=== PATIENT | female | born 1945 | race Caucasian/White ===

== ENCOUNTER → 2018-03-15 10:41 | Outpatient (CLI) | payer MEDICARE, BC, SELFPAY | PROVIDERS: Family Provider Nurse Practitioner Family; PCP Nurse Practitioner Family; Visit Provider Physician Assistant | DX: N39.0 Urinary tract infection, site not specified (principal) | CPT/HCPCS: 87077; 87086; 87186 ==

== ENCOUNTER 2018-08-10 08:15 | Outpatient (RCR) | payer MEDICARE, BC, SELFPAY ==
--- NOTE | 2018-05-30 16:58 | PT.OIE ---
Current Diagnoses Pain in left knee (05/30/18) Difficulty in walking, not elsewhere classified (05/30/18) Weakness (05/30/18) Presence of left artificial knee joint (05/30/18) Past Surgical History (Last Updated 05/30/18 @ 16:50 by Lucina Mike, PT) History of right hip replacement (Acute) History of total left knee replacement (Acute) Provider Visit Care Team Role Provider Type Abebe Neves MD Attending Provider Non-Staff Specialty: Orthopedics Address: [address] [place] [address] , [place], [address] Email: Physical Therapy Initial Evaluation PT-OP-A Visit Information Start: 05/30/18 08:11 Freq: Status: Active Protocol: Document 05/30/18 09:49 [facility] (Rec: 05/30/18 16:58 [facility] [id number]) Out-Patient Physical Therapy Visit Information Visit Information Visit Type Initial Evaluation Visit Note 1 total visit Visit Start Time 09:45 Visit Stop Time 10:30 Total Visit Minutes 45 Visit Number / Number of INTEGRATION ASSISTANT Visits 0 PT-OP-B Current Condition Start: 05/30/18 08:11 Freq: Status: Active Protocol: Document 05/30/18 09:49 [facility] (Rec: 05/30/18 10:35 [facility] [id number]) Current Condition History of Current Condition Onset Date 02/20/18 Current Complaints dec knee ROM History of Current Condition Pt had L partial knee replacement 02/20/18 and she did PT about 2 months, but did not achieve full range. Pt reports she has pain anytime her knee is bent for any period of time or when she tries to go to end range flex. Pt reports she is overall not very flexible. The MD plans to do a manipulation if PT does not work. Prior Treatments and Tests 2 months PT Future Testing and Treatments Planned possible manipulation Treatment Goals Patient/Caregiver Goals be able to go up/down stairs, wake up in AM without painful knee, be able to go up/down hills PT-OP-C Subjective Start: 05/30/18 08:11 Freq: Status: Active Protocol: Document 05/30/18 09:49 [facility] (Rec: 05/30/18 10:35 [facility] [id number]) Patient Questionnaires Lower Extremity Functional Scale LEFS Score 49 LEFS Impairment 20 to 39% Impaired (Score 48- 62) OP-PT Pain Assessment Location L knee Pain Location Details post knee into calf & into heel Intensity 7 Scale Used Numeric (1 - 10) Description Aching Sharp Frequency Occasional Pain Duration only through activity Pain Aggravating Factors Stair Climbing Bending Other Pain Aggravating Factors geting dressed, getting up after sitting Pain Alleviating Factors None PT-OP-F Manual Assessment Start: 05/30/18 08:11 Freq: Status: Active Protocol: Document 05/30/18 09:49 [facility] (Rec: 05/30/18 10:35 [facility] [id number]) Manual Assessments Soft Tissue Assessment Soft Tissue Mobility Assessment tightness in scar and HS & calf L Joint Mobility Assessment Joint Mobility Assessment Dec patellar mobility PT-OP-G Mobility & Gait Start: 05/30/18 08:11 Freq: Status: Active Protocol: Document 05/30/18 09:49 [facility] (Rec: 05/30/18 10:35 [facility] [id number]) OP Gait Assessment Comments Gait Comments dec LLE push off and L lat lean with LLE stance PT-OP-K Range of Motion Start: 05/30/18 08:11 Freq: Status: Active Protocol: Document 05/30/18 09:49 [facility] (Rec: 05/30/18 10:35 [facility] [id number]) Knee Goniometric Range of Motion Knee Measured in Degrees Right Patient Position Supine Flexion Active (degrees) 115 Extension Active (degrees) 7 Left Patient Position Supine Flexion Active (degrees) 91 Extension Active (degrees) 10 Ankle and Foot Goniometric Range of Motion Ankle and Foot Measured in Degrees Left Active Dorsiflexion with Knee Flexed 18 Dorsiflexion with Knee Extended 12 PT-OP-M Strength Start: 05/30/18 08:11 Freq: Status: Active Protocol: Document 05/30/18 09:49 [facility] (Rec: 05/30/18 10:35 [facility] [id number]) Hip Strength Hip Manual Muscle Testing Right Flexion (L2) 4+ Good+ Extension (S1) 4+ Good+ Abduction 4+ Good+ External Rotation 4 Good Internal Rotation 5 Normal Left Flexion (L2) 4- Good- Extension (S1) 3+ Fair+ Abduction 4- Good- Adduction 4 Good External Rotation 4- Good- Internal Rotation 3+ Fair+ Knee Strength Knee Manual Muscle Testing Right Flexion (S2) 5 Normal Extension (L3) 5 Normal Left Flexion (S2) 3+ Fair+ Extension (L3) 4+ Good+ Comments pain Ankle/Foot Strength Ankle and Foot Manual Muscle Testing Right Dorsiflexion (L4) 5 Normal Plantarflexion (S1) 5 Normal Left Dorsiflexion (L4) 5 Normal Plantarflexion (S1) 5 Normal Comments inc difficulty L PT-OP-Q Treatments Start: 05/30/18 08:11 Freq: Status: Active Protocol: Document 05/30/18 09:49 [facility] (Rec: 05/30/18 10:35 [facility] [id number]) Therapeutic Exercises Supine Exercises naga test stretch Supine Exercise Name naga test stretch Side left Reps/Minutes 30 sec HS stretch Supine Exercise Name HS stretch with towel Side left Reps/Minutes 30 sec Sitting Exercises knee flex Sitting Exercise Name seated knee flex w/ scoot Side left Reps/Minutes 10 sec hold Standing Exercises gastroc stretch Standing Exercise Name gastroc stretch Side left Reps/Minutes 30 sec Other Exercises rolling out/plunger Other Exercise Name rolling L HS & calf & plunger pull to L ant knee Side left PT-OP-T Assessment and Plan Start: 05/30/18 08:11 Freq: Status: Active Protocol: Document 05/30/18 09:49 [facility] (Rec: 05/30/18 16:58 [facility] [id number]) Physical Therapy Assessment Rehab Potential Rehabilitation Potential Good Evaluation Complexity Number of Personal Factors/Comorbidities 3 or More Number of Body Systems Impaired 4 or More Clinical Presentation at Evaluation Stable Impairments Impairments Activity Tolerance Functional Activities Gait Pain ROM Soft Tissue Mobility Strength Goals pain Short Term Goal (STG) Pt will be able to appropriately set herself up to sleep without waking with significant pain. STG Duration 06/30/18 Circulating Process Inspector Goal (LTG) Pt will report no more than 2/ 10 pain with typical daily activities. LTG Duration 07/28/18 strength Impairment strength Short Term Goal (STG) Pt will be indep with HEP STG Duration 06/30/18 Intermediate Goal (LTG) Pt will have 5/5 strength to allow her to return to normal activities without pain. LTG Duration 07/28/18 ROM Impairment ROM Short Term Goal (STG) Pt will have 3-105 ROM to allow inc ability to participate in daily tasks. STG Duration 06/30/18 Circulating Process Inspector Goal (LTG) Pt will have 0-120 ROM and is able to particpate in stairs without pain. LTG Duration 07/28/18 Assessment Summary Assessment Pt presents with significantly dec ROM in L knee after partial knee replacement 3 months ago. She cont to have significant pain with typical daily activities and significiant hip and knee weakness on LLE. She would benefit from therapy to work on range & overall LLE strength. Physical Therapy Plan Frequency and Duration Frequency of Treatment 2x/Week Duration of Treatment 2 months Plan of Care Start Date 05/30/18 Plan of Care End Date 07/28/18 Therapeutic Interventions Therapeutic Interventions Aquatic Therapy Balance Training Gait Training Home Exercise Program Joint Mobilizations Manual Therapy Neuromuscular Re-education Self-Care/Home Management Soft Tissue Mobilization Taping Therapeutic Activities Therapeutic Exercises Modalities Cold Pack/Ice Massage Electric Stimulation Hot Packs Infrared Therapy Ultrasound Next Visit Focus/Plan Next Note Type Treatment Note Next Visit Plan tball flex, wall flex, heel slides, bike/stepper, patellar & tibfem glides, STM to scar
--- NOTE | 2018-05-30 16:58 | PT.OPPOC ---
Current Diagnoses Pain in left knee (05/30/18) Difficulty in walking, not elsewhere classified (05/30/18) Weakness (05/30/18) Presence of left artificial knee joint (05/30/18) Provider Visit Care Team Role Provider Type Abebe Nvees MD Attending Provider Non-Staff Specialty: Orthopedics Address: [facility] [address], [place], [address] Email: Plan Of Care PT-OP-T Assessment and Plan Start: 05/30/18 08:11 Freq: Status: Active Protocol: Document 05/30/18 09:49 [facility] (Rec: 05/30/18 16:58 [facility] [id number]) Physical Therapy Assessment Rehab Potential Rehabilitation Potential Good Evaluation Complexity Number of Personal Factors/Comorbidities 3 or More Number of Body Systems Impaired 4 or More Clinical Presentation at Evaluation Stable Impairments Impairments Activity Tolerance Functional Activities Gait Pain ROM Soft Tissue Mobility Strength Goals pain Short Term Goal (STG) Pt will be able to appropriately set herself up to sleep without waking with significant pain. STG Duration 06/30/18 Custodial Goal (LTG) Pt will report no more than 2/ 10 pain with typical daily activities. LTG Duration 07/28/18 strength Impairment strength Short Term Goal (STG) Pt will be indep with HEP STG Duration 06/30/18 Sales Negotiator Goal (LTG) Pt will have 5/5 strength to allow her to return to normal activities without pain. LTG Duration 07/28/18 ROM Impairment ROM Short Term Goal (STG) Pt will have 3-105 ROM to allow inc ability to participate in daily tasks. STG Duration 06/30/18 Sales Negotiator Goal (LTG) Pt will have 0-120 ROM and is able to particpate in stairs without pain. LTG Duration 07/28/18 Assessment Summary Assessment Pt presents with significantly dec ROM in L knee after partial knee replacement 3 months ago. She cont to have significant pain with typical daily activities and significiant hip and knee weakness on LLE. She would benefit from therapy to work on range & overall LLE strength. Physical Therapy Plan Frequency and Duration Frequency of Treatment 2x/Week Duration of Treatment 2 months Plan of Care Start Date 05/30/18 Plan of Care End Date 07/28/18 Therapeutic Interventions Therapeutic Interventions Aquatic Therapy Balance Training Gait Training Home Exercise Program Joint Mobilizations Manual Therapy Neuromuscular Re-education Self-Care/Home Management Soft Tissue Mobilization Taping Therapeutic Activities Therapeutic Exercises Modalities Cold Pack/Ice Massage Electric Stimulation Hot Packs Infrared Therapy Ultrasound Next Visit Focus/Plan Next Note Type Treatment Note Next Visit Plan tball flex, wall flex, heel slides, bike/stepper, patellar & tibfem glides, STM to scar Plan of Care Dates Plan of Care Start Date 05/30/18 Plan of Care End Date 07/28/18 Please Sign and Return: I have reviewed this Plan of Care and certify that the skilled therapy services above are required to meet the patient?s needs. Physician Signature Date Printed Name and Credentials Clinical Instructor Signature Printed Name and Credentials
--- NOTE | 2018-06-02 11:29 | PT.OTN ---
Current Diagnoses Presence of left artificial knee joint (06/02/18) Physical Therapy Treatment Note PT-OP-A Visit Information Start: 05/30/18 08:11 Freq: Status: Active Protocol: Document 06/02/18 11:08 (Rec: 06/02/18 11:29 [email or web address]) Out-Patient Physical Therapy Visit Information Visit Information Visit Type Treatment Note Visit Start Time 09:44 Visit Stop Time 10:32 Total Visit Minutes 48 Visit Number 2/ Number of CNA HHA Visits 1 PT-OP-B Current Condition Start: 05/30/18 08:11 Freq: Status: Active Protocol: Document 05/30/18 09:49 [facility] (Rec: 05/30/18 10:35 [facility] [id number]) Current Condition History of Current Condition Onset Date 02/20/18 Current Complaints dec knee ROM History of Current Condition Pt had L partial knee replacement 02/20/18 and she did PT about 2 months, but did not achieve full range. Pt reports she has pain anytime her knee is bent for any period of time or when she tries to go to end range flex. Pt reports she is overall not very flexible. The MD plans to do a manipulation if PT does not work. Prior Treatments and Tests 2 months PT Future Testing and Treatments Planned possible manipulation Treatment Goals Patient/Caregiver Goals be able to go up/down stairs, wake up in AM without painful knee, be able to go up/down hills PT-OP-C Subjective Start: 05/30/18 08:11 Freq: Status: Active Protocol: Document 06/02/18 11:08 (Rec: 06/02/18 11:29 [email or web address]) OP-PT Subjective Patient Comments Patient Comments L knee feels tight and a little sore today, started doing HS stretching at home. PT-OP-F Manual Assessment Start: 05/30/18 08:11 Freq: Status: Active Protocol: Document 05/30/18 09:49 [facility] (Rec: 05/30/18 10:35 [facility] [id number]) Manual Assessments Soft Tissue Assessment Soft Tissue Mobility Assessment tightness in scar and HS & calf L Joint Mobility Assessment Joint Mobility Assessment Dec patellar mobility PT-OP-G Mobility & Gait Start: 05/30/18 08:11 Freq: Status: Active Protocol: Document 05/30/18 09:49 [facility] (Rec: 05/30/18 10:35 [facility] [id number]) OP Gait Assessment Comments Gait Comments dec LLE push off and L lat lean with LLE stance PT-OP-K Range of Motion Start: 05/30/18 08:11 Freq: Status: Active Protocol: Document 05/30/18 09:49 [facility] (Rec: 05/30/18 10:35 [facility] [id number]) Knee Goniometric Range of Motion Knee Measured in Degrees Right Patient Position Supine Flexion Active (degrees) 115 Extension Active (degrees) 7 Left Patient Position Supine Flexion Active (degrees) 91 Extension Active (degrees) 10 Ankle and Foot Goniometric Range of Motion Ankle and Foot Measured in Degrees Left Active Dorsiflexion with Knee Flexed 18 Dorsiflexion with Knee Extended 12 PT-OP-M Strength Start: 05/30/18 08:11 Freq: Status: Active Protocol: Document 05/30/18 09:49 [facility] (Rec: 05/30/18 10:35 [facility] [id number]) Hip Strength Hip Manual Muscle Testing Right Flexion (L2) 4+ Good+ Extension (S1) 4+ Good+ Abduction 4+ Good+ External Rotation 4 Good Internal Rotation 5 Normal Left Flexion (L2) 4- Good- Extension (S1) 3+ Fair+ Abduction 4- Good- Adduction 4 Good External Rotation 4- Good- Internal Rotation 3+ Fair+ Knee Strength Knee Manual Muscle Testing Right Flexion (S2) 5 Normal Extension (L3) 5 Normal Left Flexion (S2) 3+ Fair+ Extension (L3) 4+ Good+ Comments pain Ankle/Foot Strength Ankle and Foot Manual Muscle Testing Right Dorsiflexion (L4) 5 Normal Plantarflexion (S1) 5 Normal Left Dorsiflexion (L4) 5 Normal Plantarflexion (S1) 5 Normal Comments inc difficulty L PT-OP-Q Treatments Start: 05/30/18 08:11 Freq: Status: Active Protocol: Document 06/02/18 11:08 [facility] (Rec: 06/02/18 11:29 [facility] [id number]) Cardio Equipment Recumbent Bicycle Duration (Minutes) 6 Resistance 2 Other Warm up Therapeutic Exercises Supine Exercises Knee flexion stretch Side left Reps/Minutes 30 x 3 Comments with patellar mob naga test stretch Supine Exercise Name naga test stretch Side left Reps/Minutes 30 x 2 HS stretch Supine Exercise Name Standing at stair Side bilateral Reps/Minutes 30 x 2 Sitting Exercises knee flex Sitting Exercise Name seated knee flex w/ scoot Side left Reps/Minutes 10 sec hold Standing Exercises gastroc stretch Standing Exercise Name gastroc stretch Side left Reps/Minutes 30 x 2 Manual Therapy Treatment Soft Tissue Mobilization Scar mobs L knee Body Location L knee incision site Mobilization Type Cross-Friction Intensity/Depth Moderate Body Position Supine Comments Pt supine with knee flexed. HS and gastroc/soleus Body Location L HS/gastroc Mobilization Type Cross-Friction Rolling Strumming Intensity/Depth Moderate Body Position Supine Joint Mobilizations Patallar mobs Joint L knee Grade II Body Position Supine PT-OP-R Modalities Start: 05/30/18 08:11 Freq: Status: Active Protocol: Document 06/02/18 11:08 (Rec: 06/02/18 11:29 [email or web address]) Hot Pack/Cold Pack Treatment Hot Pack Location L knee Patient Position Supine Treatment Duration (minutes) 10 Comments Pt going shopping after and did'nt want to be stiff. PT-OP-T Assessment and Plan Start: 05/30/18 08:11 Freq: Status: Active Protocol: Document 06/02/18 11:08 (Rec: 06/02/18 11:29 [email or web address]) Physical Therapy Assessment Assessment Summary Assessment Pt tolerated treatment well, continued limitations with L knee flexion and ext lag. Recommended pt continue HS and gastroc/soleus stretching at home. Physical Therapy Plan Next Visit Focus/Plan Next Note Type Treatment Note Next Visit Plan Provide handout for self scar mobs to add to HEP, progress LE strengthening and flexibility program and assess response to manual therapy.
--- NOTE | 2018-06-06 16:44 | PT.OTN ---
Current Diagnoses Presence of left artificial knee joint (06/06/18) Physical Therapy Treatment Note PT-OP-A Visit Information Start: 05/30/18 08:11 Freq: Status: Active Protocol: Document 06/06/18 11:21 [facility] (Rec: 06/06/18 14:33 [facility] [id number]) Out-Patient Physical Therapy Visit Information Visit Information Visit Type Treatment Note Visit Start Time 11:15 Visit Stop Time 12:10 Total Visit Minutes 55 Visit Number 3/10 Number of STOCK PREPARATION SUPERVISOR Visits 0 PT-OP-B Current Condition Start: 05/30/18 08:11 Freq: Status: Active Protocol: Document 05/30/18 09:49 [facility] (Rec: 05/30/18 10:35 [facility] [id number]) Current Condition History of Current Condition Onset Date 02/20/18 Current Complaints dec knee ROM History of Current Condition Pt had L partial knee replacement 02/20/18 and she did PT about 2 months, but did not achieve full range. Pt reports she has pain anytime her knee is bent for any period of time or when she tries to go to end range flex. Pt reports she is overall not very flexible. The MD plans to do a manipulation if PT does not work. Prior Treatments and Tests 2 months PT Future Testing and Treatments Planned possible manipulation Treatment Goals Patient/Caregiver Goals be able to go up/down stairs, wake up in AM without painful knee, be able to go up/down hills PT-OP-C Subjective Start: 05/30/18 08:11 Freq: Status: Active Protocol: Document 06/06/18 11:21 [facility] (Rec: 06/06/18 14:33 [facility] [id number]) OP-PT Subjective Patient Comments Patient Comments Reports compliances with stretches. PT-OP-F Manual Assessment Start: 05/30/18 08:11 Freq: Status: Active Protocol: Document 05/30/18 09:49 [facility] (Rec: 05/30/18 10:35 [facility] [id number]) Manual Assessments Soft Tissue Assessment Soft Tissue Mobility Assessment tightness in scar and HS & calf L Joint Mobility Assessment Joint Mobility Assessment Dec patellar mobility PT-OP-G Mobility & Gait Start: 05/30/18 08:11 Freq: Status: Active Protocol: Document 05/30/18 09:49 [facility] (Rec: 05/30/18 10:35 [facility] [id number]) OP Gait Assessment Comments Gait Comments dec LLE push off and L lat lean with LLE stance PT-OP-K Range of Motion Start: 05/30/18 08:11 Freq: Status: Active Protocol: Document 05/30/18 09:49 [facility] (Rec: 05/30/18 10:35 [facility] [id number]) Knee Goniometric Range of Motion Knee Measured in Degrees Right Patient Position Supine Flexion Active (degrees) 115 Extension Active (degrees) 7 Left Patient Position Supine Flexion Active (degrees) 91 Extension Active (degrees) 10 Ankle and Foot Goniometric Range of Motion Ankle and Foot Measured in Degrees Left Active Dorsiflexion with Knee Flexed 18 Dorsiflexion with Knee Extended 12 PT-OP-M Strength Start: 05/30/18 08:11 Freq: Status: Active Protocol: Document 05/30/18 09:49 [facility] (Rec: 05/30/18 10:35 [facility] [id number]) Hip Strength Hip Manual Muscle Testing Right Flexion (L2) 4+ Good+ Extension (S1) 4+ Good+ Abduction 4+ Good+ External Rotation 4 Good Internal Rotation 5 Normal Left Flexion (L2) 4- Good- Extension (S1) 3+ Fair+ Abduction 4- Good- Adduction 4 Good External Rotation 4- Good- Internal Rotation 3+ Fair+ Knee Strength Knee Manual Muscle Testing Right Flexion (S2) 5 Normal Extension (L3) 5 Normal Left Flexion (S2) 3+ Fair+ Extension (L3) 4+ Good+ Comments pain Ankle/Foot Strength Ankle and Foot Manual Muscle Testing Right Dorsiflexion (L4) 5 Normal Plantarflexion (S1) 5 Normal Left Dorsiflexion (L4) 5 Normal Plantarflexion (S1) 5 Normal Comments inc difficulty L PT-OP-Q Treatments Start: 05/30/18 08:11 Freq: Status: Active Protocol: Document 06/06/18 11:21 [facility] (Rec: 06/06/18 16:44 [facility] [id number]) Cardio Equipment Recumbent Bicycle Duration (Minutes) 8 Resistance 2 Other For ROM Therapeutic Exercises Supine Exercises wall flex Supine Exercise Name knee flex w/pillowcase Reps/Minutes 5 sec hold x20 Standing Exercises stair knee flex Standing Exercise Name stretch for knee flex w/ stair Reps/Minutes 30 sec Other Exercises 1/2 knee knee flex stretch Other Exercise Name knee flex Reps/Minutes 10 sec x3 Manual Therapy Treatment Soft Tissue Mobilization ITB Body Location ITB L Mobilization Type Rolling Intensity/Depth Moderate Comments in knee flex HS and gastroc/soleus Body Location L HS/gastroc Mobilization Type Cross-Friction Rolling Strumming Intensity/Depth Moderate Body Position Supine Joint Mobilizations tibfem Joint L tibfemoral Direction PA FM w/APs PT-OP-R Modalities Start: 05/30/18 08:11 Freq: Status: Active Protocol: Document 06/06/18 11:21 [facility] (Rec: 06/06/18 16:44 [facility] [id number]) Hot Pack/Cold Pack Treatment Cold Pack Location ant/post L knee Patient Position Hooklying Treatment Duration (minutes) 10 PT-OP-T Assessment and Plan Start: 05/30/18 08:11 Freq: Status: Active Protocol: Document 06/06/18 11:21 [facility] (Rec: 06/06/18 16:44 [facility] [id number]) Physical Therapy Assessment Goals pain Short Term Goal (STG) Pt will be able to appropriately set herself up to sleep without waking with significant pain. STG Duration 06/30/18 Mop Machine Operator Goal (LTG) Pt will report no more than 2/ 10 pain with typical daily activities. LTG Duration 07/28/18 strength Impairment strength Short Term Goal (STG) Pt will be indep with HEP STG Duration 06/30/18 Mop Machine Operator Goal (LTG) Pt will have 5/5 strength to allow her to return to normal activities without pain. LTG Duration 07/28/18 ROM Impairment ROM Short Term Goal (STG) Pt will have 3-105 ROM to allow inc ability to participate in daily tasks. STG Duration 06/30/18 Mop Machine Operator Goal (LTG) Pt will have 0-120 ROM and is able to particpate in stairs without pain. LTG Duration 07/28/18 Assessment Summary Assessment Pt was able to gain 115 deg flex with wall slides. Manually, pt has dec PA tibial motion, ITB, med HS & med calf tenderness/tightness likely limiting knee flexion. Physical Therapy Plan Frequency and Duration Frequency of Treatment 2x/Week Duration of Treatment 2 months Plan of Care Start Date 05/30/18 Plan of Care End Date 07/28/18 Next Visit Focus/Plan Next Note Type Treatment Note Next Visit Plan self scar mobs for HEP, assess response to mobilization, patellar med glides, possible [employer] taping.
--- NOTE | 2018-06-08 11:46 | PT.OTN ---
Current Diagnoses Presence of left artificial knee joint (06/08/18) Physical Therapy Treatment Note PT-OP-A Visit Information Start: 05/30/18 08:11 Freq: Status: Active Protocol: Document 06/08/18 11:34 [facility] (Rec: 06/08/18 11:46 [facility] [id number]) Out-Patient Physical Therapy Visit Information Visit Information Visit Type Treatment Note Visit Start Time 10:30 Visit Stop Time 11:30 Total Visit Minutes 60 Visit Number 4/10 Number of MATERIALS CLERK Visits 0 PT-OP-B Current Condition Start: 05/30/18 08:11 Freq: Status: Active Protocol: Document 05/30/18 09:49 [facility] (Rec: 05/30/18 10:35 [facility] [id number]) Current Condition History of Current Condition Onset Date 02/20/18 Current Complaints dec knee ROM History of Current Condition Pt had L partial knee replacement 02/20/18 and she did PT about 2 months, but did not achieve full range. Pt reports she has pain anytime her knee is bent for any period of time or when she tries to go to end range flex. Pt reports she is overall not very flexible. The MD plans to do a manipulation if PT does not work. Prior Treatments and Tests 2 months PT Future Testing and Treatments Planned possible manipulation Treatment Goals Patient/Caregiver Goals be able to go up/down stairs, wake up in AM without painful knee, be able to go up/down hills PT-OP-C Subjective Start: 05/30/18 08:11 Freq: Status: Active Protocol: Document 06/08/18 11:34 [facility] (Rec: 06/08/18 11:46 [facility] [id number]) OP-PT Subjective Patient Comments Patient Comments Pt reports [place] and was sores medially and posterior today. PT-OP-F Manual Assessment Start: 05/30/18 08:11 Freq: Status: Active Protocol: Document 05/30/18 09:49 [facility] (Rec: 05/30/18 10:35 [facility] [id number]) Manual Assessments Soft Tissue Assessment Soft Tissue Mobility Assessment tightness in scar and HS & calf L Joint Mobility Assessment Joint Mobility Assessment Dec patellar mobility PT-OP-G Mobility & Gait Start: 05/30/18 08:11 Freq: Status: Active Protocol: Document 05/30/18 09:49 [facility] (Rec: 05/30/18 10:35 [facility] [id number]) OP Gait Assessment Comments Gait Comments dec LLE push off and L lat lean with LLE stance PT-OP-K Range of Motion Start: 05/30/18 08:11 Freq: Status: Active Protocol: Document 05/30/18 09:49 [facility] (Rec: 05/30/18 10:35 [facility] [id number]) Knee Goniometric Range of Motion Knee Measured in Degrees Right Patient Position Supine Flexion Active (degrees) 115 Extension Active (degrees) 7 Left Patient Position Supine Flexion Active (degrees) 91 Extension Active (degrees) 10 Ankle and Foot Goniometric Range of Motion Ankle and Foot Measured in Degrees Left Active Dorsiflexion with Knee Flexed 18 Dorsiflexion with Knee Extended 12 PT-OP-M Strength Start: 05/30/18 08:11 Freq: Status: Active Protocol: Document 05/30/18 09:49 [facility] (Rec: 05/30/18 10:35 [facility] [id number]) Hip Strength Hip Manual Muscle Testing Right Flexion (L2) 4+ Good+ Extension (S1) 4+ Good+ Abduction 4+ Good+ External Rotation 4 Good Internal Rotation 5 Normal Left Flexion (L2) 4- Good- Extension (S1) 3+ Fair+ Abduction 4- Good- Adduction 4 Good External Rotation 4- Good- Internal Rotation 3+ Fair+ Knee Strength Knee Manual Muscle Testing Right Flexion (S2) 5 Normal Extension (L3) 5 Normal Left Flexion (S2) 3+ Fair+ Extension (L3) 4+ Good+ Comments pain Ankle/Foot Strength Ankle and Foot Manual Muscle Testing Right Dorsiflexion (L4) 5 Normal Plantarflexion (S1) 5 Normal Left Dorsiflexion (L4) 5 Normal Plantarflexion (S1) 5 Normal Comments inc difficulty L PT-OP-Q Treatments Start: 05/30/18 08:11 Freq: Status: Active Protocol: Document 06/08/18 11:34 [facility] (Rec: 06/08/18 11:46 [facility] [id number]) Therapeutic Exercises Supine Exercises quad set Supine Exercise Name passive ext with quad set Reps/Minutes 5 Standing Exercises Hamstring stretch Standing Exercise Name bottoms up Reps/Minutes 10 TKE Standing Exercise Name TKE Equipment Used lvl 2 Reps/Minutes 20 squats Standing Exercise Name squats with terminal knee ext to stand Equipment Used Lvl 2 Reps/Minutes 10 Manual Therapy Treatment Soft Tissue Mobilization ant tibialis Body Location ant tib Mobilization Type Myofascial Release Rolling Scar mobs L knee Body Location L knee incision site Mobilization Type Myofascial Release Intensity/Depth Moderate Body Position Supine Comments Pt supine with knee flexed w/ use of plunger HS and gastroc/soleus Body Location L HS/gastroc Mobilization Type Cross-Friction Rolling Strumming Intensity/Depth Moderate Body Position Supine Joint Mobilizations tibfib Joint tib fib Direction AP FM w/APs tibfem Joint L tibfemoral Direction AP to tibia & femor FM Patallar mobs Joint L knee Direction med Grade II Body Position Supine PT-OP-R Modalities Start: 05/30/18 08:11 Freq: Status: Active Protocol: Document 06/08/18 11:34 [facility] (Rec: 06/08/18 11:46 [facility] [id number]) Hot Pack/Cold Pack Treatment Cold Pack Location ant/post L knee Patient Position Hooklying Treatment Duration (minutes) 10 PT-OP-T Assessment and Plan Start: 05/30/18 08:11 Freq: Status: Active Protocol: Document 06/08/18 11:34 [facility] (Rec: 06/08/18 11:46 [facility] [id number]) Physical Therapy Assessment Goals pain Short Term Goal (STG) Pt will be able to appropriately set herself up to sleep without waking with significant pain. STG Duration 06/30/18 Long-Term Goal (LTG) Pt will report no more than 2/ 10 pain with typical daily activities. LTG Duration 07/28/18 strength Impairment strength Short Term Goal (STG) Pt will be indep with HEP STG Duration 06/30/18 Skimmer Reverberatory Goal (LTG) Pt will have 5/5 strength to allow her to return to normal activities without pain. LTG Duration 07/28/18 ROM Impairment ROM Short Term Goal (STG) Pt will have 3-105 ROM to allow inc ability to participate in daily tasks. STG Duration 06/30/18 Long-Term Goal (LTG) Pt will have 0-120 ROM and is able to particpate in stairs without pain. LTG Duration 07/28/18 Assessment Summary Assessment Pt able to get 115 deg flex at start of treatment today and lacked 10 deg ext. after manual therapy, improved ext to lacking only 3 deg. Pt reports feeling better with amb after session today. Physical Therapy Plan Frequency and Duration Frequency of Treatment 2x/Week Duration of Treatment 2 months Plan of Care Start Date 05/30/18 Plan of Care End Date 07/28/18 Next Visit Focus/Plan Next Note Type Treatment Note Next Visit Plan patellar med glides, cont to work tibfib & tibfemoral motion & STM to med calf & HS; mini lunges & return to leg press
--- NOTE | 2018-06-13 13:48 | PT.OTN ---
Current Diagnoses Presence of left artificial knee joint (06/13/18) Physical Therapy Treatment Note PT-OP-A Visit Information Start: 05/30/18 08:11 Freq: Status: Active Protocol: Document 06/13/18 11:21 [facility] (Rec: 06/13/18 13:48 [facility] [id number]) Out-Patient Physical Therapy Visit Information Visit Information Visit Type Treatment Note Visit Start Time 11:15 Visit Stop Time 12:10 Total Visit Minutes 55 Visit Number 5/10 Number of DIESEL ENGINE ASSEMBLER Visits 0 PT-OP-B Current Condition Start: 05/30/18 08:11 Freq: Status: Active Protocol: Document 05/30/18 09:49 [facility] (Rec: 05/30/18 10:35 [facility] [id number]) Current Condition History of Current Condition Onset Date 02/20/18 Current Complaints dec knee ROM History of Current Condition Pt had L partial knee replacement 02/20/18 and she did PT about 2 months, but did not achieve full range. Pt reports she has pain anytime her knee is bent for any period of time or when she tries to go to end range flex. Pt reports she is overall not very flexible. The MD plans to do a manipulation if PT does not work. Prior Treatments and Tests 2 months PT Future Testing and Treatments Planned possible manipulation Treatment Goals Patient/Caregiver Goals be able to go up/down stairs, wake up in AM without painful knee, be able to go up/down hills PT-OP-C Subjective Start: 05/30/18 08:11 Freq: Status: Active Protocol: Document 06/13/18 11:21 [facility] (Rec: 06/13/18 13:48 [facility] [id number]) OP-PT Subjective Patient Comments Patient Comments Pt reports her knee pain has been up and down. She is unsure if range has improved PT-OP-F Manual Assessment Start: 05/30/18 08:11 Freq: Status: Active Protocol: Document 05/30/18 09:49 [facility] (Rec: 05/30/18 10:35 [facility] [id number]) Manual Assessments Soft Tissue Assessment Soft Tissue Mobility Assessment tightness in scar and HS & calf L Joint Mobility Assessment Joint Mobility Assessment Dec patellar mobility PT-OP-G Mobility & Gait Start: 05/30/18 08:11 Freq: Status: Active Protocol: Document 05/30/18 09:49 [facility] (Rec: 05/30/18 10:35 [facility] [id number]) OP Gait Assessment Comments Gait Comments dec LLE push off and L lat lean with LLE stance PT-OP-K Range of Motion Start: 05/30/18 08:11 Freq: Status: Active Protocol: Document 05/30/18 09:49 [facility] (Rec: 05/30/18 10:35 [facility] [id number]) Knee Goniometric Range of Motion Knee Measured in Degrees Right Patient Position Supine Flexion Active (degrees) 115 Extension Active (degrees) 7 Left Patient Position Supine Flexion Active (degrees) 91 Extension Active (degrees) 10 Ankle and Foot Goniometric Range of Motion Ankle and Foot Measured in Degrees Left Active Dorsiflexion with Knee Flexed 18 Dorsiflexion with Knee Extended 12 PT-OP-M Strength Start: 05/30/18 08:11 Freq: Status: Active Protocol: Document 05/30/18 09:49 [facility] (Rec: 05/30/18 10:35 [facility] [id number]) Hip Strength Hip Manual Muscle Testing Right Flexion (L2) 4+ Good+ Extension (S1) 4+ Good+ Abduction 4+ Good+ External Rotation 4 Good Internal Rotation 5 Normal Left Flexion (L2) 4- Good- Extension (S1) 3+ Fair+ Abduction 4- Good- Adduction 4 Good External Rotation 4- Good- Internal Rotation 3+ Fair+ Knee Strength Knee Manual Muscle Testing Right Flexion (S2) 5 Normal Extension (L3) 5 Normal Left Flexion (S2) 3+ Fair+ Extension (L3) 4+ Good+ Comments pain Ankle/Foot Strength Ankle and Foot Manual Muscle Testing Right Dorsiflexion (L4) 5 Normal Plantarflexion (S1) 5 Normal Left Dorsiflexion (L4) 5 Normal Plantarflexion (S1) 5 Normal Comments inc difficulty L PT-OP-Q Treatments Start: 05/30/18 08:11 Freq: Status: Active Protocol: Document 06/13/18 11:21 [facility] (Rec: 06/13/18 13:48 [facility] [id number]) Cardio Equipment Recumbent Bicycle Duration (Minutes) 7 Resistance 4 Other For ROM Therapeutic Exercises Supine Exercises quad set Supine Exercise Name passive ext with quad set Reps/Minutes 8 Manual Therapy Treatment Soft Tissue Mobilization ITB Body Location ITB L Mobilization Type Rolling Intensity/Depth Moderate Comments in knee flex & plunger mobs Scar mobs L knee Body Location L knee incision site Mobilization Type Myofascial Release Intensity/Depth Moderate Body Position Supine Comments Pt supine with knee flexed w/ use of plunger HS and gastroc/soleus Body Location L HS/gastroc Mobilization Type Cross-Friction Rolling Strumming Intensity/Depth Moderate Body Position Supine Comments in flex w/APs Joint Mobilizations tibfib Joint tib fib Direction PA FM w/APs PT-OP-R Modalities Start: 05/30/18 08:11 Freq: Status: Active Protocol: Document 06/13/18 11:21 [facility] (Rec: 06/13/18 13:48 [facility] [id number]) Hot Pack/Cold Pack Treatment Cold Pack Location ant/post L knee Patient Position Hooklying Treatment Duration (minutes) 10 PT-OP-T Assessment and Plan Start: 05/30/18 08:11 Freq: Status: Active Protocol: Document 06/13/18 11:21 [facility] (Rec: 06/13/18 13:48 [facility] [id number]) Physical Therapy Assessment Goals pain Short Term Goal (STG) Pt will be able to appropriately set herself up to sleep without waking with significant pain. STG Duration 06/30/18 Detention Goal (LTG) Pt will report no more than 2/ 10 pain with typical daily activities. LTG Duration 07/28/18 strength Impairment strength Short Term Goal (STG) Pt will be indep with HEP STG Duration 06/30/18 Strength And Conditioning Coach Goal (LTG) Pt will have 5/5 strength to allow her to return to normal activities without pain. LTG Duration 07/28/18 ROM Impairment ROM Short Term Goal (STG) Pt will have 3-105 ROM to allow inc ability to participate in daily tasks. STG Duration 06/30/18 Strength And Conditioning Coach Goal (LTG) Pt will have 0-120 ROM and is able to particpate in stairs without pain. LTG Duration 07/28/18 Assessment Summary Assessment Pt able to get 120 deg of flex of tibfib mobs. Pt cont to have dec end range quad strength. Able to achieve full ext with manual treatment Physical Therapy Plan Frequency and Duration Frequency of Treatment 2x/Week Duration of Treatment 2 months Plan of Care Start Date 05/30/18 Plan of Care End Date 07/28/18 Next Visit Focus/Plan Next Note Type Treatment Note Next Visit Plan patellar med glides, tibfemoral motion & work on strength of quads
--- NOTE | 2018-06-15 11:43 | PT.OTN ---
Current Diagnoses Presence of left artificial knee joint (06/15/18) Physical Therapy Treatment Note PT-OP-A Visit Information Start: 05/30/18 08:11 Freq: Status: Active Protocol: Document 06/15/18 09:05 [facility] (Rec: 06/15/18 11:43 [facility] [id number]) Out-Patient Physical Therapy Visit Information Visit Information Visit Type Treatment Note Visit Start Time 09:00 Visit Stop Time 09:55 Total Visit Minutes 55 Visit Number 6/10 Number of ART OBJECTS SUPERVISOR Visits 0 PT-OP-B Current Condition Start: 05/30/18 08:11 Freq: Status: Active Protocol: Document 05/30/18 09:49 [facility] (Rec: 05/30/18 10:35 [facility] [id number]) Current Condition History of Current Condition Onset Date 02/20/18 Current Complaints dec knee ROM History of Current Condition Pt had L partial knee replacement 02/20/18 and she did PT about 2 months, but did not achieve full range. Pt reports she has pain anytime her knee is bent for any period of time or when she tries to go to end range flex. Pt reports she is overall not very flexible. The MD plans to do a manipulation if PT does not work. Prior Treatments and Tests 2 months PT Future Testing and Treatments Planned possible manipulation Treatment Goals Patient/Caregiver Goals be able to go up/down stairs, wake up in AM without painful knee, be able to go up/down hills PT-OP-C Subjective Start: 05/30/18 08:11 Freq: Status: Active Protocol: Document 06/15/18 09:05 [facility] (Rec: 06/15/18 11:43 [facility] [id number]) OP-PT Subjective Patient Comments Patient Comments Pt notes she feels like she is improving. She had less pain this AM Patient Reported Progress Improving PT-OP-F Manual Assessment Start: 05/30/18 08:11 Freq: Status: Active Protocol: Document 05/30/18 09:49 [facility] (Rec: 05/30/18 10:35 [facility] [id number]) Manual Assessments Soft Tissue Assessment Soft Tissue Mobility Assessment tightness in scar and HS & calf L Joint Mobility Assessment Joint Mobility Assessment Dec patellar mobility PT-OP-G Mobility & Gait Start: 05/30/18 08:11 Freq: Status: Active Protocol: Document 05/30/18 09:49 [facility] (Rec: 05/30/18 10:35 [facility] [id number]) OP Gait Assessment Comments Gait Comments dec LLE push off and L lat lean with LLE stance PT-OP-K Range of Motion Start: 05/30/18 08:11 Freq: Status: Active Protocol: Document 05/30/18 09:49 [facility] (Rec: 05/30/18 10:35 [facility] [id number]) Knee Goniometric Range of Motion Knee Measured in Degrees Right Patient Position Supine Flexion Active (degrees) 115 Extension Active (degrees) 7 Left Patient Position Supine Flexion Active (degrees) 91 Extension Active (degrees) 10 Ankle and Foot Goniometric Range of Motion Ankle and Foot Measured in Degrees Left Active Dorsiflexion with Knee Flexed 18 Dorsiflexion with Knee Extended 12 PT-OP-M Strength Start: 05/30/18 08:11 Freq: Status: Active Protocol: Document 05/30/18 09:49 [facility] (Rec: 05/30/18 10:35 [facility] [id number]) Hip Strength Hip Manual Muscle Testing Right Flexion (L2) 4+ Good+ Extension (S1) 4+ Good+ Abduction 4+ Good+ External Rotation 4 Good Internal Rotation 5 Normal Left Flexion (L2) 4- Good- Extension (S1) 3+ Fair+ Abduction 4- Good- Adduction 4 Good External Rotation 4- Good- Internal Rotation 3+ Fair+ Knee Strength Knee Manual Muscle Testing Right Flexion (S2) 5 Normal Extension (L3) 5 Normal Left Flexion (S2) 3+ Fair+ Extension (L3) 4+ Good+ Comments pain Ankle/Foot Strength Ankle and Foot Manual Muscle Testing Right Dorsiflexion (L4) 5 Normal Plantarflexion (S1) 5 Normal Left Dorsiflexion (L4) 5 Normal Plantarflexion (S1) 5 Normal Comments inc difficulty L PT-OP-Q Treatments Start: 05/30/18 08:11 Freq: Status: Active Protocol: Document 06/15/18 09:05 [facility] (Rec: 06/15/18 11:43 [facility] [id number]) Cardio Equipment Recumbent Bicycle Duration (Minutes) 5 Resistance 4 Other For ROM Manual Therapy Treatment Soft Tissue Mobilization ant quad Body Location quad lat Mobilization Type Rolling Comments in naga test position HS and gastroc/soleus Body Location L HS Mobilization Type Cross-Friction Rolling Strumming Intensity/Depth Moderate Body Position Supine Comments in flex w/APs Joint Mobilizations tibfem Joint L tibfemoral Direction AP to tibia & femor FM Patallar mobs Joint L knee Direction med & sup Grade II Body Position Supine PT-OP-R Modalities Start: 05/30/18 08:11 Freq: Status: Active Protocol: Document 06/15/18 09:05 [facility] (Rec: 06/15/18 11:43 [facility] [id number]) Hot Pack/Cold Pack Treatment Cold Pack Location ant/post L knee Patient Position Hooklying Treatment Duration (minutes) 10 PT-OP-T Assessment and Plan Start: 05/30/18 08:11 Freq: Status: Active Protocol: Document 06/15/18 09:05 [facility] (Rec: 06/15/18 11:43 [facility] [id number]) Physical Therapy Assessment Goals pain Short Term Goal (STG) Pt will be able to appropriately set herself up to sleep without waking with significant pain. STG Duration 06/30/18 Registered Dental Hygienist Goal (LTG) Pt will report no more than 2/ 10 pain with typical daily activities. LTG Duration 07/28/18 strength Impairment strength Short Term Goal (STG) Pt will be indep with HEP STG Duration 06/30/18 Registered Dental Hygienist Goal (LTG) Pt will have 5/5 strength to allow her to return to normal activities without pain. LTG Duration 07/28/18 ROM Impairment ROM Short Term Goal (STG) Pt will have 3-105 ROM to allow inc ability to participate in daily tasks. STG Duration 06/30/18 Registered Dental Hygienist Goal (LTG) Pt will have 0-120 ROM and is able to particpate in stairs without pain. LTG Duration 07/28/18 Assessment Summary Assessment Pt presented with 117 deg flex but still lacking about 8 deg of ext. She improved to lacking only 3 deg of ext. Physical Therapy Plan Frequency and Duration Frequency of Treatment 2x/Week Duration of Treatment 2 months Plan of Care Start Date 05/30/18 Plan of Care End Date 07/28/18 Next Visit Focus/Plan Next Note Type Treatment Note Next Visit Plan advance strengthening
--- NOTE | 2018-06-20 13:00 | PT.OTN ---
Current Diagnoses Presence of left artificial knee joint (06/20/18) Physical Therapy Treatment Note PT-OP-A Visit Information Start: 05/30/18 08:11 Freq: Status: Active Protocol: Document 06/20/18 12:00 [facility] (Rec: 06/21/18 10:02 [facility] [id number]) Out-Patient Physical Therapy Visit Information Visit Information Visit Type Treatment Note Visit Start Time 11:20 Visit Stop Time 12:05 Total Visit Minutes 45 Visit Number 7/10 Number of TREASURY ASSOCIATE Visits 0 PT-OP-B Current Condition Start: 05/30/18 08:11 Freq: Status: Active Protocol: Document 05/30/18 09:49 [facility] (Rec: 05/30/18 10:35 [facility] [id number]) Current Condition History of Current Condition Onset Date 02/20/18 Current Complaints dec knee ROM History of Current Condition Pt had L partial knee replacement 02/20/18 and she did PT about 2 months, but did not achieve full range. Pt reports she has pain anytime her knee is bent for any period of time or when she tries to go to end range flex. Pt reports she is overall not very flexible. The MD plans to do a manipulation if PT does not work. Prior Treatments and Tests 2 months PT Future Testing and Treatments Planned possible manipulation Treatment Goals Patient/Caregiver Goals be able to go up/down stairs, wake up in AM without painful knee, be able to go up/down hills PT-OP-C Subjective Start: 05/30/18 08:11 Freq: Status: Active Protocol: Document 06/20/18 12:00 [facility] (Rec: 06/21/18 10:02 [facility] [id number]) OP-PT Subjective Patient Comments Patient Comments Pt reports feeling like her ext is improving. PT-OP-F Manual Assessment Start: 05/30/18 08:11 Freq: Status: Active Protocol: Document 05/30/18 09:49 [facility] (Rec: 05/30/18 10:35 [facility] [id number]) Manual Assessments Soft Tissue Assessment Soft Tissue Mobility Assessment tightness in scar and HS & calf L Joint Mobility Assessment Joint Mobility Assessment Dec patellar mobility PT-OP-G Mobility & Gait Start: 05/30/18 08:11 Freq: Status: Active Protocol: Document 05/30/18 09:49 [facility] (Rec: 05/30/18 10:35 [facility] [id number]) OP Gait Assessment Comments Gait Comments dec LLE push off and L lat lean with LLE stance PT-OP-K Range of Motion Start: 05/30/18 08:11 Freq: Status: Active Protocol: Document 05/30/18 09:49 [facility] (Rec: 05/30/18 10:35 [facility] [id number]) Knee Goniometric Range of Motion Knee Measured in Degrees Right Patient Position Supine Flexion Active (degrees) 115 Extension Active (degrees) 7 Left Patient Position Supine Flexion Active (degrees) 91 Extension Active (degrees) 10 Ankle and Foot Goniometric Range of Motion Ankle and Foot Measured in Degrees Left Active Dorsiflexion with Knee Flexed 18 Dorsiflexion with Knee Extended 12 PT-OP-M Strength Start: 05/30/18 08:11 Freq: Status: Active Protocol: Document 05/30/18 09:49 [facility] (Rec: 05/30/18 10:35 [facility] [id number]) Hip Strength Hip Manual Muscle Testing Right Flexion (L2) 4+ Good+ Extension (S1) 4+ Good+ Abduction 4+ Good+ External Rotation 4 Good Internal Rotation 5 Normal Left Flexion (L2) 4- Good- Extension (S1) 3+ Fair+ Abduction 4- Good- Adduction 4 Good External Rotation 4- Good- Internal Rotation 3+ Fair+ Knee Strength Knee Manual Muscle Testing Right Flexion (S2) 5 Normal Extension (L3) 5 Normal Left Flexion (S2) 3+ Fair+ Extension (L3) 4+ Good+ Comments pain Ankle/Foot Strength Ankle and Foot Manual Muscle Testing Right Dorsiflexion (L4) 5 Normal Plantarflexion (S1) 5 Normal Left Dorsiflexion (L4) 5 Normal Plantarflexion (S1) 5 Normal Comments inc difficulty L PT-OP-Q Treatments Start: 05/30/18 08:11 Freq: Status: Active Protocol: Document 06/20/18 12:00 [facility] (Rec: 06/21/18 10:02 [facility] [id number]) Therapeutic Exercises Supine Exercises self tibfem PA mob Supine Exercise Name PA mob w/belt quad set Supine Exercise Name passive ext with quad set Reps/Minutes 8 Prone Exercises knee ext Prone Exercise Name passive knee ext over EOB Standing Exercises lunges Standing Exercise Name lunging Side bilateral Reps/Minutes 10 squats Standing Exercise Name squats Reps/Minutes 20 Manual Therapy Treatment Soft Tissue Mobilization ant quad Body Location quad lat Mobilization Type Rolling Comments in naga test position ITB Body Location ITB L Mobilization Type Rolling Intensity/Depth Moderate Comments in knee flex & plunger mobs Scar mobs L knee Body Location L knee incision site Mobilization Type Myofascial Release Intensity/Depth Moderate Body Position Supine Comments Pt supine with knee flexed w/ use of plunger Joint Mobilizations tibfem Joint L tibfemoral Direction PA FM PT-OP-R Modalities Start: 05/30/18 08:11 Freq: Status: Active Protocol: Document 06/15/18 09:05 [facility] (Rec: 06/15/18 11:43 [facility] [id number]) Hot Pack/Cold Pack Treatment Cold Pack Location ant/post L knee Patient Position Hooklying Treatment Duration (minutes) 10 PT-OP-T Assessment and Plan Start: 05/30/18 08:11 Freq: Status: Active Protocol: Document 06/20/18 12:00 [facility] (Rec: 06/21/18 10:02 [facility] [id number]) Physical Therapy Assessment Goals pain Short Term Goal (STG) Pt will be able to appropriately set herself up to sleep without waking with significant pain. STG Duration 06/30/18 Senior Living Goal (LTG) Pt will report no more than 2/ 10 pain with typical daily activities. LTG Duration 07/28/18 strength Impairment strength Short Term Goal (STG) Pt will be indep with HEP STG Duration 06/30/18 Senior Living Goal (LTG) Pt will have 5/5 strength to allow her to return to normal activities without pain. LTG Duration 07/28/18 ROM Impairment ROM Short Term Goal (STG) Pt will have 3-105 ROM to allow inc ability to participate in daily tasks. STG Duration 06/30/18-partially met [employer] Registration Specialist Goal (LTG) Pt will have 0-120 ROM and is able to particpate in stairs without pain. LTG Duration 07/28/18-able to do stairs 5-115 Assessment Summary Assessment Pt cont to lack about 5 deg ext and starts with 115 deg flex. She is improving with strength though and was able to go through lunges and squats with better form and is able to stairs without pain. Physical Therapy Plan Frequency and Duration Frequency of Treatment 2x/Week Duration of Treatment 2 months Plan of Care Start Date 05/30/18 Plan of Care End Date 07/28/18 Next Visit Focus/Plan Next Note Type Treatment Note Next Visit Plan advance strengthening & balance
--- NOTE | 2018-06-22 11:36 | PT.OTN ---
Current Diagnoses Presence of left artificial knee joint (06/22/18) Physical Therapy Treatment Note PT-OP-A Visit Information Start: 05/30/18 08:11 Freq: Status: Active Protocol: Document 06/22/18 10:22 [facility] (Rec: 06/22/18 11:36 [facility] [id number]) Out-Patient Physical Therapy Visit Information Visit Information Visit Type Treatment Note Visit Start Time 10:30 Visit Stop Time 11:15 Total Visit Minutes 45 Visit Number 8/10 Number of KENNEL MANAGER Visits 0 PT-OP-B Current Condition Start: 05/30/18 08:11 Freq: Status: Active Protocol: Document 05/30/18 09:49 [facility] (Rec: 05/30/18 10:35 [facility] [id number]) Current Condition History of Current Condition Onset Date 02/20/18 Current Complaints dec knee ROM History of Current Condition Pt had L partial knee replacement 02/20/18 and she did PT about 2 months, but did not achieve full range. Pt reports she has pain anytime her knee is bent for any period of time or when she tries to go to end range flex. Pt reports she is overall not very flexible. The MD plans to do a manipulation if PT does not work. Prior Treatments and Tests 2 months PT Future Testing and Treatments Planned possible manipulation Treatment Goals Patient/Caregiver Goals be able to go up/down stairs, wake up in AM without painful knee, be able to go up/down hills PT-OP-C Subjective Start: 05/30/18 08:11 Freq: Status: Active Protocol: Document 06/22/18 10:22 [facility] (Rec: 06/22/18 11:36 [facility] [id number]) OP-PT Subjective Patient Comments Patient Comments Reports she feels like she needs to review the exercises Patient Reported Progress Improving PT-OP-F Manual Assessment Start: 05/30/18 08:11 Freq: Status: Active Protocol: Document 05/30/18 09:49 [facility] (Rec: 05/30/18 10:35 [facility] [id number]) Manual Assessments Soft Tissue Assessment Soft Tissue Mobility Assessment tightness in scar and HS & calf L Joint Mobility Assessment Joint Mobility Assessment Dec patellar mobility PT-OP-G Mobility & Gait Start: 05/30/18 08:11 Freq: Status: Active Protocol: Document 05/30/18 09:49 [facility] (Rec: 05/30/18 10:35 [facility] [id number]) OP Gait Assessment Comments Gait Comments dec LLE push off and L lat lean with LLE stance PT-OP-K Range of Motion Start: 05/30/18 08:11 Freq: Status: Active Protocol: Document 05/30/18 09:49 [facility] (Rec: 05/30/18 10:35 [facility] [id number]) Knee Goniometric Range of Motion Knee Measured in Degrees Right Patient Position Supine Flexion Active (degrees) 115 Extension Active (degrees) 7 Left Patient Position Supine Flexion Active (degrees) 91 Extension Active (degrees) 10 Ankle and Foot Goniometric Range of Motion Ankle and Foot Measured in Degrees Left Active Dorsiflexion with Knee Flexed 18 Dorsiflexion with Knee Extended 12 PT-OP-M Strength Start: 05/30/18 08:11 Freq: Status: Active Protocol: Document 05/30/18 09:49 [facility] (Rec: 05/30/18 10:35 [facility] [id number]) Hip Strength Hip Manual Muscle Testing Right Flexion (L2) 4+ Good+ Extension (S1) 4+ Good+ Abduction 4+ Good+ External Rotation 4 Good Internal Rotation 5 Normal Left Flexion (L2) 4- Good- Extension (S1) 3+ Fair+ Abduction 4- Good- Adduction 4 Good External Rotation 4- Good- Internal Rotation 3+ Fair+ Knee Strength Knee Manual Muscle Testing Right Flexion (S2) 5 Normal Extension (L3) 5 Normal Left Flexion (S2) 3+ Fair+ Extension (L3) 4+ Good+ Comments pain Ankle/Foot Strength Ankle and Foot Manual Muscle Testing Right Dorsiflexion (L4) 5 Normal Plantarflexion (S1) 5 Normal Left Dorsiflexion (L4) 5 Normal Plantarflexion (S1) 5 Normal Comments inc difficulty L PT-OP-Q Treatments Start: 05/30/18 08:11 Freq: Status: Active Protocol: Document 06/22/18 10:22 [facility] (Rec: 06/22/18 11:36 [facility] [id number]) Therapeutic Exercises Supine Exercises self tibfem PA mob Supine Exercise Name PA mob w/belt quad set Supine Exercise Name passive ext with quad set Reps/Minutes 8 Prone Exercises knee ext Prone Exercise Name passive knee ext over EOB Manual Therapy Treatment Soft Tissue Mobilization ant quad Body Location quad lat Mobilization Type Rolling Comments in ext position ITB Body Location ITB L Mobilization Type Rolling Intensity/Depth Moderate Comments in knee flex & plunger mobs Scar mobs L knee Body Location L knee incision site Mobilization Type Myofascial Release Intensity/Depth Moderate Body Position Supine Comments Pt supine with knee flexed w/ use of plunger HS and gastroc/soleus Body Location L HS Mobilization Type Cross-Friction Rolling Strumming Intensity/Depth Moderate Body Position Supine Comments in flex w/APs Joint Mobilizations tibfem Joint L tibfemoral Direction med on tibia FM & AP FM PT-OP-R Modalities Start: 05/30/18 08:11 Freq: Status: Active Protocol: Document 06/22/18 10:22 [facility] (Rec: 06/22/18 11:36 [facility] [id number]) Hot Pack/Cold Pack Treatment Cold Pack Location ant/post L knee Patient Position Hooklying Treatment Duration (minutes) 10 PT-OP-T Assessment and Plan Start: 05/30/18 08:11 Freq: Status: Active Protocol: Document 06/22/18 10:22 [facility] (Rec: 06/22/18 11:36 [facility] [id number]) Physical Therapy Assessment Goals pain Short Term Goal (STG) Pt will be able to appropriately set herself up to sleep without waking with significant pain. STG Duration 06/30/18 Plumbing Instructor Goal (LTG) Pt will report no more than 2/ 10 pain with typical daily activities. LTG Duration 07/28/18 strength Impairment strength Short Term Goal (STG) Pt will be indep with HEP STG Duration 06/30/18 Assisted Goal (LTG) Pt will have 5/5 strength to allow her to return to normal activities without pain. LTG Duration 07/28/18 ROM Impairment ROM Short Term Goal (STG) Pt will have 3-105 ROM to allow inc ability to participate in daily tasks. STG Duration 06/30/18-partially met Plumbing Instructor Goal (LTG) Pt will have 0-120 ROM and is able to particpate in stairs without pain. LTG Duration 07/28/18-able to do stairs 5-115 Assessment Summary Assessment Pt cont to lack about 5 deg of ext at start but presented with 120 deg flex with pain at end range. Later, found radiating pain to post knee with STM to VL and ITB. She improves passive ext with mobilizations but cont to lack end range strength. Physical Therapy Plan Frequency and Duration Frequency of Treatment 2x/Week Duration of Treatment 2 months Plan of Care Start Date 05/30/18 Plan of Care End Date 07/28/18 Next Visit Focus/Plan Next Note Type Treatment Note Next Visit Plan advance strengthening & balance
--- NOTE | 2018-07-06 08:17 | PT.OTN ---
Current Diagnoses Presence of left artificial knee joint (07/06/18) Physical Therapy Treatment Note PT-OP-A Visit Information Start: 05/30/18 08:11 Freq: Status: Active Protocol: Document 07/06/18 07:30 [facility] (Rec: 07/06/18 08:16 [facility] [id number]) Out-Patient Physical Therapy Visit Information Visit Information Visit Type Progress Note Visit Start Time 07:30 Visit Stop Time 08:15 Total Visit Minutes 45 Visit Number 06/01 Number of PUBLIC RELATIONS ASSOCIATE Visits 0 PT-OP-B Current Condition Start: 05/30/18 08:11 Freq: Status: Active Protocol: Document 05/30/18 09:49 [facility] (Rec: 05/30/18 10:35 [facility] [id number]) Current Condition History of Current Condition Onset Date 02/20/18 Current Complaints dec knee ROM History of Current Condition Pt had L partial knee replacement 02/20/18 and she did PT about 2 months, but did not achieve full range. Pt reports she has pain anytime her knee is bent for any period of time or when she tries to go to end range flex. Pt reports she is overall not very flexible. The MD plans to do a manipulation if PT does not work. Prior Treatments and Tests 2 months PT Future Testing and Treatments Planned possible manipulation Treatment Goals Patient/Caregiver Goals be able to go up/down stairs, wake up in AM without painful knee, be able to go up/down hills PT-OP-C Subjective Start: 05/30/18 08:11 Freq: Status: Active Protocol: Document 07/06/18 07:30 [facility] (Rec: 07/06/18 08:16 [facility] [id number]) OP-PT Subjective Patient Comments Patient Comments Pt reports hurting her back twisting her back which laid her up in bed for a couple days last week then tweaked it again so was not as thorough with exercises. Pt reports knee felt good one daY PT-OP-F Manual Assessment Start: 05/30/18 08:11 Freq: Status: Active Protocol: Document 05/30/18 09:49 [facility] (Rec: 05/30/18 10:35 [facility] [id number]) Manual Assessments Soft Tissue Assessment Soft Tissue Mobility Assessment tightness in scar and HS & calf L Joint Mobility Assessment Joint Mobility Assessment Dec patellar mobility PT-OP-G Mobility & Gait Start: 05/30/18 08:11 Freq: Status: Active Protocol: Document 05/30/18 09:49 [facility] (Rec: 05/30/18 10:35 [facility] [id number]) OP Gait Assessment Comments Gait Comments dec LLE push off and L lat lean with LLE stance PT-OP-K Range of Motion Start: 05/30/18 08:11 Freq: Status: Active Protocol: Document 07/06/18 07:30 [facility] (Rec: 07/06/18 08:16 [facility] [id number]) Knee Goniometric Range of Motion Knee Measured in Degrees Left Flexion Active (degrees) 116 Extension Active (degrees) 7 PT-OP-M Strength Start: 05/30/18 08:11 Freq: Status: Active Protocol: Document 07/06/18 07:30 [facility] (Rec: 07/06/18 08:16 [facility] [id number]) Hip Strength Hip Manual Muscle Testing Right Flexion (L2) 4+ Good+ Extension (S1) 4+ Good+ Abduction 4+ Good+ Adduction 5 Normal External Rotation 3+ Fair+ Internal Rotation 5 Normal Left Flexion (L2) 4- Good- Extension (S1) 4+ Good+ Abduction 4+ Good+ Adduction 4+ Good+ External Rotation 3+ Fair+ Internal Rotation 4+ Good+ Knee Strength Knee Manual Muscle Testing Right Flexion (S2) 5 Normal Extension (L3) 5 Normal Left Flexion (S2) 3+ Fair+ Extension (L3) 4+ Good+ Comments PAIN W/ FLEX LIMITING Ankle/Foot Strength Ankle and Foot Manual Muscle Testing Right Dorsiflexion (L4) 5 Normal Plantarflexion (S1) 5 Normal Left Dorsiflexion (L4) 5 Normal Plantarflexion (S1) 5 Normal PT-OP-Q Treatments Start: 05/30/18 08:11 Freq: Status: Active Protocol: Document 07/06/18 07:30 [facility] (Rec: 07/06/18 08:16 [facility] [id number]) Therapeutic Exercises Supine Exercises ABDOMINAL ENGAGEMENT Supine Exercise Name 90/90 hand to leg press L Reps/Minutes 30 sec Sitting Exercises knee flex Sitting Exercise Name resisted Equipment Used L1 Reps/Minutes 15 Standing Exercises RDL Standing Exercise Name RDL Reps/Minutes 20 Comments w/ focus on back position Manual Therapy Treatment Soft Tissue Mobilization HS and gastroc/soleus Body Location L HS Mobilization Type Cross-Friction Rolling Strumming Intensity/Depth Moderate Body Position Prone Comments w/flex PT-OP-R Modalities Start: 05/30/18 08:11 Freq: Status: Active Protocol: Document 06/22/18 10:22 [facility] (Rec: 06/22/18 11:36 [facility] [id number]) Hot Pack/Cold Pack Treatment Cold Pack Location ant/post L knee Patient Position Hooklying Treatment Duration (minutes) 10 PT-OP-T Assessment and Plan Start: 05/30/18 08:11 Freq: Status: Active Protocol: Document 07/06/18 07:30 [facility] (Rec: 07/06/18 08:16 [facility] [id number]) Physical Therapy Assessment Goals pain Short Term Goal (STG) Pt will be able to appropriately set herself up to sleep without waking with significant pain. STG Duration achieved [facility] Goal (LTG) Pt will report no more than 2/ 10 pain with typical daily activities. LTG Duration 07/28/18 strength Impairment strength Short Term Goal (STG) Pt will be indep with HEP STG Duration 06/30/1854-dvelhikq-edizldllw Long Chain Beamer Goal (LTG) Pt will have 5/5 strength to allow her to return to normal activities without pain. LTG Duration 07/28/18 ROM Impairment ROM Short Term Goal (STG) Pt will have 3-105 ROM to allow inc ability to participate in daily tasks. STG Duration 06/30/18-partially met Long Chain Beamer Goal (LTG) Pt will have 0-120 ROM and is able to particpate in stairs without pain. LTG Duration 07/28/18-able to do stairs 5-115 Assessment Summary Assessment Pt has made excellent gains with hip ext and abd strength, but cont to be limited in ER & knee flexors & hip flexion on L side. She is plateauing with ROM in the past 2 weeks but cont to improve with strength. Pain is still a major issue for this pt . Physical Therapy Plan Frequency and Duration Frequency of Treatment 2x/Week Duration of Treatment 2 months Plan of Care Start Date 05/30/18 Plan of Care End Date 07/28/18 Next Visit Focus/Plan Next Note Type Treatment Note Next Visit Plan balance & clamshells
--- NOTE | 2018-07-10 13:42 | PT.OTN ---
Current Diagnoses Presence of left artificial knee joint (07/10/18) Physical Therapy Treatment Note PT-OP-A Visit Information Start: 05/30/18 08:11 Freq: Status: Active Protocol: Document 07/10/18 13:33 [facility] (Rec: 07/10/18 13:41 [facility] [id number]) Out-Patient Physical Therapy Visit Information Visit Information Visit Type Treatment Note Visit Start Time 07:30 Visit Stop Time 08:10 Total Visit Minutes 40 Visit Number 2/10 Number of BREAKER LAYER Visits 0 PT-OP-B Current Condition Start: 05/30/18 08:11 Freq: Status: Active Protocol: Document 05/30/18 09:49 [facility] (Rec: 05/30/18 10:35 [facility] [id number]) Current Condition History of Current Condition Onset Date 02/20/18 Current Complaints dec knee ROM History of Current Condition Pt had L partial knee replacement 02/20/18 and she did PT about 2 months, but did not achieve full range. Pt reports she has pain anytime her knee is bent for any period of time or when she tries to go to end range flex. Pt reports she is overall not very flexible. The MD plans to do a manipulation if PT does not work. Prior Treatments and Tests 2 months PT Future Testing and Treatments Planned possible manipulation Treatment Goals Patient/Caregiver Goals be able to go up/down stairs, wake up in AM without painful knee, be able to go up/down hills PT-OP-C Subjective Start: 05/30/18 08:11 Freq: Status: Active Protocol: Document 07/10/18 13:33 [facility] (Rec: 07/10/18 13:42 [facility] [id number]) OP-PT Subjective Patient Comments Patient Comments Pt reports compliance with exercises and no inc pain d/t exercises PT-OP-F Manual Assessment Start: 05/30/18 08:11 Freq: Status: Active Protocol: Document 05/30/18 09:49 [facility] (Rec: 05/30/18 10:35 [facility] [id number]) Manual Assessments Soft Tissue Assessment Soft Tissue Mobility Assessment tightness in scar and HS & calf L Joint Mobility Assessment Joint Mobility Assessment Dec patellar mobility PT-OP-G Mobility & Gait Start: 05/30/18 08:11 Freq: Status: Active Protocol: Document 05/30/18 09:49 [facility] (Rec: 05/30/18 10:35 [facility] [id number]) OP Gait Assessment Comments Gait Comments dec LLE push off and L lat lean with LLE stance PT-OP-K Range of Motion Start: 05/30/18 08:11 Freq: Status: Active Protocol: Document 07/06/18 07:30 [facility] (Rec: 07/06/18 08:16 [facility] [id number]) Knee Goniometric Range of Motion Knee Measured in Degrees Left Flexion Active (degrees) 116 Extension Active (degrees) 7 PT-OP-M Strength Start: 05/30/18 08:11 Freq: Status: Active Protocol: Document 07/06/18 07:30 [facility] (Rec: 07/06/18 08:16 [facility] [id number]) Hip Strength Hip Manual Muscle Testing Right Flexion (L2) 4+ Good+ Extension (S1) 4+ Good+ Abduction 4+ Good+ Adduction 5 Normal External Rotation 3+ Fair+ Internal Rotation 5 Normal Left Flexion (L2) 4- Good- Extension (S1) 4+ Good+ Abduction 4+ Good+ Adduction 4+ Good+ External Rotation 3+ Fair+ Internal Rotation 4+ Good+ Knee Strength Knee Manual Muscle Testing Right Flexion (S2) 5 Normal Extension (L3) 5 Normal Left Flexion (S2) 3+ Fair+ Extension (L3) 4+ Good+ Comments PAIN W/ FLEX LIMITING Ankle/Foot Strength Ankle and Foot Manual Muscle Testing Right Dorsiflexion (L4) 5 Normal Plantarflexion (S1) 5 Normal Left Dorsiflexion (L4) 5 Normal Plantarflexion (S1) 5 Normal PT-OP-Q Treatments Start: 05/30/18 08:11 Freq: Status: Active Protocol: Document 07/10/18 13:33 [facility] (Rec: 07/10/18 13:41 [facility] [id number]) Therapeutic Exercises Standing Exercises Tandem stance Standing Exercise Name tandem Side bilateral Reps/Minutes 30 sec Comments attempted head turns SLS Standing Exercise Name w/alt july in mirror for posture Side bilateral RDL Standing Exercise Name RDL Equipment Used 5# B Reps/Minutes 10 Comments w/ focus on back position Manual Therapy Treatment Soft Tissue Mobilization add Body Location adductor Mobilization Type Rolling Intensity/Depth Moderate Body Position Supine HS and gastroc/soleus Body Location L HS Mobilization Type Cross-Friction Rolling Strumming Intensity/Depth Moderate Body Position Supine Comments w/flex/ext PT-OP-R Modalities Start: 05/30/18 08:11 Freq: Status: Active Protocol: Document 06/22/18 10:22 [facility] (Rec: 06/22/18 11:36 [facility] [id number]) Hot Pack/Cold Pack Treatment Cold Pack Location ant/post L knee Patient Position Hooklying Treatment Duration (minutes) 10 PT-OP-T Assessment and Plan Start: 05/30/18 08:11 Freq: Status: Active Protocol: Document 07/10/18 13:33 [facility] (Rec: 07/10/18 13:41 [facility] [id number]) Physical Therapy Assessment Goals pain Short Term Goal (STG) Pt will be able to appropriately set herself up to sleep without waking with significant pain. STG Duration achieved Peanut Butter Maker Goal (LTG) Pt will report no more than 2/ 10 pain with typical daily activities. LTG Duration 07/28/18 strength Impairment strength Short Term Goal (STG) Pt will be indep with HEP STG Duration 06/30/1808-[id number]-[id number] Alf Goal (LTG) Pt will have 5/5 strength to allow her to return to normal activities without pain. LTG Duration 07/28/18 ROM Impairment ROM Short Term Goal (STG) Pt will have 3-105 ROM to allow inc ability to participate in daily tasks. STG Duration 06/30/18-partially met Alf Goal (LTG) Pt will have 0-120 ROM and is able to particpate in stairs without pain. LTG Duration 07/28/18-able to do stairs 5-115 Assessment Summary Assessment Pt cont to present with about 117 deg flex today with cont post pain. She was able to tolerate balance exercises today and did well with min cueing with hip hinging. Physical Therapy Plan Frequency and Duration Frequency of Treatment 2x/Week Duration of Treatment 2 months Plan of Care Start Date 05/30/18 Plan of Care End Date 07/28/18 Next Visit Focus/Plan Next Note Type Treatment Note Next Visit Plan balance board & clamiguel
--- NOTE | 2018-07-12 19:10 | PT.OTN ---
Current Diagnoses Presence of left artificial knee joint (07/12/18) Physical Therapy Treatment Note PT-OP-A Visit Information Start: 05/30/18 08:11 Freq: Status: Active Protocol: Document 07/12/18 19:07 [facility] (Rec: 07/12/18 19:10 [facility] [id number]) Out-Patient Physical Therapy Visit Information Visit Information Visit Type Treatment Note Visit Start Time 07:30 Visit Stop Time 08:10 Total Visit Minutes 40 Visit Number 3/10 Number of MACHINIST Visits 0 PT-OP-B Current Condition Start: 05/30/18 08:11 Freq: Status: Active Protocol: Document 05/30/18 09:49 [facility] (Rec: 05/30/18 10:35 [facility] [id number]) Current Condition History of Current Condition Onset Date 02/20/18 Current Complaints dec knee ROM History of Current Condition Pt had L partial knee replacement 02/20/18 and she did PT about 2 months, but did not achieve full range. Pt reports she has pain anytime her knee is bent for any period of time or when she tries to go to end range flex. Pt reports she is overall not very flexible. The MD plans to do a manipulation if PT does not work. Prior Treatments and Tests 2 months PT Future Testing and Treatments Planned possible manipulation Treatment Goals Patient/Caregiver Goals be able to go up/down stairs, wake up in AM without painful knee, be able to go up/down hills PT-OP-C Subjective Start: 05/30/18 08:11 Freq: Status: Active Protocol: Document 07/12/18 19:07 [facility] (Rec: 07/12/18 19:10 [facility] [id number]) OP-PT Subjective Patient Comments Patient Comments Pt reports she feels like HS curl is getting easier. PT-OP-F Manual Assessment Start: 05/30/18 08:11 Freq: Status: Active Protocol: Document 05/30/18 09:49 [facility] (Rec: 05/30/18 10:35 [facility] [id number]) Manual Assessments Soft Tissue Assessment Soft Tissue Mobility Assessment tightness in scar and HS & calf L Joint Mobility Assessment Joint Mobility Assessment Dec patellar mobility PT-OP-G Mobility & Gait Start: 05/30/18 08:11 Freq: Status: Active Protocol: Document 05/30/18 09:49 [facility] (Rec: 05/30/18 10:35 [facility] [id number]) OP Gait Assessment Comments Gait Comments dec LLE push off and L lat lean with LLE stance PT-OP-K Range of Motion Start: 05/30/18 08:11 Freq: Status: Active Protocol: Document 07/06/18 07:30 [facility] (Rec: 07/06/18 08:16 [facility] [id number]) Knee Goniometric Range of Motion Knee Measured in Degrees Left Flexion Active (degrees) 116 Extension Active (degrees) 7 PT-OP-M Strength Start: 05/30/18 08:11 Freq: Status: Active Protocol: Document 07/06/18 07:30 [facility] (Rec: 07/06/18 08:16 [facility] [id number]) Hip Strength Hip Manual Muscle Testing Right Flexion (L2) 4+ Good+ Extension (S1) 4+ Good+ Abduction 4+ Good+ Adduction 5 Normal External Rotation 3+ Fair+ Internal Rotation 5 Normal Left Flexion (L2) 4- Good- Extension (S1) 4+ Good+ Abduction 4+ Good+ Adduction 4+ Good+ External Rotation 3+ Fair+ Internal Rotation 4+ Good+ Knee Strength Knee Manual Muscle Testing Right Flexion (S2) 5 Normal Extension (L3) 5 Normal Left Flexion (S2) 3+ Fair+ Extension (L3) 4+ Good+ Comments PAIN W/ FLEX LIMITING Ankle/Foot Strength Ankle and Foot Manual Muscle Testing Right Dorsiflexion (L4) 5 Normal Plantarflexion (S1) 5 Normal Left Dorsiflexion (L4) 5 Normal Plantarflexion (S1) 5 Normal PT-OP-Q Treatments Start: 05/30/18 08:11 Freq: Status: Active Protocol: Document 07/12/18 19:07 [facility] (Rec: 07/12/18 19:10 [facility] [id number]) Gym Equipment Shuttle Balance red clips Details fwd:NBOS, WBOS, staggered stance; side: NBOS & WBOS Therapeutic Exercises Sitting Exercises knee flex Sitting Exercise Name resisted Equipment Used L2 Reps/Minutes 15 Manual Therapy Treatment Soft Tissue Mobilization add Body Location adductor Mobilization Type Rolling Intensity/Depth Moderate Body Position Supine ITB Body Location ITB L Mobilization Type Rolling Intensity/Depth Moderate Comments in knee flex HS and gastroc/soleus Body Location L HS Mobilization Type Cross-Friction Rolling Strumming Intensity/Depth Moderate Body Position Supine Comments w/flex/ext PT-OP-R Modalities Start: 05/30/18 08:11 Freq: Status: Active Protocol: Document 06/22/18 10:22 [facility] (Rec: 06/22/18 11:36 [facility] [id number]) Hot Pack/Cold Pack Treatment Cold Pack Location ant/post L knee Patient Position Hooklying Treatment Duration (minutes) 10 PT-OP-T Assessment and Plan Start: 05/30/18 08:11 Freq: Status: Active Protocol: Document 07/12/18 19:07 [facility] (Rec: 07/12/18 19:10 [facility] [id number]) Physical Therapy Assessment Goals pain Short Term Goal (STG) Pt will be able to appropriately set herself up to sleep without waking with significant pain. STG Duration achieved Prison Goal (LTG) Pt will report no more than 2/ 10 pain with typical daily activities. LTG Duration 07/28/18 strength Impairment strength Short Term Goal (STG) Pt will be indep with HEP STG Duration 06/30/1851-[id number]-[id number] Swing Type Lathe Operator Goal (LTG) Pt will have 5/5 strength to allow her to return to normal activities without pain. LTG Duration 07/28/18 ROM Impairment ROM Short Term Goal (STG) Pt will have 3-105 ROM to allow inc ability to participate in daily tasks. STG Duration 06/30/18-partially met Prison Goal (LTG) Pt will have 0-120 ROM and is able to particpate in stairs without pain. LTG Duration 07/28/18-able to do stairs 5-115 Assessment Summary Assessment Pt cont to have about same amount of knee flex. She is improving with strength and was able to tolerate inc resistance with HS curl. She had difficulty on balance board and was challenged by uneven surface. Physical Therapy Plan Frequency and Duration Frequency of Treatment 2x/Week Duration of Treatment 2 months Plan of Care Start Date 05/30/18 Plan of Care End Date 07/28/18 Next Visit Focus/Plan Next Note Type Treatment Note Next Visit Plan clamshells & cont to work soft tissue mobility
--- NOTE | 2018-08-01 12:20 | PT.OTN ---
Current Diagnoses Presence of left artificial knee joint (08/01/18) Physical Therapy Treatment Note PT-OP-A Visit Information Start: 05/30/18 08:11 Freq: Status: Active Protocol: Document 08/01/18 09:47 [facility] (Rec: 08/01/18 11:00 [facility] [id number]) Out-Patient Physical Therapy Visit Information Visit Information Visit Type Treatment Note Visit Start Time 09:45 Visit Stop Time 10:30 Total Visit Minutes 45 Visit Number 4/10 Number of DIRECTOR OF CURRICULUM Visits 0 PT-OP-B Current Condition Start: 05/30/18 08:11 Freq: Status: Active Protocol: Document 05/30/18 09:49 [facility] (Rec: 05/30/18 10:35 [facility] [id number]) Current Condition History of Current Condition Onset Date 02/20/18 Current Complaints dec knee ROM History of Current Condition Pt had L partial knee replacement 02/20/18 and she did PT about 2 months, but did not achieve full range. Pt reports she has pain anytime her knee is bent for any period of time or when she tries to go to end range flex. Pt reports she is overall not very flexible. The MD plans to do a manipulation if PT does not work. Prior Treatments and Tests 2 months PT Future Testing and Treatments Planned possible manipulation Treatment Goals Patient/Caregiver Goals be able to go up/down stairs, wake up in AM without painful knee, be able to go up/down hills PT-OP-C Subjective Start: 05/30/18 08:11 Freq: Status: Active Protocol: Document 08/01/18 09:47 [facility] (Rec: 08/01/18 11:00 [facility] [id number]) OP-PT Subjective Patient Comments Patient Comments Pt reports past week she has not done her exercises d/t restless leg PT-OP-F Manual Assessment Start: 05/30/18 08:11 Freq: Status: Active Protocol: Document 05/30/18 09:49 [facility] (Rec: 05/30/18 10:35 [facility] [id number]) Manual Assessments Soft Tissue Assessment Soft Tissue Mobility Assessment tightness in scar and HS & calf L Joint Mobility Assessment Joint Mobility Assessment Dec patellar mobility PT-OP-G Mobility & Gait Start: 05/30/18 08:11 Freq: Status: Active Protocol: Document 05/30/18 09:49 [facility] (Rec: 05/30/18 10:35 [facility] [id number]) OP Gait Assessment Comments Gait Comments dec LLE push off and L lat lean with LLE stance PT-OP-K Range of Motion Start: 05/30/18 08:11 Freq: Status: Active Protocol: Document 07/06/18 07:30 [facility] (Rec: 07/06/18 08:16 [facility] [id number]) Knee Goniometric Range of Motion Knee Measured in Degrees Left Flexion Active (degrees) 116 Extension Active (degrees) 7 PT-OP-M Strength Start: 05/30/18 08:11 Freq: Status: Active Protocol: Document 07/06/18 07:30 [facility] (Rec: 07/06/18 08:16 [facility] [id number]) Hip Strength Hip Manual Muscle Testing Right Flexion (L2) 4+ Good+ Extension (S1) 4+ Good+ Abduction 4+ Good+ Adduction 5 Normal External Rotation 3+ Fair+ Internal Rotation 5 Normal Left Flexion (L2) 4- Good- Extension (S1) 4+ Good+ Abduction 4+ Good+ Adduction 4+ Good+ External Rotation 3+ Fair+ Internal Rotation 4+ Good+ Knee Strength Knee Manual Muscle Testing Right Flexion (S2) 5 Normal Extension (L3) 5 Normal Left Flexion (S2) 3+ Fair+ Extension (L3) 4+ Good+ Comments PAIN W/ FLEX LIMITING Ankle/Foot Strength Ankle and Foot Manual Muscle Testing Right Dorsiflexion (L4) 5 Normal Plantarflexion (S1) 5 Normal Left Dorsiflexion (L4) 5 Normal Plantarflexion (S1) 5 Normal PT-OP-Q Treatments Start: 05/30/18 08:11 Freq: Status: Active Protocol: Document 08/01/18 09:47 [facility] (Rec: 08/01/18 11:00 [facility] [id number]) Therapeutic Exercises Supine Exercises foam roll Supine Exercise Name ITB, calf, HS & quad stretch Supine Exercise Name piriformis & figure 4 quad set Supine Exercise Name passive ext with quad set Reps/Minutes 8 HS stretch Supine Exercise Name w/ap Manual Therapy Treatment Soft Tissue Mobilization ant quad Body Location quad lat Mobilization Type Rolling Comments in ext position ITB Body Location ITB L Mobilization Type Rolling Intensity/Depth Moderate Comments in knee flex HS and gastroc/soleus Body Location L HS Mobilization Type Cross-Friction Rolling Strumming Intensity/Depth Moderate Body Position Supine Comments w/flex/ext Joint Mobilizations tibfem Joint L tibfemoral Direction AP on tibia FM Patallar mobs Joint sup, inf & med PT-OP-R Modalities Start: 05/30/18 08:11 Freq: Status: Active Protocol: Document 06/22/18 10:22 [facility] (Rec: 06/22/18 11:36 [facility] [id number]) Hot Pack/Cold Pack Treatment Cold Pack Location ant/post L knee Patient Position Hooklying Treatment Duration (minutes) 10 PT-OP-T Assessment and Plan Start: 05/30/18 08:11 Freq: Status: Active Protocol: Document 08/01/18 09:47 [facility] (Rec: 08/01/18 11:00 [facility] [id number]) Physical Therapy Assessment Goals pain Short Term Goal (STG) Pt will be able to appropriately set herself up to sleep without waking with significant pain. STG Duration achieved Tool Dresser Goal (LTG) Pt will report no more than 2/ 10 pain with typical daily activities. LTG Duration 07/28/18 strength Impairment strength Short Term Goal (STG) Pt will be indep with HEP STG Duration 06/30/1816-eebinhtt-jghoasvrp Fdc Goal (LTG) Pt will have 5/5 strength to allow her to return to normal activities without pain. LTG Duration 07/28/18 ROM Impairment ROM Short Term Goal (STG) Pt will have 3-105 ROM to allow inc ability to participate in daily tasks. STG Duration 06/30/18-partially met Fdc Goal (LTG) Pt will have 0-120 ROM and is able to particpate in stairs without pain. LTG Duration 07/28/18-able to do stairs 5-115 Assessment Summary Assessment Pt able to do self rolling out and stretching and encouraged to do a regimine before bed. Pt improved to lacking about 2 deg from lacking 8 dec ext and presented with 120 deg ROM today but with pain. Physical Therapy Plan Frequency and Duration Frequency of Treatment 2x/Week Duration of Treatment 2 months Plan of Care Start Date 05/30/18 Plan of Care End Date 07/28/18 Next Visit Focus/Plan Next Note Type Treatment Note Next Visit Plan clamshells & cont to work soft tissue mobility
--- NOTE | 2018-08-01 14:06 | PT.OPPN ---
Current Diagnoses Presence of left artificial knee joint (08/01/18) Physical Therapy Progress Note PT-OP-A Visit Information Start: 05/30/18 08:11 Freq: Status: Active Protocol: Document 08/01/18 09:47 [facility] (Rec: 08/01/18 11:00 [facility] [id number]) Out-Patient Physical Therapy Visit Information Visit Information Visit Type Treatment Note Visit Start Time 09:45 Visit Stop Time 10:30 Total Visit Minutes 45 Visit Number 4/10 Number of FACTORY LAY OUT ENGINEER Visits 0 PT-OP-B Current Condition Start: 05/30/18 08:11 Freq: Status: Active Protocol: Document 05/30/18 09:49 [facility] (Rec: 05/30/18 10:35 [facility] [id number]) Current Condition History of Current Condition Onset Date 02/20/18 Current Complaints dec knee ROM History of Current Condition Pt had L partial knee replacement 02/20/18 and she did PT about 2 months, but did not achieve full range. Pt reports she has pain anytime her knee is bent for any period of time or when she tries to go to end range flex. Pt reports she is overall not very flexible. The MD plans to do a manipulation if PT does not work. Prior Treatments and Tests 2 months PT Future Testing and Treatments Planned possible manipulation Treatment Goals Patient/Caregiver Goals be able to go up/down stairs, wake up in AM without painful knee, be able to go up/down hills PT-OP-C Subjective Start: 05/30/18 08:11 Freq: Status: Active Protocol: Document 08/01/18 09:47 [facility] (Rec: 08/01/18 11:00 [facility] [id number]) OP-PT Subjective Patient Comments Patient Comments Pt reports past week she has not done her exercises d/t restless leg PT-OP-F Manual Assessment Start: 05/30/18 08:11 Freq: Status: Active Protocol: Document 05/30/18 09:49 [facility] (Rec: 05/30/18 10:35 [facility] [id number]) Manual Assessments Soft Tissue Assessment Soft Tissue Mobility Assessment tightness in scar and HS & calf L Joint Mobility Assessment Joint Mobility Assessment Dec patellar mobility PT-OP-G Mobility & Gait Start: 05/30/18 08:11 Freq: Status: Active Protocol: Document 05/30/18 09:49 [facility] (Rec: 05/30/18 10:35 [facility] [id number]) OP Gait Assessment Comments Gait Comments dec LLE push off and L lat lean with LLE stance PT-OP-K Range of Motion Start: 05/30/18 08:11 Freq: Status: Active Protocol: Document 07/06/18 07:30 [facility] (Rec: 07/06/18 08:16 [facility] [id number]) Knee Goniometric Range of Motion Knee Measured in Degrees Left Flexion Active (degrees) 116 Extension Active (degrees) 7 PT-OP-M Strength Start: 05/30/18 08:11 Freq: Status: Active Protocol: Document 07/06/18 07:30 [facility] (Rec: 07/06/18 08:16 [facility] [id number]) Hip Strength Hip Manual Muscle Testing Right Flexion (L2) 4+ Good+ Extension (S1) 4+ Good+ Abduction 4+ Good+ Adduction 5 Normal External Rotation 3+ Fair+ Internal Rotation 5 Normal Left Flexion (L2) 4- Good- Extension (S1) 4+ Good+ Abduction 4+ Good+ Adduction 4+ Good+ External Rotation 3+ Fair+ Internal Rotation 4+ Good+ Knee Strength Knee Manual Muscle Testing Right Flexion (S2) 5 Normal Extension (L3) 5 Normal Left Flexion (S2) 3+ Fair+ Extension (L3) 4+ Good+ Comments PAIN W/ FLEX LIMITING Ankle/Foot Strength Ankle and Foot Manual Muscle Testing Right Dorsiflexion (L4) 5 Normal Plantarflexion (S1) 5 Normal Left Dorsiflexion (L4) 5 Normal Plantarflexion (S1) 5 Normal PT-OP-T Assessment and Plan Start: 05/30/18 08:11 Freq: Status: Active Protocol: Document 08/01/18 09:47 [facility] (Rec: 08/01/18 11:00 [facility] [id number]) Physical Therapy Assessment Impairments Impairments Functional Activities Functional Mobility Gait Pain Posture ROM Soft Tissue Mobility Strength Goals pain Short Term Goal (STG) Pt will be able to appropriately set herself up to sleep without waking with significant pain. STG Duration achieved Fdc Goal (LTG) Pt will report no more than 2/ 10 pain with typical daily activities. LTG Duration 09/01/18-improving strength Impairment strength Short Term Goal (STG) Pt will be indep with HEP STG Duration 06/30/1826-[id number] Hat Mender Goal (LTG) Pt will have 5/5 strength to allow her to return to normal activities without pain. LTG Duration 08/28/18-good progression of functional strength ROM Impairment ROM Short Term Goal (STG) Pt will have 3-105 ROM to allow inc ability to participate in daily tasks. STG Duration 06/30/18-partially met Hat Mender Goal (LTG) Pt will have 0-120 ROM and is able to particpate in stairs without pain.achieved flex but painful at 120 deg- not full ext LTG Duration 09/01/18 Assessment Summary Assessment Pt able to do self rolling out and stretching and encouraged to do a regimine before bed. Pt improved to lacking about 2 deg from lacking 8 dec ext and presented with 120 deg ROM today but with pain. Pt improving with ROM, but is still painful with end range and is scheduled with MD for August. Physical Therapy Plan Frequency and Duration Frequency of Treatment 1x/Week Duration of Treatment 2 months Plan of Care Start Date 08/01/18 Plan of Care End Date 10/01/18 Therapeutic Interventions Therapeutic Interventions Aquatic Therapy Balance Training Gait Training Home Exercise Program Joint Mobilizations Manual Therapy Neuromuscular Re-education Patient/Caregiver Education Self-Care/Home Management Soft Tissue Mobilization Taping Therapeutic Activities Therapeutic Exercises Modalities Cold Pack/Ice Massage Electric Stimulation Hot Packs Infrared Therapy Ultrasound Next Visit Focus/Plan Next Note Type Treatment Note Next Visit Plan clamshells & cont to work soft tissue mobility
--- NOTE | 2018-08-01 14:06 | PT.OPPOC ---
Current Diagnoses Presence of left artificial knee joint (08/01/18) Provider Visit Care Team Role Provider Type Abebe Neves MD Attending Provider Non-Staff Specialty: Orthopedics Address: [address], [place], [address] Email: Plan Of Care PT-OP-T Assessment and Plan Start: 05/30/18 08:11 Freq: Status: Active Protocol: Document 08/01/18 09:47 [facility] (Rec: 08/01/18 11:00 [facility] [id number]) Physical Therapy Assessment Impairments Impairments Functional Activities Functional Mobility Gait Pain Posture ROM Soft Tissue Mobility Strength Goals pain Short Term Goal (STG) Pt will be able to appropriately set herself up to sleep without waking with significant pain. STG Duration achieved Supervisor Statement Clerks Goal (LTG) Pt will report no more than 2/ 10 pain with typical daily activities. LTG Duration 09/01/18-improving strength Impairment strength Short Term Goal (STG) Pt will be indep with HEP STG Duration 06/30/1865-[id number]-[id number] Residential Goal (LTG) Pt will have 5/5 strength to allow her to return to normal activities without pain. LTG Duration 08/28/18-good progression of functional strength ROM Impairment ROM Short Term Goal (STG) Pt will have 3-105 ROM to allow inc ability to participate in daily tasks. STG Duration 06/30/18-partially met Residential Goal (LTG) Pt will have 0-120 ROM and is able to particpate in stairs without pain.achieved flex but painful at 120 deg- not full ext LTG Duration 09/01/18 Assessment Summary Assessment Pt able to do self rolling out and stretching and encouraged to do a regimine before bed. Pt improved to lacking about 2 deg from lacking 8 dec ext and presented with 120 deg ROM today but with pain. Pt improving with ROM, but is still painful with end range and is scheduled with MD for August. Physical Therapy Plan Frequency and Duration Frequency of Treatment 1x/Week Duration of Treatment 2 months Plan of Care Start Date 08/01/18 Plan of Care End Date 10/01/18 Therapeutic Interventions Therapeutic Interventions Aquatic Therapy Balance Training Gait Training Home Exercise Program Joint Mobilizations Manual Therapy Neuromuscular Re-education Patient/Caregiver Education Self-Care/Home Management Soft Tissue Mobilization Taping Therapeutic Activities Therapeutic Exercises Modalities Cold Pack/Ice Massage Electric Stimulation Hot Packs Infrared Therapy Ultrasound Next Visit Focus/Plan Next Note Type Treatment Note Next Visit Plan clamshells & cont to work soft tissue mobility Plan of Care Dates Plan of Care Start Date 08/01/18 Plan of Care End Date 10/01/18 Please Sign and Return: I have reviewed this Plan of Care and certify that the skilled therapy services above are required to meet the patient?s needs. Physician Signature Date Printed Name and Credentials Clinical Instructor Signature Printed Name and Credentials
--- NOTE | 2018-08-10 11:34 | PT.OTN ---
Current Diagnoses Presence of left artificial knee joint (08/10/18) Physical Therapy Treatment Note PT-OP-A Visit Information Start: 05/30/18 08:11 Freq: Status: Active Protocol: Document 08/10/18 11:28 [facility] (Rec: 08/11/18 11:34 [facility] [id number]) Out-Patient Physical Therapy Visit Information Visit Information Visit Type Treatment Note Visit Start Time 08:15 Visit Stop Time 09:00 Total Visit Minutes 45 Visit Number 4/10 Number of TOBACCO FEEDER CATCHER Visits 0 PT-OP-B Current Condition Start: 05/30/18 08:11 Freq: Status: Active Protocol: Document 05/30/18 09:49 [facility] (Rec: 05/30/18 10:35 [facility] [id number]) Current Condition History of Current Condition Onset Date 02/20/18 Current Complaints dec knee ROM History of Current Condition Pt had L partial knee replacement 02/20/18 and she did PT about 2 months, but did not achieve full range. Pt reports she has pain anytime her knee is bent for any period of time or when she tries to go to end range flex. Pt reports she is overall not very flexible. The MD plans to do a manipulation if PT does not work. Prior Treatments and Tests 2 months PT Future Testing and Treatments Planned possible manipulation Treatment Goals Patient/Caregiver Goals be able to go up/down stairs, wake up in AM without painful knee, be able to go up/down hills PT-OP-C Subjective Start: 05/30/18 08:11 Freq: Status: Active Protocol: Document 08/10/18 11:28 [facility] (Rec: 08/11/18 11:34 [facility] [id number]) OP-PT Subjective Patient Comments Patient Comments Pt reports she has been doing a lot of yard work and knee is very sore. PT-OP-F Manual Assessment Start: 05/30/18 08:11 Freq: Status: Active Protocol: Document 05/30/18 09:49 [facility] (Rec: 05/30/18 10:35 [facility] [id number]) Manual Assessments Soft Tissue Assessment Soft Tissue Mobility Assessment tightness in scar and HS & calf L Joint Mobility Assessment Joint Mobility Assessment Dec patellar mobility PT-OP-G Mobility & Gait Start: 05/30/18 08:11 Freq: Status: Active Protocol: Document 05/30/18 09:49 [facility] (Rec: 05/30/18 10:35 [facility] [id number]) OP Gait Assessment Comments Gait Comments dec LLE push off and L lat lean with LLE stance PT-OP-K Range of Motion Start: 05/30/18 08:11 Freq: Status: Active Protocol: Document 07/06/18 07:30 [facility] (Rec: 07/06/18 08:16 [facility] [id number]) Knee Goniometric Range of Motion Knee Measured in Degrees Left Flexion Active (degrees) 116 Extension Active (degrees) 7 PT-OP-M Strength Start: 05/30/18 08:11 Freq: Status: Active Protocol: Document 07/06/18 07:30 [facility] (Rec: 07/06/18 08:16 [facility] [id number]) Hip Strength Hip Manual Muscle Testing Right Flexion (L2) 4+ Good+ Extension (S1) 4+ Good+ Abduction 4+ Good+ Adduction 5 Normal External Rotation 3+ Fair+ Internal Rotation 5 Normal Left Flexion (L2) 4- Good- Extension (S1) 4+ Good+ Abduction 4+ Good+ Adduction 4+ Good+ External Rotation 3+ Fair+ Internal Rotation 4+ Good+ Knee Strength Knee Manual Muscle Testing Right Flexion (S2) 5 Normal Extension (L3) 5 Normal Left Flexion (S2) 3+ Fair+ Extension (L3) 4+ Good+ Comments PAIN W/ FLEX LIMITING Ankle/Foot Strength Ankle and Foot Manual Muscle Testing Right Dorsiflexion (L4) 5 Normal Plantarflexion (S1) 5 Normal Left Dorsiflexion (L4) 5 Normal Plantarflexion (S1) 5 Normal PT-OP-Q Treatments Start: 05/30/18 08:11 Freq: Status: Active Protocol: Document 08/10/18 11:28 [facility] (Rec: 08/11/18 11:34 [facility] [id number]) Gym Equipment Shuttle Balance red clips Details fwd:NBOS, WBOS, staggered stance; side: NBOS & WBOS Manual Therapy Treatment Soft Tissue Mobilization ant quad Body Location quad lat Mobilization Type Rolling Comments in ext position ITB Body Location ITB L Mobilization Type Rolling Intensity/Depth Moderate Comments in knee flex HS and gastroc/soleus Body Location L HS Mobilization Type Cross-Friction Rolling Strumming Intensity/Depth Moderate Body Position Supine Comments w/flex/ext med Joint Mobilizations tibfem Joint L tibfemoral Direction AP on tibia FM Patallar mobs Joint sup, inf & med PT-OP-R Modalities Start: 05/30/18 08:11 Freq: Status: Active Protocol: Document 06/22/18 10:22 [facility] (Rec: 06/22/18 11:36 [facility] [id number]) Hot Pack/Cold Pack Treatment Cold Pack Location ant/post L knee Patient Position Hooklying Treatment Duration (minutes) 10 PT-OP-T Assessment and Plan Start: 05/30/18 08:11 Freq: Status: Active Protocol: Document 08/10/18 11:28 [facility] (Rec: 08/11/18 11:34 [facility] [id number]) Physical Therapy Assessment Goals pain Short Term Goal (STG) Pt will be able to appropriately set herself up to sleep without waking with significant pain. STG Duration achieved Usp Goal (LTG) Pt will report no more than 2/ 10 pain with typical daily activities. LTG Duration 09/01/18-improving strength Impairment strength Short Term Goal (STG) Pt will be indep with HEP STG Duration 06/30/1873-kyvcvrsi-rccztufhi Parent Coach Goal (LTG) Pt will have 5/5 strength to allow her to return to normal activities without pain. LTG Duration 08/28/18-good progression of functional strength ROM Impairment ROM Short Term Goal (STG) Pt will have 3-105 ROM to allow inc ability to participate in daily tasks. STG Duration 06/30/18-partially met Usp Goal (LTG) Pt will have 0-120 ROM and is able to particpate in stairs without pain.achieved flex but painful at 120 deg- not full ext LTG Duration 09/01/18 Assessment Summary Assessment D/t pt soreness, focused more on soft tissue and joint mobility. Pt presented with 8- 112 deg ROM and more painful than last session with her inc in activity. Inc swelling and pt instructed to cont icing. Physical Therapy Plan Frequency and Duration Frequency of Treatment 1x/Week Duration of Treatment 2 months Plan of Care Start Date 08/01/18 Plan of Care End Date 10/01/18 Next Visit Focus/Plan Next Note Type Treatment Note Next Visit Plan clamshells & cont to work soft tissue mobility
--- NOTE | 2018-10-12 11:54 | PT.OPDS ---
Current Diagnoses Presence of left artificial knee joint (08/10/18) Provider Visit Care Team Role Provider Type Abebe Neves MD Attending Provider Non-Staff Specialty: Orthopedics Address: [facility] [address], [place], [address] Email: Visit Number Visit Number 08/30 Discharge Summary PT-OP-B Current Condition Start: 05/30/18 08:11 Freq: Status: Active Protocol: Document 05/30/18 09:49 [facility] (Rec: 05/30/18 10:35 [facility] [id number]) Current Condition History of Current Condition Onset Date 02/20/18 Current Complaints dec knee ROM History of Current Condition Pt had L partial knee replacement 02/20/18 and she did PT about 2 months, but did not achieve full range. Pt reports she has pain anytime her knee is bent for any period of time or when she tries to go to end range flex. Pt reports she is overall not very flexible. The MD plans to do a manipulation if PT does not work. Prior Treatments and Tests 2 months PT Future Testing and Treatments Planned possible manipulation Treatment Goals Patient/Caregiver Goals be able to go up/down stairs, wake up in AM without painful knee, be able to go up/down hills PT-OP-C Subjective Start: 05/30/18 08:11 Freq: Status: Active Protocol: Document 08/10/18 11:28 [facility] (Rec: 08/11/18 11:34 [facility] [id number]) OP-PT Subjective Patient Comments Patient Comments Pt reports she has been doing a lot of yard work and knee is very sore. PT-OP-F Manual Assessment Start: 05/30/18 08:11 Freq: Status: Active Protocol: Document 05/30/18 09:49 [facility] (Rec: 05/30/18 10:35 [facility] [id number]) Manual Assessments Soft Tissue Assessment Soft Tissue Mobility Assessment tightness in scar and HS & calf L Joint Mobility Assessment Joint Mobility Assessment Dec patellar mobility PT-OP-G Mobility & Gait Start: 05/30/18 08:11 Freq: Status: Active Protocol: Document 05/30/18 09:49 [facility] (Rec: 05/30/18 10:35 [facility] [id number]) OP Gait Assessment Comments Gait Comments dec LLE push off and L lat lean with LLE stance PT-OP-K Range of Motion Start: 05/30/18 08:11 Freq: Status: Active Protocol: Document 07/06/18 07:30 [facility] (Rec: 07/06/18 08:16 [facility] [id number]) Knee Goniometric Range of Motion Knee Measured in Degrees Left Flexion Active (degrees) 116 Extension Active (degrees) 7 PT-OP-M Strength Start: 05/30/18 08:11 Freq: Status: Active Protocol: Document 07/06/18 07:30 [facility] (Rec: 07/06/18 08:16 [facility] [id number]) Hip Strength Hip Manual Muscle Testing Right Flexion (L2) 4+ Good+ Extension (S1) 4+ Good+ Abduction 4+ Good+ Adduction 5 Normal External Rotation 3+ Fair+ Internal Rotation 5 Normal Left Flexion (L2) 4- Good- Extension (S1) 4+ Good+ Abduction 4+ Good+ Adduction 4+ Good+ External Rotation 3+ Fair+ Internal Rotation 4+ Good+ Knee Strength Knee Manual Muscle Testing Right Flexion (S2) 5 Normal Extension (L3) 5 Normal Left Flexion (S2) 3+ Fair+ Extension (L3) 4+ Good+ Comments PAIN W/ FLEX LIMITING Ankle/Foot Strength Ankle and Foot Manual Muscle Testing Right Dorsiflexion (L4) 5 Normal Plantarflexion (S1) 5 Normal Left Dorsiflexion (L4) 5 Normal Plantarflexion (S1) 5 Normal PT-OP-T Assessment and Plan Start: 05/30/18 08:11 Freq: Status: Active Protocol: Document 10/12/18 11:51 [facility] (Rec: 10/12/18 11:54 [facility] [id number]) Physical Therapy Plan Discharge Physical Therapy Discharge Reasons No Longer Attending PT Discharge Comments Called pt and she is cont to work on exercises at home and MD plans to wait to do manipulation until other knee is replaced. Pt is to cont working on HEP. She has progressed with her mobility and is limited w/walking by other knee typically.
== END 2018-10-12 16:08 | disposition home or self-care (01) ==
LOC: PHYS 08:15
PROVIDERS: Visit Provider Orthopaedic Surgery
DX: Z96.652 Presence of left artificial knee joint (principal)
CPT/HCPCS: 97010; 97110; 97112; 97140; 97161

== ENCOUNTER 2019-05-17 08:18 | Emergency (ER) | payer MEDICARE, BC, SELFPAY ==
[2019-05-17 08:25] VITALS: BP 120/71; PULSE 93; RESP 16; TEMP 37.5; O2SAT 93; BMI 27.3
--- NOTE | 2019-05-17 08:28 | ED.SOB ---
HPI - SOB/Dyspnea General Chief Complaint: Upper Respiratory Symptoms Stated Complaint: Flu Time Seen by Provider: 05/17/19 08:23 Source: patient Mode of arrival: Ambulatory Limitations: no limitations History of Present Illness HPI Narrative: Patient is a 74-year-old female with history of depression and restless leg presenting with body aches shortness of breath. She says it started yesterday she actually had some nausea and vomiting yesterday she has been trying to keep fluids down. She is currently afebrile here in the emergency department. She denies any chest pain or palpitations no abdominal pain. MD Complaint: shortness of breath and cough Treatment prior to arrival: none Related Data Home Medications Medication Instructions Recorded Confirmed pregabalin 50 mg capsule 150 mg PO TID #810 cap 07/18/18 11/10/18 methadone 5 mg tablet 5 mg PO DAILY tab 09/18/18 11/10/18 Previous Rx's Medication Instructions Recorded lamotrigine 150 mg tablet 225 mg .ROUTE .COMPLEX #135 tab 11/10/18 ropinirole 1 mg tablet 2 mg PO TID #540 tab 02/14/19 bupropion HCl 150 mg 24 hr tablet, 150 mg PO QDAY #90 tab 04/02/19 extended release bupropion HCl 300 mg 24 hr tablet, 300 mg PO QDAY #90 tab 04/02/19 extended release albuterol sulfate 2 puff INHALATION Q4-6H PRN #8.5 05/17/19 gram oseltamivir [Tamiflu] 75 mg PO BID 5 Days #10 cap 05/17/19 Allergies Allergy/AdvReac Type Severity Reaction Status Date / Time No Known Drug Allergies Allergy Verified 09/18/18 11:30 Review of Systems Review of Systems ROS Unobtainable: All systems reviewed & are unremarkable except as noted in HPI and below Constitutional Constitutional: Reports chills, Reports fatigue, Denies fever(s) and Denies lethargy Eyes Eyes: Denies change in vision, Denies eye discharge, Denies irritation and Denies loss of vision ENT Ears, Nose, Mouth, and Throat: Denies change in voice, Denies neck pain and Denies sore throat Cardiovascular Cardiovascular: Denies chest pain, Denies irregular heart rhythm, Denies lightheadedness, Denies palpitations, Reports dyspnea and Denies orthopnea Respiratory Respiratory: Reports as per HPI, Reports cough and Reports dyspnea Gastrointestinal Gastrointestinal: Denies abdominal pain, Denies change in bowel habits, Denies diarrhea, Denies nausea and Denies vomiting Genitourinary Genitourinary: Denies hematuria, Denies flank pain, Denies urinary incontinence and Denies urinary urgency Musculoskeletal Musculoskeletal: Denies neck pain Integumentary/Breasts Skin/Breast: Denies pruritus, Denies erythema, Denies rash and Denies wounds Neurologic Neurologic: Denies loss of vision Endocrine Endocrine: Reports fatigue and Denies palpitations Patient History Medical History Acne (Resolved) Chicken pox (Resolved) Depression, major, severe recurrence (Chronic) Eczema (Chronic) Measles (Resolved) Medication side effects (Chronic) Mumps (Resolved) Osteoarthritis (Chronic) RLS (restless legs syndrome) (Chronic) Seasonal affective disorder (Chronic) Shoulder pain (Chronic) Sleep disturbance (Chronic) Surgical History Anesthesia (Resolved) History of right hip replacement (Resolved ~2005) History of total left knee replacement (Resolved) Family History Father Mesothelioma Cancer Mother Suicide Grandfather Stroke Grandmother Breast cancer Grandfather History of heart disease Social History Smoking Status: Current every day smoker Smoking Status: Current every day smoker Exam Initial Vital Signs Initial Vital Signs: Vital Signs Temperature 99.5 F 05/17/19 08:25 Pulse Rate 93 H 05/17/19 08:25 Respiratory Rate 16 05/17/19 08:25 Blood Pressure 120/71 05/17/19 08:25 Pulse Oximetry 93 05/17/19 08:25 GENERAL: Well-appearing, well-nourished and in no acute distress. HEENT: Head atraumatic,EOMI, pupils reactive, face symmetric, moist mucous membranes CARDIOVASCULAR: Regular rate and rhythm without murmurs, rubs or gallops. RESPIRATORY: Breath sounds equal bilaterally, no wheezes rales or rhonchi. ABDOMEN: Soft, nontender. Normoactive bowel sounds all 4 quadrants. No guarding or rebound. EXTREMITIES: Normal range of motion, no clubbing or edema. Neurovascularly intact NEUROLOGICAL: Alert and oriented x4.Normal gait and speech. Cranial nerves II through XII grossly intact. SKIN: Warm, dry, no laceration, no petechiae, no rashes or lesions. Course Orders Ordered: ED Orders 05/17/19 09:32 Complete Blood Count AUTO DIFF Stat Comprehensive Metabolic Panel Stat Lactate (Lactic Acid) Stat Discontinued Medications Albuterol (Ventolin) 2.5 mg INH NOW ONE Stop: 05/17/19 09:24 Last Admin: 05/17/19 09:20 Dose: 2.5 mg Documented by: SUHAS Albuterol/Ipratropium (Duoneb) 3 ml INH NOW ONE Stop: 05/17/19 09:33 Last Admin: 05/17/19 09:34 Dose: 3 ml Documented by: RENZO Albuterol/Ipratropium (Duoneb) 6 ml INH NOW ONE Stop: 05/17/19 09:50 Last Admin: 05/17/19 09:50 Dose: 6 ml Documented by: RENZO Sodium Chloride (Normal Saline 0.9%) 1,000 mls @ 150 mls/hr IV CONT DANIELLE Last Admin: 05/17/19 09:37 Dose: 150 mls/hr Documented by: SUHAS Vital Signs Vital signs: Vital Signs - 8 hr 05/17/19 09:51 05/17/19 10:26 Pulse Rate 91 H 104 H Respiratory Rate 16 20 Blood Pressure 114/68 Pulse Oximetry 93 91 MDM - SOB/Dyspnea Lab Data Attestation: I reviewed the patient's lab results. Result diagrams: 05/17/19 09:32 05/17/19 09:32 Labs: Lab Results 05/17/19 05/17/19 05/17/19 Range/Units 08:22 09:32 09:32 WBC 5.2 (4.5-11.0) X10^3/uL RBC 4.79 (4.0-5.2) X10^6/uL Hgb 14.5 (12.0-16.0) g/dL Hct 42.8 (36-46) % MCV 89.4 (80-100) fL MCH 30.2 (26-34) PG MCHC 33.8 (30-36) % RDW 15.0 H (11.6-14.8) % Plt Count 168 (150-400) X10^3/uL Neut % (Auto) 83.9 H (50-75) % Lymph % (Auto) 6.5 L (25-40) % [place] % (Auto) 8.3 (3-14) % Eos % (Auto) 0.2 L (2-4) % Baso % (Auto) 1.1 (0-2) % Neut # (Auto) 4400 (6575-9874) /uL Lymph # (Auto) 300 L (8803-2744) /uL [place] # (Auto) 400 (0-900) /uL Eos # (Auto) 0 (0-450) /uL Baso # (Auto) 100 (0-100) /uL Sodium 136 L (137-145) mmol/L Potassium 4.2 (3.4-5.1) mmol/L Chloride 97 L (98-107) mmol/L Carbon Dioxide 32 (22-32) mmol/L BUN 14 (7-17) mg/dL Creatinine 1.00 (0.52-1.04) mg/dL Estimated GFR 54.5 L (>60) mL/min BUN/Creatinine Ratio 14.0 (6-22) Glucose 82 (80-110) mg/dL Lactate (0.7-2.1) mmol/L Calcium 9.1 (8.4-10.2) mg/dL Total Bilirubin 0.3 (0.2-1.3) mg/dL AST 32 (14-36) IU/L ALT 18 (<35) IU/L Alkaline Phosphatase 83 (38-126) U/L Total Protein 7.1 (6.3-8.2) g/dL Albumin 4.4 (3.5-5.0) g/dL Globulin 2.7 (1.7-4.1) g/dL Albumin/Globulin Ratio 1.6 (1.0-2.8) Influenza A (RT-PCR) Flu a positive H (NEGATIVE) Influenza B (RT-PCR) Flu b negative (NEGATIVE) 05/17/19 Range/Units 09:32 WBC (4.5-11.0) X10^3/uL RBC (4.0-5.2) X10^6/uL Hgb (12.0-16.0) g/dL Hct (36-46) % MCV (80-100) fL MCH (26-34) PG MCHC (30-36) % RDW (11.6-14.8) % Plt Count (150-400) X10^3/uL Neut % (Auto) (50-75) % Lymph % (Auto) (25-40) % [place] % (Auto) (3-14) % Eos % (Auto) (2-4) % Baso % (Auto) (0-2) % Neut # (Auto) (9310-8756) /uL Lymph # (Auto) (5000-4740) /uL [place] # (Auto) (0-900) /uL Eos # (Auto) (0-450) /uL Baso # (Auto) (0-100) /uL Sodium (137-145) mmol/L Potassium (3.4-5.1) mmol/L Chloride (98-107) mmol/L Carbon Dioxide (22-32) mmol/L BUN (7-17) mg/dL Creatinine (0.52-1.04) mg/dL Estimated GFR (>60) mL/min BUN/Creatinine Ratio (6-22) Glucose (80-110) mg/dL Lactate 0.9 (0.7-2.1) mmol/L Calcium (8.4-10.2) mg/dL Total Bilirubin (0.2-1.3) mg/dL AST (14-36) IU/L ALT (<35) IU/L Alkaline Phosphatase (38-126) U/L Total Protein (6.3-8.2) g/dL Albumin (3.5-5.0) g/dL Globulin (1.7-4.1) g/dL Albumin/Globulin Ratio (1.0-2.8) Influenza A (RT-PCR) (NEGATIVE) Influenza B (RT-PCR) (NEGATIVE) Imaging Data Chest x-ray: Radiologist's Impression: PROCEDURE: XR CHEST 2V INDICATIONS: cough TECHNIQUE: 2 views of the chest were acquired. COMPARISON: None. FINDINGS: Surgical changes and devices: None. Lungs and pleura: Bibasilar bronchiectasis. Focal atelectasis, lingula of the left lung. No pleural effusions or pneumothorax. Mediastinum: Mediastinal contours are normal. Heart size is normal. Bones and chest wall: No suspicious bony abnormalities. Soft tissues appear unremarkable. IMPRESSION: 1. Focal atelectasis, lingula of left lung. 2. Bibasilar bronchiectasis. Comment: Progress films are recommended until clear. Dictated by: Silas Head M.D. on 05/17/2019 at 8:46 MDM Narrative Medical decision making narrative: Patient influenza positive she does appear well however during her stay in the emergency department she did require 1-2 L of oxygen. Upon ambulation trial her oxygen level did decrease to 88 89%. She was given albuterol treatments blood work checked. She improved significantly with albuterol repeat ambulation trial was much improved. She is given a spacer and inhaler upon discharge along with Tamiflu. Blood work is overall reassuring she appear septic or toxic. No pneumonia on x-ray. Discharge Plan Departure Patient Disposition: Home Clinical Impression: Influenza A Discharge Date/Time: 05/17/19 10:27 Instructions: DI for Influenza -- Adult Activity Restrictions/Additional Instructions: *You have been diagnosed with influenza a *What to do: Rest, fever control, increase fluids *Continue to take medications as directed Tamiflu 75 mg twice a day for 5 days Albuterol 1-2 puffs with spacer every 4 hours if needed coughing or shortness breath Tylenol 650 mg every 4-6 hours if needed for fever Ibuprofen 800 mg every 8 hours if needed for pain or fever *Follow up with your primary care provider in 2-3 days *Return to ER if you should have increasing shortness of breath fever not controlled, not tolerating oral fluids or any new, worsening or concerning symptoms Prescriptions: New oseltamivir [Tamiflu] 75 mg capsule 75 mg PO BID 5 Days Qty: 10 RF: 0 albuterol sulfate 90 mcg/actuation HFA aerosol inhaler 2 puff INHALATION Q4-6H PRN (Reason: shortness of breath or wheezing) Qty: 8.5 RF: 0 No Action lamotrigine [Lamictal] 150 mg tablet 225 mg .ROUTE .COMPLEX Qty: 135 RF: 3 Lyrica 50 mg capsule 150 mg PO TID Qty: 810 RF: 0 ropinirole 1 mg tablet 2 mg PO TID Qty: 540 RF: 0 bupropion HCl [Wellbutrin XL] 150 mg tablet extended release 24 hr 150 mg PO QDAY Qty: 90 RF: 3 bupropion HCl [Wellbutrin XL] 300 mg tablet extended release 24 hr 300 mg PO QDAY Qty: 90 RF: 3 methadone 5 mg tablet 5 mg PO DAILY RF: 0 Referrals: [facility] [Outside]
[2019-05-17 08:52] LABS: Influenza B - CEPHEID Flu B NEGATIVE (NEGATIVE)
[2019-05-17 08:59] LABS: Influenza A - CEPHEID Flu A POSITIVE (NEGATIVE)
[2019-05-17 09:00] VITALS: BP 127/55; O2SAT 94
[2019-05-17] MEDS: ALBUTEROL 2.5 MG/3 ML NEB (ADULT) INH (09:20)
--- NOTE | 2019-05-17 09:24 | PC.NURSE ---
Pt 89% on RA during ambulation trial. aware. plans to admit for flu
[2019-05-17 09:34] VITALS: PULSE 86; RESP 16; O2SAT 92
[2019-05-17] MEDS: ALBUTEROL/IPRATROPIUM 3 ML AMPUL INH (09:34)
[2019-05-17] MEDS: SODIUM CHLORIDE 0.9% 1,000 ML 150 ML IV (09:37)
[2019-05-17 09:40] LABS: Add Manual Diff / Slide Review NO; Basophils Absolute Auto 100 /uL (0-100); Basophils Percent Auto 1.1 % (0-2); Eosinophils Absolute Auto 0 /uL (0-450); Eosinophils Percent Auto 0.2 % (2-4); Hematocrit 42.8 % (36-46); Hemoglobin 14.5 g/dL (12.0-16.0); Lymphocytes Absolute Auto 300 /uL (1100-4500); Lymphocytes Percent Auto 6.5 % (25-40); Mean Corpuscular HGB Conc 33.8 % (30-36); Mean Corpuscular Hemoglobin 30.2 PG (26-34); Mean Corpuscular Volume 89.4 fL (80-100); Monocytes Absolute Auto 400 /uL (0-900); Monocytes Percent Auto 8.3 % (3-14); Neutrophils Absolute Auto 4400 /uL (1500-7000); Neutrophils Percent Auto 83.9 % (50-75); Platelet Count 168 X10^3/uL (150-400); Red Blood Cell Count 4.79 X10^6/uL (4.0-5.2); White Blood Cell Count 5.2 X10^3/uL (4.5-11.0)
[2019-05-17] MEDS: ALBUTEROL/IPRATROPIUM 3 ML AMPUL 6 ML INH (09:50)
[2019-05-17 09:51] VITALS: PULSE 91; RESP 16; O2SAT 93
[2019-05-17 09:53] LABS: Alanine Aminotransferase 18 IU/L (<35); Albumin 4.4 g/dL (3.5-5.0); Albumin Globulin Ratio 1.6 (1.0-2.8); Alkaline Phosphatase 83 U/L (38-126); Aspartate Aminotransferase 32 IU/L (14-36); Bilirubin Total 0.3 mg/dL (0.2-1.3); Blood Urea Nitrogen 14 mg/dL (7-17); Calcium 9.1 mg/dL (8.4-10.2); Carbon Dioxide 32 mmol/L (22-32); Chloride 97 mmol/L (98-107); Estimated Glomerular Filt Rate 54.5 mL/min (>60); Globulin 2.7 g/dL (1.7-4.1); Glucose 82 mg/dL (80-110); HEMOLYSIS < 15 (0-50); Potassium 4.2 mmol/L (3.4-5.1); Sodium 136 mmol/L (137-145); Total Protein 7.1 g/dL (6.3-8.2)
[2019-05-17 09:58] LABS: Lactate (Lactic Acid) 0.9 mmol/L (0.7-2.1)
[2019-05-17 10:26] VITALS: BP 114/68; PULSE 104; RESP 20; O2SAT 91
--- NOTE | 2019-07-13 15:48 | PC.NURSE ---
late entry: Per Marbella WALLER, patient IV fluid of NS completed at 1020 on 05/17/2019 with 1000mL infused.
== END 2019-05-17 10:27 | disposition home or self-care (01) ==
LOC: ED 10:14
PROVIDERS: Emergency Provider Emergency Medicine
DX: J09.X2 Influenza due to identified novel influenza A virus with other respiratory manifestations (principal); R11.2 Nausea with vomiting, unspecified
CPT/HCPCS: 36415; 71046; 80053; 83605; 85025; 87502; 94640; 96360; 99283; 99284; J7613

== ENCOUNTER → 2020-11-05 15:52 | Outpatient (CLI) | payer MEDICARE, SELFPAY ==
--- NOTE | 2020-11-05 15:53 | DI.RAD.S_ITS ---
PROCEDURE: XR CHEST 2V INDICATIONS: shortness of breath, concerning for COPD TECHNIQUE: 2 views of the chest were acquired. COMPARISON: [facility], CR, SHOULDER MIN 2VW (LT), 07/05/2012, 16:22. [facility], CR, XR CHEST 1VW (PORTABLE), 06/10/2016, 13:52. [facility], CR, XR CHEST 2V, 05/17/2019, 8:29. FINDINGS: Surgical changes and devices: None. Lungs and pleura: Diffuse, widespread bilateral interstitial opacities are present similar to prior examination. Focal bandlike opacity again seen involving the left lower lobe unchanged from prior examination.. No pleural effusions or pneumothorax. Mediastinum: Mediastinal contours are normal. Heart size is normal. Bones and chest wall: No suspicious bony abnormalities. Soft tissues appear unremarkable. IMPRESSION: 1. Diffuse, widespread bilateral interstitial opacities similar to prior examination and may represent chronic interstitial changes. Recommend clinical correlation to exclude an early or subtle acute pulmonary edema or atypical pneumonia. 2. Subcentimeter rounded nodular opacity projected over the mid left lung which appears unchanged from prior chest dated 05/17/2019 and may represent a small granuloma. Attention on follow-up is recommended. 3. Band like focal opacity involving the left lower lung unchanged and may represent atelectasis or scarring. Attention on follow-up recommended. Dictated by: Catarino MONTANO Interpreted: Chris Sanchez MD on 11/05/2020 at 16:41 Transcribed by: NAOMI on 11/05/2020 at 16:46 Approved by: Chris Sanchez M.D. on 11/05/2020 at 17:03
== END ==
PROVIDERS: PCP Nurse Practitioner; Referring Provider Nurse Practitioner; Visit Provider Nurse Practitioner
DX: R06.02 Shortness of breath (principal)
CPT/HCPCS: 71046

== ENCOUNTER → 2020-11-17 12:55 | Outpatient (CLI) | payer MEDICARE, SELFPAY ==
[2020-11-17 13:48] LABS: COVID19 -Nasal RAPID Negative (Negative)
== END ==
PROVIDERS: PCP Nurse Practitioner; Referring Provider Internal Medicine; Visit Provider Internal Medicine
DX: Z20.822 Contact with and (suspected) exposure to COVID-19 (principal)
CPT/HCPCS: 87635; C9803

== ENCOUNTER → 2020-11-17 15:07 | Outpatient (CLI) | payer MEDICARE, SELFPAY ==
--- NOTE | 2020-11-19 10:24 | PM.PFT.1 ---
Pulmonary Function Test Referral & Results Date Patient Seen: 11/17/20 Requesting provider: Salena Belcher Indication: Shortness of breath with exertion Results: The spirometry demonstrates an FVC of 2.78 L which is 89% of predicted. The FEV1 was measured at 1.56 L which is 66% of predicted. The FEV1/FVC ratio was 56 which is 74% of predicted. Following the administration of bronchodilator there was at 13% improvement in FEV1 and a 53% improvement in FEF 25-75%. Lung volumes show an SVC of 2.92 L which is 97% of predicted. The diffusing capacity was measured at 13.91 which is 51% of predicted. The maximum voluntary ventilation was reduced Interpretation: This study demonstrates moderate obstructive lung disease based on reduction FEV1 with evidence of benefit following bronchodilator particularly small airway flow based on improvement in FEF 25-75% Lung volumes are normal There is a moderately severe reduction in diffusing capacity suggesting significant disease at the capillary alveolar level
== END ==
PROVIDERS: PCP Nurse Practitioner; Referring Provider Nurse Practitioner; Visit Provider Nurse Practitioner
DX: R06.02 Shortness of breath (principal); F17.210 Nicotine dependence, cigarettes, uncomplicated; J98.8 Other specified respiratory disorders; Z20.822 Contact with and (suspected) exposure to COVID-19
CPT/HCPCS: 87635; 94060; 94726; 94729; C9803

== ENCOUNTER → 2020-12-02 10:29 | Outpatient (CLI) | payer MEDICARE, SELFPAY ==
--- NOTE | 2020-12-02 10:30 | DI.RAD.S_ITS ---
PROCEDURE: XR CHEST 2V INDICATIONS: pneumonia TECHNIQUE: 2 views of the chest were acquired. COMPARISON: [facility], CR, XR CHEST 2V, 11/05/2020, 15:52. FINDINGS: Surgical changes and devices: None. Lungs and pleura: Diffusely increased interstitial opacities are again seen unchanged from prior study. Previously described round nodular density in mid left lung field is more subtle on the current study. Bandlike airspace opacity is again noted in left lower lung field not significantly changed from prior study. No pleural effusions or pneumothorax. Mediastinum: Mediastinal contours are normal. Heart size is normal. Bones and chest wall: No suspicious bony abnormalities. Soft tissues appear unremarkable. IMPRESSION: 1. Persistent band like opacity in left lower lung field suggestive of left lower lobe infiltrate/atelectasis. 2. Previously noted round opacity in left mid lung field is less conspicuous on the current study. 3. Likely chronic interstitial lung parenchymal disease. If indicated, CT of chest can be done for further evaluation. Dictated by: Kyle Harris M.D. on 12/02/2020 at 10:54 Approved by: Kyle Harris M.D. on 12/02/2020 at 10:56
== END ==
PROVIDERS: PCP Nurse Practitioner; Referring Provider Nurse Practitioner; Visit Provider Nurse Practitioner
DX: J18.9 Pneumonia, unspecified organism (principal)
CPT/HCPCS: 71046

== ENCOUNTER → 2020-12-03 11:43 | Outpatient (CLI) | payer MEDICARE, SELFPAY ==
[2020-12-03 13:15] LABS: Alanine Aminotransferase 20 IU/L (<35); Albumin 4.3 g/dL (3.5-5.0); Albumin Globulin Ratio 1.8 (1.0-2.8); Alkaline Phosphatase 78 U/L (38-126); Aspartate Aminotransferase 24 IU/L (14-36); BUN Creatinine Ratio 16.5 (6-22); Bilirubin Total 0.4 mg/dL (0.2-1.3); Blood Urea Nitrogen 14 mg/dL (7-17); Calcium 9.6 mg/dL (8.4-10.2); Carbon Dioxide 22 mmol/L (22-32); Chloride 111 mmol/L (98-107); Estimated Glomerular Filt Rate > 60.0 mL/min (>60); Globulin 2.4 g/dL (1.7-4.1); Glucose 69 mg/dL (80-110); HEMOLYSIS < 15 (0-50); Potassium 4.7 mmol/L (3.4-5.1); Sodium 141 mmol/L (137-145); Total Protein 6.7 g/dL (6.3-8.2)
== END ==
PROVIDERS: PCP Nurse Practitioner; Referring Provider Nurse Practitioner; Visit Provider Nurse Practitioner
DX: Z01.812 Encounter for preprocedural laboratory examination (principal)
CPT/HCPCS: 36415; 80053

== ENCOUNTER → 2020-12-04 06:38 | Outpatient (CLI) | payer MEDICARE, SELFPAY ==
--- NOTE | 2020-12-04 06:39 | DI.CT.S_ITS ---
PROCEDURE: CT CHEST W CON INDICATIONS: Infiltrates versus atelectasis, CXR abnormalities TECHNIQUE: After the administration of intravenous contrast, 5 mm thick sections acquired from the pulmonary apices to the posterior costophrenic angles. 1 mm axial lung, 5 mm thick coronal and sagittal reformats and 7 mm axial MIP were acquired. For radiation dose reduction, the following was used: automated exposure control, adjustment of mA and/or kV according to patient size. COMPARISON: [facility], CR, XR CHEST 2V, 12/02/2020, 10:29. FINDINGS: Image quality: Excellent. Lungs and pleura: No acute air space opacities. 9 mm diameter nodule within the central aspect of the left upper lobe. Mild apically predominant emphysema. Left hemidiaphragm is elevated and there is compressive atelectasis at the left lung base. Linear scarring versus atelectasis within the bilateral lower lobes. No pleural effusions or pneumothorax. Central and peripheral airways are patent and normal in caliber. Mediastinum: Heart size is normal. No pericardial effusion. No mediastinal or hilar adenopathy by size criteria. Thoracic aorta and central pulmonary arteries are normal in size. Esophagus is normal in caliber. No hiatal hernia. Bones and chest wall: No suspicious bony lesions. No vertebral body compression fractures. No axillary or supraclavicular adenopathy by size criteria. Thyroid gland is grossly unremarkable . Abdomen: Visualized upper abdominal solid organs appear normal. Upper abdominal bowel loops are normal in caliber. IMPRESSION: 1. Left upper lobe pulmonary nodule. Initial further assessment with PET-CT examination is recommended. 2. Emphysema. 3. Left hemidiaphragm elevation Dictated by: Kim Guthrie M.D. on 12/04/2020 at 8:33 Approved by: Kim Guthrie M.D. on 12/04/2020 at 8:36
== END ==
PROVIDERS: PCP Nurse Practitioner; Referring Provider Nurse Practitioner; Visit Provider Nurse Practitioner
DX: J98.11 Atelectasis (principal); R91.8 Other nonspecific abnormal finding of lung field; J43.9 Emphysema, unspecified
CPT/HCPCS: 71260

== ENCOUNTER 2020-12-06 09:58 | Emergency (ER) | payer MEDICARE, SELFPAY ==
[2020-12-06] VITALS (7 sets, daily range): BP systolic 160–162; BP diastolic 67–77; PULSE 70–88; RESP 14–20; TEMP 36.4; O2SAT 95–97; BMI 34.2
--- NOTE | 2020-12-06 10:19 | ED_ITS ---
HPI - General Adult General Chief complaint: Shortness of Breath/Dyspnea Stated complaint: SOB Time Seen by Provider: 12/06/20 10:10 Source: patient Mode of arrival: Ambulatory History of Present Illness HPI narrative: Patient is a 75-year-old female with a recent diagnosis of COPD. Not on home oxygen. Does have prescription for an albuterol inhaler who yesterday saw her primary doctor. She also notes that she has a left upper lobe lung mass and is still under the care for primary doctor to obtain a PET scan and also biopsies of this. She is here for evaluation of shortness of breath. She states that last evening her shortness of breath seem to get worse. No headache. No fevers. Does have some chest pressure. No productive cough. Related Data Home Medications Medication Instructions Recorded Confirmed bupropion HCl 150 mg 24 hr tablet, 150 mg PO QAM 11/05/20 12/02/20 extended release bupropion HCl 300 mg 24 hr tablet, 300 mg PO QAM 11/05/20 12/02/20 extended release methadone 5 mg tablet 10 mg PO DAILY tab 11/05/20 12/02/20 pregabalin 50 mg capsule 50 mg PO QID #810 cap 11/05/20 12/02/20 ropinirole 1 mg tablet 4 mg PO BEDTIME tab 11/05/20 12/02/20 Previous Rx's Medication Instructions Recorded lamotrigine 150 mg tablet 225 mg PO DAILY #135 tab 08/19/20 (Lamictal) pneumoc 13-chirag conj-dip cr(PF) 0.5 0.5 ml IM ONCE #0.5 ml 11/05/20 mL IM syringe (Prevnar 13 (PF)) varicella-zoster glycoE [id number] 0.5 ml IM ONCE #1 ea 11/05/20 adj(PF) 50 mcg/0.5 mL IM susp, kit (Shingrix (PF)) albuterol sulfate 90 mcg/actuation 2 puff INHALATION Q4-6H PRN #8.5 11/26/20 aerosol inhaler gram fluticasone propionate 110 1 puff INHALATION BID #12 g 11/26/20 mcg/actuation HFA aerosol inhaler inhalational spacing device #1 ea 11/26/20 ([employer]) prednisone 20 mg tablet 20 mg PO DAILY 5 Days #5 tab 12/06/20 Allergies Allergy/AdvReac Type Severity Reaction Status Date / Time No Known Drug Allergies Allergy Verified 12/06/20 10:15 Review of Systems Constitutional Constitutional: Denies fever(s) Cardiovascular Comments: Chest pressure Respiratory Comments: Shortness of breath Gastrointestinal Gastrointestinal: Reports system reviewed and no additional complaints, except as documented Musculoskeletal Musculoskeletal: Reports system reviewed and no additional complaints, except as documented Integumentary/Breasts Skin/Breast: Reports system reviewed and no additional complaints, except as documented Neurologic Neurologic: Reports system reviewed and no additional complaints, except as documented Hematologic/Lymphatic On Anticoagulants: No Patient History Medical History Acne Chicken pox Depression, major, severe recurrence Eczema Measles Medication side effects Moderate COPD (chronic obstructive pulmonary disease) Mumps Neck pain Osteoarthritis Pulmonary nodule 1 cm or greater in diameter RLS (restless legs syndrome) Seasonal affective disorder Shoulder pain Sleep disturbance Tobacco dependence Surgical History Anesthesia History of right hip replacement (~2005) History of total left knee replacement Family History Father Mesothelioma Cancer Mother Suicide Grandfather Stroke Grandmother Breast cancer Grandfather History of heart disease Social History Smoking Status: Current every day smoker Smoking Status: Current every day smoker alcohol intake frequency: 0-2 drinks per day Substance Use Type: does not use Exam Initial Vital Signs Initial Vital Signs: Vital Signs Temperature 97.6 F 12/06/20 10:10 Pulse Rate 88 12/06/20 10:10 Respiratory Rate 20 12/06/20 10:10 Blood Pressure 162/73 H 12/06/20 10:10 Pulse Oximetry 97 12/06/20 10:10 Const General: cooperative, comfortable and well developed HENMT Head: normal to inspection and normocephalic Resp Effort & Inspection: normal respiratory effort Auscultation: clear to auscultation bilaterally Cardio Rate: regular rate Rhythm: regular rhythm GI Inspection: normal to inspection Skin General: no rashes or lesions noted Neuro General: patient alert, patient awake and patient oriented x3 Extrem General: no pedal edema Psych Appearance: grossly normal and well kempt Course Orders Ordered: ED Orders 12/06/20 10:20 XR chest 1V Stat EKG-12 Lead Stat RT Consult Eval and Treat Now 12/06/20 10:37 Complete Blood Count AUTO DIFF Stat Comprehensive Metabolic Panel Stat Lipase Stat NT-proBNP (BNP-Adult 18+) Stat Troponin & CK Cardiac Panel Stat 12/06/20 10:49 COVID19 -Nasal swab/Pre-Proc Stat Vital Signs Vital signs: Vital Signs - 8 hr 12/06/20 10:10 12/06/20 10:16 12/06/20 10:30 Temperature 97.6 F Pulse Rate 88 86 80 Respiratory Rate 20 15 Blood Pressure 162/73 H Pulse Oximetry 97 97 95 Medical Decision Making Medical Records Medical records reviewed: Yes I reviewed the patient's medical records. Lab Data Lab results reviewed: Yes I reviewed the patient's lab results. Result diagrams: 12/06/20 10:37 12/06/20 10:37 Labs: Lab Results 12/06/20 12/06/20 12/06/20 Range/Units 10:37 10:37 10:37 WBC 7.2 (4.5-11.0) X10^3/uL RBC 4.75 (4.0-5.2) X10^6/uL Hgb 13.8 (12.0-16.0) g/dL Hct 42.3 (36-46) % MCV 89.2 (80-100) fL MCH 29.2 (26-34) PG MCHC 32.7 (30-36) % RDW 14.8 (11.6-14.8) % Plt Count 214 (150-400) X10^3/uL Neut % (Auto) 74.0 (50-75) % Lymph % (Auto) 15.1 L (25-40) % [place] % (Auto) 7.3 (3-14) % Eos % (Auto) 2.4 (2-4) % Baso % (Auto) 1.2 (0-2) % Neut # (Auto) 5300 (3725-7589) /uL Lymph # (Auto) 1100 (7897-5853) /uL [place] # (Auto) 500 (0-900) /uL Eos # (Auto) 200 (0-450) /uL Baso # (Auto) 100 (0-100) /uL Sodium 139 (137-145) mmol/L Potassium 5.0 (3.4-5.1) mmol/L Chloride 112 H (98-107) mmol/L Carbon Dioxide 23 (22-32) mmol/L BUN 17 (7-17) mg/dL Creatinine 0.77 (0.52-1.04) mg/dL Estimated GFR > 60.0 (>60) mL/min BUN/Creatinine Ratio 22.1 H (6-22) Glucose 108 (80-110) mg/dL Calcium 9.6 (8.4-10.2) mg/dL Total Bilirubin 0.5 (0.2-1.3) mg/dL AST 31 (14-36) IU/L ALT 22 (<35) IU/L Alkaline Phosphatase 56 (38-126) U/L Total Creatine Kinase 121 (30-135) U/L CK-MB (CK-2) 1.97 (<2.37) ng/mL CK-MB (CK-2) Rel Index 1.6 (1.5-5.0) % Troponin I < 0.012 (0.01-0.034) ng/mL NT-Pro-B Natriuret Pep 90 (<125) pg/mL Total Protein 6.7 (6.3-8.2) g/dL Albumin 4.0 (3.5-5.0) g/dL Globulin 2.7 (1.7-4.1) g/dL Albumin/Globulin Ratio 1.5 (1.0-2.8) Lipase 35 (23-300) U/L SARS-CoV-2 (PCR) (Negative) 12/06/20 Range/Units 10:49 WBC (4.5-11.0) X10^3/uL RBC (4.0-5.2) X10^6/uL Hgb (12.0-16.0) g/dL Hct (36-46) % MCV (80-100) fL MCH (26-34) PG MCHC (30-36) % RDW (11.6-14.8) % Plt Count (150-400) X10^3/uL Neut % (Auto) (50-75) % Lymph % (Auto) (25-40) % [place] % (Auto) (3-14) % Eos % (Auto) (2-4) % Baso % (Auto) (0-2) % Neut # (Auto) (2769-7623) /uL Lymph # (Auto) (7283-1531) /uL [place] # (Auto) (0-900) /uL Eos # (Auto) (0-450) /uL Baso # (Auto) (0-100) /uL Sodium (137-145) mmol/L Potassium (3.4-5.1) mmol/L Chloride (98-107) mmol/L Carbon Dioxide (22-32) mmol/L BUN (7-17) mg/dL Creatinine (0.52-1.04) mg/dL Estimated GFR (>60) mL/min BUN/Creatinine Ratio (6-22) Glucose (80-110) mg/dL Calcium (8.4-10.2) mg/dL Total Bilirubin (0.2-1.3) mg/dL AST (14-36) IU/L ALT (<35) IU/L Alkaline Phosphatase (38-126) U/L Total Creatine Kinase (30-135) U/L CK-MB (CK-2) (<2.37) ng/mL CK-MB (CK-2) Rel Index (1.5-5.0) % Troponin I (0.01-0.034) ng/mL NT-Pro-B Natriuret Pep (<125) pg/mL Total Protein (6.3-8.2) g/dL Albumin (3.5-5.0) g/dL Globulin (1.7-4.1) g/dL Albumin/Globulin Ratio (1.0-2.8) Lipase (23-300) U/L SARS-CoV-2 (PCR) Negative (Negative) Imaging Data Chest x-ray: Radiologist's Impression: [address] [id number] ReportSigned Patient: Kerrie Mcgee [facility]#: [id number]: 1945cct:[id number]/Sex: 75 / FDate of Service: 12/06/20Loc: EDAccession Number: [id number] Procedure: XR chest 1V Ordering Provider: Florencio Biswas D.O. PROCEDURE: XR CHEST 1V INDICATIONS: Shortness of breath TECHNIQUE: One view of the chest was acquired. COMPARISON: [facility], [place], XR CHEST 2V, 12/02/2020, 10:29. FINDINGS: There is pulmonary hyperinflation and left basilar atelectasis or scarring present. Heart size, mediastinum and pulmonary vascular. Osseous structures unremarkable. IMPRESSION: Hyperinflation and left basilar scarring without acute cardiopulmonary findings Dictated by: Navdeep Logan M.D. on 12/06/2020 at 9:53 Approved by: Navdeep Logan M.D. on 12/06/2020 at 10:16 MDM Narrative Medical decision making narrative: EKG is unremarkable, labs unremarkable, no fevers. Chest x-ray does not show any signs of pneumonia. No indication for antibiotics. Will place her on steroids for the next couple days. She will continue with her further workup of the lung mass. She is given return precautions and follow-up instructions. She expressed understanding and agreement. Discharge Plan Departure Patient Disposition: Home Clinical Impression: COPD (chronic obstructive pulmonary disease) Instructions: Chronic Obstructive Pulmonary Disease Activity Restrictions/Additional Instructions: Continue all of your medications as directed. Keep all of your scheduled medical appointments. Return to the emergency department for any new or worsening symptoms Prescriptions: New prednisone 20 mg tablet 20 mg PO DAILY 5 Days Qty: 5 RF: 0 No Action pregabalin 50 mg capsule 50 mg PO QID Qty: 810 RF: 0 lamotrigine [Lamictal] 150 mg tablet 225 mg PO DAILY Qty: 135 RF: 3 albuterol sulfate 90 mcg/actuation HFA aerosol inhaler 2 puff INHALATION Q4-6H PRN (Reason: shortness of breath or wheezing) Qty: 8.5 RF: 2 fluticasone propionate 110 mcg/actuation HFA aerosol inhaler 1 puff inhalation BID Qty: 12 RF: 12 (DME) [employer] Spacer See Rx Instructions .Route Qty: 1 RF: 0 methadone 5 mg tablet 10 mg PO DAILY RF: 0 Shingrix (PF) 50 mcg/0.5 mL suspension for reconstitution 0.5 ml IM ONCE Qty: 1 RF: 0 Prevnar 13 (PF) 0.5 mL syringe 0.5 ml IM ONCE Qty: 0.5 RF: 0 ropinirole 1 mg tablet 4 mg PO BEDTIME RF: 0 bupropion HCl 150 mg tablet extended release 24 hr 150 mg PO QAM RF: 0 bupropion HCl 300 mg tablet extended release 24 hr 300 mg PO QAM RF: 0 Referrals: Salena Belcher ARNP [Primary Care Provider] -
[2020-12-06 10:43] LABS: Add Manual Diff / Slide Review NO; Basophils Absolute Auto 100 /uL (0-100); Basophils Percent Auto 1.2 % (0-2); Eosinophils Absolute Auto 200 /uL (0-450); Eosinophils Percent Auto 2.4 % (2-4); Hematocrit 42.3 % (36-46); Hemoglobin 13.8 g/dL (12.0-16.0); Lymphocytes Absolute Auto 1100 /uL (1100-4500); Lymphocytes Percent Auto 15.1 % (25-40); Mean Corpuscular HGB Conc 32.7 % (30-36); Mean Corpuscular Hemoglobin 29.2 PG (26-34); Mean Corpuscular Volume 89.2 fL (80-100); Monocytes Absolute Auto 500 /uL (0-900); Monocytes Percent Auto 7.3 % (3-14); Neutrophils Absolute Auto 5300 /uL (1500-7000); Platelet Count 214 X10^3/uL (150-400); Red Blood Cell Count 4.75 X10^6/uL (4.0-5.2); Red Cell Distribution Width 14.8 % (11.6-14.8); White Blood Cell Count 7.2 X10^3/uL (4.5-11.0)
[2020-12-06 10:55] LABS: Creatine Kinase 121 U/L (30-135); Lipase 35 U/L (23-300)
[2020-12-06 10:57] LABS: Alanine Aminotransferase 22 IU/L (<35); Albumin Globulin Ratio 1.5 (1.0-2.8); Alkaline Phosphatase 56 U/L (38-126); Aspartate Aminotransferase 31 IU/L (14-36); BUN Creatinine Ratio 22.1 (6-22); Bilirubin Total 0.5 mg/dL (0.2-1.3); Blood Urea Nitrogen 17 mg/dL (7-17); Calcium 9.6 mg/dL (8.4-10.2); Carbon Dioxide 23 mmol/L (22-32); Chloride 112 mmol/L (98-107); Estimated Glomerular Filt Rate > 60.0 mL/min (>60); Globulin 2.7 g/dL (1.7-4.1); Glucose 108 mg/dL (80-110); HEMOLYSIS 108 (0-50); Sodium 139 mmol/L (137-145); Total Protein 6.7 g/dL (6.3-8.2)
[2020-12-06 11:07] LABS: NT-proBNP (BNP-Adult 18+) 90 pg/mL (<125); Troponin I < 0.012 ng/mL (0.01-0.034)
[2020-12-06 11:09] LABS: COVID19 -Nasal RAPID Negative (Negative)
[2020-12-06 11:11] LABS: CKMB % Relative Index 1.6 % (1.5-5.0); Creatine Kinase MB 1.97 ng/mL (<2.37)
== END 2020-12-06 12:01 | disposition home or self-care (01) ==
PROVIDERS: Emergency Provider Emergency Medicine; PCP Nurse Practitioner
DX: J44.9 Chronic obstructive pulmonary disease, unspecified (principal); Z20.822 Contact with and (suspected) exposure to COVID-19
CPT/HCPCS: 36415; 71045; 80053; 82550; 82553; 83690; 83880; 84484; 85025; 87635; 93005; 93010; 99283; 99284; C9803

== ENCOUNTER → 2021-02-27 07:23 | Outpatient (CLI) | payer MEDICARE, SELFPAY | PROVIDERS: PCP Nurse Practitioner; Visit Provider Nurse Practitioner | DX: S61.009A Unspecified open wound of unspecified thumb without damage to nail, initial encounter (principal) | CPT/HCPCS: 87070; 87077; 87205 ==

== ENCOUNTER → 2021-03-04 08:12 | Outpatient (CLI) | payer MEDICARE, SELFPAY ==
--- NOTE | 2021-03-04 08:22 | DI.CT.S_ITS ---
PROCEDURE: CT CHEST WO CON INDICATIONS: demonstrate stability of nodule TECHNIQUE: Noncontrast 5 mm thick sections acquired from the pulmonary apices to the posterior costophrenic angles. 1 mm lung window, 5 mm thick coronal and sagittal and 7 mm axial MIP reformats were then acquired. For radiation dose reduction, the following was used: automated exposure control, adjustment of mA and/or kV according to patient size. COMPARISON: [facility], HI, HI PET CT FUSION SKULL 2 THIGH, 12/10/2020, 9:23. [facility], CT, CT CHEST W CON, 12/04/2020, 6:51. FINDINGS: Image quality: Excellent. Lungs and pleura: No acute air space opacities. No pleural effusions or pneumothorax. Central and peripheral airways are patent and normal in caliber. Left upper lobe nodule on series 3, image 126 measures 8 mm, compared to 9 mm. No new nodules are identified. Emphysematous and predominantly a pickle location is present. Left hemidiaphragm elevation is present. Mediastinum: Heart size is normal. No pericardial effusion. No mediastinal adenopathy by size criteria. Thoracic aorta and central pulmonary arteries are normal in size. Esophagus is normal in caliber. No hiatal hernia. Bones and chest wall: No suspicious bony lesions. No vertebral body compression fractures. No axillary or supraclavicular adenopathy by size criteria. Thyroid gland is unremarkable . Abdomen: Visualized upper abdominal solid organs and bowel loops appear normal in the absence of contrast. IMPRESSION: 1. Left upper lobe nodule measuring 8 mm compared to 9 mm on prior exam, noting no hypermetabolic activity on PET scan of 12/10/2020. Recommend continued interval follow-up below based on initial visualization date of 12/04/2020 and size. Fleischner Society criteria for SOLID lung nodule followup. Nodule size (mm)Low-risk patientHigh-risk patient<6 (single or multiple)No routine followup.Optional CT at 12 months. 6-8 (single or multiple)CT at 6-12 months, then optional CT at 18-24 mo.CT at 6-12 months, then CT at 18-24 months. >8 (single)CT, PET-CT, or biopsy at 3 months. Same as for low-risk pts. >8 (multiple)CT at 3-6 months, then optional CT at 18-24 mo.CT at 3-6 months, then CT at 18-24 months. Recommendations do not apply to lung cancer screening, patients with immunosuppression, or patients with known primary cancer. Dictated by: Meri Hernandez M.D. on 03/04/2021 at 10:26 Approved by: Meri Hernandez M.D. on 03/04/2021 at 11:14
== END ==
PROVIDERS: PCP Nurse Practitioner; Referring Provider Nurse Practitioner; Visit Provider Nurse Practitioner
DX: R91.1 Solitary pulmonary nodule (principal)
CPT/HCPCS: 71250

== ENCOUNTER → 2021-04-13 09:02 | Outpatient (CLI) | payer MEDICARE, SELFPAY ==
[2021-04-13 11:40] LABS: COVID19 -Nasal RAPID Negative (Negative)
== END ==
PROVIDERS: PCP Nurse Practitioner; Referring Provider Nurse Practitioner Family; Visit Provider Nurse Practitioner Family
DX: Z20.822 Contact with and (suspected) exposure to COVID-19 (principal)
CPT/HCPCS: 87635; C9803

== ENCOUNTER → 2021-05-25 11:03 | Outpatient (CLI) | payer MEDICARE, SELFPAY ==
[2021-05-25 15:57] LABS: COVID19 -Nasal RAPID Negative (Negative)
== END ==
PROVIDERS: PCP Nurse Practitioner; Visit Provider Physician Assistant
DX: Z20.822 Contact with and (suspected) exposure to COVID-19 (principal); R51.9 Headache, unspecified
CPT/HCPCS: 87635; C9803

== ENCOUNTER 2021-08-05 19:14 | Emergency (ER) | payer MEDICARE, SELFPAY ==
[2021-08-05] VITALS (18 sets, daily range): BP systolic 146–166; BP diastolic 63–78; PULSE 89–103; RESP 16–32; TEMP 36.6; O2SAT 92–96
--- NOTE | 2021-08-05 19:18 | DI.RAD.S_ITS ---
PROCEDURE: XR CHEST 1V INDICATIONS: chest pain TECHNIQUE: One view of the chest was acquired. COMPARISON: [facility], CR, XR CHEST 1V, 12/06/2020, 10:22. FINDINGS: Surgical changes and devices: None. Lungs and pleura: Increased prominence of the interstitium. No pleural effusions or pneumothorax. Mediastinum: Mediastinal contours appear normal. Heart size is normal. Bones and chest wall: No suspicious bony lesions. Overlying soft tissues appear unremarkable. IMPRESSION: Interstitial prominence which could represent pulmonary edema or atypical pneumonia. Dictated by: Susie Wie MD, PhD on 08/05/2021 at 20:01 Approved by: Susie Wei MD, PhD on 08/05/2021 at 20:02
[2021-08-05] MEDS: ALBUTEROL/IPRATROPIUM 3 ML AMPUL 6 ML INH (19:34)
--- NOTE | 2021-08-05 19:36 | PC.NURSE ---
pt states she walked a normal length today but became SOB states she has never been this sob before, she used her inhaler without relief, she was given a neb tx en route to the hospital which did provide some relief, pt states she does not freel her breathing is back to normal just yet
[2021-08-05 19:44] LABS: Add Manual Diff / Slide Review NO; Basophils Absolute Auto 100 /uL (0-100); Basophils Percent Auto 1.5 % (0-2); Eosinophils Absolute Auto 600 /uL (0-450); Eosinophils Percent Auto 9.3 % (2-4); Hematocrit 41.5 % (36-46); Hemoglobin 13.7 g/dL (12.0-16.0); Lymphocytes Absolute Auto 1800 /uL (1100-4500); Mean Corpuscular Hemoglobin 27.5 PG (26-34); Mean Corpuscular Volume 83.2 fL (80-100); Monocytes Absolute Auto 500 /uL (0-900); Monocytes Percent Auto 7.8 % (3-14); Neutrophils Absolute Auto 3800 /uL (1500-7000); Neutrophils Percent Auto 55.4 % (50-75); Platelet Count 240 X10^3/uL (150-400); Red Blood Cell Count 4.99 X10^6/uL (4.0-5.2); Red Cell Distribution Width 15.9 % (11.6-14.8); White Blood Cell Count 6.8 X10^3/uL (4.5-11.0)
[2021-08-05 19:52] LABS: Prothrombin Time 10.9 SECONDS (10.1-12.7)
[2021-08-05 19:54] LABS: COVID19 -Nasal RAPID Negative (Negative)
[2021-08-05 19:55] LABS: PTT Partial Thromboplastin Tim 26 SECONDS (26.4-36.2)
[2021-08-05 20:40] LABS: Alanine Aminotransferase 22 IU/L (<35); Albumin 4.7 g/dL (3.5-5.0); Albumin Globulin Ratio 1.6 (1.0-2.8); Alkaline Phosphatase 77 U/L (38-126); Aspartate Aminotransferase 28 IU/L (14-36); BUN Creatinine Ratio 15.4 (6-22); Bilirubin Total 0.3 mg/dL (0.2-1.3); Blood Urea Nitrogen 16 mg/dL (7-17); Calcium 9.7 mg/dL (8.4-10.2); Carbon Dioxide 25 mmol/L (22-32); Chloride 107 mmol/L (98-107); Creatine Kinase 145 U/L (30-135); Estimated Glomerular Filt Rate 51.8 mL/min (>60); Globulin 2.9 g/dL (1.7-4.1); Glucose 90 mg/dL (80-110); Lipase 37 U/L (23-300); Magnesium 2.2 mg/dL (1.6-2.3); Potassium 3.4 mmol/L (3.4-5.1); Sodium 142 mmol/L (137-145); Total Protein 7.6 g/dL (6.3-8.2)
--- NOTE | 2021-08-05 20:50 | ED.SOB ---
HPI - SOB/Dyspnea General Chief Complaint: Shortness of Breath/Dyspnea Stated Complaint: SOB Time Seen by Provider: 08/05/21 19:53 Source: patient Mode of arrival: EMS History of Present Illness HPI Narrative: Patient brought in by ambulance from home for dyspnea. No chest pain. is at bedside. Patient has history of COPD. No longer smokes. She is currently enrolled in pulmonary rehab but has not been there in the past 4 weeks due to family needs. Patient given 1 treatment by EMS and 2 treatments on arrival by respiratory therapy. Has audible wheezing. Denies any recent illness. No history of congestive heart failure. Denies any weight gain or any limb swelling. Related Data Home Medications Medication Instructions Recorded Confirmed methadone 5 mg tablet 10 mg PO DAILY tab 11/05/20 05/01/21 pregabalin 50 mg capsule 50 mg PO QID #810 cap 11/05/20 05/01/21 ropinirole 1 mg tablet 4 mg PO BEDTIME tab 11/05/20 05/01/21 tiotropium 2.5 mcg-olodaterol 2.5 2 puff INHALATION DAILY 01/07/21 05/01/21 mcg/actuation mist for inhalation (Stiolto Respimat) Previous Rx's Medication Instructions Recorded lamotrigine 150 mg tablet 225 mg PO DAILY #135 tab 08/19/20 (Lamictal) pneumoc 13-chirag conj-dip cr(PF) 0.5 0.5 ml IM ONCE #0.5 ml 11/05/20 mL IM syringe (Prevnar 13 (PF)) varicella-zoster glycoE vacc-[id number] 0.5 ml IM ONCE #1 ea 11/05/20 adj(PF) 50 mcg/0.5 mL IM susp, kit (Shingrix (PF)) inhalational spacing device #1 ea 12/09/20 Incentive Spirometer #1 ea 01/27/21 bupropion HCl 150 mg 24 hr tablet, 150 mg PO QAM #30 tab 06/03/21 extended release bupropion HCl 300 mg 24 hr tablet, 300 mg PO QAM #30 tab 06/03/21 extended release albuterol sulfate 90 mcg/actuation See Rx Instructions .ROUTE 06/05/21 aerosol inhaler .COMPLEX #8.5 g Allergies Allergy/AdvReac Type Severity Reaction Status Date / Time No Known Drug Allergies Allergy Verified 03/17/21 08:54 Review of Systems Review of Systems Narrative: GENERAL: Denies chills, fatigue, malaise, fever, sweats. HEENT: Denies sinus pain, ear pain, sore throat RESPIRATORY: Positive for dyspnea, and wheezing CARDIOVASCULAR: Denies chest pain, palpitations GASTROINTESTINAL: Denies nausea, vomiting, abdominal pain : Denies dysuria, frequency, hematuria MUSCULOSKELETAL: denies muscle or bony pain SKIN: Denies rash, skin lesions NEUROLOGIC: Denies weakness, numbness ROS Unobtainable: All systems reviewed & are unremarkable except as noted in HPI and below Patient History Medical History Acne Chicken pox Depression, major, severe recurrence Eczema Measles Medication side effects Moderate COPD (chronic obstructive pulmonary disease) Mumps Neck pain Nocturnal oxygen desaturation Osteoarthritis Oxygen desaturation during sleep Pulmonary nodule 1 cm or greater in diameter RLS (restless legs syndrome) Seasonal affective disorder Severe chronic obstructive pulmonary disease Shoulder pain Sleep disturbance Tobacco dependence Surgical History Anesthesia History of right hip replacement (~2005) History of total left knee replacement Family History Father Mesothelioma Cancer Mother Suicide Grandfather Stroke Grandmother Breast cancer Grandfather History of heart disease Social History Smoking Status: Former smoker Smoking Status: Former smoker alcohol intake frequency: 0-2 drinks per day Substance Use Type: does not use Exam Narrative Exam Narrative: GENERAL: in no distress, not toxic not dyspneic HEAD: Normocephalic. EYES: Pupils equal round No scleral icterus. ENT: Mucous membranes moist. NECK: Trachea midline. CARDIOVASCULAR: Regular rate and rhythm without murmurs RESPIRATORY: Speaking full sentences. In no respiratory distress. Has bibasilar wheezing. No rales. GASTROINTESTINAL: Abdomen soft, non-tender EXTREMITIES: No gross deformities. No ankle edema BACK: No flank tenderness. NEURO: AOx4. SKIN: Warm and dry PSYCH: Not anxious, is cooperative Initial Vital Signs Initial Vital Signs: Vital Signs Temperature 97.8 F 08/05/21 19:19 Pulse Rate 103 H 08/05/21 19:19 Respiratory Rate 22 08/05/21 19:19 Blood Pressure 146/73 H 08/05/21 19:19 Pulse Oximetry 94 08/05/21 19:19 Course Course Course Narrative: Multiple pages and calls out to on-call Cardiology starting at 10:[address] Jaramillo, unable to get call back. There are no beds available with local hospitals we have called. With ongoing pandemic. There are bed shortage and staff shortage 11:00 p.m.. Still no call back for on-call cardiology 11:15 p.m.. We did call [facility] Emergency Department to confirm on-call training analyst. 11:30 p.m.. I spoke with answering service and they have had trouble tonight getting hold of on-call training analyst. Dr Jaramillo, they have also tried calling his cellphone. They will try calling Dr Claire, training analyst, as he was on-call earlier today. 11:45 p.m.. There was a problem with the phone with on-call training analyst. 12:[address] Jaramillo, agrees with treatment plan, he will relay information to nursing supervisor stave cutting at [facility]. Orders Ordered: ED Orders 08/05/21 19:18 XR chest 1V Stat EKG-12 Lead Stat 08/05/21 19:19 COVID19 -Nasal swab/Pre-Proc Stat 08/05/21 19:30 Complete Blood Count AUTO DIFF Stat Partial Thromboplastin Time Stat Prothrombin Time INR Stat 08/05/21 20:14 Comprehensive Metabolic Panel Stat Lipase Stat Magnesium Stat NT-proBNP (BNP-Adult 18+) Stat Troponin & CK Cardiac Panel Stat 08/05/21 21:50 Troponin & CK Cardiac Panel Stat 08/06/21 05:00 Hemoglobin and Hematocrit Routine PTT [Partial Thromboplastin Time] Routine Platelet Count Routine Discontinued Medications Albuterol/Ipratropium (Albuterol/Ipratropium 3 Ml Ampul) 6 ml INH NOW ONE Stop: 08/05/21 19:30 Last Admin: 08/05/21 19:34 Dose: 6 ml Documented by: CTRANGELIQUE Aspirin (Aspirin 81 Mg Chew Tab) 324 mg PO NOW ONE Stop: 08/05/21 20:54 Last Admin: 08/05/21 20:59 Dose: 324 mg Documented by: CTRBEBE Atorvastatin Calcium (Atorvastatin 20 Mg Tablet) 40 mg PO NOW ONE Stop: 08/05/21 22:33 Last Admin: 08/05/21 22:44 Dose: 40 mg Documented by: PAZ Clopidogrel Bisulfate (Clopidogrel 75 Mg Tablet) 300 mg PO NOW ONE Stop: 08/05/21 22:32 Last Admin: 08/05/21 22:39 Dose: 300 mg Documented by: PAZ Heparin Sodium (Porcine) (Heparin 5,000 Unit/Ml Vial) 6,700 unit 80 unit/kg (6700 unit) IV NOW ONE Stop: 08/05/21 22:32 Last Admin: 08/05/21 22:40 Dose: 6,700 unit Documented by: PAZ Heparin Sodium/Dextrose (Heparin Drip) 25,000 unit in 500 mls @ 20.031 mls/hr IV CONT DANIELLE; Protocol Last Admin: 08/05/21 22:40 Dose: 12 units/kg/hr, 20.031 mls/hr Documented by: PAZ Methylprednisolone (Methylprednisolone 125 Mg/2 Ml Vial) 125 mg IV NOW ONE Stop: 08/05/21 20:51 Last Admin: 08/05/21 20:59 Dose: 125 mg Documented by: PAZ Reevaluation(s) Reevaluation #1: Reviewed results with patient again. Troponin has elevated. Understands need for transfer for facility that does have heart catheterization capability. Currently in remains chest pain-free. No dyspnea. Lung sounds improved. Time: 22:37 Consultations Consultation #1: Spoke with cardiology, dr jaramillo, he will relay info to nursing supervisor stave cutting at [facility] Time: 00:02 Consultation #2: Spoke with [facility], Dr. Olmstead he will accept patient Time: 01:07 Vital Signs Vital signs: Vital Signs - 8 hr 08/05/21 20:07 08/05/21 20:15 08/05/21 20:57 Pulse Rate 95 H 95 H 97 H Respiratory Rate Blood Pressure Pulse Oximetry 94 92 08/05/21 20:58 08/05/21 21:00 08/05/21 21:15 Pulse Rate 97 H 102 H 94 H Respiratory Rate 22 17 16 Blood Pressure 160/72 H 147/70 H Pulse Oximetry 94 94 96 08/05/21 21:30 08/05/21 21:45 08/05/21 22:00 Pulse Rate 94 H 94 H 91 H Respiratory Rate 22 18 32 H Blood Pressure 166/70 H 148/78 H Pulse Oximetry 96 96 93 08/05/21 22:15 08/05/21 22:30 08/05/21 22:45 Pulse Rate 89 92 H 96 H Respiratory Rate 18 30 H 28 H Blood Pressure 161/76 H Pulse Oximetry 94 94 08/05/21 23:00 08/05/21 23:15 08/05/21 23:30 Pulse Rate 100 H 93 H 97 H Respiratory Rate 24 29 H 27 H Blood Pressure 149/72 H 146/63 H Pulse Oximetry 94 94 95 08/05/21 23:45 08/06/21 00:00 08/06/21 00:15 Pulse Rate 99 H 95 H 105 H Respiratory Rate 19 21 29 H Blood Pressure 147/67 H Pulse Oximetry 95 93 08/06/21 00:30 08/06/21 00:45 08/06/21 01:00 Pulse Rate 101 H 98 H 96 H Respiratory Rate 21 18 19 Blood Pressure Pulse Oximetry 95 94 94 08/06/21 01:15 08/06/21 01:30 08/06/21 01:45 Pulse Rate 97 H 94 H 93 H Respiratory Rate 21 20 22 Blood Pressure Pulse Oximetry 94 90 L 90 L 08/06/21 02:00 08/06/21 02:11 Pulse Rate 96 H 93 H Respiratory Rate 24 17 Blood Pressure 128/60 Pulse Oximetry 91 93 MDM - SOB/Dyspnea Differential Diagnosis Differential diagnosis: Likely acute exacerbation of chronic obstructive airways disease, congestive heart failure, community acquired pneumonia and other (Non-STEMI) Lab Data Result diagrams: 08/05/21 19:30 08/05/21 20:14 Labs: Lab Results 08/05/21 08/05/21 08/05/21 Range/Units 19:19 19:30 19:30 WBC 6.8 (4.5-11.0) X10^3/uL RBC 4.99 (4.0-5.2) X10^6/uL Hgb 13.7 (12.0-16.0) g/dL Hct 41.5 (36-46) % MCV 83.2 (80-100) fL MCH 27.5 (26-34) PG MCHC 33.0 (30-36) % RDW 15.9 H (11.6-14.8) % Plt Count 240 (150-400) X10^3/uL Neut % (Auto) 55.4 (50-75) % Lymph % (Auto) 26.0 (25-40) % [place] % (Auto) 7.8 (3-14) % Eos % (Auto) 9.3 H (2-4) % Baso % (Auto) 1.5 (0-2) % Neut # (Auto) 3800 (7675-7844) /uL Lymph # (Auto) 1800 (9139-1668) /uL [place] # (Auto) 500 (0-900) /uL Eos # (Auto) 600 H (0-450) /uL Baso # (Auto) 100 (0-100) /uL PT 10.9 (10.1-12.7) SECONDS INR 1.0 (0.9-1.3) APTT 26 L (26.4-36.2) SECONDS Sodium (137-145) mmol/L Potassium (3.4-5.1) mmol/L Chloride (98-107) mmol/L Carbon Dioxide (22-32) mmol/L BUN (7-17) mg/dL Creatinine (0.52-1.04) mg/dL Estimated GFR (>60) mL/min BUN/Creatinine Ratio (6-22) Glucose (80-110) mg/dL Calcium (8.4-10.2) mg/dL Magnesium (1.6-2.3) mg/dL Total Bilirubin (0.2-1.3) mg/dL AST (14-36) IU/L ALT (<35) IU/L Alkaline Phosphatase (38-126) U/L Total Creatine Kinase (30-135) U/L CK-MB (CK-2) (<2.37) ng/mL CK-MB (CK-2) Rel Index (1.5-5.0) % Troponin I (0.01-0.034) ng/mL NT-Pro-B Natriuret Pep (<125) pg/mL Total Protein (6.3-8.2) g/dL Albumin (3.5-5.0) g/dL Globulin (1.7-4.1) g/dL Albumin/Globulin Ratio (1.0-2.8) Lipase (23-300) U/L SARS-CoV-2 (PCR) Negative (Negative) 08/05/21 08/05/21 Range/Units 20:14 21:50 WBC (4.5-11.0) X10^3/uL RBC (4.0-5.2) X10^6/uL Hgb (12.0-16.0) g/dL Hct (36-46) % MCV (80-100) fL MCH (26-34) PG MCHC (30-36) % RDW (11.6-14.8) % Plt Count (150-400) X10^3/uL Neut % (Auto) (50-75) % Lymph % (Auto) (25-40) % [place] % (Auto) (3-14) % Eos % (Auto) (2-4) % Baso % (Auto) (0-2) % Neut # (Auto) (7635-4068) /uL Lymph # (Auto) (8873-5358) /uL [place] # (Auto) (0-900) /uL Eos # (Auto) (0-450) /uL Baso # (Auto) (0-100) /uL PT (10.1-12.7) SECONDS INR (0.9-1.3) APTT (26.4-36.2) SECONDS Sodium 142 (137-145) mmol/L Potassium 3.4 (3.4-5.1) mmol/L Chloride 107 (98-107) mmol/L Carbon Dioxide 25 (22-32) mmol/L BUN 16 (7-17) mg/dL Creatinine 1.04 (0.52-1.04) mg/dL Estimated GFR 51.8 L (>60) mL/min BUN/Creatinine Ratio 15.4 (6-22) Glucose 90 (80-110) mg/dL Calcium 9.7 (8.4-10.2) mg/dL Magnesium 2.2 (1.6-2.3) mg/dL Total Bilirubin 0.3 (0.2-1.3) mg/dL AST 28 (14-36) IU/L ALT 22 (<35) IU/L Alkaline Phosphatase 77 (38-126) U/L Total Creatine Kinase 145 H 146 H (30-135) U/L CK-MB (CK-2) 3.66 H 4.86 H (<2.37) ng/mL CK-MB (CK-2) Rel Index 2.5 3.3 (1.5-5.0) % Troponin I 0.045 H 0.146 H* (0.01-0.034) ng/mL NT-Pro-B Natriuret Pep 107 (<125) pg/mL Total Protein 7.6 (6.3-8.2) g/dL Albumin 4.7 (3.5-5.0) g/dL Globulin 2.9 (1.7-4.1) g/dL Albumin/Globulin Ratio 1.6 (1.0-2.8) Lipase 37 (23-300) U/L SARS-CoV-2 (PCR) (Negative) Imaging Data Chest x-ray: Radiologist's Impression: [address] [address] XRay Report Signed Patient: Kerrie Mcgee MR#: [id number] : 1945 Acct:[id number] Age/Sex: 76 / F Date of Service: 08/05/21 Loc: ED Accession Number: [id number] ?? Procedure: XR chest 1V Ordering Provider: Jc Wang MD PROCEDURE:? XR CHEST 1V ? INDICATIONS:? chest pain ? TECHNIQUE:? One view of the chest was acquired.? ? COMPARISON:? [facility], CR, XR CHEST 1V, 12/06/2020, 10:22. ? FINDINGS:? ? Surgical changes and devices:? None.? ? Lungs and pleura:? Increased prominence of the interstitium.? No pleural effusions or pneumothorax.? ? Mediastinum:? Mediastinal contours appear normal.? Heart size is normal.? ? Bones and chest wall:? No suspicious bony lesions.? Overlying soft tissues appear unremarkable.? ? IMPRESSION:? Interstitial prominence which could represent pulmonary edema or atypical pneumonia. ? ? Dictated by: Susie Wei MD, PhD on 08/05/2021 at 20:01 ? ? Approved by: Susie Wei MD, PhD on 08/05/2021 at 20:02 ? ECG Data Interpretation: Normal sinus rhythm rate [address] elevation or depression. MDM Narrative Medical decision making narrative: Appropriate for transfer. Patient will need facilitated as a heart catheterization capability. Heparin started here. Aspirin and Plavix as well as statin. Remains chest pain-free. Critical Care Time Critical Care Time Attestation: Critical Care Time 35 minutes: Critical care time is separate from other billable procedures. This critical care time includes consultation with family and other consulting doctors, review of records, and interpretation of data from labs, EKGs, imaging, etc. Discharge Plan Departure Patient Disposition: [facility] Clinical Impression: Non-STEMI (non-ST elevated myocardial infarction), Acute exacerbation of chronic obstructive airways disease Prescriptions: No Action pregabalin 50 mg capsule 50 mg PO QID Qty: 810 0RF lamotrigine [Lamictal] 150 mg tablet 225 mg PO DAILY Qty: 135 3RF (DME) inhalational spacing device Spacer See Rx Instructions .Route Qty: 1 0RF Rx Instructions: As directed, BRAND PER INSURANCE (DME) Incentive Spirometer See Rx Instructions .Route .MEDSUPPLY Qty: 1 0RF Rx Instructions: As directed bupropion HCl 300 mg tablet extended release 24 hr 300 mg PO QAM Qty: 30 2RF bupropion HCl 150 mg tablet extended release 24 hr 150 mg PO QAM Qty: 30 2RF albuterol sulfate 90 mcg/actuation HFA aerosol inhaler See Rx Instructions .ROUTE .COMPLEX Qty: 8.5 3RF Dose Instruction: INHALE 2 PUFFS BY MOUTH EVERY 4-6 HOURS NEEDED FOR SHORTNESS OF BREATH OR WHEEZING NEEDED Rx Instructions: INHALE 2 PUFFS BY MOUTH EVERY 4-6 HOURS NEEDED FOR SHORTNESS OF BREATH OR WHEEZING NEEDED Stiolto Respimat 2.5-2.5 mcg/actuation mist 2 puff inhalation DAILY 0RF methadone 5 mg tablet 10 mg PO DAILY 0RF Shingrix (PF) 50 mcg/0.5 mL suspension for reconstitution 0.5 ml IM ONCE Qty: 1 0RF Rx Instructions: as a single dose Prevnar 13 (PF) 0.5 mL syringe 0.5 ml IM ONCE Qty: 0.5 0RF Rx Instructions: as a single dose ropinirole 1 mg tablet 4 mg PO BEDTIME 0RF Label Comments: Patient is tapering, goal is 3.5mg HS Referrals: Salena Belcher ARNP [Primary Care Provider] -
[2021-08-05 20:52] LABS: NT-proBNP (BNP-Adult 18+) 107 pg/mL (<125); Troponin I 0.045 ng/mL (0.01-0.034)
[2021-08-05 20:53] LABS: HEMOLYSIS < 15 (0-50)
[2021-08-05 20:55] LABS: CKMB % Relative Index 2.5 % (1.5-5.0); Creatine Kinase MB 3.66 ng/mL (<2.37)
[2021-08-05] MEDS: ASPIRIN 81 MG CHEW TAB 324 MG PO (20:59)
[2021-08-05] MEDS: methylPREDNISolone 125 MG/2 ML VIAL IV (20:59)
[2021-08-05 22:06] LABS: Creatine Kinase 146 U/L (30-135)
[2021-08-05 22:22] LABS: Creatine Kinase MB 4.86 ng/mL (<2.37)
[2021-08-05 22:23] LABS: CKMB % Relative Index 3.3 % (1.5-5.0); Troponin I 0.146 ng/mL (0.01-0.034)
[2021-08-05] MEDS: CLOPIDOGREL 75 MG TABLET 300 MG PO (22:39)
[2021-08-05] MEDS: HEPARIN 5,000 UNIT/ML VIAL 6700 UNIT IV (22:40)
[2021-08-05] MEDS: HEPARIN DRIP 25,000 UNIT/500 ML IV.SOLN 20.031 UNIT IV (22:40)
[2021-08-05] MEDS: ATORVASTATIN 20 MG TABLET 40 MG PO (22:44)
[2021-08-06] VITALS (10 sets, daily range): BP systolic 128–147; BP diastolic 60–67; PULSE 93–105; RESP 17–29; O2SAT 90–95
--- NOTE | 2021-08-06 00:20 | PC.NURSE ---
pt placed on a hospital bed for comfort and moved to another room to decrease noise, warm blanket given and lights dimmed
== END 2021-08-06 02:29 | disposition short-term general hospital (02) ==
PROVIDERS: Emergency Provider Emergency Medicine; PCP Nurse Practitioner
DX: I21.4 Non-ST elevation (NSTEMI) myocardial infarction (principal); J44.1 Chronic obstructive pulmonary disease with (acute) exacerbation; Z87.891 Personal history of nicotine dependence; Z20.822 Contact with and (suspected) exposure to COVID-19
CPT/HCPCS: 36415; 71045; 80053; 82550; 82553; 83690; 83735; 83880; 84484; 85025; 85610; 85730; 87635; 93005; 93010; 94640; 96374; 96375; 99284; 99291; C9803; J1644; J2930

== ENCOUNTER 2021-08-19 08:30 | Outpatient (RCR) | payer MEDICARE, SELFPAY | END 2021-08-19 15:30 | LOC: PUL 08:30 | PROVIDERS: PCP Nurse Practitioner; Referring Provider Specialist; Visit Provider Specialist | DX: J43.2 Centrilobular emphysema (principal) | CPT/HCPCS: 94625; G0424 ==

== ENCOUNTER → 2021-08-31 06:49 | Outpatient (CLI) | payer MEDICARE, SELFPAY ==
--- NOTE | 2021-08-31 06:50 | DI.CT.S_ITS ---
PROCEDURE: CT CHEST WO CON INDICATIONS: Pulmonary nodule 6 month f/u TECHNIQUE: Noncontrast 5 mm thick sections acquired from the pulmonary apices to the posterior costophrenic angles. 1 mm lung window, 5 mm thick coronal and sagittal and 7 mm axial MIP reformats were then acquired. For radiation dose reduction, the following was used: automated exposure control, adjustment of mA and/or kV according to patient size. COMPARISON: [facility], CT, CT CHEST W CON, 12/04/2020, 6:51. [facility], NM, NM PET CT FUSION SKULL 2 THIGH, 12/10/2020, 9:23. [facility], CR, XR CHEST 1V, 12/06/2020, 10:22. [facility], CT, CT CHEST WO CON, 03/04/2021, 8:22. FINDINGS: Image quality: Excellent. Lungs and pleura: The 9 mm nodule in the left upper lobe (series 3, image 128) is unchanged. A couple of tiny 2 mm nodules are noted in the left upper lobe, unchanged in size. Nodule 1 (series 3 image 73) is calcified, compatible with an old granuloma. Nodule 2 (series 3, image 136) is noncalcified, indeterminate but most likely inflammatory or infectious in etiology. Subpleural densities are seen in right middle lobe, lingula, and both lower lobes, consistent with scars and atelectasis. No acute air space opacities. No pleural effusions or pneumothorax. Central and peripheral airways are patent and normal in caliber. Mediastinum: Heart size is normal. No pericardial effusion. No mediastinal adenopathy by size criteria. Thoracic aorta and central pulmonary arteries are normal in size. Esophagus is normal in caliber. No hiatal hernia. Bones and chest wall: No suspicious bony lesions. No vertebral body compression fractures. No axillary or supraclavicular adenopathy by size criteria. Thyroid gland <<?> is unremarkable . Abdomen: Visualized upper abdominal solid organs and bowel loops appear normal in the absence of contrast. IMPRESSION: 1. The 9 mm left upper lobe nodule appears unchanged since 12/04/2020. 2 tiny nodules in left upper lobe are also stable. Continued follow-up is suggested. Please see follow-up recommendation. 2. Bilateral subpleural scars and atelectasis. Fleischner Society criteria for SOLID lung nodule followup. Nodule size (mm)Low-risk patientHigh-risk patient?4No follow-up neededFollow-up at 12 mo; if no change, no further follow-up>7-6Zoegdr-an CT at 12 mo; if no change, no further follow-up needed.Initial follow-up CT at 6-12 mo, then 18-24 mo if no change. >6-8Initial follow-up CT at 6-12 mo, then 18-24 mo if no change. Initial follow-up CT at 3-6 mo, then 9-12 mo and 24 mo if no change. >8Follow-up CT at 3, 9, 24 mo. Or PET and/or biopsy.Same as for low-risk pts. Dictated by: Leeanna Cardenas M.D. on 08/31/2021 at 10:11 Approved by: Leeanna Cardenas M.D. on 08/31/2021 at 10:20
== END ==
PROVIDERS: PCP Nurse Practitioner; Referring Provider Nurse Practitioner; Visit Provider Nurse Practitioner
DX: R91.8 Other nonspecific abnormal finding of lung field (principal); J98.4 Other disorders of lung; J98.11 Atelectasis
CPT/HCPCS: 71250

== ENCOUNTER → 2021-10-07 07:57 | Outpatient (CLI) | payer MEDICARE, SELFPAY ==
[2021-10-07 08:35] LABS: COVID19 -Nasal RAPID Negative (Negative)
== END ==
PROVIDERS: PCP Nurse Practitioner; Referring Provider Internal Medicine; Visit Provider Internal Medicine
DX: Z20.822 Contact with and (suspected) exposure to COVID-19 (principal)
CPT/HCPCS: 87635; C9803

== ENCOUNTER → 2021-10-08 07:52 | Outpatient (CLI) | payer MEDICARE, SELFPAY ==
--- NOTE | 2021-10-25 13:35 | PM.PFT.1 ---
Pulmonary Function Test Referral & Results Date Patient Seen: 10/08/21 Requesting provider: Lisa Mcbride Results: The spirometry demonstrates an FVC of 2.90 L which is 94% of predicted. The FEV1 was measured at 1.61 L which is 69% of predicted. The FEV1/FVC ratio was 56 which is 74% of predicted. Following the administration of bronchodilator there was a 16% improvement in FEV1 and a 61% improvement in FEF 25-75% Lung volumes show an SVC of 2.86 L which is 96% of predicted. The diffusing capacity was measured at 13.44 which is 49% of predicted. No hemoglobin value was provided, so no correction for potential anemia could be made, if appropriate. The maximum voluntary ventilation was normal Interpretation: This study demonstrates mild to moderate obstructive lung disease based on reduction FEV1 and FEV1/FVC ratio with evidence of notable benefit following bronchodilator as above Lung volumes are normal Diffusing capacity is moderately reduced suggesting significant disease at the capillary alveolar level Compared to PFTs performed in October of 2020, current study is essentially unchanged
== END ==
PROVIDERS: PCP Nurse Practitioner; Referring Provider Specialist; Visit Provider Specialist
DX: J43.2 Centrilobular emphysema (principal); F17.211 Nicotine dependence, cigarettes, in remission
CPT/HCPCS: 94060; 94726; 94729

== ENCOUNTER → 2022-03-17 07:58 | Outpatient (CLI) | payer MEDICARE, SELFPAY ==
[2022-03-17 08:42] LABS: COVID19 -Nasal RAPID Negative (Negative)
== END ==
PROVIDERS: PCP Nurse Practitioner; Referring Provider Internal Medicine; Visit Provider Internal Medicine
DX: Z20.822 Contact with and (suspected) exposure to COVID-19 (principal)
CPT/HCPCS: 87635; C9803

== ENCOUNTER → 2022-03-18 06:48 | Outpatient (CLI) | payer MEDICARE, SELFPAY ==
--- NOTE | 2022-03-24 11:10 | PM.PFT.1 ---
Pulmonary Function Test Referral & Results Date Patient Seen: 03/18/22 Requesting provider: Lisa Mcbride Results: The spirometry demonstrates an FVC of 2.96 L which is 96% of predicted. The FEV1 was measured at 1.76 L which is 76% of predicted. The FEV1/FVC ratio was 60 which is 79% of predicted. Following the administration of bronchodilator there was 11% improvement in FEV1 and a 42% improvement in FEF 25-75%. Lung volumes show an SVC of 2.81 L which is 95% of predicted. The diffusing capacity was measured at 12.42 which is 46% of predicted. No hemoglobin value was provided, so no correction for potential anemia could be made, if appropriate. The maximum voluntary ventilation was minimally reduced Interpretation: This study demonstrates mild obstructive lung disease based on reduction FEV1 and minimal reduction FEV1/FVC ratio as well as minimal improvement after bronchodilator administration particularly small airway flow as above There is also a moderate reduction in diffusing capacity suggesting disease at the capillary alveolar level Compared to PFTs performed in September 2021, current study is essentially unchanged Clinical correlation suggested
== END ==
PROVIDERS: PCP Nurse Practitioner; Referring Provider Specialist; Visit Provider Specialist
DX: J43.2 Centrilobular emphysema (principal); F17.211 Nicotine dependence, cigarettes, in remission
CPT/HCPCS: 94060; 94726; 94729

== ENCOUNTER → 2022-03-31 15:06 | Outpatient (CLI) | payer MEDICARE, SELFPAY ==
--- NOTE | 2022-03-31 | DI.CT.S_ITS ---
PROCEDURE: CT CHEST WO CON INDICATIONS: Solitary pulmonary nodule TECHNIQUE: Noncontrast 5 mm thick sections acquired from the pulmonary apices to the posterior costophrenic angles. 1 mm lung window, 5 mm thick coronal and sagittal and 7 mm axial MIP reformats were then acquired. For radiation dose reduction, the following was used: automated exposure control, adjustment of mA and/or kV according to patient size. COMPARISON: [facility], CT, CT CHEST WO CON, 08/31/2021, 6:56. FINDINGS: Image quality: Excellent. Lungs and pleura: Since the prior examination the previously noted 8-9 mm pulmonary nodule involving the patient's left midlung remains stable in appearance. I do not see evidence for new pulmonary mass lesion or focal lung infiltrate. There is some scarring involving the lung bases, the right middle lobe, and left lingula. Mediastinum: Heart size is normal. No pericardial effusion. No mediastinal adenopathy by size criteria. Thoracic aorta and central pulmonary arteries are normal in size. Esophagus is normal in caliber. No hiatal hernia. There are coronary artery and atherosclerotic calcifications. Bones and chest wall: No suspicious bony lesions. No vertebral body compression fractures. No axillary or supraclavicular adenopathy by size criteria. Abdomen: There is marked increased stool noted throughout the visualized portions of the colon. Otherwise visualized portions of the upper abdominal viscera are grossly unremarkable. IMPRESSION: 1. Stable appearance of 8-9 mm pulmonary nodule involving the patient's left midlung. Recommend continued interval surveillance until 2 year stability has been established. 2. Stable areas of scarring of involving the right middle lobe, left lingula, and lung bases. 3. Marked increased stool noted throughout the visualized portions of the colon. Dictated by: Florencio Islas M.D. on 04/01/2022 at 8:37 Approved by: Flornecio Islas M.D. on 04/01/2022 at 8:47
== END ==
PROVIDERS: PCP Nurse Practitioner; Referring Provider Specialist; Visit Provider Specialist
DX: R91.1 Solitary pulmonary nodule (principal); J98.4 Other disorders of lung
CPT/HCPCS: 71250

== ENCOUNTER 2022-06-19 09:21 | Emergency (ER) | payer MEDICARE, SELFPAY ==
[2022-06-19] VITALS (9 sets, daily range): BP systolic 122–158; BP diastolic 62–95; PULSE 91–109; RESP 16–50; TEMP 36.7; O2SAT 93–95; BMI 28.8
[2022-06-19] MEDS: ALBUTEROL/IPRATROPIUM 3 ML AMPUL 9 ML INH (09:41)
--- NOTE | 2022-06-19 09:44 | DI.RAD.S_ITS ---
PROCEDURE: XR CHEST 1V INDICATIONS: short of breath TECHNIQUE: One view of the chest was acquired. COMPARISON: [facility], CT, CT CHEST WO CON, 03/31/2022, 15:15. [facility], CR, XR CHEST 1V, 12/06/2020, 10:22. [facility], CR, XR CHEST 1V, 08/05/2021, 19:48. FINDINGS: Surgical changes and devices: None. Lungs and pleura: Lungs are clear. No pleural effusions or pneumothorax. Mediastinum: Mediastinal contours appear normal. Heart size is normal. Atherosclerotic calcification of the aortic arch is noted. Bones and chest wall: No suspicious bony lesions. Age-appropriate bony degenerative changes are seen. Overlying soft tissues appear unremarkable. IMPRESSION: Unremarkable portable chest study for age. Dictated by: Shamir Euceda M.D. on 06/19/2022 at 9:23 Approved by: Shamir Euceda M.D. on 06/19/2022 at 9:24
--- NOTE | 2022-06-19 09:49 | ED.SOB ---
HPI - SOB/Dyspnea General Chief Complaint: Shortness of Breath/Dyspnea Stated Complaint: scopd Time Seen by Provider: 06/19/22 09:43 Source: patient Mode of arrival: Ambulatory Limitations: no limitations History of Present Illness HPI Narrative: Patient is a 77-year-old female history of hyperlipidemia COPD, NSTEMI, restless leg presenting with increasing shortness of breath. She reports the last few days she is had increasing phlegm production and shortness of breath. Last night she hurt herself audibly wheezing. She does wear 1 L of oxygen as needed at home usually at night. She denies fever or chills. She is some tightness across her chest. No peripheral edema no abdominal pain nausea or vomiting. She is been using her medications at home she is not continuously or chronic prednisone. Related Data Home Medications Medication Instructions Recorded Confirmed pregabalin 50 mg capsule 50 mg PO QID #810 caps 11/05/20 11/04/21 tiotropium 2.5 mcg-olodaterol 2.5 2 puff inhalation DAILY 01/07/21 11/04/21 mcg/actuation mist for inhalation (Stiolto Respimat) aspirin 81 mg tablet,delayed 81 mg PO DAILY 11/04/21 11/04/21 release atorvastatin 20 mg tablet 20 mg PO DAILY 11/04/21 11/04/21 methadone 5 mg tablet 7.5 mg PO DAILY 11/04/21 11/04/21 ropinirole 1 mg tablet 1 mg PO QID 11/04/21 11/04/21 Previous Rx's Medication Instructions Recorded inhalational spacing device #1 ea 12/09/20 albuterol sulfate 90 mcg/actuation See Rx Instructions .Route 06/05/21 aerosol inhaler .COMPLEX #8.5 grams bupropion HCl 150 mg 24 hr tablet, 150 mg PO QAM #90 tabs 11/04/21 extended release bupropion HCl 300 mg 24 hr tablet, 300 mg PO QAM #90 tabs 11/04/21 extended release lamotrigine 150 mg tablet 225 mg PO DAILY #135 tabs 11/05/21 (Lamictal) fluticasone propionate 110 See Rx Instructions .Route 04/22/22 mcg/actuation HFA aerosol inhaler .COMPLEX #12 grams (Flovent HFA) azithromycin 250 mg tablet See Rx Instructions PO .COMPLEX #6 04/30/22 tabs prednisone 20 mg tablet 40 mg PO DAILY #10 tabs 06/19/22 Allergies Allergy/AdvReac Type Severity Reaction Status Date / Time No Known Drug Allergies Allergy Verified 06/19/22 09:34 Review of Systems Review of Systems ROS Unobtainable: All systems reviewed & are unremarkable except as noted in HPI and below Patient History Medical History Acne Chicken pox Depression, major, severe recurrence Eczema Measles Medication side effects Moderate COPD (chronic obstructive pulmonary disease) Mumps Neck pain Nocturnal oxygen desaturation Osteoarthritis Oxygen desaturation during sleep Pulmonary nodule 1 cm or greater in diameter RLS (restless legs syndrome) Seasonal affective disorder Severe chronic obstructive pulmonary disease Shoulder pain Sleep disturbance Tobacco dependence Surgical History Anesthesia History of right hip replacement (~2005) History of total left knee replacement Family History Father Mesothelioma Cancer Mother Suicide Grandfather Stroke Grandmother Breast cancer Grandfather History of heart disease Social History Smoking Status: Former smoker Smoking Status: Former smoker alcohol intake frequency: 0-2 drinks per day Substance Use Type: does not use Exam Initial Vital Signs Initial Vital Signs: Vital Signs Temperature 98.1 F 06/19/22 09:35 Pulse Rate 109 H 06/19/22 09:35 Respiratory Rate 16 06/19/22 09:35 Blood Pressure 152/70 H 06/19/22 09:35 Pulse Oximetry 93 06/19/22 09:35 Oxygen Delivery Method 06/19/22 09:35 GENERAL: Alert pleasant well-appearing 77-year-old female and in no acute distress. HEENT: Head atraumatic,EOMI, pupils reactive, face symmetric, moist mucous membranes CARDIOVASCULAR: Regular rate and rhythm without murmurs, rubs or gallops. RESPIRATORY: Decreased breath sounds slightly wheezing speaks in full sentences no respiratory distress able to drink water without difficulty ABDOMEN: Soft, nontender. Normoactive bowel sounds all 4 quadrants. No guarding or rebound. EXTREMITIES: Normal range of motion, no clubbing or edema. Neurovascularly intact NEUROLOGICAL: Alert and oriented x4.Normal gait and speech. SKIN: Warm, dry, no laceration, no petechiae, no rashes or lesions. Course Orders Ordered: Discontinued Medications Albuterol/Ipratropium (Albuterol/Ipratropium 3 Ml Ampul) 9 ml INH NOW ONE Stop: 06/19/22 09:39 Last Admin: 06/19/22 09:41 Dose: 9 ml Documented By: JANA Sodium Chloride (Normal Saline 0.9%) 1,000 mls @ 150 mls/hr IV CONT DANIELLE Last Admin: 06/19/22 10:27 Dose: 150 mls/hr Documented By: JUSTINE Methylprednisolone (Methylprednisolone 125 Mg/2 Ml Vial) 125 mg IV NOW ONE Stop: 06/19/22 09:45 Last Admin: 06/19/22 10:05 Dose: 125 mg Documented By: TIMI Vital Signs Vital signs: Vital Signs - 8 hr 06/19/22 11:30 06/19/22 11:54 06/19/22 11:54 Pulse Rate 107 H 97 H Respiratory Rate 34 H 28 H Blood Pressure 122/95 H Pulse Oximetry 93 94 MDM - SOB/Dyspnea Lab Data 06/19/22 09:40 06/19/22 09:40 Labs: Lab Results 06/19/22 06/19/22 06/19/22 Range/Units 09:40 09:40 09:40 WBC 5.8 (4.5-11.0) X10^3/uL RBC 4.06 (4.0-5.2) X10^6/uL Hgb 7.9 L (12.0-16.0) g/dL Hct 26.5 L (36-46) % MCV 65.3 L (80-100) fL MCH 19.5 L (26-34) PG MCHC 29.8 L (30-36) % RDW 20.6 H (11.6-14.8) % Plt Count 319 (150-400) X10^3/uL Neut % (Auto) 71.6 (50-75) % Lymph % (Auto) 9.1 L (25-40) % [place] % (Auto) 8.9 (3-14) % Eos % (Auto) 9.2 H (2-4) % Baso % (Auto) 1.2 (0-2) % Neut # (Auto) 4200 (1397-1833) /uL Lymph # (Auto) 500 L (5012-8940) /uL [place] # (Auto) 500 (0-900) /uL Eos # (Auto) 500 H (0-450) /uL Baso # (Auto) 100 (0-100) /uL RBC Morphology See below Hypochromasia 2+ H Poikilocytosis 1+ H Anisocytosis 2+ H Microcytosis 2+ H Sodium 140 (137-145) mmol/L Potassium 4.1 (3.4-5.1) mmol/L Chloride 105 (98-107) mmol/L Carbon Dioxide 23 (22-32) mmol/L BUN 13 (7-17) mg/dL Creatinine 0.89 (0.52-1.04) mg/dL Estimated GFR > 60 (>60) mL/min BUN/Creatinine Ratio 14.6 (6-22) Glucose 96 (80-110) mg/dL Calcium 9.2 (8.4-10.2) mg/dL Iron (37-170) ug/dL TIBC (265-497) ug/dL % Saturation (15-50) % Transferrin (206-381) mg/dL Total Bilirubin 0.2 (0.2-1.3) mg/dL AST 29 (14-36) IU/L ALT 30 (<35) IU/L Alkaline Phosphatase 112 (38-126) U/L Total Creatine Kinase 71 (30-135) U/L CK-MB (CK-2) TNP CK-MB (CK-2) Rel Index TNP Troponin I < 0.012 (0.01-0.034) ng/mL NT-Pro-B Natriuret Pep 113 (<450) pg/mL Total Protein 6.9 (6.3-8.2) g/dL Albumin 4.0 (3.5-5.0) g/dL Globulin 2.9 (1.7-4.1) g/dL Albumin/Globulin Ratio 1.4 (1.0-2.8) Lipase 22 L (23-300) U/L Procalcitonin 0.08 (<0.5) ng/mL Chlamy pneumoniae PCR (Not Detect) Adenovirus (PCR) (Not Detect) B. pertussis DNA (PCR) (Not Detecte) B.parapertussis DNA PCR (Not Detecte) Coronavirus OC43 (PCR) (Not Detect) Coronavirus HKU1 (PCR) (Not Detect) Coronavirus 229E (PCR) (Not Detect) SARS-CoV-2 (PCR) (Not Detecte) Coronavirus NL63 (PCR) (Not Detect) Human Metapneumovir PCR (Not Detect) Influenza Type A (PCR) (Not Detect) Influenza Type B (PCR) (Not Detect) M. pneumoniae (PCR) (Not Detect) Parainfluenza 1 (PCR) (Not Detect) Parainfluenza 2 (PCR) (Not Detect) Parainfluenza 3 (PCR) (Not Detect) Parainfluenza 4 (PCR) (Not Detect) RSV (PCR) (Not Detect) Entero/Rhino (PCR) (Not Detect) 06/19/22 06/19/22 Range/Units 09:40 09:52 WBC (4.5-11.0) X10^3/uL RBC (4.0-5.2) X10^6/uL Hgb (12.0-16.0) g/dL Hct (36-46) % MCV (80-100) fL MCH (26-34) PG MCHC (30-36) % RDW (11.6-14.8) % Plt Count (150-400) X10^3/uL Neut % (Auto) (50-75) % Lymph % (Auto) (25-40) % [place] % (Auto) (3-14) % Eos % (Auto) (2-4) % Baso % (Auto) (0-2) % Neut # (Auto) (9563-9014) /uL Lymph # (Auto) (2853-3904) /uL [place] # (Auto) (0-900) /uL Eos # (Auto) (0-450) /uL Baso # (Auto) (0-100) /uL RBC Morphology Hypochromasia Poikilocytosis Anisocytosis Microcytosis Sodium (137-145) mmol/L Potassium (3.4-5.1) mmol/L Chloride (98-107) mmol/L Carbon Dioxide (22-32) mmol/L BUN (7-17) mg/dL Creatinine (0.52-1.04) mg/dL Estimated GFR (>60) mL/min BUN/Creatinine Ratio (6-22) Glucose (80-110) mg/dL Calcium (8.4-10.2) mg/dL Iron 25 L (37-170) ug/dL TIBC 464 (265-497) ug/dL % Saturation 5 L (15-50) % Transferrin 335 (206-381) mg/dL Total Bilirubin (0.2-1.3) mg/dL AST (14-36) IU/L ALT (<35) IU/L Alkaline Phosphatase (38-126) U/L Total Creatine Kinase (30-135) U/L CK-MB (CK-2) CK-MB (CK-2) Rel Index Troponin I (0.01-0.034) ng/mL NT-Pro-B Natriuret Pep (<450) pg/mL Total Protein (6.3-8.2) g/dL Albumin (3.5-5.0) g/dL Globulin (1.7-4.1) g/dL Albumin/Globulin Ratio (1.0-2.8) Lipase (23-300) U/L Procalcitonin (<0.5) ng/mL Chlamy pneumoniae PCR Not detected (Not Detect) Adenovirus (PCR) Not detected (Not Detect) B. pertussis DNA (PCR) Not detected (Not Detecte) B.parapertussis DNA PCR Not detected (Not Detecte) Coronavirus OC43 (PCR) Not detected (Not Detect) Coronavirus HKU1 (PCR) Not detected (Not Detect) Coronavirus 229E (PCR) Not detected (Not Detect) SARS-CoV-2 (PCR) Not detected (Not Detecte) Coronavirus NL63 (PCR) Not detected (Not Detect) Human Metapneumovir PCR Not detected (Not Detect) Influenza Type A (PCR) Not detected (Not Detect) Influenza Type B (PCR) Not detected (Not Detect) M. pneumoniae (PCR) Not detected (Not Detect) Parainfluenza 1 (PCR) Not detected (Not Detect) Parainfluenza 2 (PCR) Not detected (Not Detect) Parainfluenza 3 (PCR) Not detected (Not Detect) Parainfluenza 4 (PCR) Not detected (Not Detect) RSV (PCR) Detected H (Not Detect) Entero/Rhino (PCR) Not detected (Not Detect) Imaging Data Chest x-ray: Radiologist's Impression: Signed Patient: Kerrie Mcgee MR#: [id number] : 1945 Acct:[id number] Age/Sex: 77 / F Date of Service: 06/19/22 Loc: ED Accession Number: [id number] ?? Procedure: XR chest 1V Ordering Provider: Anastasiia Gamez D.O. PROCEDURE:? XR CHEST 1V ? INDICATIONS:? short of breath ? TECHNIQUE:? One view of the chest was acquired.? ? COMPARISON:? [facility], CT, CT CHEST WO CON, 03/31/2022, 15:15.? [facility], CR, XR CHEST 1V, 12/06/2020, 10:22.? [facility], CR, XR CHEST 1V, 08/05/2021, 19:48. ? FINDINGS:? ? Surgical changes and devices:? None.? ? Lungs and pleura:? Lungs are clear.? No pleural effusions or pneumothorax.? ? Mediastinum:? Mediastinal contours appear normal.? Heart size is normal.? Atherosclerotic calcification of the aortic arch is noted.? ? Bones and chest wall:? No suspicious bony lesions.? Age-appropriate bony degenerative changes are seen.? Overlying soft tissues appear unremarkable.? ? ? IMPRESSION:? ? Unremarkable portable chest study for age. ? ? Dictated by: Shamir Euceda M.D. on 06/19/2022 at 9:23? ECG Data Interpretation: Sinus rhythm rate 96 NH interval 166 QRS [address] changes no T-wave inversions similar to previous EKGs MDM Narrative Medical decision making narrative: Patient is a 77-year-old female presenting today with upper respiratory like him to symptoms with history of COPD. She does have some mild wheezing but no significant obvious respiratory distress or hypoxia. She did improve with Solu-Medrol and DuoNeb treatment. Respiratory panel is positive for RSV. Chest x-ray does not show any pneumonia. She has no leukocytosis. Procalcitonin is negative no need for antibiotics necessarily. However she is found to have profound anemia with a hemoglobin 7.9 hematocrit 26.5. Previous hemoglobin is 13.7 and 41.5 in 08/05/2021. She is found to have a low MCV of 65. Iron studies are added she is found to have low iron and low saturation consistent with iron deficiency. I suspect that this is probably chronic and ongoing. However there is probably cause. She will need follow-up with her primary care provider in regards to this. She is not hypotensive hypoxic or meeting any sort of transfusion Patient denies any. Discussion about taking prednisone with patient for COPD exacerbation RSV infection. At this time patient would not like to take prednisone until she discusses it with her automatic cigar wrapper tender. However have written her a prescription for it. She overall is not in any acute respiratory distress she is not hypoxic. No need for antibiotics at this time chest x-ray is clear. Discharge Plan Departure Patient Disposition: Home Clinical Impression: Respiratory syncytial virus (RSV), Anemia Instructions: Anemia, DI for Viral Upper Respiratory Infection -- Adult Activity Restrictions/Additional Instructions: *You have been diagnosed with RSV infection and anemia *What to do: At this time the RSV will resolve on its own. Please discuss with her automatic cigar wrapper tender use of prednisone I will write you a prescription for it. Use albuterol as directed. You will need to have further evaluation of your anemia including colonoscopy and EGD. You do not need a blood transfusion at this time however this may progress. Please monitor for increasing shortness of breath and weakness. *Continue to take medications as directed Prednisone 40 mg once a day for 5 days *Follow up with your primary care provider in 2-3 days or call [phone] *Return to ER if you should have increasing weakness shortness of breath chest pain fever or any new, worsening or concerning symptoms Prescriptions: New prednisone 20 mg tablet 40 mg PO DAILY Qty: 10 0RF No Action azithromycin 250 mg tablet See Rx Instructions PO .COMPLEX Qty: 6 0RF Rx Instructions: For 250 mg dose pack: take 500 mg today (day 1), then 250 mg for 4 days (days 2-5) PO aspirin 81 mg tablet,delayed release (DR/EC) 81 mg PO DAILY atorvastatin 20 mg tablet 20 mg PO DAILY bupropion HCl 300 mg tablet extended release 24 hr 300 mg PO QAM MDD 450 mg Qty: 90 3RF bupropion HCl 150 mg tablet extended release 24 hr 150 mg PO QAM MDD 450 mg Qty: 90 3RF pregabalin 50 mg capsule 50 mg PO QID Qty: 810 (DME) inhalational spacing device Spacer See Rx Instructions .Route Qty: 1 0RF Rx Instructions: As directed, BRAND PER INSURANCE albuterol sulfate 90 mcg/actuation HFA aerosol inhaler See Rx Instructions .ROUTE .COMPLEX Qty: 8.5 3RF Dose Instruction: INHALE 2 PUFFS BY MOUTH EVERY 4-6 HOURS NEEDED FOR SHORTNESS OF BREATH OR WHEEZING NEEDED Rx Instructions: INHALE 2 PUFFS BY MOUTH EVERY 4-6 HOURS NEEDED FOR SHORTNESS OF BREATH OR WHEEZING NEEDED lamotrigine [Lamictal] 150 mg tablet 225 mg PO DAILY Qty: 135 2RF fluticasone propionate [Flovent HFA] 110 mcg/actuation HFA aerosol inhaler See Rx Instructions .ROUTE .COMPLEX Qty: 12 12RF Dose Instruction: INHALE 1 PUFF BY MOUTH TWICE DAILY VIA THE AEROCHAMBER Rx Instructions: INHALE 1 PUFF BY MOUTH TWICE DAILY VIA THE AEROCHAMBER Stiolto Respimat 2.5-2.5 mcg/actuation mist 2 puff inhalation DAILY methadone 5 mg tablet 7.5 mg PO DAILY ropinirole 1 mg tablet 1 mg PO QID Label Comments: Patient is tapering, goal is 3.5mg HS Referrals: Salena Belcher ARNP [Primary Care Provider] - Stand Alone Forms: Patient Portal/API
[2022-06-19 09:56] LABS: Add Manual Diff / Slide Review NO; Basophils Absolute Auto 100 /uL (0-100); Basophils Percent Auto 1.2 % (0-2); Eosinophils Absolute Auto 500 /uL (0-450); Eosinophils Percent Auto 9.2 % (2-4); Lymphocytes Absolute Auto 500 /uL (1100-4500); Lymphocytes Percent Auto 9.1 % (25-40); Mean Corpuscular HGB Conc 29.8 % (30-36); Mean Corpuscular Hemoglobin 19.5 PG (26-34); Mean Corpuscular Volume 65.3 fL (80-100); Monocytes Absolute Auto 500 /uL (0-900); Monocytes Percent Auto 8.9 % (3-14); Neutrophils Absolute Auto 4200 /uL (1500-7000); Neutrophils Percent Auto 71.6 % (50-75); Platelet Count 319 X10^3/uL (150-400); Red Blood Cell Count 4.06 X10^6/uL (4.0-5.2); Red Cell Distribution Width 20.6 % (11.6-14.8); White Blood Cell Count 5.8 X10^3/uL (4.5-11.0)
[2022-06-19 10:03] LABS: Hematocrit 26.5 % (36-46); Hemoglobin 7.9 g/dL (12.0-16.0)
[2022-06-19] MEDS: methylPREDNISolone 125 MG/2 ML VIAL IV (10:05)
[2022-06-19 10:08] LABS: Alanine Aminotransferase 30 IU/L (<35); Albumin Globulin Ratio 1.4 (1.0-2.8); Alkaline Phosphatase 112 U/L (38-126); Aspartate Aminotransferase 29 IU/L (14-36); BUN Creatinine Ratio 14.6 (6-22); Bilirubin Total 0.2 mg/dL (0.2-1.3); Blood Urea Nitrogen 13 mg/dL (7-17); Calcium 9.2 mg/dL (8.4-10.2); Carbon Dioxide 23 mmol/L (22-32); Chloride 105 mmol/L (98-107); Creatine Kinase 71 U/L (30-135); Estimated Glomerular Filt Rate > 60 mL/min (>60); Globulin 2.9 g/dL (1.7-4.1); Glucose 96 mg/dL (80-110); HEMOLYSIS < 15 (0-50); Lipase 22 U/L (23-300); Potassium 4.1 mmol/L (3.4-5.1); Sodium 140 mmol/L (137-145); Total Protein 6.9 g/dL (6.3-8.2)
[2022-06-19 10:20] LABS: NT-proBNP (BNP-Adult 18+) 113 pg/mL (<450); Troponin I < 0.012 ng/mL (0.01-0.034)
[2022-06-19 10:25] LABS: Procalcitonin 0.08 ng/mL (<0.5)
[2022-06-19] MEDS: SODIUM CHLORIDE 0.9% 1,000 ML 150 ML IV (10:27)
[2022-06-19 11:10] LABS: Adenovirus Not Detected (Not Detect); B. parapertussis Not Detected (Not Detecte); Bordetella pertussis Not Detected (Not Detecte); Chlamydophila pneumoniae Not Detected (Not Detect); Coronavirus 229E Not Detected (Not Detect); Coronavirus HKU1 Not Detected (Not Detect); Coronavirus NL 63 Not Detected (Not Detect); Coronavirus OC43 Not Detected (Not Detect); Human Metapneumovirus Not Detected (Not Detect); Human Rhinovirus/Enterovirus Not Detected (Not Detect); Influenza A Not Detected (Not Detect); Influenza B Not Detected (Not Detect); Mycoplasma pneumoniae Not Detected (Not Detect); Parainfluenza Virus 1 Not Detected (Not Detect); Parainfluenza Virus 2 Not Detected (Not Detect); Parainfluenza Virus 3 Not Detected (Not Detect); Parainfluenza Virus 4 Not Detected (Not Detect); Respiratory Syncytial Virus Detected (Not Detect); SARS- CoV-2 Not Detected (Not Detecte)
[2022-06-19 11:22] LABS: Anisocytosis 2+; Hypochromasia 2+; Microcytosis 2+; Poikilocytosis 1+
[2022-06-19 11:23] LABS: HEMOLYSIS < 15 (0-50); Iron 25 ug/dL (37-170)
[2022-06-19 11:33] LABS: Percent Iron Saturation 5 % (15-50); Total Iron Binding Capacity 464 ug/dL (265-497); Transferrin 335 mg/dL (206-381)
== END 2022-06-19 12:03 | disposition home or self-care (01) ==
PROVIDERS: Emergency Provider Emergency Medicine; PCP Nurse Practitioner
DX: J06.9 Acute upper respiratory infection, unspecified (principal); B97.4 Respiratory syncytial virus as the cause of diseases classified elsewhere; D64.9 Anemia, unspecified; Z20.822 Contact with and (suspected) exposure to COVID-19
CPT/HCPCS: 36415; 71045; 80053; 82550; 83540; 83550; 83690; 83880; 84145; 84484; 85025; 87633; 93005; 94640; 96374; 99284; J2930

== ENCOUNTER → 2022-06-26 10:20 | Outpatient (CLI) | payer MEDICARE, SELFPAY ==
[2022-06-26 11:00] LABS: Hematocrit 28.9 % (36-46); Hemoglobin 8.8 g/dL (12.0-16.0); Mean Corpuscular HGB Conc 30.4 % (30-36); Mean Corpuscular Hemoglobin 20.3 PG (26-34); Mean Corpuscular Volume 66.8 fL (80-100); Platelet Count 349 X10^3/uL (150-400); Red Blood Cell Count 4.33 X10^6/uL (4.0-5.2); Red Cell Distribution Width 22.4 % (11.6-14.8); White Blood Cell Count 10.3 X10^3/uL (4.5-11.0)
[2022-06-26 11:05] LABS: Add Manual Diff / Slide Review YES
[2022-06-26 11:48] LABS: Neutrophils Absolute Manual 7210 /uL (3000-5900); Smudge Cells 1+; Total Cells Counted 100
[2022-06-26 11:49] LABS: Anisocytosis 1+; Hypochromasia 1+; Poikilocytosis 1+
[2022-06-26 11:50] LABS: Target Cells 1+
== END ==
PROVIDERS: PCP Nurse Practitioner; Referring Provider Nurse Practitioner; Visit Provider Nurse Practitioner
DX: D64.9 Anemia, unspecified (principal)
CPT/HCPCS: 36415; 85007; 85025

== ENCOUNTER → 2022-07-22 11:00 | Outpatient (CLI) | payer MEDICARE, SELFPAY ==
--- NOTE | 2022-07-22 11:03 | DI.CT.S_ITS ---
PROCEDURE: CT ANGIO CHEST PE PROTOCOL INDICATIONS: Acute onset SOB TECHNIQUE: After the administration of intravenous contrast, 2 mm thick sections acquired from the pulmonary apices to the posterior costophrenic angles. 3-dimensional maximum intensity projection (MIP) coronal and sagittal reformats were then acquired through the thorax. For radiation dose reduction, the following was used: automated exposure control, adjustment of mA and/or kV according to patient size. COMPARISON: [facility], CT, CT CHEST W CON, 12/04/2020, 6:51. [facility], CT, CT CHEST WO CON, 03/31/2022, 15:15. FINDINGS: Image quality: Excellent. Pulmonary arteries: Pulmonary arteries are normal in size, and demonstrate no intraluminal filling defects to suggest central pulmonary embolism. Lungs and pleura: Dependent atelectasis is present bilaterally in the lower lobes. No pleural effusion or pneumothorax. A 1.0 cm pulmonary nodule is present within the left upper lobe. This measured 0.9 cm [address] the comparison CT dated March 31, [address] dated December 04, 2020. No new pulmonary nodules or acute airspace opacities. Mediastinum: Heart size is normal, without pericardial effusion. No mediastinal or hilar adenopathy. Thoracic aorta is normal in caliber and enhancement. Scattered atheromatous calcifications are present within the aortic arch. Esophagus is normal in caliber, without hiatal hernia. Bones and chest wall: No suspicious bony lesions. Ribs and thoracic spine appear intact throughout. Thyroid gland is unremarkable. No axillary or supraclavicular adenopathy. A low-density soft tissue lesion is redemonstrated near the left axilla suggesting the presence of a sebaceous cyst (series 4/image 14). Abdomen: Visualized upper abdominal solid organs appear normal in the early arterial phase of enhancement. IMPRESSION: 1. No acute pulmonary embolus. 2. Low lung volumes. 3. Overall stable appearance of a left upper lobe pulmonary nodule versus slight indolent growth over time. Dictated by: Marie Patton M.D. on 07/22/2022 at 12:01 Approved by: Marie Patton M.D. on 07/22/2022 at 12:07
[2022-07-22 11:27] LABS: BUN Creatinine Ratio 12.8 (6-22); Blood Urea Nitrogen 11 mg/dL (7-17); Calcium 9.2 mg/dL (8.4-10.2); Carbon Dioxide 29 mmol/L (22-32); Chloride 102 mmol/L (98-107); Estimated Glomerular Filt Rate > 60 mL/min (>60); Glucose 91 mg/dL (80-110); HEMOLYSIS < 15 (0-50); Potassium 4.4 mmol/L (3.4-5.1); Sodium 138 mmol/L (137-145)
== END ==
PROVIDERS: PCP Nurse Practitioner; Referring Provider Nurse Practitioner; Visit Provider Nurse Practitioner
DX: Z01.812 Encounter for preprocedural laboratory examination (principal); R06.02 Shortness of breath
CPT/HCPCS: 36415; 71275; 80048; Q9967

== ENCOUNTER 2022-08-05 12:43 | Day surgery (SDC) | payer MEDICARE, SELFPAY ==
--- NOTE | 2022-08-05 | PATH_ITS ---
[facility] Accession Number: [id number] No. of containers..06 Tissue . 01 Material submitted: . PART A: gastrointestinal site - ANTRUM BIOPSY PART B: gastrointestinal site - GASTRIC BODY BIOPSY PART C: colon - ASCENDING COLON POLYP X4 PART D: colon - PROXIMAL TRANSVERSE COLON POLYPS PART E: colon - MID TRANSVERSE COLON POLYPS PART F: colon - SIGMOID COLON POLYP . 01 Diagnosis: A. Stomach, Antrum, Biopsy: Antral mucosa with mild chronic gastritis and intestinal metaplasia. Negative for Helicobacter by immunohistochemistry. Negative for dysplasia and malignancy. . B. Stomach, Body, Biopsy: Body-type mucosa with mild chronic gastritis. Negative for Helicobacter by immunohistochemistry. Negative for intestinal metaplasia. Negative for dysplasia and malignancy. . C. Ascending Colon, Polyp x4, Biopsy: Multiple fragments of tubular adenoma. Inflammatory polyp, one fragment. . D. Proximal Transverse Colon, Polyps, Biopsies: Multiple fragments of tubular adenoma. . E. Mid Transverse Colon, Polyps, Biopsies: Colonic mucosa with no diagnostic abnormality, consistent with polypoid redundancy, 1 fragment. Additional levels were examined. . F. Sigmoid Colon, Polyp, Biopsy: Tubulovillous adenoma. No evidence of malignancy or high-grade dysplasia. [facility] 08/12/2022 1405 Local . 01 Electronically signed: . Aliya Paulson MD, Pathologist NPI- [id number] . 01 Gross description: . Part A: ANTRUM BIOPSY: Received in formalin is 1 fragment(s) of lane, soft tissue measuring 0.7 x 0.2 x 0.1 cm submitted entirely in 1 cassette(s) Part B: GASTRIC BODY BIOPSY: Received in formalin are 3 fragment(s) of lane, soft tissue measuring 0.2 x 0.1 x 0.1 cm to 0.2 x 0.1 x 0.1 cm submitted entirely in 1 cassette(s) Part C: ASCENDING COLON POLYP X4: Received in formalin are multiple fragment(s) of lane, soft tissue measuring 2.0 x 1.5 x 0.1 cm in aggregate submitted entirely in 1 cassette(s) Part D: PROXIMAL TRANSVERSE COLON POLYPS: Received in formalin are multiple fragment(s) of lane, soft tissue measuring 2.5 x 1.0 x 0.1 cm in aggregate submitted entirely in 1 cassette(s) Part E: MID TRANSVERSE COLON POLYPS: Received in formalin is 1 fragment(s) of lane, soft tissue measuring 0.2 x 0.1 x 0.1 cm submitted entirely in 1 cassette(s) Part F: SIGMOID COLON POLYP: Received in formalin are multiple fragment(s) of lane, soft tissue measuring 2.2 x 1.0 x 0.1 cm in aggregate submitted entirely in 1 cassette(s) /CPE 08/07/2022 0812 Local . 01 Microscopic: . A. An immunohistochemical stain was performed to evaluate for Helicobacter organisms and is negative. The control stain showed appropriate reactivity. . B. An immunohistochemical stain was performed to evaluate for Helicobacter organisms and is negative. The control stain showed appropriate reactivity. . E. Additional levels were examined. . * This test was developed and its performance characteristics determined by [facility]. It has not been cleared or approved by the U.S. Food and Drug Administration. The FDA has determined that such clearance or approval is not necessary. This test is used for clinical purposes. It should not be regarded as investigational or for research. . 01 Pathologist provided ICD-10: D12.2, D12.3, D12.5 . 01 CPT . 408582, 780554, 262079, 538580, 937888, 432457, H25339 Specimen Comment: A courtesy copy of this report has been sent to [phone] Performed at: 01 [facility] [address] [place] [address], [place], [place] [id number] MD Lisandro Concepcion MD Phone: [phone]
--- NOTE | 2022-08-05 13:04 | P.HP_ITS ---
History of Present Illness History of Present Illness Date Patient Seen: 08/05/22 Time Patient Seen: 13:04 Chief complaint: EGD/Colonoscopy Narrative: Nida is here for her EGD and colonoscopy. Please see the office note from June for details. Patient History Medical History Acne Anemia Chicken pox Depression, major, severe recurrence Eczema Measles Medication side effects Moderate COPD (chronic obstructive pulmonary disease) Mumps Neck pain Nocturnal oxygen desaturation Osteoarthritis Oxygen desaturation during sleep Pulmonary nodule 1 cm or greater in diameter RLS (restless legs syndrome) Seasonal affective disorder Severe chronic obstructive pulmonary disease Shoulder pain Sleep disturbance Tobacco dependence Surgical History Anesthesia History of right hip replacement (~2005) History of total left knee replacement Family & Social History Family History Father Mesothelioma Cancer Mother Suicide Grandfather Stroke Grandmother Breast cancer Grandfather History of heart disease Tobacco & Substance use: Smoking Status Former smoker alcohol intake frequency 0-2 drinks per day Substance Use Type does not use Meds Home Medications and Allergies Home Medications Medication Instructions Recorded Confirmed Type pregabalin 50 mg capsule 50 mg PO QID #810 caps 11/05/20 07/07/22 History inhalational spacing device #1 ea 12/09/20 07/07/22 Rx tiotropium 2.5 mcg-olodaterol 2.5 2 puff inhalation DAILY 01/07/21 07/07/22 History mcg/actuation mist for inhalation (Stiolto Respimat) albuterol sulfate 90 mcg/actuation See Rx Instructions .Route 06/05/21 07/07/22 Rx aerosol inhaler .COMPLEX #8.5 grams aspirin 81 mg tablet,delayed 81 mg PO DAILY 11/04/21 07/07/22 History release atorvastatin 20 mg tablet 20 mg PO DAILY 11/04/21 07/07/22 History bupropion HCl 150 mg 24 hr tablet, 150 mg PO QAM #90 tabs 11/04/21 07/07/22 Rx extended release bupropion HCl 300 mg 24 hr tablet, 300 mg PO QAM #90 tabs 11/04/21 07/07/22 Rx extended release methadone 5 mg tablet 7.5 mg PO DAILY 11/04/21 07/07/22 History ropinirole 1 mg tablet 1 mg PO QID 11/04/21 07/07/22 History lamotrigine 150 mg tablet 225 mg PO DAILY #135 tabs 11/05/21 07/07/22 Rx (Lamictal) fluticasone propionate 110 See Rx Instructions .Route 04/22/22 07/07/22 Rx mcg/actuation HFA aerosol inhaler .COMPLEX #12 grams (Flovent HFA) azithromycin 250 mg tablet See Rx Instructions PO .COMPLEX #6 04/30/22 07/07/22 Rx tabs prednisone 20 mg tablet 40 mg PO DAILY #10 tabs 06/19/22 07/07/22 Rx guaifenesin 1,200 mg tablet, 1,200 mg PO DAILY #30 tabs 06/24/22 07/07/22 Rx extended release 12 hr (Mucinex) omeprazole 20 mg capsule,delayed 20 mg PO BID #60 caps 06/24/22 07/07/22 Rx release epoetin fam 40,000 unit/mL 40,000 unit SUBCUT 3XW #12 mL 07/12/22 Rx injection solution (Procrit) prednisone 5 mg tablets in a dose See Rx Instructions PO PER PKG DIR 07/22/22 Rx pack #48 ea ferumoxytol 510 mg/17 mL (30 510 mg (17 mL) IV Q3D 2 doses #17 07/23/22 Rx mg/mL) intravenous solution mL (Feraheme) sodium sul 1.479 gram-potas ch See Rx Instructions PO PER PKG DIR 07/23/22 Rx 0.188 gram-magnes sul 0.225 gram #24 tabs tablet (Sutab) prednisone 5 mg tablet 5 mg PO DIRECTED #48 tabs 07/26/22 Rx Allergies Allergy/AdvReac Type Severity Reaction Status Date / Time No Known Drug Allergies Allergy Verified 07/07/22 10:25 Exam Const General: healthy appearing Assessment & Plan Assessment and plan (1) Anemia: Qualifiers: Anemia type: unspecified type Qualified Code(s): D64.9 - Anemia, unsp ecified Status: Acute Plan Reviewed risks and benefits of EGD and colonoscopy and she would like to proceed Time Spent With Patient Critical Care time: I spent a total of [] minutes of critical care time on this patient's care today; this time is exclusive of procedural time.
[2022-08-05] MEDS: LACTATED RINGERS 1,000 ML 42 ML IV (13:10)
[2022-08-05] MEDS: FLEETS ENEMA 1 EACH PR (13:11)
[2022-08-05 13:12] VITALS: BMI 28.1
[2022-08-05 13:16] VITALS: BP 165/75; PULSE 94; RESP 12; TEMP 36.4; O2SAT 96
[2022-08-05 14:19] VITALS: BP 129/75; PULSE 81; RESP 14; TEMP 36.3; O2SAT 96
--- NOTE | 2022-08-05 14:21 | PM.OP.EC ---
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 A bite blocked was placed and monitors were attached to the patient. The patient was positioned in a left lateral decubitus position. Sedation was administered. Once the patient was sedated the endoscope was inserted through the bite block and passed through the esophagus and stomach and into the duodenum. The duodenum appeared normal. We then withdrew the scope into the stomach. There was some antritis and random biopsies were taken from the antrum. The gastric body was also inflamed and thickened and random biopsies were taken from the gastric body. The endoscope was retroflexed and no abnormalities were noted. The endoscope was straightned and withdrawn into the esophagus. The esophagus appeared normal. Findings: Antritis and gastritis Next we repositioned the patient for a colonoscopy. A digital rectal exam was performed and was normal. The colonoscope was inserted and advanced to the cecum. The appendiceal orifice was identified and photographed. The scope was slowly withdrawn over greater than 6 minutes. There were 4 polyps in the ascending colon 1 of which was approximately 1 cm and the rest were smaller. They were removed with hot snare and cold snare. There were 4 polyps in the proximal transverse colon. One of these was about 1.2 cm in flat. It was lifted with a saline lift and then taken with hot snare. Rest were taken with cold snare. Some tattoo ink was injected just distal to the site of the 1.2 cm. There was a small polyp removed from the transverse colon with Jumbo forceps. There were 2 polyps in the sigmoid colon which were both pedunculated on a stalk. The larger of these 2 was about 1.2 cm and was removed with hot snare. The smaller of the sigmoid polyps was approximately 8 mm and also was removed with hot snare. The scope was retroflexed in the rectum and no other abnormalities were seen. Findings: Multiple polyps as detailed above including 2 that were larger than 1 cm EBL: 10 mL Scope withdrawal time: 29 minutes Sedation minutes: 46 minutes Post-procedure Disposition: PACU
[2022-08-05 14:26] VITALS: BP 137/77; PULSE 94; RESP 20; O2SAT 95
[2022-08-05 14:32] VITALS: BP 146/80; PULSE 95; RESP 16; O2SAT 96
== END 2022-08-05 14:44 | disposition home or self-care (01) ==
PROVIDERS: PCP Nurse Practitioner; Referring Provider Surgery; Visit Provider Surgery
PROC: 0DJ08ZZ Inspection of Upper Intestinal Tract, Via Natural or Artificial Opening Endoscopic (ICD-10-PCS; CPT 43235; principal; 2022-08-05 13:45)
PROC: 0DJD8ZZ Inspection of Lower Intestinal Tract, Via Natural or Artificial Opening Endoscopic (ICD-10-PCS; CPT 45378; 2022-08-05 13:45)
DX: D64.9 Anemia, unspecified (principal); K29.50 Unspecified chronic gastritis without bleeding; D12.2 Benign neoplasm of ascending colon; D12.3 Benign neoplasm of transverse colon; D12.5 Benign neoplasm of sigmoid colon
CPT/HCPCS: 45381; 45385; 45380; 43239; J2704

== ENCOUNTER → 2022-08-30 16:43 | Outpatient (CLI) | payer MEDICARE, SELFPAY ==
[2022-08-30 18:06] LABS: Add Manual Diff / Slide Review NO; Basophils Absolute Auto 100 /uL (0-100); Basophils Percent Auto 1.2 % (0-2); Eosinophils Absolute Auto 300 /uL (0-450); Eosinophils Percent Auto 4.9 % (2-4); Hematocrit 39.7 % (36-46); Hemoglobin 12.6 g/dL (12.0-16.0); Lymphocytes Absolute Auto 1200 /uL (1100-4500); Lymphocytes Percent Auto 18.2 % (25-40); Mean Corpuscular HGB Conc 31.6 % (30-36); Mean Corpuscular Hemoglobin 24.3 PG (26-34); Mean Corpuscular Volume 76.9 fL (80-100); Monocytes Absolute Auto 400 /uL (0-900); Monocytes Percent Auto 6.6 % (3-14); Neutrophils Absolute Auto 4400 /uL (1500-7000); Neutrophils Percent Auto 69.1 % (50-75); Platelet Count 201 X10^3/uL (150-400); Red Blood Cell Count 5.16 X10^6/uL (4.0-5.2); Red Cell Distribution Width 27.8 % (11.6-14.8); White Blood Cell Count 6.3 X10^3/uL (4.5-11.0)
[2022-08-30 18:24] LABS: HEMOLYSIS < 15 (0-50); Iron 99 ug/dL (37-170)
[2022-08-30 18:33] LABS: Anisocytosis 2+; Microcytosis 1+
[2022-08-30 18:36] LABS: Percent Iron Saturation 38 % (15-50); Total Iron Binding Capacity 258 ug/dL (265-497); Transferrin 209 mg/dL (206-381)
[2022-08-30 18:43] LABS: Alanine Aminotransferase 25 IU/L (<35); Albumin Globulin Ratio 1.6 (1.0-2.8); Alkaline Phosphatase 85 U/L (38-126); Aspartate Aminotransferase 28 IU/L (14-36); BUN Creatinine Ratio 15.8 (6-22); Bilirubin Total 0.4 mg/dL (0.2-1.3); Blood Urea Nitrogen 16 mg/dL (7-17); Calcium 9.5 mg/dL (8.4-10.2); Carbon Dioxide 26 mmol/L (22-32); Chloride 104 mmol/L (98-107); Estimated Glomerular Filt Rate 58 mL/min (>60); Globulin 2.5 g/dL (1.7-4.1); Glucose 83 mg/dL (80-110); HEMOLYSIS < 15 (0-50); Potassium 3.9 mmol/L (3.4-5.1); Sodium 140 mmol/L (137-145); Total Protein 6.5 g/dL (6.3-8.2)
== END ==
PROVIDERS: PCP Nurse Practitioner; Referring Provider Nurse Practitioner; Visit Provider Nurse Practitioner
DX: D64.9 Anemia, unspecified (principal)
CPT/HCPCS: 36415; 80053; 83540; 83550; 85025

== ENCOUNTER → 2023-08-22 06:54 | Outpatient (CLI) | payer MEDICARE, SELFPAY ==
[2023-08-22 08:34] LABS: Prothrombin Time 11.4 SECONDS (9.4-12.5)
== END ==
PROVIDERS: PCP Nurse Practitioner; Referring Provider Nurse Practitioner; Visit Provider Nurse Practitioner
DX: R23.3 Spontaneous ecchymoses (principal)
CPT/HCPCS: 36415; 85610

== ENCOUNTER → 2023-08-30 12:39 | Outpatient (CLI) | payer MEDICARE, SELFPAY ==
--- NOTE | 2023-08-30 12:40 | DI.RAD.S_ITS ---
PROCEDURE: XR CHEST 2V INDICATIONS: cough, wheezing, fatigue, sore throat TECHNIQUE: 2 views of the chest were acquired. COMPARISON: [facility], CR, XR CHEST 1V, 06/19/2022, 9:47. [facility], CR, XR CHEST 1V, 08/05/2021, 19:48. FINDINGS: Surgical changes and devices: None. Lungs and pleura: Linear atelectasis versus scarring within the left mid lung zone is again noted. Lungs are otherwise clear. No pleural effusions or pneumothorax. Mediastinum: Mediastinal contours are normal. Heart size is normal. Bones and chest wall: No suspicious bony abnormalities. Soft tissues appear unremarkable. IMPRESSION: No acute cardiopulmonary abnormality is seen. Dictated by: Rodolfo Mascorro M.D. on 08/30/2023 at 14:17 Approved by: Rodolfo Mascorro M.D. on 08/30/2023 at 14:26
[2023-08-30 13:13] LABS: Add Manual Diff / Slide Review NO; Basophils Absolute Auto 0 /uL (0-100); Basophils Percent Auto 0.3 % (0-2); Eosinophils Absolute Auto 700 /uL (0-450); Eosinophils Percent Auto 7.8 % (2-4); Hematocrit 37.9 % (36-46); Hemoglobin 12.4 g/dL (12.0-16.0); Lymphocytes Absolute Auto 1300 /uL (1100-4500); Lymphocytes Percent Auto 15.4 % (25-40); Mean Corpuscular HGB Conc 32.6 % (30-36); Mean Corpuscular Hemoglobin 27.4 PG (26-34); Mean Corpuscular Volume 84.1 fL (80-100); Monocytes Absolute Auto 500 /uL (0-900); Monocytes Percent Auto 5.7 % (3-14); Neutrophils Absolute Auto 6100 /uL (1500-7000); Neutrophils Percent Auto 70.8 % (50-75); Platelet Count 314 X10^3/uL (150-400); Red Blood Cell Count 4.51 X10^6/uL (4.0-5.2); Red Cell Distribution Width 19.1 % (11.6-14.8); White Blood Cell Count 8.5 X10^3/uL (4.5-11.0)
[2023-08-30 16:41] LABS: HEMOLYSIS < 15 (0-50)
[2023-08-30 16:50] LABS: Alanine Aminotransferase 22 IU/L (<35); Albumin Globulin Ratio 1.5 (1.0-2.8); Alkaline Phosphatase 99 U/L (38-126); Aspartate Aminotransferase 22 IU/L (14-36); BUN Creatinine Ratio 20.4 (6-22); Bilirubin Total 0.4 mg/dL (0.2-1.3); Blood Urea Nitrogen 20 mg/dL (7-17); Carbon Dioxide 24 mmol/L (22-32); Chloride 111 mmol/L (98-107); Estimated Glomerular Filt Rate 60 mL/min (>60); Globulin 2.6 g/dL (1.7-4.1); Glucose 86 mg/dL (80-110); Potassium 4.9 mmol/L (3.4-5.1); Sodium 141 mmol/L (137-145); Total Protein 6.6 g/dL (6.3-8.2)
[2023-08-31 01:55] LABS: HEMOLYSIS < 15 (0-50); Iron 70 ug/dL (37-170)
[2023-08-31 02:09] LABS: Percent Iron Saturation 19 % (15-50); Total Iron Binding Capacity 376 ug/dL (265-497); Transferrin 317 mg/dL (206-381)
[2023-09-01 15:02] LABS: Vitamin B12 290 pg/mL (239-931)
== END ==
PROVIDERS: PCP Nurse Practitioner; Referring Provider Nurse Practitioner; Visit Provider Nurse Practitioner
DX: D64.9 Anemia, unspecified (principal); J02.9 Acute pharyngitis, unspecified; R05.9 Cough, unspecified; R06.2 Wheezing; R53.83 Other fatigue
CPT/HCPCS: 36415; 71046; 80053; 82607; 83540; 83550; 85025

== ENCOUNTER → 2023-09-14 12:39 | Outpatient (CLI) | payer MEDICARE, SELFPAY ==
--- NOTE | 2023-09-14 12:40 | DI.CT.S_ITS ---
PROCEDURE: CT HEAD/BRAIN WO CON INDICATIONS: tremors, new onset TECHNIQUE: Noncontrast 4.5 mm thick angled axial sections acquired from the foramen magnum to the vertex, with coronal and sagittal reformats. For radiation dose reduction, the following was used: automated exposure control, adjustment of mA and/or kV according to patient size. COMPARISON: [facility], CT, CT BRAIN WO CON, 06/13/2016, 9:29. FINDINGS: Image quality: Diagnostic. CSF spaces: Basal cisterns are patent. No extra-axial fluid collections. The ventricles are symmetric in size and shape. Brain: No intracranial bleeds or masses. There is cerebral volume loss for age, with resultant ventricular and sulcal prominence. There are periventricular and deep white matter chronic small vessel ischemic changes. There is intracranial internal carotid artery atherosclerosis. Skull and face: Calvarium and visualized facial bones appear intact, without suspicious lesions. Sinuses: Visualized sinuses and mastoids are clear. IMPRESSION: Noncontrast head CT within normal limits for age, without a cause of the patient's presenting history identified. Dictated by: Shamir Euceda M.D. on 09/14/2023 at 13:22 Approved by: Shamir Euceda M.D. on 09/14/2023 at 13:23
== END ==
PROVIDERS: PCP Nurse Practitioner; Referring Provider Nurse Practitioner; Visit Provider Nurse Practitioner
DX: I65.29 Occlusion and stenosis of unspecified carotid artery (principal); G25.2 Other specified forms of tremor
CPT/HCPCS: 70450

== ENCOUNTER → 2023-11-25 10:55 | Outpatient (CLI) | payer MEDICARE, SELFPAY ==
[2023-11-25 11:38] LABS: Influenza A - CEPHEID Flu A NEGATIVE (NEGATIVE); Influenza B - CEPHEID Flu B NEGATIVE (NEGATIVE); Respiratory Syncytial Virus Negative (Negative)
[2023-11-25 11:40] LABS: COVID-19 CEPHEID 4-PLEX PCR Negative (Negative)
== END ==
PROVIDERS: PCP Nurse Practitioner; Visit Provider Nurse Practitioner Family
DX: R05.1 Acute cough (principal)
CPT/HCPCS: 0241U

== ENCOUNTER → 2023-11-25 11:16 | Outpatient (CLI) | payer MEDICARE, SELFPAY ==
--- NOTE | 2023-11-25 11:18 | DI.RAD.S_ITS ---
PROCEDURE: XR CHEST 2V INDICATIONS: rule out pneumonia TECHNIQUE: 2 views of the chest were acquired. COMPARISON: [facility], CR, XR CHEST 2V, 08/30/2023, 11:47. FINDINGS: Surgical changes and devices: None. Lungs and pleura: Small opacity in the medial right middle lobe. Mediastinum: Mediastinal contours are normal. Heart size is normal. Bones and chest wall: No suspicious bony abnormalities. Soft tissues appear unremarkable. IMPRESSION: Small opacity in the medial right middle lobe, concerning for developing infection versus atelectasis. Dictated by: Abdias Ramos M.D. on 11/25/2023 at 14:13 Approved by: Abdias Ramos M.D. on 11/25/2023 at 14:13
== END ==
PROVIDERS: PCP Nurse Practitioner; Referring Provider Nurse Practitioner Family; Visit Provider Nurse Practitioner Family
DX: R05.1 Acute cough (principal)
CPT/HCPCS: 0241U; 71046

== ENCOUNTER → 2023-11-28 15:29 | Outpatient (CLI) | payer MEDICARE, SELFPAY ==
[2023-11-28 16:53] LABS: Bilirubin Urine UA NEGATIVE (NEGATIVE); Color Urine UA YELLOW; Glucose Urine UA NEGATIVE (Negative); Ketones Urine UA NEGATIVE (NEGATIVE); Leukocyte Esterase Urine UA 3+ (NEGATIVE); Nitrite Urine UA POSITIVE (Negative); Occult Blood Urine UA TRACE-INTACT (Negative); Protein Urine UA NEGATIVE (Negative); Urobilinogen Urine UA 0.2 E.U./dL (0.2)
[2023-11-28 16:54] LABS: Appearance Urine UA CLOUDY; pH Urine UA 5.5 (4.5-8.0)
[2023-11-28 16:55] LABS: Urine Volume 10mL (spun)
[2023-11-28 17:01] LABS: Bacteria Urine Many (>30); Culture Indicated Urine Specimen Cultured; RBC Urine None Seen (0-5/HPF); Squamous Epithelial Cell Urine None Seen (0-5/HPF); WBC Urine 30-100/HPF (0-5/HPF)
== END ==
PROVIDERS: PCP Nurse Practitioner; Visit Provider Nurse Practitioner
DX: R82.90 Unspecified abnormal findings in urine (principal); R33.9 Retention of urine, unspecified
CPT/HCPCS: 81003; 81015; 87077; 87086

== ENCOUNTER 2023-11-29 02:48 | Emergency (ER) | payer MEDICARE, SELFPAY ==
[2023-11-29 02:59] VITALS: BP 165/74; PULSE 101; PULSE 99; RESP 22; O2SAT 89; O2SAT 94; BMI 28.1
[2023-11-29 03:00] VITALS: BP 165/74; PULSE 101; O2SAT 95
[2023-11-29 03:04] VITALS: PULSE 103; RESP 20; O2SAT 95
[2023-11-29] MEDS: ALBUTEROL/IPRATROPIUM 3 ML AMPUL 6 ML INH (03:04)
--- NOTE | 2023-11-29 03:04 | ED_ITS ---
HPI - Abdominal Pain General Chief Complaint: Shortness of Breath/Dyspnea Stated Complaint: ROSARIO has COPD Time Seen by Provider: 11/29/23 02:59 History of Present Illness HPI narrative: 78-year-old female with history of COPD, chronic oxygen 1.5 L nasal cannula at home, home breathing treatments, home albuterol inhalers, with one-week duration of dry cough, increased shortness of breath last couple of days. She has been seen twice in clinic during this 1 week long illness, recalls urgent care visit a few days ago, was given antibiotic azithromycin, now day 3 of 3 course. She also had a visit with her primary care provider, diagnosis of UTI, started another antibiotic that she can not name, had COVID/flu/RSV swab that was negative, also was given prescription for prednisone that she filled but has not yet taken 1st dose. She has increased shortness of breath this evening, ar riving by private vehicle, requesting breathing treatment. No fevers or chills. She denies chest pain except occasionally with cough. No lower extremity swelling. She denies history of blood clots to legs or lungs, no leg pain symptoms, no arm pain symptoms. Related Data Home Medications Medication Instructions Recorded Confirmed pregabalin 50 mg capsule 50 mg PO QID #810 caps 11/05/20 11/28/23 aspirin 81 mg tablet,delayed 81 mg PO DAILY 11/04/21 11/28/23 release ropinirole 1 mg tablet 1 mg PO QID 11/04/21 11/28/23 Previous Rx's Medication Instructions Recorded inhalational spacing device #1 ea 12/09/20 albuterol sulfate 90 mcg/actuation 2 puff inhalation Q4-6H PRN 08/16/23 aerosol inhaler shortness of breath or wheezing #8.5 grams atorvastatin 20 mg tablet 20 mg PO DAILY #90 tabs 08/29/23 lamotrigine 150 mg tablet 225 mg (1.5 x 150 mg) PO DAILY 09/26/23 (Lamictal) #135 tabs bupropion HCl 150 mg 24 hr tablet, 450 mg (3 x 150 mg) PO QAM #270 11/01/23 extended release tabs tiotropium bromide 2.5 2 inh inhalation QAM #4 grams 11/09/23 mcg/actuation mist for inhalation (Spiriva Respimat) amoxicillin 500 mg-potassium 1 tab PO Q12H #20 tabs 11/28/23 clavulanate 125 mg tablet (Augmentin) benzonatate 100 mg capsule 100 mg PO BID-TID PRN cough #30 11/28/23 caps fluconazole 150 mg tablet 150 mg PO Q3D 2 doses #2 tabs 11/28/23 prednisone 50 mg tablet 50 mg PO DAILY #5 tabs 11/28/23 tiotropium 2.5 mcg-olodaterol 2.5 2 puff inhalation DAILY #4 grams 11/28/23 mcg/actuation mist for inhalation (Stiolto Respimat) Allergies Allergy/AdvReac Type Severity Reaction Status Date / Time No Known Drug Allergies Allergy Verified 11/28/23 13:52 Review of Systems Review of Systems Narrative: As per HPI Patient History Medical History Tinnitus Dependence on nocturnal oxygen therapy HLD (hyperlipidemia) Anemia Nocturnal oxygen desaturation Severe chronic obstructive pulmonary disease Oxygen desaturation during sleep Pulmonary nodule 1 cm or greater in diameter Tobacco dependence Neck pain Eczema Acne Osteoarthritis Shoulder pain Mumps Measles Chicken pox Seasonal affective disorder Medication side effects RLS (restless legs syndrome) Sleep disturbance Depression, major, severe recurrence Surgical History Anesthesia History of right hip replacement (~2005) History of total left knee replacement Family History Father Mesothelioma Cancer Mother Suicide Grandfather Stroke Grandmother Breast cancer Grandfather History of heart disease Social History household members: spouse Smoking Status: Former smoker Smoking Status: Former smoker alcohol intake frequency: 0-2 drinks per day Substance Use Type: does not use Exam Narrative Exam Narrative: GENERAL: Well-developed patient, in mild distress. HEAD: Atraumatic. Normocephalic. EYES: Pupils equal round and reactive. Extraocular motions intact. No scleral icterus. No injection or drainage. ENT: Nose without bleeding, purulent drainage. Throat without erythema, tonsillar hypertrophy or exudate. Airway patent. NECK: Trachea midline. Non tender CARDIOVASCULAR: Regular rate and rhythm without murmurs, gallops, or rubs. RESPIRATORY: Speaking in just short of full sentences, wheezes bilaterally, no suprasternal or intercostal retractions. No crackles on exam. GASTROINTESTINAL: Abdomen soft, non-tender, nondistended. EXTREMITIES: No edema or joint tenderness. BACK: Nontender without deformity or crepitance. No flank tenderness. NEURO: AOx3. Nonfocal neuro exam SKIN: No rash or erythema of visible areas Initial Vital Signs Initial Vital Signs: Vital Signs Pulse Rate 99 H 11/29/23 02:59 Respiratory Rate 22 11/29/23 02:59 Blood Pressure 165/74 H 11/29/23 02:59 Pulse Oximetry 89 L 11/29/23 02:59 Oxygen Delivery Method Room Air 11/29/23 02:59 Course Orders Ordered: Discontinued Medications Albuterol/Ipratropium (Albuterol/Ipratropium 3 Ml Ampul) 6 ml INH NOW ONE Stop: 11/29/23 03:01 Last Admin: 11/29/23 03:04 Dose: 6 ml Documented By: [facility] Methylprednisolone (Methylprednisolone 125 Mg/2 Ml Vial) 125 mg IV NOW ONE Stop: 11/29/23 03:05 Last Admin: 11/29/23 03:15 Dose: 125 mg Documented By: YE Vital Signs Vital signs: Vital Signs - 8 hr 11/29/23 02:59 11/29/23 03:04 Pulse Rate 99 H 103 H Respiratory Rate 22 20 Blood Pressure 165/74 H Pulse Oximetry 89 L 95 Oxygen Delivery Method Room Air Nasal Cannula Oxygen Flow Rate 2 Fraction of Inspired Oxygen 28 MDM - Abdominal Pain MDM Narrative Medical decision making narrative: 78yo F with COPD, dyspnea, wheezing, chronic hypoxia at baseline 1.5L oxygen, CXR negative, EKG without ischemic changes, IV SoluMedrol, serial SVN Duonebs, improved symptoms, improved, encouraged to complete her course of Azithromycin, encouraged to take Prednisone precribed/filled from recent clinic visit, continue home oxygen and breathing treaments. She has supply of bronchodilators. Stable, improved, discharged home, follow-up with PCP advised next couple days, return precautions discussed. Critical Care Time Critical Care Time Critical Care Time: Yes Total Critical Care Time: 31 Attestation: The high probability of a clinically significant, sudden or life threatening deterioration of the [cardiopulmonary] system(s) required my full and direct attention, intervention and personal management. The aggregate critical care time was [31] minutes. This time is in addition to time spent performing reported procedures but includes the following: [x] Data Review and interpretation [x] Patient assessment and monitoring of vital signs [x] Documentation [x] Medication orders and management Discharge Plan Departure Patient Disposition: Home Clinical Impression: COPD exacerbation Activity Restrictions/Additional Instructions: History of COPD, chronic oxygen use at home, shortness of breath. Recent clinic visits for similar symptoms, prescribed azithromycin antibiotic nearing and course completion, prescribed prednisone steroid that was filled but not yet taken. Having more shortness of breath, wheezing on examination, but using your usual oxygen flow rate with good oxygen levels in the emergency department. IV Solu-Medrol steroid given in the emergency department, with breathing treatments albuterol/ipratropium. Symptoms improved. Encouraged to take your prednisone as prescribed. Encouraged to complete the course of your azithromycin antibiotic. Reported recent swab negative for COVID and influenza and RSV. We did not repeat swab tonight since you have 1 week duration of symptoms, and would not be a candidate for antiviral treatments against COVID or influenza at this stage. Recheck symptoms with your regular provider in the next couple of days. Return earlier to this/nearest emergency department for any change worsening symptoms or any concerns prior Prescriptions: No Action aspirin 81 mg tablet,delayed release (DR/EC) 81 mg PO DAILY pregabalin 50 mg capsule 50 mg PO QID Qty: 810 bupropion HCl 150 mg tablet extended release 24 hr 450 mg PO QAM MDD 450 mg Qty: 270 3RF (DME) inhalational spacing device Spacer See Rx Instructions .Route Qty: 1 0RF Rx Instructions: As directed, BRAND PER INSURANCE albuterol sulfate 90 mcg/actuation HFA aerosol inhaler 2 puff inhalation Q4-6H PRN (Reason: shortness of breath or wheezing) Qty: 8.5 3RF atorvastatin 20 mg tablet 20 mg PO DAILY Qty: 90 3RF lamotrigine [Lamictal] 150 mg tablet 225 mg PO DAILY Qty: 135 1RF Stiolto Respimat 2.5-2.5 mcg/actuation mist 2 puff inhalation DAILY Qty: 4 5RF prednisone 50 mg tablet 50 mg PO DAILY Qty: 5 0RF Rx Instructions: Take with food benzonatate 100 mg capsule 100 mg PO BID-TID PRN (Reason: cough) Qty: 30 0RF fluconazole 150 mg tablet 150 mg PO Q3D Qty: 2 3RF Rx Instructions: Take 1 tab by mouth daily every 72 hours x2 doses amoxicillin-pot clavulanate [Augmentin] 500-125 mg tablet 1 tab PO Q12H Qty: 20 0RF ropinirole 1 mg tablet 1 mg PO QID Patient Comments: Patient is tapering, goal is 3.5mg HS Spiriva Respimat 2.5 mcg/actuation mist 2 inh inhalation QAM Qty: 4 11RF Referrals: Salena Belcher ARNP [Primary Care Provider] - Stand Alone Forms: Patient Portal/API
[2023-11-29] MEDS: methylPREDNISolone 125 MG/2 ML VIAL IV (03:15)
[2023-11-29 03:30] VITALS: BP 153/73; PULSE 92; O2SAT 98
[2023-11-29 04:00] VITALS: BP 155/75; PULSE 90; O2SAT 98
[2023-11-29 04:30] VITALS: BP 153/82; PULSE 87; RESP 20; O2SAT 97
== END 2023-11-29 05:05 | disposition home or self-care (01) ==
PROVIDERS: Emergency Provider Emergency Medicine; PCP Nurse Practitioner
DX: J44.1 Chronic obstructive pulmonary disease with (acute) exacerbation (principal)
CPT/HCPCS: 96374; 99284; J2919

== ENCOUNTER → 2024-03-13 12:36 | Outpatient (CLI) | payer MEDICARE, SELFPAY ==
[2024-03-13 13:53] LABS: Alanine Aminotransferase 17 IU/L (<35); Albumin 4.1 g/dL (3.5-5.0); Albumin Globulin Ratio 1.9 (1.0-2.8); Alkaline Phosphatase 103 U/L (38-126); Aspartate Aminotransferase 21 IU/L (14-36); BUN Creatinine Ratio 18.3 (6-22); Bilirubin Total 0.5 mg/dL (0.2-1.3); Blood Urea Nitrogen 19 mg/dL (7-17); Calcium 9.7 mg/dL (8.4-10.2); Carbon Dioxide 26 mmol/L (22-32); Chloride 107 mmol/L (98-107); Cholesterol 164 mg/dL (140-199); Estimated Glomerular Filt Rate 55 mL/min (>60); Globulin 2.2 g/dL (1.7-4.1); Glucose 72 mg/dL (80-110); HDL Cholesterol 100 mg/dL (40-60); HEMOLYSIS < 15 (0-50); LDL Cholesterol Calculated 51 mg/dL (<100); Potassium 4.8 mmol/L (3.4-5.1); Sodium 137 mmol/L (137-145); Total Protein 6.3 g/dL (6.3-8.2); Triglycerides 66 mg/dL (35-150)
== END ==
PROVIDERS: Family Provider Family Medicine; PCP Family Medicine; Referring Provider Family Medicine; Visit Provider Family Medicine
DX: E78.5 Hyperlipidemia, unspecified (principal)
CPT/HCPCS: 36415; 80053; 80061

== ENCOUNTER → 2024-03-20 11:40 | Outpatient (CLI) | payer MEDICARE, SELFPAY ==
--- NOTE | 2024-03-20 11:41 | DI.RAD.S_ITS ---
PROCEDURE: XR DEXA AXIAL SKELETON INDICATIONS: screening COMPARISON: None. FINDINGS: Lumbar Spine: Bone mineral density 1.226 g/cm2, T score 1.6, normal. Left Hip: Bone mineral density 0.950 g/cm2, T score 0.1, normal. Left Femoral Neck: Bone mineral density 0.766 g/cm2, T score -0.7, normal. Left Forearm: Bone mineral density 0.713 g/cm2, T score 0.3, normal. Fracture Risk Calculation (when applicable): Not reported due to normal bone mineral density. (T score greater or equal to -1.0 to: NORMAL) (T score from -1.1 to -2.4: OSTEOPENIA) (T score less than or equal to -2.5: OSTEOPOROSIS) IMPRESSION: Normal bone mineral density. Follow-up guidelines as follows: Osteoporosis: Consider a repeat DEXA and Vertebral Fracture Assessment (VFA) exam in 2 years or sooner if medically necessary, to reassess this patient's status. Osteopenia: Consider a repeat DEXA in 2-3 years to reassess this patient's status, or if there is a new clinical indication. Normal: Consider a repeat DEXA in 5 years or sooner, or if there is a new clinical indication. All treatment decisions require clinical judgment and consideration of individual patient factors, including patient preferences, comorbidities, previous drug use, risk factors not captured in the FRAX model (e.g., frailty, falls, vitamin D deficiency, increased bone turnover, interval significant decline in bone density ) and possible under- or over-estimation of fracture risk by FRAX. In addition, the NOF Guide recommends that FDA-approved medical therapies be considered in postmenopausal women and men age >= 50 years with a: * Hip or vertebral (clinical or morphometric) fracture * T-score of <=-2.5 at the spine or hip * Ten-year fracture probability by FRAX of >= 3% for hip fracture or >=20% for major osteoporotic fracture. People with diagnosed cases of osteoporosis or at high risk for fracture should have regular bone mineral density tests. For patients eligible for Medicare, routine testing is allowed once every 2 years. The testing frequency can be increased to one year for patients who have rapidly progressing disease, those who are receiving or discontinuing medical therapy to restore bone mass, or have additional risk factors. Dictated by: Abdias Ramos M.D. on 03/20/2024 at 14:24 Approved by: Abdias Ramos M.D. on 03/20/2024 at 14:24
== END ==
PROVIDERS: Family Provider Family Medicine; PCP Family Medicine; Referring Provider Family Medicine; Visit Provider Family Medicine
DX: M81.0 Age-related osteoporosis without current pathological fracture (principal)
CPT/HCPCS: 77080; 77081

== ENCOUNTER → 2024-05-29 11:17 | Outpatient (CLI) | payer MEDICARE, SELFPAY ==
[2024-05-29 12:22] LABS: Add Manual Diff / Slide Review NO; Basophils Absolute Auto 100 /uL (0-100); Basophils Percent Auto 1.4 % (0-2); Eosinophils Absolute Auto 100 /uL (0-450); Eosinophils Percent Auto 2.2 % (2-4); Hematocrit 31.2 % (36-46); Hemoglobin 9.5 g/dL (12.0-16.0); Lymphocytes Absolute Auto 900 /uL (1100-4500); Lymphocytes Percent Auto 16.1 % (25-40); Mean Corpuscular HGB Conc 30.5 % (30-36); Mean Corpuscular Hemoglobin 19.4 PG (26-34); Mean Corpuscular Volume 63.5 fL (80-100); Monocytes Absolute Auto 400 /uL (0-900); Monocytes Percent Auto 6.6 % (3-14); Neutrophils Absolute Auto 4300 /uL (1500-7000); Neutrophils Percent Auto 73.7 % (50-75); Platelet Count 279 X10^3/uL (150-400); Red Blood Cell Count 4.92 X10^6/uL (4.0-5.2); Red Cell Distribution Width 22.5 % (11.6-14.8); White Blood Cell Count 5.8 X10^3/uL (4.5-11.0)
[2024-05-29 12:42] LABS: Anisocytosis 2+; Poikilocytosis 1+
[2024-05-29 12:47] LABS: HEMOLYSIS < 15 (0-50); Iron 21 ug/dL (37-170)
[2024-05-29 13:00] LABS: Percent Iron Saturation 5 % (15-50); Total Iron Binding Capacity 394 ug/dL (265-497); Transferrin 346 mg/dL (206-381)
[2024-05-29 13:21] LABS: Thyroid Stimulating Hormone 1.95 uIU/mL (0.47-4.68)
[2024-05-29 13:24] LABS: Ferritin 5 ng/mL (11-264)
== END ==
LOC: LAB 11:18
PROVIDERS: Family Provider Family Medicine; PCP Family Medicine; Referring Provider Family Medicine; Visit Provider Family Medicine
DX: G25.81 Restless legs syndrome (principal)
CPT/HCPCS: 36415; 82728; 83540; 83550; 84443; 85025

== ENCOUNTER 2024-06-13 08:15 | Outpatient (RCR) | payer MEDICARE, SELFPAY ==
--- NOTE | 2024-04-10 09:02 | PT.OIE ---
Current Diagnoses Pain in right knee (04/10/24) Past Medical History (Last Updated 03/05/24 @ 10:32 by Lucina Carlson MD) Acne Anemia Chicken pox Dependence on nocturnal oxygen therapy Eczema HLD (hyperlipidemia) Measles Mumps Neck pain Nocturnal oxygen desaturation Osteoarthritis Pulmonary nodule 1 cm or greater in diameter RLS (restless legs syndrome) Seasonal affective disorder Severe chronic obstructive pulmonary disease Shoulder pain Sleep disturbance Tinnitus Tobacco dependence Past Surgical History (Last Reviewed 12/20/23 @ 12:38 by GEORGES Meraz) Anesthesia History of right hip replacement (~2005) History of total left knee replacement Visit Care Team Role Provider Type Lucina Carlson MD Attending Provider Physician Family Provider Primary Care Provider Referring Provider Specialty: Family Practice Address: [address] [place] [address], [place], [place], [employer] Email: [email or web address] Physical Therapy Initial Evaluation PT-OP-A Visit Information Start: 04/05/24 14:04 Freq: Status: Active Protocol: Document 04/10/24 07:31 [facility] (Rec: 04/10/24 09:02 [facility] [id number]) Out-Patient Physical Therapy Visit Information Visit Information Visit Type Initial Evaluation Visit Start Time 07:32 Visit Stop Time 08:22 Visit Number 1 Number of FURRIER APPRENTICE Visits 0 PT-OP-B Current Condition Start: 04/05/24 14:04 Freq: Status: Active Protocol: Document 04/10/24 07:31 [facility] (Rec: 04/10/24 09:02 [facility] [id number]) Current Condition History of Current Condition Onset Date years Current Complaints knee pain History of Current Condition Pt reports R knee pain that has been going on for years that has gotten worse w/time. no injury. Pain is up and down . She has hx of L partial knee replacement. Went to PT once and clinic had just cleaned with smelly blind cleaner then moved . THat was down in spring of 2022. Haven't had any injections yet. Saw an GAS TENDER at [facility] and their only plan was starting PT. Right now activity level is low. Was playing golf w/ cart in summer and was walking a couple miles. L knee is fine overall (can't put weight d.t pain and has numbness on ant aspect) getting up and down from ground is hard. 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 (Rec: 04/10/24 09:02 [facility] [id number]) Patient Questionnaires Lower Extremity Functional Scale LEFS Score 39/80 OP-PT Pain Assessment Location R knee Pain Location Details all around knee Description- Other tender to touch med, gives out Frequency Frequent Pain Aggravating Factors Activity,Walking,Stair Climbing,Bending Other Pain Aggravating Factors squatting, extended, or bent for long periods, get up after sedentary Pain Alleviating Factors Cold Other Pain Alleviating Factors occ tylenol PT-OP-D Balance Start: 04/05/24 14:04 Freq: Status: Active Protocol: Document 04/10/24 07:31 [facility] (Rec: 04/10/24 09:02 [facility] [id number]) Balance Tests Single Limb Standing Single Limb- Right 3 sec w/knee flex and pain Single Limb- Left 13 sec PT-OP-F Manual Assessment Start: 04/05/24 14:04 Freq: Status: Active Protocol: Document 04/10/24 07:31 [facility] (Rec: 04/10/24 09:02 [facility] [id number]) Manual Assessments Soft Tissue Assessment Soft Tissue Mobility Assessment tension in quads, ITB, HS, calf R PT-OP-G Mobility & Gait Start: 04/05/24 14:04 Freq: Status: Active Protocol: Document 04/10/24 07:31 [facility] (Rec: 04/10/24 09:02 [facility] [id number]) OP Gait Assessment Comments Gait Comments dec stance time and push off RLE, lat lean over RLE, add RLE PT-OP-J Posture/Palpation/Skin Start: 04/05/24 14:04 Freq: Status: Active Protocol: Document 04/10/24 07:31 [facility] (Rec: 04/10/24 09:02 [facility] [id number]) Posture Evaluation Comments Posture Comments IR R>L femur, R tibia, inversion of R foot, R pelvis rot R, R knee flexed PT-OP-K Range of Motion Start: 04/05/24 14:04 Freq: Status: Active Protocol: Document 04/10/24 07:31 [facility] (Rec: 04/10/24 09:02 [facility] [id number]) Knee Goniometric Range of Motion Knee Right Flexion Active (degrees) 104 Extension Active (degrees) 12 Comments painful both directions Left Flexion Active (degrees) 117 Extension Active (degrees) 5 Comments discomfort PT-OP-M Strength Start: 04/05/24 14:04 Freq: Status: Active Protocol: Document 04/10/24 07:31 [facility] (Rec: 04/10/24 09:02 [facility] [id number]) Hip Strength Hip Manual Muscle Testing Right Flexion (L2) 3 Fair Extension (S1) 3+ Fair+ Abduction 3+ Fair+ Adduction 3+ Fair+ External Rotation 3 Fair Internal Rotation 3+ Fair+ Left Flexion (L2) 3+ Fair+ Extension (S1) 4 Good Abduction 4 Good Adduction 4- Good- External Rotation 4- Good- Internal Rotation 4- Good- Knee Strength Knee Manual Muscle Testing Right Flexion (S2) 3+ Fair+ Extension (L3) 3+ Fair+ Left Flexion (S2) 4 Good Extension (L3) 4 Good Ankle/Foot Strength Ankle and Foot Manual Muscle Testing Right Dorsiflexion (L4) 4 Good Plantarflexion (S1) 4 Good Left Dorsiflexion (L4) 5 Normal Plantarflexion (S1) 5 Normal Comments PF tested seated B PT-OP-Q Treatments Start: 04/05/24 14:04 Freq: Status: Active Protocol: Document 04/10/24 07:31 [facility] (Rec: 04/10/24 09:02 [facility] [id number]) Therapeutic Exercises Supine Exercises hip flex Supine Exercise Name isometric w/DF Side bilateral Reps/Minutes 30 sec ea Comments attempted DL but irritated COPD bridge Side bilateral Reps/Minutes 10 Comments cues for segmental Standing Exercises stretch Standing Exercise Name quad stretch on chair Side bilateral Equipment Used wall and chair Reps/Minutes 1 min ea PT-OP-T Assessment and Plan Start: 04/05/24 14:04 Freq: Status: Active Protocol: Document 04/10/24 07:31 [facility] (Rec: 04/10/24 09:02 [facility] [id number]) Physical Therapy Assessment Rehab Potential Rehabilitation Potential Good Evaluation Complexity Number of Personal Factors/Comorbidities 3 or More Number of Body Systems Impaired 4 or More Clinical Presentation at Evaluation Evolving Impairments Impairments Activity Tolerance,Balance, Edema,Functional Activities, Functional Mobility,Gait,Pain, Posture,ROM,Soft Tissue Mobility,Strength,Transfers Goals ROM Short Term Goal (STG) Pt will improve R knee ROM to 10-115. STG Duration 05/17/24 Correction Goal (LTG) Pt will improve R knee ROM to 5-120 to allow for improved ability to do activities. LTG Duration 06/19/24 balance Short Term Goal (STG) Pt will be able to do SLS RLE at least 7 sec to show improved balance STG Duration 05/16/24 Correction Goal (LTG) Pt will be able to do SLS BLE at least 15 sec to show improved balance LTG Duration 06/19/24 Strength Short Term Goal (STG) Pt will be indep w/HEP STG Duration 05/11 Correction Goal (LTG) Pt will score at least 4+/5 on all BLE MMT to show improved strength and stabilty to show improved greater ease w/ activity. LTG Duration 06/19/24 LEFS Impairment 39 Short Term Goal (STG) Pt will improved LEFS to at least 46 to show improved functional activity. STG Duration 05/16/24 Correction Goal (LTG) Pt will improved LEFS to at least 56 to show improved functional activity. LTG Duration 06/13/24 Assessment Summary Assessment Pt presents with R knee pain w /MRI/xray findings of significant degeneration and meniscal tears with hope to avoid TKA. She is overall weak and dec balance and dec ROM. She would benefit from manual PT to improve mobility and dec pain and work to improve strength and balance. Physical Therapy Plan Frequency and Duration Frequency of Treatment 2x/Week Duration of treatment (weeks) 10 Plan of Care Start Date 04/10/24 Plan of Care End Date 06/19/24 Therapeutic Interventions Therapeutic Interventions Balance Training,Gait Training ,Home Exercise Program,Joint Mobilizations,Manual Therapy, Neuromuscular Re-education, Orthotic/Prosthetic Management ,Patient/Caregiver Education, Self-Care/Home Management,Soft Tissue Mobilization,Taping, Therapeutic Activities, Therapeutic Exercises Modalities Cold Pack/Ice Massage,Electric Stimulation,Hot Packs, Infrared Therapy,Ultrasound Next Visit Focus/Plan Next Note Type Treatment Note Next Visit Plan review exercises, try sidesteps, leg press, clamshells, mini squats, DF manual to knee for ROM, STM to quads, HS, gastroc, ITB Taping for knee stability
--- NOTE | 2024-04-10 09:03 | PT.OPPOC ---
Physical, Occupational & Speech Therapy At [facility] Current Diagnoses Pain in right knee (04/10/24) Visit Care Team Role Provider Type Lucina Carlson MD Attending Provider Physician Family Provider Primary Care Provider Referring Provider Specialty: Family Practice Address: [address] [place] [address], [id number] Email: [email or web address] Plan Of Care PT-OP-B Current Condition Start: 04/05/24 14:04 Freq: Status: Active Protocol: Document 04/10/24 07:31 [facility] (Rec: 04/10/24 09:02 [facility] [id number]) Current Condition History of Current Condition Onset Date years Current Complaints knee pain History of Current Condition Pt reports R knee pain that has been going on for years that has gotten worse w/time. no injury. Pain is up and down . She has hx of L partial knee replacement. Went to PT once and clinic had just cleaned with smelly wet cleaner machine then moved . THat was down in spring of 2022. Haven't had any injections yet. Saw an TENNIS RACKET REPAIRER at [facility] and their only plan was starting PT. Right now activity level is low. Was playing golf w/ cart in summer and was walking a couple miles. L knee is fine overall (can't put weight d.t pain and has numbness on ant aspect) getting up and down from ground is hard. 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, and subpatellar degeneration, popliteal cyst, degeration and tearing of meniscus and PCL, gastroc strain Treatment Goals Patient/Caregiver Goals avoid knee replacement PT-OP-T Assessment and Plan Start: 04/05/24 14:04 Freq: Status: Active Protocol: Document 04/10/24 07:31 [facility] (Rec: 04/10/24 09:02 [facility] [id number]) Physical Therapy Assessment Rehab Potential Rehabilitation Potential Good Evaluation Complexity Number of Personal Factors/Comorbidities 3 or More Number of Body Systems Impaired 4 or More Clinical Presentation at Evaluation Evolving Impairments Impairments Activity Tolerance,Balance, Edema,Functional Activities, Functional Mobility,Gait,Pain, Posture,ROM,Soft Tissue Mobility,Strength,Transfers Goals ROM Short Term Goal (STG) Pt will improve R knee ROM to 10-115. STG Duration 05/17/24 Transfusion Nurse Goal (LTG) Pt will improve R knee ROM to 5-120 to allow for improved ability to do activities. LTG Duration 06/19/24 balance Short Term Goal (STG) Pt will be able to do SLS RLE at least 7 sec to show improved balance STG Duration 05/16/24 Transfusion Nurse Goal (LTG) Pt will be able to do SLS BLE at least 15 sec to show improved balance LTG Duration 06/19/24 Strength Short Term Goal (STG) Pt will be indep w/HEP STG Duration 05/11 Nursing Home Goal (LTG) Pt will score at least 4+/5 on all BLE MMT to show improved strength and stabilty to show improved greater ease w/ activity. LTG Duration 06/19/24 LEFS Impairment 39 Short Term Goal (STG) Pt will improved LEFS to at least 46 to show improved functional activity. STG Duration 05/16/24 Nursing Home Goal (LTG) Pt will improved LEFS to at least 56 to show improved functional activity. LTG Duration 06/13/24 Assessment Summary Assessment Pt presents with R knee pain w /MRI/xray findings of significant degeneration and meniscal tears with hope to avoid TKA. She is overall weak and dec balance and dec ROM. She would benefit from manual PT to improve mobility and dec pain and work to improve strength and balance. Physical Therapy Plan Frequency and Duration Frequency of Treatment 2x/Week Duration of treatment (weeks) 10 Plan of Care Start Date 04/10/24 Plan of Care End Date 06/19/24 Therapeutic Interventions Therapeutic Interventions Balance Training,Gait Training ,Home Exercise Program,Joint Mobilizations,Manual Therapy, Neuromuscular Re-education, Orthotic/Prosthetic Management ,Patient/Caregiver Education, Self-Care/Home Management,Soft Tissue Mobilization,Taping, Therapeutic Activities, Therapeutic Exercises Modalities Cold Pack/Ice Massage,Electric Stimulation,Hot Packs, Infrared Therapy,Ultrasound Next Visit Focus/Plan Next Note Type Treatment Note Next Visit Plan review exercises, try sidesteps, leg press, clamshells, mini squats, DF manual to knee for ROM, STM to quads, HS, gastroc, ITB Taping for knee stability Plan of Care Dates Plan of Care Start Date 04/10/24 Plan of Care End Date 06/19/24 Electronically Signed by: Lucina Mike, PT 04/10/24 0903 If you are in agreement with this Plan of Care, please return a signed and dated copy. I have reviewed this Plan of Care and certify that the skilled therapy services above are required to meet the patient?s needs. Physician Signature Date Printed Name and Credentials Clinical Instructor Signature Printed Name and Credentials
--- NOTE | 2024-04-17 08:59 | PT.OTN ---
Current Diagnoses Pain in right knee (04/17/24) Physical Therapy Treatment Note PT-OP-A Visit Information Start: 04/05/24 14:04 Freq: Status: Active Protocol: Document 04/17/24 08:16 [facility] (Rec: 04/17/24 08:24 [facility] [id number]) Out-Patient Physical Therapy Visit Information Visit Information Visit Type Treatment Note Visit Start Time 08:16 Visit Stop Time 08:56 Visit Number 2 Number of CUSTOMER SUCCESS INTERN Visits 0 Evaluation Information Evaluation Date 04/10/24 Precautions Precautions COPD, on a statin and no blood thinner PT-OP-B Current Condition Start: 04/05/24 14:04 Freq: Status: Active Protocol: Document 04/10/24 07:31 [facility] (Rec: 04/10/24 09:02 [facility] [id number]) Current Condition History of Current Condition Onset Date years Current Complaints knee pain History of Current Condition Pt reports R knee pain that has been going on for years that has gotten worse w/time. no injury. Pain is up and down . She has hx of L partial knee replacement. Went to PT once and clinic had just cleaned with smelly millstone cleaner then moved . THat was down in [place] of 2022. Haven't had any injections yet. Saw an PUBLIC WORKS SUPERVISOR at sports med clinic and their only plan was starting PT. Right now activity level is low. Was playing golf w/ cart in summer and was walking a couple miles. L knee is fine overall (can't put weight d.t pain and has numbness on ant aspect) getting up and down from ground is hard. 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 She performed a thigh press exercise since eval. She also performed the quad stretch and bridge. PT-OP-D Balance Start: 04/05/24 14:04 Freq: Status: Active Protocol: Document 04/10/24 07:31 [facility] (Rec: 04/10/24 09:02 [facility] [id number]) Balance Tests Single Limb Standing Single Limb- Right 3 sec w/knee flex and pain Single Limb- Left 13 sec PT-OP-F Manual Assessment Start: 04/05/24 14:04 Freq: Status: Active Protocol: Document 04/10/24 07:31 [facility] (Rec: 04/10/24 09:02 [facility] [id number]) Manual Assessments Soft Tissue Assessment Soft Tissue Mobility Assessment tension in quads, ITB, HS, calf R PT-OP-G Mobility & Gait Start: 04/05/24 14:04 Freq: Status: Active Protocol: Document 04/10/24 07:31 [facility] (Rec: 04/10/24 09:02 [facility] [id number]) OP Gait Assessment Comments Gait Comments dec stance time and push off RLE, lat lean over RLE, add RLE PT-OP-J Posture/Palpation/Skin Start: 04/05/24 14:04 Freq: Status: Active Protocol: Document 04/10/24 07:31 [facility] (Rec: 04/10/24 09:02 [facility] [id number]) Posture Evaluation Comments Posture Comments IR R>L femur, R tibia, inversion of R foot, R pelvis rot R, R knee flexed PT-OP-K Range of Motion Start: 04/05/24 14:04 Freq: Status: Active Protocol: Document 04/10/24 07:31 [facility] (Rec: 04/10/24 09:02 [facility] [id number]) Knee Goniometric Range of Motion Knee Right Flexion Active (degrees) 104 Extension Active (degrees) 12 Comments painful both directions Left Flexion Active (degrees) 117 Extension Active (degrees) 5 Comments discomfort PT-OP-M Strength Start: 04/05/24 14:04 Freq: Status: Active Protocol: Document 04/10/24 07:31 [facility] (Rec: 04/10/24 09:02 [facility] [id number]) Hip Strength Hip Manual Muscle Testing Right Flexion (L2) 3 Fair Extension (S1) 3+ Fair+ Abduction 3+ Fair+ Adduction 3+ Fair+ External Rotation 3 Fair Internal Rotation 3+ Fair+ Left Flexion (L2) 3+ Fair+ Extension (S1) 4 Good Abduction 4 Good Adduction 4- Good- External Rotation 4- Good- Internal Rotation 4- Good- Knee Strength Knee Manual Muscle Testing Right Flexion (S2) 3+ Fair+ Extension (L3) 3+ Fair+ Left Flexion (S2) 4 Good Extension (L3) 4 Good Ankle/Foot Strength Ankle and Foot Manual Muscle Testing Right Dorsiflexion (L4) 4 Good Plantarflexion (S1) 4 Good Left Dorsiflexion (L4) 5 Normal Plantarflexion (S1) 5 Normal Comments PF tested seated B PT-OP-Q Treatments Start: 04/05/24 14:04 Freq: Status: Active Protocol: Document 04/17/24 08:16 [facility] (Rec: 04/17/24 08:24 [id number]) Cardio Equipment Bicycle (Upright) Duration (Minutes) 10 Resistance 5 Seat Position 6 Therapeutic Exercises Supine Exercises hip flex Supine Exercise Name isometric w/DF reviewed Side bilateral Reps/Minutes 30 sec ea Comments Both knees bent bridge Supine Exercise Name Reviewed Side bilateral Reps/Minutes 10 Comments cues for segmental Standing Exercises stretch Standing Exercise Name Quad stretch over stool Side bilateral Equipment Used Stretching over stool, UE support on table and mat Reps/Minutes 1 min each side Manual Therapy Treatment Consent Patient gave verbal consent for manual Yes treatment Other Other Manual Treatments Pt supine with head and legs supported: STM and positional release right glutes, hip rotators, TFL, vastus lateralis and TrP treatment vastus lateralis, rectus femoris, TFL, all right side PT-OP-T Assessment and Plan Start: 04/05/24 14:04 Freq: Status: Active Protocol: Document 04/17/24 08:16 [facility] (Rec: 04/17/24 08:24 [id number]) Physical Therapy Assessment Rehab Potential Rehabilitation Potential Good Evaluation Complexity Number of Personal Factors/Comorbidities 3 or More Number of Body Systems Impaired 4 or More Clinical Presentation at Evaluation Evolving Impairments Impairments Activity Tolerance,Balance, Edema,Functional Activities, Functional Mobility,Gait,Pain, Posture,ROM,Soft Tissue Mobility,Strength,Transfers Goals ROM Short Term Goal (STG) Pt will improve R knee ROM to 10-115. STG Duration 05/17/24 Intermediate Goal (LTG) Pt will improve R knee ROM to 5-120 to allow for improved ability to do activities. LTG Duration 06/19/24 balance Short Term Goal (STG) Pt will be able to do SLS RLE at least 7 sec to show improved balance STG Duration 05/16/24 [place] Goal (LTG) Pt will be able to do SLS BLE at least 15 sec to show improved balance LTG Duration 06/19/24 Strength Short Term Goal (STG) Pt will be indep w/HEP STG Duration 05/11 [place] Goal (LTG) Pt will score at least 4+/5 on all BLE MMT to show improved strength and stabilty to show improved greater ease w/ activity. LTG Duration 06/19/24 LEFS Impairment 39 Short Term Goal (STG) Pt will improved LEFS to at least 46 to show improved functional activity. STG Duration 05/16/24 Intermediate Goal (LTG) Pt will improved LEFS to at least 56 to show improved functional activity. LTG Duration 06/13/24 Assessment Summary Assessment PT steps in to treat patient and so reviewed current HEP and initiated manual work, including TrP manual work, and upright bike for warm-up. Monitor response and con't per HEP. Consider band around knees for bridge. Physical Therapy Plan Frequency and Duration Frequency of Treatment 2x/Week Duration of treatment (weeks) 10 Plan of Care Start Date 04/10/24 Plan of Care End Date 06/19/24 Therapeutic Interventions Therapeutic Interventions Balance Training,Gait Training ,Home Exercise Program,Joint Mobilizations,Manual Therapy, Neuromuscular Re-education, Orthotic/Prosthetic Management ,Patient/Caregiver Education, Self-Care/Home Management,Soft Tissue Mobilization,Taping, Therapeutic Activities, Therapeutic Exercises Modalities Cold Pack/Ice Massage,Electric Stimulation,Hot Packs, Infrared Therapy,Ultrasound Next Visit Focus/Plan Next Note Type Treatment Note Next Visit Plan Start with upright bike for warm-up and consider band around knees for bridge From plan: try sidesteps, leg press, clamshells, mini squats , DF Ongoing manual to knee for ROM , STM to quads, HS, gastroc, ITB Taping for knee stability
--- NOTE | 2024-04-26 09:06 | PT.OTN ---
Current Diagnoses Pain in right knee (04/26/24) Physical Therapy Treatment Note PT-OP-A Visit Information Start: 04/05/24 14:04 Freq: Status: Active Protocol: Document 04/26/24 08:20 [facility] (Rec: 04/26/24 09:06 [facility] [id number]) Out-Patient Physical Therapy Visit Information Visit Information Visit Type Treatment Note Visit Start Time 08:21 Visit Stop Time 09:00 Visit Number 3 Number of CHALK MOLDING MACHINE OPERATOR Visits 0 PT-OP-B Current Condition Start: 04/05/24 14:04 Freq: Status: Active Protocol: Document 04/10/24 07:31 [facility] (Rec: 04/10/24 09:02 [facility] [id number]) Current Condition History of Current Condition Onset Date years Current Complaints knee pain History of Current Condition Pt reports R knee pain that has been going on for years that has gotten worse w/time. no injury. Pain is up and down . She has hx of L partial knee replacement. Went to PT once and clinic had just cleaned with smelly immersion metalcleaner then moved . THat was down in spring of 2022. Haven't had any injections yet. Saw an NEWS EDITOR at sports med clinic and their only plan was starting PT. Right now activity level is low. Was playing golf w/ cart in summer and was walking a couple miles. L knee is fine overall (can't put weight d.t pain and has numbness on ant aspect) getting up and down from ground is hard. 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 PT-OP-D Balance Start: 04/05/24 14:04 Freq: Status: Active Protocol: Document 04/10/24 07:31 [facility] (Rec: 04/10/24 09:02 [facility] [id number]) Balance Tests Single Limb Standing Single Limb- Right 3 sec w/knee flex and pain Single Limb- Left 13 sec PT-OP-F Manual Assessment Start: 04/05/24 14:04 Freq: Status: Active Protocol: Document 04/10/24 07:31 [facility] (Rec: 04/10/24 09:02 [facility] [id number]) Manual Assessments Soft Tissue Assessment Soft Tissue Mobility Assessment tension in quads, ITB, HS, calf R PT-OP-G Mobility & Gait Start: 04/05/24 14:04 Freq: Status: Active Protocol: Document 04/10/24 07:31 [facility] (Rec: 04/10/24 09:02 [facility] [id number]) OP Gait Assessment Comments Gait Comments dec stance time and push off RLE, lat lean over RLE, add RLE PT-OP-J Posture/Palpation/Skin Start: 04/05/24 14:04 Freq: Status: Active Protocol: Document 04/10/24 07:31 [facility] (Rec: 04/10/24 09:02 [facility] [id number]) Posture Evaluation Comments Posture Comments IR R>L femur, R tibia, inversion of R foot, R pelvis rot R, R knee flexed PT-OP-K Range of Motion Start: 04/05/24 14:04 Freq: Status: Active Protocol: Document 04/10/24 07:31 [facility] (Rec: 04/10/24 09:02 [facility] [id number]) Knee Goniometric Range of Motion Knee Right Flexion Active (degrees) 104 Extension Active (degrees) 12 Comments painful both directions Left Flexion Active (degrees) 117 Extension Active (degrees) 5 Comments discomfort PT-OP-M Strength Start: 04/05/24 14:04 Freq: Status: Active Protocol: Document 04/10/24 07:31 [facility] (Rec: 04/10/24 09:02 [facility] [id number]) Hip Strength Hip Manual Muscle Testing Right Flexion (L2) 3 Fair Extension (S1) 3+ Fair+ Abduction 3+ Fair+ Adduction 3+ Fair+ External Rotation 3 Fair Internal Rotation 3+ Fair+ Left Flexion (L2) 3+ Fair+ Extension (S1) 4 Good Abduction 4 Good Adduction 4- Good- External Rotation 4- Good- Internal Rotation 4- Good- Knee Strength Knee Manual Muscle Testing Right Flexion (S2) 3+ Fair+ Extension (L3) 3+ Fair+ Left Flexion (S2) 4 Good Extension (L3) 4 Good Ankle/Foot Strength Ankle and Foot Manual Muscle Testing Right Dorsiflexion (L4) 4 Good Plantarflexion (S1) 4 Good Left Dorsiflexion (L4) 5 Normal Plantarflexion (S1) 5 Normal Comments PF tested seated B PT-OP-Q Treatments Start: 04/05/24 14:04 Freq: Status: Active Protocol: Document 04/26/24 08:20 [facility] (Rec: 04/26/24 09:06 [facility] [id number]) Therapeutic Exercises Standing Exercises squat Standing Exercise Name mini Side bilateral Resistance Lvl 2 at knees Reps/Minutes 10 Comments cues knee position and buttocks back sidesteps Side bilateral Resistance L2 at ankles Reps/Minutes 20ft Comments cues posture stretch Standing Exercise Name 1. calf on step 2. HS Side bilateral Reps/Minutes 1 min ea Manual Therapy Treatment Consent Patient gave verbal consent for manual Yes treatment Soft Tissue Mobilization calf Body Location L Mobilization Type Rolling,Strumming Intensity/Depth Moderate Body Position Supine quad Body Location L Mobilization Type Rolling Intensity/Depth Moderate Body Position Hooklying Joint Mobilizations tibfib Joint distraction L, AP , PA c/r tibiofemoral Joint AP femur c/r, PA tibia c/r Patellofemoral Joint sup, inf, med L PT-OP-T Assessment and Plan Start: 04/05/24 14:04 Freq: Status: Active Protocol: Document 04/26/24 08:20 [facility] (Rec: 04/26/24 09:06 [facility] [id number]) Physical Therapy Assessment Goals ROM Short Term Goal (STG) Pt will improve R knee ROM to 10-115. STG Duration 05/17/24 Ship/Rec/Doc Control Goal (LTG) Pt will improve R knee ROM to 5-120 to allow for improved ability to do activities. LTG Duration 06/19/24 balance Short Term Goal (STG) Pt will be able to do SLS RLE at least 7 sec to show improved balance STG Duration 05/16/24 Usp Goal (LTG) Pt will be able to do SLS BLE at least 15 sec to show improved balance LTG Duration 06/19/24 Strength Short Term Goal (STG) Pt will be indep w/HEP STG Duration 05/11 Ship/Rec/Doc Control Goal (LTG) Pt will score at least 4+/5 on all BLE MMT to show improved strength and stabilty to show improved greater ease w/ activity. LTG Duration 06/19/24 LEFS Impairment 39 Short Term Goal (STG) Pt will improved LEFS to at least 46 to show improved functional activity. STG Duration 05/16/24 Ship/Rec/Doc Control Goal (LTG) Pt will improved LEFS to at least 56 to show improved functional activity. LTG Duration 06/13/24 Assessment Summary Assessment Improved flex w/manual treatment along w/ext. She did well withs tretches w/o c/o inc pain. Cues for sidesteps and squats Physical Therapy Plan Next Visit Focus/Plan Next Note Type Treatment Note Next Visit Plan consider bike to start, leg press for strength, clamshells review HS, calf stretches, mini squats and sidesteps Manual: work calf and HS mobility along w/quad to improve knee ROM
--- NOTE | 2024-05-01 12:14 | PT.OTN ---
Current Diagnoses Pain in right knee (05/01/24) Physical Therapy Treatment Note PT-OP-A Visit Information Start: 04/05/24 14:04 Freq: Status: Active Protocol: Document 05/01/24 11:31 [facility] (Rec: 05/01/24 12:14 [facility] [id number]) Out-Patient Physical Therapy Visit Information Visit Information Visit Type Treatment Note Visit Start Time 11: Visit Stop Time 12:11 Visit Number 4 Number of TELETYPESETTER Visits 0 Evaluation Information Evaluation Date 04/10/24 Precautions Precautions COPD, on a statin and no blood thinner PT-OP-B Current Condition Start: 04/05/24 14:04 Freq: Status: Active Protocol: Document 04/10/24 07:31 [facility] (Rec: 04/10/24 09:02 [facility] [id number]) Current Condition History of Current Condition Onset Date years Current Complaints knee pain History of Current Condition Pt reports R knee pain that has been going on for years that has gotten worse w/time. no injury. Pain is up and down . She has hx of L partial knee replacement. Went to PT once and clinic had just cleaned with smelly lamp cleaner then moved . [place]. Haven't had any injections yet. Saw an GRIPPER INSTALLER at sports med clinic and their only plan was starting PT. Right now activity level is low. Was playing golf w/ cart in summer and was walking a couple miles. L knee is fine overall (can't put weight d.t pain and has numbness on ant aspect) getting up and down from ground is hard. 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 PT-OP-D Balance Start: 04/05/24 14:04 Freq: Status: Active Protocol: Document 04/10/24 07:31 [facility] (Rec: 04/10/24 09:02 [facility] [id number]) Balance Tests Single Limb Standing Single Limb- Right 3 sec w/knee flex and pain Single Limb- Left 13 sec PT-OP-F Manual Assessment Start: 04/05/24 14:04 Freq: Status: Active Protocol: Document 04/10/24 07:31 [facility] (Rec: 04/10/24 09:02 [facility] [id number]) Manual Assessments Soft Tissue Assessment Soft Tissue Mobility Assessment tension in quads, ITB, HS, calf R PT-OP-G Mobility & Gait Start: 04/05/24 14:04 Freq: Status: Active Protocol: Document 04/10/24 07:31 [facility] (Rec: 04/10/24 09:02 [facility] [id number]) OP Gait Assessment Comments Gait Comments dec stance time and push off RLE, lat lean over RLE, add RLE PT-OP-J Posture/Palpation/Skin Start: 04/05/24 14:04 Freq: Status: Active Protocol: Document 04/10/24 07:31 [facility] (Rec: 04/10/24 09:02 [facility] [id number]) Posture Evaluation Comments Posture Comments IR R>L femur, R tibia, inversion of R foot, R pelvis rot R, R knee flexed PT-OP-K Range of Motion Start: 04/05/24 14:04 Freq: Status: Active Protocol: Document 04/10/24 07:31 [facility] (Rec: 04/10/24 09:02 [facility] [id number]) Knee Goniometric Range of Motion Knee Right Flexion Active (degrees) 104 Extension Active (degrees) 12 Comments painful both directions Left Flexion Active (degrees) 117 Extension Active (degrees) 5 Comments discomfort PT-OP-M Strength Start: 04/05/24 14:04 Freq: Status: Active Protocol: Document 04/10/24 07:31 [facility] (Rec: 04/10/24 09:02 [facility] [id number]) Hip Strength Hip Manual Muscle Testing Right Flexion (L2) 3 Fair Extension (S1) 3+ Fair+ Abduction 3+ Fair+ Adduction 3+ Fair+ External Rotation 3 Fair Internal Rotation 3+ Fair+ Left Flexion (L2) 3+ Fair+ Extension (S1) 4 Good Abduction 4 Good Adduction 4- Good- External Rotation 4- Good- Internal Rotation 4- Good- Knee Strength Knee Manual Muscle Testing Right Flexion (S2) 3+ Fair+ Extension (L3) 3+ Fair+ Left Flexion (S2) 4 Good Extension (L3) 4 Good Ankle/Foot Strength Ankle and Foot Manual Muscle Testing Right Dorsiflexion (L4) 4 Good Plantarflexion (S1) 4 Good Left Dorsiflexion (L4) 5 Normal Plantarflexion (S1) 5 Normal Comments PF tested seated B PT-OP-Q Treatments Start: 04/05/24 14:04 Freq: Status: Active Protocol: Document 05/01/24 11:31 [facility] (Rec: 05/01/24 12:14 [facility] [id number]) Therapeutic Exercises Supine Exercises Hamstring stretch with MWM Supine Exercise Name Added to HEP, HO Side bilateral Equipment Used Towel behind knee Reps/Minutes 1 rep and 30 AP reps Comments Also ed in flossing with knee flexion and extension Manual Therapy Treatment Consent Patient gave verbal consent for manual Yes treatment Other Other Manual Treatments Pt supine with head and legs supported: TrP right vastus lateralis, STM right medial hamstrings and adductors, TrP right QL, TFL and also STM PT-OP-T Assessment and Plan Start: 04/05/24 14:04 Freq: Status: Active Protocol: Document 05/01/24 11:31 [facility] (Rec: 05/01/24 12:14 [facility] [id number]) Physical Therapy Assessment Rehab Potential Rehabilitation Potential Good Evaluation Complexity Number of Personal Factors/Comorbidities 3 or More Number of Body Systems Impaired 4 or More Clinical Presentation at Evaluation Evolving Impairments Impairments Activity Tolerance,Balance, Edema,Functional Activities, Functional Mobility,Gait,Pain, Posture,ROM,Soft Tissue Mobility,Strength,Transfers Goals ROM Short Term Goal (STG) Pt will improve R knee ROM to 10-115. STG Duration 05/17/24 Dust Collector Operator Goal (LTG) Pt will improve R knee ROM to 5-120 to allow for improved ability to do activities. LTG Duration 06/19/24 balance Short Term Goal (STG) Pt will be able to do SLS RLE at least 7 sec to show improved balance STG Duration 05/16/24 Care Home Goal (LTG) Pt will be able to do SLS BLE at least 15 sec to show improved balance LTG Duration 06/19/24 Strength Short Term Goal (STG) Pt will be indep w/HEP STG Duration 05/11 Dust Collector Operator Goal (LTG) Pt will score at least 4+/5 on all BLE MMT to show improved strength and stabilty to show improved greater ease w/ activity. LTG Duration 06/19/24 LEFS Impairment 39 Short Term Goal (STG) Pt will improved LEFS to at least 46 to show improved functional activity. STG Duration 05/16/24 Care Home Goal (LTG) Pt will improved LEFS to at least 56 to show improved functional activity. LTG Duration 06/13/24 Assessment Summary Assessment Pt with increased tension medial right hamstrings and adductors. Added hamstring stretch today and may benefit from adductor stretch in the future. Physical Therapy Plan Frequency and Duration Frequency of Treatment 2x/Week Duration of treatment (weeks) 10 Plan of Care Start Date 04/10/24 Plan of Care End Date 06/19/24 Therapeutic Interventions Therapeutic Interventions Balance Training,Gait Training ,Home Exercise Program,Joint Mobilizations,Manual Therapy, Neuromuscular Re-education, Orthotic/Prosthetic Management ,Patient/Caregiver Education, Self-Care/Home Management,Soft Tissue Mobilization,Taping, Therapeutic Activities, Therapeutic Exercises Modalities Cold Pack/Ice Massage,Electric Stimulation,Hot Packs, Infrared Therapy,Ultrasound Next Visit Focus/Plan Next Note Type Treatment Note Next Visit Plan Start with upright bike for warm-up, consider knee fall out adductor stretch in hook lying From plan:leg press, mini squats, DF Taping for knee stability
--- NOTE | 2024-05-03 08:16 | PT.OTN ---
Current Diagnoses Pain in right knee (05/03/24) Physical Therapy Treatment Note PT-OP-A Visit Information Start: 04/05/24 14:04 Freq: Status: Active Protocol: Document 05/03/24 07:28 [facility] (Rec: 05/03/24 08:16 [facility] [id number]) Out-Patient Physical Therapy Visit Information Visit Information Visit Type Treatment Note Visit Start Time 07:30 Visit Stop Time 08:10 Visit Number 5 Number of SPECIALTY TRANSFORMER ASSEMBLER Visits 0 PT-OP-B Current Condition Start: 04/05/24 14:04 Freq: Status: Active Protocol: Document 04/10/24 07:31 [facility] (Rec: 04/10/24 09:02 [facility] [id number]) Current Condition History of Current Condition Onset Date years Current Complaints knee pain History of Current Condition Pt reports R knee pain that has been going on for years that has gotten worse w/time. no injury. Pain is up and down . She has hx of L partial knee replacement. Went to PT once and clinic had just cleaned with smelly paper cleaner then moved . [place]at [place]. Haven't had any injections yet. Saw an PAINT BOOTH OPERATOR at sports med clinic and their only plan was starting PT. Right now activity level is low. Was playing golf w/ cart in summer and was walking a couple miles. L knee is fine overall (can't put weight d.t pain and has numbness on ant aspect) getting up and down from ground is hard. 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 (Rec: 05/03/24 08:16 [facility] [id number]) OP-PT Subjective Patient Comments Patient Comments Pt reports cont to like trigger point work. [place] pretty good yesterday PT-OP-D Balance Start: 04/05/24 14:04 Freq: Status: Active Protocol: Document 04/10/24 07:31 [facility] (Rec: 04/10/24 09:02 [facility] [id number]) Balance Tests Single Limb Standing Single Limb- Right 3 sec w/knee flex and pain Single Limb- Left 13 sec PT-OP-F Manual Assessment Start: 04/05/24 14:04 Freq: Status: Active Protocol: Document 04/10/24 07:31 [facility] (Rec: 04/10/24 09:02 [facility] [id number]) Manual Assessments Soft Tissue Assessment Soft Tissue Mobility Assessment tension in quads, ITB, HS, calf R PT-OP-G Mobility & Gait Start: 04/05/24 14:04 Freq: Status: Active Protocol: Document 04/10/24 07:31 [facility] (Rec: 04/10/24 09:02 [facility] [id number]) OP Gait Assessment Comments Gait Comments dec stance time and push off RLE, lat lean over RLE, add RLE PT-OP-J Posture/Palpation/Skin Start: 04/05/24 14:04 Freq: Status: Active Protocol: Document 04/10/24 07:31 [facility] (Rec: 04/10/24 09:02 [facility] [id number]) Posture Evaluation Comments Posture Comments IR R>L femur, R tibia, inversion of R foot, R pelvis rot R, R knee flexed PT-OP-K Range of Motion Start: 04/05/24 14:04 Freq: Status: Active Protocol: Document 04/10/24 07:31 [facility] (Rec: 04/10/24 09:02 [facility] [id number]) Knee Goniometric Range of Motion Knee Right Flexion Active (degrees) 104 Extension Active (degrees) 12 Comments painful both directions Left Flexion Active (degrees) 117 Extension Active (degrees) 5 Comments discomfort PT-OP-M Strength Start: 04/05/24 14:04 Freq: Status: Active Protocol: Document 04/10/24 07:31 [facility] (Rec: 04/10/24 09:02 [facility] [id number]) Hip Strength Hip Manual Muscle Testing Right Flexion (L2) 3 Fair Extension (S1) 3+ Fair+ Abduction 3+ Fair+ Adduction 3+ Fair+ External Rotation 3 Fair Internal Rotation 3+ Fair+ Left Flexion (L2) 3+ Fair+ Extension (S1) 4 Good Abduction 4 Good Adduction 4- Good- External Rotation 4- Good- Internal Rotation 4- Good- Knee Strength Knee Manual Muscle Testing Right Flexion (S2) 3+ Fair+ Extension (L3) 3+ Fair+ Left Flexion (S2) 4 Good Extension (L3) 4 Good Ankle/Foot Strength Ankle and Foot Manual Muscle Testing Right Dorsiflexion (L4) 4 Good Plantarflexion (S1) 4 Good Left Dorsiflexion (L4) 5 Normal Plantarflexion (S1) 5 Normal Comments PF tested seated B PT-OP-Q Treatments Start: 04/05/24 14:04 Freq: Status: Active Protocol: Document 05/03/24 07:28 [facility] (Rec: 05/03/24 08:16 [facility] [id number]) Cardio Equipment Bicycle (Upright) Duration (Minutes) 6 Resistance 6 Seat Position 7 Other dec discomfort in post knee Gym Equipment Shuttle Recovery Bilateral Squats Details cues knee and foot position Resistance 75# Reps/Time 15 Therapeutic Exercises Sidelying Exercises add Side bilateral Reps/Minutes 10 Standing Exercises DF Standing Exercise Name 1 leg at a time Side bilateral Reps/Minutes 10 Comments back against the wall squat Standing Exercise Name mini Side bilateral Resistance Lvl 2 at knees Reps/Minutes 10 Comments cues knee position and buttocks back sidesteps Side bilateral Resistance L2 at ankles Reps/Minutes 15ft Comments cues posture stretch Standing Exercise Name 1. calf on step 2. HS Side bilateral Reps/Minutes 1 min ea Manual Therapy Treatment Consent Patient gave verbal consent for manual Yes treatment Soft Tissue Mobilization HS Body Location R Mobilization Type Rolling Comments w/active HS stretch calf Body Location R Mobilization Type Rolling,Strumming Intensity/Depth Moderate Body Position Supine Joint Mobilizations Patellofemoral Joint sup, inf, med R PT-OP-T Assessment and Plan Start: 04/05/24 14:04 Freq: Status: Active Protocol: Document 05/03/24 07:28 [facility] (Rec: 05/03/24 08:16 [facility] [id number]) Physical Therapy Assessment Goals ROM Short Term Goal (STG) Pt will improve R knee ROM to 10-115. STG Duration 05/17/24 Lockstitch Topstitcher Goal (LTG) Pt will improve R knee ROM to 5-120 to allow for improved ability to do activities. LTG Duration 06/19/24 balance Short Term Goal (STG) Pt will be able to do SLS RLE at least 7 sec to show improved balance STG Duration 05/16/24 Prison Goal (LTG) Pt will be able to do SLS BLE at least 15 sec to show improved balance LTG Duration 06/19/24 Strength Short Term Goal (STG) Pt will be indep w/HEP STG Duration 05/11 Lockstitch Topstitcher Goal (LTG) Pt will score at least 4+/5 on all BLE MMT to show improved strength and stabilty to show improved greater ease w/ activity. LTG Duration 06/19/24 LEFS Impairment 39 Short Term Goal (STG) Pt will improved LEFS to at least 46 to show improved functional activity. STG Duration 05/16/24 Lockstitch Topstitcher Goal (LTG) Pt will improved LEFS to at least 56 to show improved functional activity. LTG Duration 06/13/24 Assessment Summary Assessment Improved performance w/ exercies w/o cues for sidesteps but cues needed for squatting exercises. Physical Therapy Plan Frequency and Duration Frequency of Treatment 2x/Week Duration of treatment (weeks) 10 Plan of Care Start Date 04/10/24 Plan of Care End Date 06/19/24 Next Visit Focus/Plan Next Note Type Treatment Note Next Visit Plan review s/l add work, cont leg press for strength, partial squats, DF, and review HEP as needed manual to improve knee ROM and tracking
--- NOTE | 2024-05-07 10:45 | PT.OTN ---
Current Diagnoses Pain in right knee (05/07/24) Physical Therapy Treatment Note PT-OP-A Visit Information Start: 04/05/24 14:04 Freq: Status: Active Protocol: Document 05/07/24 09:03 [facility] (Rec: 05/07/24 10:45 [facility] [id number]) Out-Patient Physical Therapy Visit Information Visit Information Visit Type Treatment Note Visit Start Time 09:20 Visit Stop Time 09:47 Visit Number 6 Number of PERSONAL BANKER Visits 0 Precautions Precautions COPD, on a statin and no blood thinner PT-OP-B Current Condition Start: 04/05/24 14:04 Freq: Status: Active Protocol: Document 04/10/24 07:31 [facility] (Rec: 04/10/24 09:02 [facility] [id number]) Current Condition History of Current Condition Onset Date years Current Complaints knee pain History of Current Condition Pt reports R knee pain that has been going on for years that has gotten worse w/time. no injury. Pain is up and down . She has hx of L partial knee replacement. Went to PT once and clinic had just cleaned with smelly cleaner laboratory equipment then moved . [place]at [place]. Haven't had any injections yet. Saw an MURAL PAINTER at sports med clinic and their only plan was starting PT. Right now activity level is low. Was playing golf w/ cart in summer and was walking a couple miles. L knee is fine overall (can't put weight d.t pain and has numbness on ant aspect) getting up and down from ground is hard. 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 (Rec: 05/07/24 10:45 [facility] [id number]) OP-PT Subjective Patient Comments Patient Comments Pt reports question about exercise against the wall PT-OP-D Balance Start: 04/05/24 14:04 Freq: Status: Active Protocol: Document 04/10/24 07:31 [facility] (Rec: 04/10/24 09:02 [facility] [id number]) Balance Tests Single Limb Standing Single Limb- Right 3 sec w/knee flex and pain Single Limb- Left 13 sec PT-OP-F Manual Assessment Start: 04/05/24 14:04 Freq: Status: Active Protocol: Document 04/10/24 07:31 [facility] (Rec: 04/10/24 09:02 [facility] [id number]) Manual Assessments Soft Tissue Assessment Soft Tissue Mobility Assessment tension in quads, ITB, HS, calf R PT-OP-G Mobility & Gait Start: 04/05/24 14:04 Freq: Status: Active Protocol: Document 04/10/24 07:31 [facility] (Rec: 04/10/24 09:02 [facility] [id number]) OP Gait Assessment Comments Gait Comments dec stance time and push off RLE, lat lean over RLE, add RLE PT-OP-J Posture/Palpation/Skin Start: 04/05/24 14:04 Freq: Status: Active Protocol: Document 04/10/24 07:31 [facility] (Rec: 04/10/24 09:02 [facility] [id number]) Posture Evaluation Comments Posture Comments IR R>L femur, R tibia, inversion of R foot, R pelvis rot R, R knee flexed PT-OP-K Range of Motion Start: 04/05/24 14:04 Freq: Status: Active Protocol: Document 04/10/24 07:31 [facility] (Rec: 04/10/24 09:02 [facility] [id number]) Knee Goniometric Range of Motion Knee Right Flexion Active (degrees) 104 Extension Active (degrees) 12 Comments painful both directions Left Flexion Active (degrees) 117 Extension Active (degrees) 5 Comments discomfort PT-OP-M Strength Start: 04/05/24 14:04 Freq: Status: Active Protocol: Document 04/10/24 07:31 [facility] (Rec: 04/10/24 09:02 [facility] [id number]) Hip Strength Hip Manual Muscle Testing Right Flexion (L2) 3 Fair Extension (S1) 3+ Fair+ Abduction 3+ Fair+ Adduction 3+ Fair+ External Rotation 3 Fair Internal Rotation 3+ Fair+ Left Flexion (L2) 3+ Fair+ Extension (S1) 4 Good Abduction 4 Good Adduction 4- Good- External Rotation 4- Good- Internal Rotation 4- Good- Knee Strength Knee Manual Muscle Testing Right Flexion (S2) 3+ Fair+ Extension (L3) 3+ Fair+ Left Flexion (S2) 4 Good Extension (L3) 4 Good Ankle/Foot Strength Ankle and Foot Manual Muscle Testing Right Dorsiflexion (L4) 4 Good Plantarflexion (S1) 4 Good Left Dorsiflexion (L4) 5 Normal Plantarflexion (S1) 5 Normal Comments PF tested seated B PT-OP-Q Treatments Start: 04/05/24 14:04 Freq: Status: Active Protocol: Document 05/07/24 09:03 [facility] (Rec: 05/07/24 10:45 [facility] [id number]) Manual Therapy Treatment Consent Patient gave verbal consent for manual Yes treatment Soft Tissue Mobilization HS Body Location R Mobilization Type Rolling Comments w/active HS stretch calf Body Location R Mobilization Type Rolling,Strumming Intensity/Depth Moderate Body Position Supine quad Body Location R Mobilization Type Rolling Intensity/Depth Moderate Body Position Hooklying Comments w/knee flex Joint Mobilizations tibfib Comments PA c/r tibiofemoral Comments AP w/IR tibia c/r Patellofemoral Joint sup, inf, med R PT-OP-T Assessment and Plan Start: 04/05/24 14:04 Freq: Status: Active Protocol: Document 05/07/24 09:03 [facility] (Rec: 05/07/24 10:45 [facility] [id number]) Physical Therapy Assessment Goals ROM Short Term Goal (STG) Pt will improve R knee ROM to 10-115. STG Duration 05/17/24 Penitentiary Goal (LTG) Pt will improve R knee ROM to 5-120 to allow for improved ability to do activities. LTG Duration 06/19/24 balance Short Term Goal (STG) Pt will be able to do SLS RLE at least 7 sec to show improved balance STG Duration 05/16/24 Penitentiary Goal (LTG) Pt will be able to do SLS BLE at least 15 sec to show improved balance LTG Duration 06/19/24 Strength Short Term Goal (STG) Pt will be indep w/HEP STG Duration 05/11 Splitter Machine Goal (LTG) Pt will score at least 4+/5 on all BLE MMT to show improved strength and stabilty to show improved greater ease w/ activity. LTG Duration 06/19/24 LEFS Impairment 39 Short Term Goal (STG) Pt will improved LEFS to at least 46 to show improved functional activity. STG Duration 05/16/24 Penitentiary Goal (LTG) Pt will improved LEFS to at least 56 to show improved functional activity. LTG Duration 06/13/24 Assessment Summary Assessment pt is improving w/knee ext ROM . Cont tightness in calf and HS likely restriction ROM Physical Therapy Plan Frequency and Duration Frequency of Treatment 2x/Week Duration of treatment (weeks) 10 Plan of Care Start Date 04/10/24 Plan of Care End Date 06/19/24 Next Visit Focus/Plan Next Note Type Treatment Note Next Visit Plan review s/l add work, cont leg press for strength, partial squats, DF, and review HEP as needed manual to improve knee ROM and tracking
--- NOTE | 2024-05-09 15:24 | PT.OTN ---
Current Diagnoses Pain in right knee (05/09/24) Physical Therapy Treatment Note PT-OP-A Visit Information Start: 04/05/24 14:04 Freq: Status: Active Protocol: Document 05/09/24 14:32 [facility] (Rec: 05/09/24 15:23 [facility] [id number]) Out-Patient Physical Therapy Visit Information Visit Information Visit Type Treatment Note Visit Start Time 14:32 Visit Stop Time 15:12 Visit Number 7 Number of ORTHOTIC PRACTITIONER Visits 0 Precautions Precautions COPD, on a statin and no blood thinner PT-OP-B Current Condition Start: 04/05/24 14:04 Freq: Status: Active Protocol: Document 04/10/24 07:31 [facility] (Rec: 04/10/24 09:02 [facility] [id number]) Current Condition History of Current Condition Onset Date years Current Complaints knee pain History of Current Condition Pt reports R knee pain that has been going on for years that has gotten worse w/time. no injury. Pain is up and down . She has hx of L partial knee replacement. Went to PT once and clinic had just cleaned with smelly belt cleaner then moved . THat was down in spring of 2022. Haven't had any injections yet. Saw an BIOMASS BOILER OPERATOR at sports med clinic and their only plan was starting PT. Right now activity level is low. Was playing golf w/ cart in summer and was walking a couple miles. L knee is fine overall (can't put weight d.t pain and has numbness on ant aspect) getting up and down from ground is hard. 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 PT-OP-D Balance Start: 04/05/24 14:04 Freq: Status: Active Protocol: Document 04/10/24 07:31 [facility] (Rec: 04/10/24 09:02 [facility] [id number]) Balance Tests Single Limb Standing Single Limb- Right 3 sec w/knee flex and pain Single Limb- Left 13 sec PT-OP-F Manual Assessment Start: 04/05/24 14:04 Freq: Status: Active Protocol: Document 04/10/24 07:31 [facility] (Rec: 04/10/24 09:02 [facility] [id number]) Manual Assessments Soft Tissue Assessment Soft Tissue Mobility Assessment tension in quads, ITB, HS, calf R PT-OP-G Mobility & Gait Start: 04/05/24 14:04 Freq: Status: Active Protocol: Document 04/10/24 07:31 [facility] (Rec: 04/10/24 09:02 [facility] [id number]) OP Gait Assessment Comments Gait Comments dec stance time and push off RLE, lat lean over RLE, add RLE PT-OP-J Posture/Palpation/Skin Start: 04/05/24 14:04 Freq: Status: Active Protocol: Document 04/10/24 07:31 [facility] (Rec: 04/10/24 09:02 [facility] [id number]) Posture Evaluation Comments Posture Comments IR R>L femur, R tibia, inversion of R foot, R pelvis rot R, R knee flexed PT-OP-K Range of Motion Start: 04/05/24 14:04 Freq: Status: Active Protocol: Document 04/10/24 07:31 [facility] (Rec: 04/10/24 09:02 [facility] [id number]) Knee Goniometric Range of Motion Knee Right Flexion Active (degrees) 104 Extension Active (degrees) 12 Comments painful both directions Left Flexion Active (degrees) 117 Extension Active (degrees) 5 Comments discomfort PT-OP-M Strength Start: 04/05/24 14:04 Freq: Status: Active Protocol: Document 04/10/24 07:31 [facility] (Rec: 04/10/24 09:02 [facility] [id number]) Hip Strength Hip Manual Muscle Testing Right Flexion (L2) 3 Fair Extension (S1) 3+ Fair+ Abduction 3+ Fair+ Adduction 3+ Fair+ External Rotation 3 Fair Internal Rotation 3+ Fair+ Left Flexion (L2) 3+ Fair+ Extension (S1) 4 Good Abduction 4 Good Adduction 4- Good- External Rotation 4- Good- Internal Rotation 4- Good- Knee Strength Knee Manual Muscle Testing Right Flexion (S2) 3+ Fair+ Extension (L3) 3+ Fair+ Left Flexion (S2) 4 Good Extension (L3) 4 Good Ankle/Foot Strength Ankle and Foot Manual Muscle Testing Right Dorsiflexion (L4) 4 Good Plantarflexion (S1) 4 Good Left Dorsiflexion (L4) 5 Normal Plantarflexion (S1) 5 Normal Comments PF tested seated B PT-OP-Q Treatments Start: 04/05/24 14:04 Freq: Status: Active Protocol: Document 05/09/24 14:32 [facility] (Rec: 05/09/24 15:23 [facility] [id number]) Manual Therapy Treatment Consent Patient gave verbal consent for manual Yes treatment Other Other Manual Treatments Pt supine with head and legs supported: STM and positional release right glutes, hip rotators, medial hamstrings, adductors, rectus femoris, vastus lateralis and TrP right TFL, vastus lateralis, STM right TFL, STM right PFs PT-OP-T Assessment and Plan Start: 04/05/24 14:04 Freq: Status: Active Protocol: Document 05/09/24 14:32 [facility] (Rec: 05/09/24 15:23 MB [id number]) Physical Therapy Assessment Goals ROM Short Term Goal (STG) Pt will improve R knee ROM to 10-115. STG Duration 05/17/24 Millinery Designer Goal (LTG) Pt will improve R knee ROM to 5-120 to allow for improved ability to do activities. LTG Duration 06/19/24 balance Short Term Goal (STG) Pt will be able to do SLS RLE at least 7 sec to show improved balance STG Duration 05/16/24 Mcfp Goal (LTG) Pt will be able to do SLS BLE at least 15 sec to show improved balance LTG Duration 06/19/24 Strength Short Term Goal (STG) Pt will be indep w/HEP STG Duration 05/11 Millinery Designer Goal (LTG) Pt will score at least 4+/5 on all BLE MMT to show improved strength and stabilty to show improved greater ease w/ activity. LTG Duration 06/19/24 LEFS Impairment 39 Short Term Goal (STG) Pt will improved LEFS to at least 46 to show improved functional activity. STG Duration 05/16/24 Millinery Designer Goal (LTG) Pt will improved LEFS to at least 56 to show improved functional activity. LTG Duration 06/13/24 Assessment Summary Assessment Manual work today and PT notes adipose fascia changes right thigh area and she is working on flexibility and strengthening per plan with primary PT. Physical Therapy Plan Frequency and Duration Frequency of Treatment 2x/Week Duration of treatment (weeks) 10 Plan of Care Start Date 04/10/24 Plan of Care End Date 06/19/24 Next Visit Focus/Plan Next Note Type Treatment Note Next Visit Plan Con't per primary PT plan: review s/l add work, cont leg press for strength, partial squats, DF, and review HEP as needed manual to improve knee ROM and tracking
--- NOTE | 2024-05-14 10:39 | PT.OTN ---
Current Diagnoses Pain in right knee (05/14/24) Physical Therapy Treatment Note PT-OP-A Visit Information Start: 04/05/24 14:04 Freq: Status: Active Protocol: Document 05/14/24 08:11 [facility] (Rec: 05/14/24 10:39 [facility] [id number]) Out-Patient Physical Therapy Visit Information Visit Information Visit Type Treatment Note Visit Start Time 09:03 Visit Stop Time 09:44 Visit Number 8 Number of PATROL SERGEANT Visits 1 Precautions Precautions COPD, on a statin and no blood thinner PT-OP-B Current Condition Start: 04/05/24 14:04 Freq: Status: Active Protocol: Document 04/10/24 07:31 [facility] (Rec: 04/10/24 09:02 [facility] [id number]) Current Condition History of Current Condition Onset Date years Current Complaints knee pain History of Current Condition Pt reports R knee pain that has been going on for years that has gotten worse w/time. no injury. Pain is up and down . She has hx of L partial knee replacement. Went to PT once and clinic had just cleaned with smelly quill cleaner then moved . THat was down [place]. Haven't had any injections yet. Saw an FACILITY SUPERVISOR at sports med clinic and their only plan was starting PT. Right now activity level is low. Was playing golf w/ cart in summer and was walking a couple miles. L knee is fine overall (can't put weight d.t pain and has numbness on ant aspect) getting up and down from ground is hard. 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 Nida reports pain with twisting . Right knee lacking 9 deg ext to 115 deg flexion, visible swelling inf med pat > lat sup pat PT-OP-D Balance Start: 04/05/24 14:04 Freq: Status: Active Protocol: Document 04/10/24 07:31 [facility] (Rec: 04/10/24 09:02 [facility] [id number]) Balance Tests Single Limb Standing Single Limb- Right 3 sec w/knee flex and pain Single Limb- Left 13 sec PT-OP-F Manual Assessment Start: 04/05/24 14:04 Freq: Status: Active Protocol: Document 04/10/24 07:31 [facility] (Rec: 04/10/24 09:02 [facility] [id number]) Manual Assessments Soft Tissue Assessment Soft Tissue Mobility Assessment tension in quads, ITB, HS, calf R PT-OP-G Mobility & Gait Start: 04/05/24 14:04 Freq: Status: Active Protocol: Document 04/10/24 07:31 [facility] (Rec: 04/10/24 09:02 [facility] [id number]) OP Gait Assessment Comments Gait Comments dec stance time and push off RLE, lat lean over RLE, add RLE PT-OP-J Posture/Palpation/Skin Start: 04/05/24 14:04 Freq: Status: Active Protocol: Document 04/10/24 07:31 [facility] (Rec: 04/10/24 09:02 [facility] [id number]) Posture Evaluation Comments Posture Comments IR R>L femur, R tibia, inversion of R foot, R pelvis rot R, R knee flexed PT-OP-K Range of Motion Start: 04/05/24 14:04 Freq: Status: Active Protocol: Document 04/10/24 07:31 [facility] (Rec: 04/10/24 09:02 [facility] [id number]) Knee Goniometric Range of Motion Knee Right Flexion Active (degrees) 104 Extension Active (degrees) 12 Comments painful both directions Left Flexion Active (degrees) 117 Extension Active (degrees) 5 Comments discomfort PT-OP-M Strength Start: 04/05/24 14:04 Freq: Status: Active Protocol: Document 04/10/24 07:31 [facility] (Rec: 04/10/24 09:02 [facility] [id number]) Hip Strength Hip Manual Muscle Testing Right Flexion (L2) 3 Fair Extension (S1) 3+ Fair+ Abduction 3+ Fair+ Adduction 3+ Fair+ External Rotation 3 Fair Internal Rotation 3+ Fair+ Left Flexion (L2) 3+ Fair+ Extension (S1) 4 Good Abduction 4 Good Adduction 4- Good- External Rotation 4- Good- Internal Rotation 4- Good- Knee Strength Knee Manual Muscle Testing Right Flexion (S2) 3+ Fair+ Extension (L3) 3+ Fair+ Left Flexion (S2) 4 Good Extension (L3) 4 Good Ankle/Foot Strength Ankle and Foot Manual Muscle Testing Right Dorsiflexion (L4) 4 Good Plantarflexion (S1) 4 Good Left Dorsiflexion (L4) 5 Normal Plantarflexion (S1) 5 Normal Comments PF tested seated B PT-OP-Q Treatments Start: 04/05/24 14:04 Freq: Status: Active Protocol: Document 05/14/24 08:11 [facility] (Rec: 05/14/24 10:39 AB [id number]) Therapeutic Exercises Supine Exercises Heel slide Supine Exercise Name on ball with and without resistance Side bilateral Reps/Minutes one min w/o resistance 1 min w / restistance ankle pumps Supine Exercise Name post manual with LE's elevated above heart Reps/Minutes X30 Hamstring stretch with MWM Supine Exercise Name from hooklying with AROM knee ext [id number] one minute Reps/Minutes 60 sec X 2 right LE Comments Verbal cues Sitting Exercises seatedhip abduction with band Side bilateral Resistance [place] level 3 band Reps/Minutes one min hold X 1 then X 15 witout hold Comments verbal cues Standing Exercises DF Standing Exercise Name 1 leg at a time Side bilateral Reps/Minutes 10 Comments back against the wall stretch Standing Exercise Name 1. calf stretches on step Side bilateral Reps/Minutes 1 min X 2 ea gastroc and soleus Manual Therapy Treatment Consent Patient gave verbal consent for manual Yes treatment Soft Tissue Mobilization HS Body Location R Mobilization Type Cross-Friction,Rolling, Strumming,Other Intensity/Depth Moderate Body Position Hooklying calf Body Location R Mobilization Type Cross-Friction,Rolling, Strumming Intensity/Depth Moderate Body Position Hooklying quad Mobilization Type Cross-Friction,Rolling, Strumming,Other Intensity/Depth Moderate Body Position Hooklying Joint Mobilizations tibfib Joint right Direction AP and PA Grade III Body Position Hooklying Reps/Duration X8 tibiofemoral Joint talocrural Direction AP mulligan with movement Grade III Body Position Standing Reps/Duration X10 X 3 Comments verbal cues PT-OP-T Assessment and Plan Start: 04/05/24 14:04 Freq: Status: Active Protocol: Document 05/14/24 08:11 [facility] (Rec: 05/14/24 10:39 AB [id number]) Physical Therapy Assessment Goals ROM Short Term Goal (STG) Pt will improve R knee ROM to 10-115. STG Duration 05/17/24 Care Home Goal (LTG) Pt will improve R knee ROM to 5-120 to allow for improved ability to do activities. LTG Duration 06/19/24 balance Short Term Goal (STG) Pt will be able to do SLS RLE at least 7 sec to show improved balance STG Duration 05/16/24 Jewelry Casting Model Maker Goal (LTG) Pt will be able to do SLS BLE at least 15 sec to show improved balance LTG Duration 06/19/24 Strength Short Term Goal (STG) Pt will be indep w/HEP STG Duration 05/11 Jewelry Casting Model Maker Goal (LTG) Pt will score at least 4+/5 on all BLE MMT to show improved strength and stabilty to show improved greater ease w/ activity. LTG Duration 06/19/24 LEFS Impairment 39 Short Term Goal (STG) Pt will improved LEFS to at least 46 to show improved functional activity. STG Duration 05/16/24 Jewelry Casting Model Maker Goal (LTG) Pt will improved LEFS to at least 56 to show improved functional activity. LTG Duration 06/13/24 Assessment Summary Assessment Nida rates right knee pain 06/01 end of session, rates right HS pain 07/30. Physical Therapy Plan Frequency and Duration Frequency of Treatment 2x/Week Duration of treatment (weeks) 10 Plan of Care Start Date 04/10/24 Plan of Care End Date 06/19/24 Therapeutic Interventions Therapeutic Interventions Balance Training,Gait Training ,Home Exercise Program,Joint Mobilizations,Manual Therapy, Neuromuscular Re-education, Orthotic/Prosthetic Management ,Patient/Caregiver Education, Self-Care/Home Management,Soft Tissue Mobilization,Taping, Therapeutic Activities, Therapeutic Exercises Modalities Cold Pack/Ice Massage,Electric Stimulation,Hot Packs, Infrared Therapy,Ultrasound Next Visit Focus/Plan Next Note Type Treatment Note Next Visit Plan Con't per primary PT plan: review s/l add work, cont leg press for strength, partial squats, DF, and review HEP as needed manual to improve knee ROM and tracking
--- NOTE | 2024-05-21 08:57 | PT.OTN ---
Current Diagnoses Pain in right knee (05/21/24) Physical Therapy Treatment Note PT-OP-A Visit Information Start: 04/05/24 14:04 Freq: Status: Active Protocol: Document 05/21/24 07:32 [facility] (Rec: 05/21/24 08:57 [facility] [id number]) Out-Patient Physical Therapy Visit Information Visit Information Visit Type Progress Note Visit Start Time 07:32 Visit Stop Time 08:15 Visit Number 9 (06/01 IE) Number of SUPERVISOR FLOOR ASSEMBLY Visits 0 PT-OP-B Current Condition Start: 04/05/24 14:04 Freq: Status: Active Protocol: Document 04/10/24 07:31 [facility] (Rec: 04/10/24 09:02 [facility] [id number]) Current Condition History of Current Condition Onset Date years Current Complaints knee pain History of Current Condition Pt reports R knee pain that has been going on for years that has gotten worse w/time. no injury. Pain is up and down . She has hx of L partial knee replacement. Went to PT once and clinic had just cleaned with smelly road cleaner then moved . THat was down in spring of 2022. Haven't had any injections yet. Saw an HISTORY TUTOR at sports med clinic and their only plan was starting PT. Right now activity level is low. Was playing golf w/ cart in summer and was walking a couple miles. L knee is fine overall (can't put weight d.t pain and has numbness on ant aspect) getting up and down from ground is hard. 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 Some behind the knee and calf. PT-OP-D Balance Start: 04/05/24 14:04 Freq: Status: Active Protocol: Document 05/21/24 07:32 [facility] (Rec: 05/21/24 08:57 [facility] [id number]) Balance Tests Single Limb Standing Single Limb- Right 7 sec R knee pain Single Limb- Left 10 sec PT-OP-F Manual Assessment Start: 04/05/24 14:04 Freq: Status: Active Protocol: Document 04/10/24 07:31 [facility] (Rec: 04/10/24 09:02 [facility] [id number]) Manual Assessments Soft Tissue Assessment Soft Tissue Mobility Assessment tension in quads, ITB, HS, calf R PT-OP-G Mobility & Gait Start: 04/05/24 14:04 Freq: Status: Active Protocol: Document 04/10/24 07:31 [facility] (Rec: 04/10/24 09:02 [facility] [id number]) OP Gait Assessment Comments Gait Comments dec stance time and push off RLE, lat lean over RLE, add RLE PT-OP-J Posture/Palpation/Skin Start: 04/05/24 14:04 Freq: Status: Active Protocol: Document 04/10/24 07:31 [facility] (Rec: 04/10/24 09:02 [facility] [id number]) Posture Evaluation Comments Posture Comments IR R>L femur, R tibia, inversion of R foot, R pelvis rot R, R knee flexed PT-OP-K Range of Motion Start: 04/05/24 14:04 Freq: Status: Active Protocol: Document 05/21/24 07:32 [facility] (Rec: 05/21/24 08:57 [facility] [id number]) Knee Goniometric Range of Motion Knee Right Flexion Active (degrees) 110 Extension Active (degrees) 12 Comments painful both directions PT-OP-M Strength Start: 04/05/24 14:04 Freq: Status: Active Protocol: Document 05/21/24 07:32 [facility] (Rec: 05/21/24 08:57 [facility] [id number]) Hip Strength Hip Manual Muscle Testing Right Flexion (L2) 4- Good- Extension (S1) 4 Good Abduction 4+ Good+ Adduction 4 Good External Rotation 3 Fair Internal Rotation 3+ Fair+ Left Flexion (L2) 4 Good Extension (S1) 4+ Good+ Abduction 4 Good Adduction 4 Good External Rotation 4+ Good+ Internal Rotation 4 Good Knee Strength Knee Manual Muscle Testing Right Flexion (S2) 4- Good- Extension (L3) 3+ Fair+ Comments pain ext Left Flexion (S2) 4+ Good+ Extension (L3) 5 Normal Ankle/Foot Strength Ankle and Foot Manual Muscle Testing Right Dorsiflexion (L4) 4+ Good+ Plantarflexion (S1) 4+ Good+ Left Dorsiflexion (L4) 5 Normal Plantarflexion (S1) 5 Normal Comments PF tested seated B PT-OP-Q Treatments Start: 04/05/24 14:04 Freq: Status: Active Protocol: Document 05/21/24 07:32 [facility] (Rec: 05/21/24 08:57 [facility] [id number]) Therapeutic Exercises Supine Exercises hip flex Supine Exercise Name isometric w/DF reviewed -DL Side bilateral Reps/Minutes 15 sec ea Comments Both knees bent bridge Supine Exercise Name 1. DL 2. SL Side bilateral Reps/Minutes 5 ea Comments cues for segmental& breathing Sidelying Exercises clamshell Side bilateral Equipment Used L1 Reps/Minutes 10 Comments cues no trunk motion add Side bilateral Reps/Minutes 10 Sitting Exercises self roll out Sitting Exercise Name quad, HS, ITB, calf Side right Equipment Used rolling pin Reps/Minutes 2 min Standing Exercises squat Standing Exercise Name mini Side bilateral Resistance Lvl 2 at knees Reps/Minutes 10 Comments cues knee position and buttocks back sidesteps Side bilateral Resistance L2 at ankles Reps/Minutes 5ft Comments cues posture stretch Standing Exercise Name 1. gastroc DL 2. soleus- stopped d/t pain 3. HS Side bilateral Reps/Minutes 1 and 3. 30 sec Comments cues gentle stretch Manual Therapy Treatment Consent Patient gave verbal consent for manual Yes treatment Soft Tissue Mobilization calf Body Location R Mobilization Type Rolling,Strumming Intensity/Depth Moderate Body Position Hooklying quad Mobilization Type Rolling,Strumming Intensity/Depth Moderate Body Position Hooklying Joint Mobilizations tibfib Comments PA and PA w/APs tibiofemoral Comments AP tibia and AP femur c/r flex PA tibia w/APs Patellofemoral Joint sup, inf, med R PT-OP-T Assessment and Plan Start: 04/05/24 14:04 Freq: Status: Active Protocol: Document 05/21/24 07:32 [facility] (Rec: 05/21/24 08:57 [facility] [id number]) Physical Therapy Assessment Goals ROM Short Term Goal (STG) Pt will improve R knee ROM to 10-115. 110 improving STG Duration 05/17/24 [facility] Goal (LTG) Pt will improve R knee ROM to 5-120 to allow for improved ability to do activities. LTG Duration 06/19/24 balance Short Term Goal (STG) Pt will be able to do SLS RLE at least 7 sec to show improved balance STG Duration achieved 05/21 [facility] Goal (LTG) Pt will be able to do SLS BLE at least 15 sec to show improved balance LTG Duration 06/19/24 Strength Short Term Goal (STG) Pt will be indep w/HEP STG Duration achieved advancing as able [facility] Goal (LTG) Pt will score at least 4+/5 on all BLE MMT to show improved strength and stabilty to show improved greater ease w/ activity. 05/21- LTG Duration 06/19/24 LEFS Impairment 39 Short Term Goal (STG) Pt will improved LEFS to at least 46 to show improved functional activity. 05/21-36 STG Duration 05/16/24 [facility] Goal (LTG) Pt will improved LEFS to at least 56 to show improved functional activity. LTG Duration 06/13/24 Assessment Summary Assessment Pt required cues for squats and for dec push into stretches. Challenged by clamshells. given new printout today. Manual improved flex to 115. Pt is improving w/PT w /improved strength and ROM and pt notes sometimes stairs are okay. Cont PT for improving strength and balance and ROM and dec pain. Physical Therapy Plan Frequency and Duration Frequency of Treatment 2x/Week Duration of treatment (weeks) 10 Plan of Care Start Date 04/10/24 Plan of Care End Date 06/19/24 Therapeutic Interventions Therapeutic Interventions Balance Training,Gait Training ,Home Exercise Program,Joint Mobilizations,Manual Therapy, Neuromuscular Re-education, Orthotic/Prosthetic Management ,Patient/Caregiver Education, Self-Care/Home Management,Soft Tissue Mobilization,Taping, Therapeutic Activities, Therapeutic Exercises Modalities Cold Pack/Ice Massage,Electric Stimulation,Hot Packs, Infrared Therapy,Ultrasound Next Visit Focus/Plan Next Note Type Treatment Note Next Visit Plan review advancements w/HEP manual to improve knee ROM and tracking
--- NOTE | 2024-05-24 10:39 | PT.OTN ---
Current Diagnoses Pain in right knee (05/24/24) Physical Therapy Treatment Note PT-OP-A Visit Information Start: 04/05/24 14:04 Freq: Status: Active Protocol: Document 05/24/24 08:04 [facility] (Rec: 05/24/24 10:39 [facility] [id number]) Out-Patient Physical Therapy Visit Information Visit Information Visit Type Treatment Note Visit Start Time 08:17 Visit Stop Time 09:00 Visit Number 10 (2 IE) Number of STEEL BARREL REAMER Visits 1 Evaluation Information Evaluation Date 04/10/24 Precautions Precautions COPD, on a statin and no blood thinner PT-OP-B Current Condition Start: 04/05/24 14:04 Freq: Status: Active Protocol: Document 04/10/24 07:31 [facility] (Rec: 04/10/24 09:02 [facility] [id number]) Current Condition History of Current Condition Onset Date years Current Complaints knee pain History of Current Condition Pt reports R knee pain that has been going on for years that has gotten worse w/time. no injury. Pain is up and down . She has hx of L partial knee replacement. Went to PT once and clinic had just cleaned with smelly seed cleaner [place] . [place] Haven't had any injections yet. Saw an SQL TECH at sports med clinic and their only plan was starting PT. Right now activity level is low. Was playing golf w/ cart in summer and was walking a couple miles. L knee is fine overall (can't put weight d.t pain and has numbness on ant aspect) getting up and down from ground is hard. 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 Patient reports the new exercises went well. Nida reports right lateral calf pain for a day, which is now . 5/10 pain, comments the calf pain started prior to performing HEP. PT-OP-D Balance Start: 04/05/24 14:04 Freq: Status: Active Protocol: Document 05/21/24 07:32 [facility] (Rec: 05/21/24 08:57 [facility] [id number]) Balance Tests Single Limb Standing Single Limb- Right 7 sec R knee pain Single Limb- Left 10 sec PT-OP-F Manual Assessment Start: 04/05/24 14:04 Freq: Status: Active Protocol: Document 04/10/24 07:31 [facility] (Rec: 04/10/24 09:02 [facility] [id number]) Manual Assessments Soft Tissue Assessment Soft Tissue Mobility Assessment tension in quads, ITB, HS, calf R PT-OP-G Mobility & Gait Start: 04/05/24 14:04 Freq: Status: Active Protocol: Document 04/10/24 07:31 [facility] (Rec: 04/10/24 09:02 [facility] [id number]) OP Gait Assessment Comments Gait Comments dec stance time and push off RLE, lat lean over RLE, add RLE PT-OP-J Posture/Palpation/Skin Start: 04/05/24 14:04 Freq: Status: Active Protocol: Document 04/10/24 07:31 [facility] (Rec: 04/10/24 09:02 [facility] [id number]) Posture Evaluation Comments Posture Comments IR R>L femur, R tibia, inversion of R foot, R pelvis rot R, R knee flexed PT-OP-K Range of Motion Start: 04/05/24 14:04 Freq: Status: Active Protocol: Document 05/21/24 07:32 [facility] (Rec: 05/21/24 08:57 [facility] [id number]) Knee Goniometric Range of Motion Knee Right Flexion Active (degrees) 110 Extension Active (degrees) 12 Comments painful both directions PT-OP-M Strength Start: 04/05/24 14:04 Freq: Status: Active Protocol: Document 05/21/24 07:32 [facility] (Rec: 05/21/24 08:57 [facility] [id number]) Hip Strength Hip Manual Muscle Testing Right Flexion (L2) 4- Good- Extension (S1) 4 Good Abduction 4+ Good+ Adduction 4 Good External Rotation 3 Fair Internal Rotation 3+ Fair+ Left Flexion (L2) 4 Good Extension (S1) 4+ Good+ Abduction 4 Good Adduction 4 Good External Rotation 4+ Good+ Internal Rotation 4 Good Knee Strength Knee Manual Muscle Testing Right Flexion (S2) 4- Good- Extension (L3) 3+ Fair+ Comments pain ext Left Flexion (S2) 4+ Good+ Extension (L3) 5 Normal Ankle/Foot Strength Ankle and Foot Manual Muscle Testing Right Dorsiflexion (L4) 4+ Good+ Plantarflexion (S1) 4+ Good+ Left Dorsiflexion (L4) 5 Normal Plantarflexion (S1) 5 Normal Comments PF tested seated B PT-OP-Q Treatments Start: 04/05/24 14:04 Freq: Status: Active Protocol: Document 05/24/24 08:04 [facility] (Rec: 05/24/24 10:39 [facility] [id number]) Therapeutic Exercises Supine Exercises bridge Supine Exercise Name sl Side bilateral Reps/Minutes x10 and X 2 Comments VC to push into heels, raise LE prior to left, and segmental mvt Sidelying Exercises clamshell Side bilateral Equipment Used L1 Reps/Minutes 10 X2 Comments Verbal and tactile cues for LE position and to avoid rolling back Standing Exercises squat Standing Exercise Name mini Side bilateral Resistance Lvl 2 at knees Reps/Minutes X10 Comments verbal and visual cues sidesteps Side bilateral Resistance L2 at feet Reps/Minutes 10 feet left and right X10 Comments verbal cues to avoid toeing out stretch Standing Exercise Name 1. gastroc DL 2. soleus- 3. HS Side bilateral Reps/Minutes 60 sec each X 1 each Comments verbal and visual for calf stretch ( stretches prior to squat exX) Manual Therapy Treatment Soft Tissue Mobilization calf Body Location R Mobilization Type Cross-Friction,Rolling, Strumming Intensity/Depth Moderate Body Position Hooklying quad Body Location R Mobilization Type Cross-Friction,Myofascial Release,Rolling,Strumming Joint Mobilizations tibfib Joint right Grade III Body Position Hooklying Reps/Duration X10 each Comments PA and PA tibiofemoral Joint talocrural Direction AP mulligan with movement Grade III Body Position Standing Reps/Duration 3X10 PT-OP-T Assessment and Plan Start: 04/05/24 14:04 Freq: Status: Active Protocol: Document 05/24/24 08:04 [facility] (Rec: 05/24/24 10:39 [facility] [id number]) Physical Therapy Assessment Goals ROM Short Term Goal (STG) Pt will improve R knee ROM to 10-115. 05/21-12-110 improving STG Duration 05/17/24 Medical Administrative Technician Goal (LTG) Pt will improve R knee ROM to 5-120 to allow for improved ability to do activities. LTG Duration 06/19/24 balance Short Term Goal (STG) Pt will be able to do SLS RLE at least 7 sec to show improved balance STG Duration achieved 05/21 Long-Term Goal (LTG) Pt will be able to do SLS BLE at least 15 sec to show improved balance LTG Duration 06/19/24 Strength Short Term Goal (STG) Pt will be indep w/HEP STG Duration achieved advancing as able Medical Administrative Technician Goal (LTG) Pt will score at least 4+/5 on all BLE MMT to show improved strength and stabilty to show improved greater ease w/ activity. 05/21-improving LTG Duration 06/19/24 LEFS Impairment 39 Short Term Goal (STG) Pt will improved LEFS to at least 46 to show improved functional activity. 05/21-36 STG Duration 05/16/24 Long-Term Goal (LTG) Pt will improved LEFS to at least 56 to show improved functional activity. LTG Duration 06/13/24 Assessment Summary Assessment Nida rates lateral tib/fib area proximal to distal 3-4/10 pain end of session. Depth of squat continues to be very limited by pain ie mini squat alyssa. Physical Therapy Plan Frequency and Duration Frequency of Treatment 2x/Week Duration of treatment (weeks) 10 Plan of Care Start Date 04/10/24 Plan of Care End Date 06/19/24 Next Visit Focus/Plan Next Note Type Treatment Note Next Visit Plan review advancements w/HEP manual to improve knee ROM and tracking
--- NOTE | 2024-05-28 09:35 | PT.OTN ---
Current Diagnoses Pain in right knee (05/28/24) Physical Therapy Treatment Note PT-OP-A Visit Information Start: 04/05/24 14:04 Freq: Status: Active Protocol: Document 05/28/24 08:07 [facility] (Rec: 05/28/24 09:34 [facility] [id number]) Out-Patient Physical Therapy Visit Information Visit Information Visit Type Treatment Note Visit Note Access Code: [email or web address] Visit Start Time 08:16 Visit Stop Time 09:09 Visit Number 11 Number of LABORER [employer]ATIC [employer] Visits 2 Evaluation Information Evaluation Date 04/10/24 Precautions Precautions COPD, on a statin and no blood thinner PT-OP-B Current Condition Start: 04/05/24 14:04 Freq: Status: Active Protocol: Document 04/10/24 07:31 [facility] (Rec: 04/10/24 09:02 [facility] [id number]) Current Condition History of Current Condition Onset Date years Current Complaints knee pain History of Current Condition Pt reports R knee pain that has been going on for years that has gotten worse w/time. no injury. Pain is up and down . She has hx of L partial knee replacement. Went to PT once and clinic had just cleaned with smelly power cleaner operator then moved . [place]. Haven't had any injections yet. Saw an FACTORY REPRESENTATIVE at sports med clinic and their only plan was starting PT. Right now activity level is low. Was playing golf w/ cart in summer and was walking a couple miles. L knee is fine overall (can't put weight d.t pain and has numbness on ant aspect) getting up and down from ground is hard. 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 Nida reports having no pain start of session, reports no incidents of buckling since comment regarding buckling previous session. Lacking 10 deg to 110 deg flexion AROM start of session right Knee PT-OP-D Balance Start: 04/05/24 14:04 Freq: Status: Active Protocol: Document 05/21/24 07:32 [facility] (Rec: 05/21/24 08:57 [facility] [id number]) Balance Tests Single Limb Standing Single Limb- Right 7 sec R knee pain Single Limb- Left 10 sec PT-OP-F Manual Assessment Start: 04/05/24 14:04 Freq: Status: Active Protocol: Document 04/10/24 07:31 [facility] (Rec: 04/10/24 09:02 [facility] [id number]) Manual Assessments Soft Tissue Assessment Soft Tissue Mobility Assessment tension in quads, ITB, HS, calf R PT-OP-G Mobility & Gait Start: 04/05/24 14:04 Freq: Status: Active Protocol: Document 04/10/24 07:31 [facility] (Rec: 04/10/24 09:02 [facility] [id number]) OP Gait Assessment Comments Gait Comments dec stance time and push off RLE, lat lean over RLE, add RLE PT-OP-J Posture/Palpation/Skin Start: 04/05/24 14:04 Freq: Status: Active Protocol: Document 04/10/24 07:31 [facility] (Rec: 04/10/24 09:02 [facility] [id number]) Posture Evaluation Comments Posture Comments IR R>L femur, R tibia, inversion of R foot, R pelvis rot R, R knee flexed PT-OP-K Range of Motion Start: 04/05/24 14:04 Freq: Status: Active Protocol: Document 05/21/24 07:32 [facility] (Rec: 05/21/24 08:57 [facility] [id number]) Knee Goniometric Range of Motion Knee Right Flexion Active (degrees) 110 Extension Active (degrees) 12 Comments painful both directions PT-OP-M Strength Start: 04/05/24 14:04 Freq: Status: Active Protocol: Document 05/21/24 07:32 [facility] (Rec: 05/21/24 08:57 [facility] [id number]) Hip Strength Hip Manual Muscle Testing Right Flexion (L2) 4- Good- Extension (S1) 4 Good Abduction 4+ Good+ Adduction 4 Good External Rotation 3 Fair Internal Rotation 3+ Fair+ Left Flexion (L2) 4 Good Extension (S1) 4+ Good+ Abduction 4 Good Adduction 4 Good External Rotation 4+ Good+ Internal Rotation 4 Good Knee Strength Knee Manual Muscle Testing Right Flexion (S2) 4- Good- Extension (L3) 3+ Fair+ Comments pain ext Left Flexion (S2) 4+ Good+ Extension (L3) 5 Normal Ankle/Foot Strength Ankle and Foot Manual Muscle Testing Right Dorsiflexion (L4) 4+ Good+ Plantarflexion (S1) 4+ Good+ Left Dorsiflexion (L4) 5 Normal Plantarflexion (S1) 5 Normal Comments PF tested seated B PT-OP-Q Treatments Start: 04/05/24 14:04 Freq: Status: Active Protocol: Document 05/28/24 08:07 [facility] (Rec: 05/28/24 09:34 [facility] [id number]) Therapeutic Exercises Supine Exercises Heel slide Supine Exercise Name on ball with and without resistance Side bilateral Reps/Minutes one min w/o resistance 1 min w / restistance Prone Exercises prone knee flexion Side right Reps/Minutes X10 Comments AROM quad sets Side bilateral Reps/Minutes X10 without manual Sitting Exercises Tailgating Sitting Exercise Name AROM knee flexion and extension Reps/Minutes 2 min Comments Verbal cues to perform prior to standing up after increased time seated seatedhip abduction with band Sitting Exercise Name HEP Side bilateral Resistance [place] level 3 band Reps/Minutes one min hold X 1 then X 15 witout hold Comments verbal cues Standing Exercises squat Standing Exercise Name mini Side bilateral Resistance Lvl 3 at knees Reps/Minutes X10 X2 Comments focus on returning fully to uprigh right knee as straight as left sidesteps Side bilateral Resistance L3 at feet Reps/Minutes 8feet left and right X10 X2 Comments verbal cues to avoid toeing out stretch Standing Exercise Name 1. gastroc DL 2. soleus- 3. HS Side bilateral Reps/Minutes 60 sec for 1 &2 60 sec X 2 for hamstring R Manual Therapy Treatment Soft Tissue Mobilization HS Body Location R Mobilization Type Cross-Friction,Instrument Assisted,Rolling,Strumming, Other Intensity/Depth Moderate Body Position Prone Comments prone quad sets X 10 with cupping small cup quad Body Location R Mobilization Type Cross-Friction,Myofascial Release,Rolling,Strumming Joint Mobilizations tibia on femur Joint R knee Direction PA Grade III Body Position Hooklying Reps/Duration X10 X 3 PT-OP-T Assessment and Plan Start: 04/05/24 14:04 Freq: Status: Active Protocol: Document 05/28/24 08:07 [facility] (Rec: 05/28/24 09:34 AB [id number]) Physical Therapy Assessment Goals ROM Short Term Goal (STG) Pt will improve R knee ROM to 10-115. 05/21-12-110 improving STG Duration 05/17/24 Mcc Goal (LTG) Pt will improve R knee ROM to 5-120 to allow for improved ability to do activities. LTG Duration 06/19/24 balance Short Term Goal (STG) Pt will be able to do SLS RLE at least 7 sec to show improved balance STG Duration achieved 05/21 Mcc Goal (LTG) Pt will be able to do SLS BLE at least 15 sec to show improved balance LTG Duration 06/19/24 Strength Short Term Goal (STG) Pt will be indep w/HEP STG Duration achieved advancing as able Transfill Technician Goal (LTG) Pt will score at least 4+/5 on all BLE MMT to show improved strength and stabilty to show improved greater ease w/ activity. 05/21-improving LTG Duration 06/19/24 LEFS Impairment 39 Short Term Goal (STG) Pt will improved LEFS to at least 46 to show improved functional activity. 05/21-36 STG Duration 05/16/24 Mcc Goal (LTG) Pt will improved LEFS to at least 56 to show improved functional activity. LTG Duration 06/13/24 Assessment Summary Assessment Lacking 8 to 116 deg post manual and exercise. Verbal cues to fully return to upright from squat with effort to increase right knee extension to equal left. SLS to 9 sec post glute med activation vs 5 prior( without UE use Physical Therapy Plan Frequency and Duration Frequency of Treatment 2x/Week Duration of treatment (weeks) 10 Plan of Care Start Date 04/10/24 Plan of Care End Date 06/19/24 Next Visit Focus/Plan Next Note Type Treatment Note Next Visit Plan review advancements w/HEP manual to improve knee ROM and tracking
--- NOTE | 2024-05-31 09:02 | PT.OTN ---
Current Diagnoses Pain in right knee (05/31/24) Physical Therapy Treatment Note PT-OP-A Visit Information Start: 04/05/24 14:04 Freq: Status: Active Protocol: Document 05/31/24 08:20 [facility] (Rec: 05/31/24 09:02 [facility] [id number]) Out-Patient Physical Therapy Visit Information Visit Information Visit Type Treatment Note Visit Note Access Code: [email or web address] Visit Start Time 08:18 Visit Stop Time 08:58 Visit Number 12 Number of MANUFACTURING ENGINEER PAINT Visits 0 PT-OP-B Current Condition Start: 04/05/24 14:04 Freq: Status: Active Protocol: Document 04/10/24 07:31 [facility] (Rec: 04/10/24 09:02 [facility] [id number]) Current Condition History of Current Condition Onset Date years Current Complaints knee pain History of Current Condition Pt reports R knee pain that has been going on for years that has gotten worse w/time. no injury. Pain is up and down . She has hx of L partial knee replacement. Went to PT once and clinic had just cleaned with smelly coke still cleaner then moved . THat was down in [place] of 2022. Haven't had any injections yet. Saw an [place] MACHINE OPERATOR at sports med clinic and their only plan was starting PT. Right now activity level is low. Was playing golf w/ cart in summer and was walking a couple miles. L knee is fine overall (can't put weight d.t pain and has numbness on ant aspect) getting up and down from ground is hard. 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 Did well with exercises and icing but is still noting swelling. PT-OP-D Balance Start: 04/05/24 14:04 Freq: Status: Active Protocol: Document 05/21/24 07:32 [facility] (Rec: 05/21/24 08:57 [facility] [id number]) Balance Tests Single Limb Standing Single Limb- Right 7 sec R knee pain Single Limb- Left 10 sec PT-OP-F Manual Assessment Start: 04/05/24 14:04 Freq: Status: Active Protocol: Document 04/10/24 07:31 [facility] (Rec: 04/10/24 09:02 [facility] [id number]) Manual Assessments Soft Tissue Assessment Soft Tissue Mobility Assessment tension in quads, ITB, HS, calf R PT-OP-G Mobility & Gait Start: 04/05/24 14:04 Freq: Status: Active Protocol: Document 04/10/24 07:31 [facility] (Rec: 04/10/24 09:02 [facility] [id number]) OP Gait Assessment Comments Gait Comments dec stance time and push off RLE, lat lean over RLE, add RLE PT-OP-J Posture/Palpation/Skin Start: 04/05/24 14:04 Freq: Status: Active Protocol: Document 04/10/24 07:31 [facility] (Rec: 04/10/24 09:02 [facility] [id number]) Posture Evaluation Comments Posture Comments IR R>L femur, R tibia, inversion of R foot, R pelvis rot R, R knee flexed PT-OP-K Range of Motion Start: 04/05/24 14:04 Freq: Status: Active Protocol: Document 05/21/24 07:32 [facility] (Rec: 05/21/24 08:57 [facility] [id number]) Knee Goniometric Range of Motion Knee Right Flexion Active (degrees) 110 Extension Active (degrees) 12 Comments painful both directions PT-OP-M Strength Start: 04/05/24 14:04 Freq: Status: Active Protocol: Document 05/21/24 07:32 [facility] (Rec: 05/21/24 08:57 [facility] [id number]) Hip Strength Hip Manual Muscle Testing Right Flexion (L2) 4- Good- Extension (S1) 4 Good Abduction 4+ Good+ Adduction 4 Good External Rotation 3 Fair Internal Rotation 3+ Fair+ Left Flexion (L2) 4 Good Extension (S1) 4+ Good+ Abduction 4 Good Adduction 4 Good External Rotation 4+ Good+ Internal Rotation 4 Good Knee Strength Knee Manual Muscle Testing Right Flexion (S2) 4- Good- Extension (L3) 3+ Fair+ Comments pain ext Left Flexion (S2) 4+ Good+ Extension (L3) 5 Normal Ankle/Foot Strength Ankle and Foot Manual Muscle Testing Right Dorsiflexion (L4) 4+ Good+ Plantarflexion (S1) 4+ Good+ Left Dorsiflexion (L4) 5 Normal Plantarflexion (S1) 5 Normal Comments PF tested seated B PT-OP-Q Treatments Start: 04/05/24 14:04 Freq: Status: Active Protocol: Document 05/31/24 08:20 [facility] (Rec: 05/31/24 09:02 [facility] [id number]) Therapeutic Exercises Supine Exercises quad set Side right Equipment Used into towel Reps/Minutes 5 sec x10 Heel slide Side bilateral Reps/Minutes 10 hip flex Supine Exercise Name isometric w/DF reviewed -DL Side bilateral Reps/Minutes 30 sec Comments Both knees bent Standing Exercises TKE Side right Equipment Used ball, L2 band Reps/Minutes 8 ea Comments stopped d/t pain step up Side right Equipment Used 6 in step w/rail for balance Reps/Minutes 10 DF Standing Exercise Name DL Side bilateral Reps/Minutes 20 Comments back against the wall sidesteps Standing Exercise Name lat step up Side right Equipment Used 6 in, 4 in step Reps/Minutes 5 ea Comments stopped d/t pain despite changes in form stretch Standing Exercise Name quad Side right Resistance stair Reps/Minutes 60 sec Manual Therapy Treatment Consent Patient gave verbal consent for manual Yes treatment Soft Tissue Mobilization HS Body Location R Mobilization Type Rolling Intensity/Depth Moderate Body Position Supine Comments w/active HS stretch calf Body Location R Mobilization Type Cross-Friction,Rolling, Strumming Intensity/Depth Moderate Body Position Hooklying quad Body Location R quad and ITB Mobilization Type Cross-Friction,Myofascial Release,Rolling,Strumming Joint Mobilizations tibiofemoral Comments PA tibia PT-OP-T Assessment and Plan Start: 04/05/24 14:04 Freq: Status: Active Protocol: Document 05/31/24 08:20 [facility] (Rec: 05/31/24 09:02 [facility] [id number]) Physical Therapy Assessment Goals ROM Short Term Goal (STG) Pt will improve R knee ROM to 10-115. 05/21-12-110 improving STG Duration 05/17/24 Assisted Goal (LTG) Pt will improve R knee ROM to 5-120 to allow for improved ability to do activities. LTG Duration 06/19/24 balance Short Term Goal (STG) Pt will be able to do SLS RLE at least 7 sec to show improved balance STG Duration achieved 05/21 Assisted Goal (LTG) Pt will be able to do SLS BLE at least 15 sec to show improved balance LTG Duration 06/19/24 Strength Short Term Goal (STG) Pt will be indep w/HEP STG Duration achieved advancing as able Mutuel Teller Goal (LTG) Pt will score at least 4+/5 on all BLE MMT to show improved strength and stabilty to show improved greater ease w/ activity. 05/21-improving LTG Duration 06/19/24 LEFS Impairment 39 Short Term Goal (STG) Pt will improved LEFS to at least 46 to show improved functional activity. 05/21-36 STG Duration 05/16/24 Assisted Goal (LTG) Pt will improved LEFS to at least 56 to show improved functional activity. LTG Duration 06/13/24 Assessment Summary Assessment Discussed w/pt that pain still seems to be a major factor and ROM still is limited so would benefit from considering seeing orthopedic surgeon. She had pain w/all end range quad activities except supine quad set w/towel roll under. Physical Therapy Plan Next Visit Focus/Plan Next Note Type Treatment Note Next Visit Plan work on HEP focus to independence
--- NOTE | 2024-06-05 09:07 | PT.OTN ---
Current Diagnoses Pain in right knee (06/05/24) Physical Therapy Treatment Note PT-OP-A Visit Information Start: 04/05/24 14:04 Freq: Status: Active Protocol: Document 06/05/24 08:08 [facility] (Rec: 06/05/24 09:07 [facility] [id number]) Out-Patient Physical Therapy Visit Information Visit Information Visit Type Treatment Note Visit Note Access Code: [email or web address] Visit Start Time 08:17 Visit Stop Time 09:03 Visit Number 13 Number of CERTIFIED MIDWIFE Visits 2 Evaluation Information Evaluation Date 04/10/24 Precautions Precautions COPD, on a statin and no blood thinner PT-OP-B Current Condition Start: 04/05/24 14:04 Freq: Status: Active Protocol: Document 04/10/24 07:31 [facility] (Rec: 04/10/24 09:02 [facility] [id number]) Current Condition History of Current Condition Onset Date years Current Complaints knee pain History of Current Condition Pt reports R knee pain that has been going on for years that has gotten worse w/time. no injury. Pain is up and down . She has hx of L partial knee replacement. Went to PT once and clinic had just cleaned with smelly brass cleaner then moved . [place]. Haven't had any injections yet. Saw an CHEF MANAGER at sports med clinic and their only plan was starting PT. Right now activity level is low. Was playing golf w/ cart in summer and was walking a couple miles. L knee is fine overall (can't put weight d.t pain and has numbness on ant aspect) getting up and down from ground is hard. 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 Nida rates right knee pain .5/10 start of session. Nida rate lateral knee pain 4-5/10 with 4 inch step up with UE use, pain with extension as full as is able PT-OP-D Balance Start: 04/05/24 14:04 Freq: Status: Active Protocol: Document 05/21/24 07:32 [facility] (Rec: 05/21/24 08:57 [facility] [id number]) Balance Tests Single Limb Standing Single Limb- Right 7 sec R knee pain Single Limb- Left 10 sec PT-OP-F Manual Assessment Start: 04/05/24 14:04 Freq: Status: Active Protocol: Document 04/10/24 07:31 [facility] (Rec: 04/10/24 09:02 [facility] [id number]) Manual Assessments Soft Tissue Assessment Soft Tissue Mobility Assessment tension in quads, ITB, HS, calf R PT-OP-G Mobility & Gait Start: 04/05/24 14:04 Freq: Status: Active Protocol: Document 04/10/24 07:31 [facility] (Rec: 04/10/24 09:02 [facility] [id number]) OP Gait Assessment Comments Gait Comments dec stance time and push off RLE, lat lean over RLE, add RLE PT-OP-J Posture/Palpation/Skin Start: 04/05/24 14:04 Freq: Status: Active Protocol: Document 04/10/24 07:31 [facility] (Rec: 04/10/24 09:02 [facility] [id number]) Posture Evaluation Comments Posture Comments IR R>L femur, R tibia, inversion of R foot, R pelvis rot R, R knee flexed PT-OP-K Range of Motion Start: 04/05/24 14:04 Freq: Status: Active Protocol: Document 05/21/24 07:32 [facility] (Rec: 05/21/24 08:57 [facility] [id number]) Knee Goniometric Range of Motion Knee Right Flexion Active (degrees) 110 Extension Active (degrees) 12 Comments painful both directions PT-OP-M Strength Start: 04/05/24 14:04 Freq: Status: Active Protocol: Document 05/21/24 07:32 [facility] (Rec: 05/21/24 08:57 [facility] [id number]) Hip Strength Hip Manual Muscle Testing Right Flexion (L2) 4- Good- Extension (S1) 4 Good Abduction 4+ Good+ Adduction 4 Good External Rotation 3 Fair Internal Rotation 3+ Fair+ Left Flexion (L2) 4 Good Extension (S1) 4+ Good+ Abduction 4 Good Adduction 4 Good External Rotation 4+ Good+ Internal Rotation 4 Good Knee Strength Knee Manual Muscle Testing Right Flexion (S2) 4- Good- Extension (L3) 3+ Fair+ Comments pain ext Left Flexion (S2) 4+ Good+ Extension (L3) 5 Normal Ankle/Foot Strength Ankle and Foot Manual Muscle Testing Right Dorsiflexion (L4) 4+ Good+ Plantarflexion (S1) 4+ Good+ Left Dorsiflexion (L4) 5 Normal Plantarflexion (S1) 5 Normal Comments PF tested seated B PT-OP-Q Treatments Start: 04/05/24 14:04 Freq: Status: Active Protocol: Document 06/05/24 08:08 [facility] (Rec: 06/05/24 09:07 [facility] [id number]) Therapeutic Exercises Supine Exercises quad set Supine Exercise Name HEP Side right Equipment Used into towel Reps/Minutes 5 sec x10 hip flex Supine Exercise Name isometric w/DF reviewed -DL Side bilateral Equipment Used 6 Reps/Minutes 30 sec Comments Both knees bent bridge Supine Exercise Name sl Side bilateral Reps/Minutes x10 and X 2 Comments VC to push into heels, raise LE prior to left, and segmental mvt Sidelying Exercises clamshell Side bilateral Equipment Used L1 Reps/Minutes 10 X2 Comments Verbal and (pt ed seltactile cues for LE position and to avoid rolling back Sitting Exercises seatedhip abduction with band Sitting Exercise Name HEP Side bilateral Resistance [place] level 3 band Reps/Minutes one min hold X 1 then X 15 witout hold Comments verbal cues Standing Exercises DF Standing Exercise Name DL Side bilateral Reps/Minutes X5 Comments back against the wall, limited by lateral knee pain squat Standing Exercise Name mini Side bilateral Resistance Lvl 3 at knees Reps/Minutes X10 Comments focus on returning fully to uprigh right knee as straight as left sidesteps Side bilateral Resistance L 3 above knee stretch Standing Exercise Name 1. HS, 2 soleus, 3 gastroc Side right Resistance stair Reps/Minutes 60 sec each stretch ( carol and soleus bilaterall) Manual Therapy Treatment Soft Tissue Mobilization HS Body Location R Mobilization Type Cross-Friction,Rolling Intensity/Depth Moderate Body Position Supine quad Body Location R quad med and lat knee Mobilization Type Cross-Friction,Myofascial Release,Rolling,Strumming Joint Mobilizations tibia on femur Joint R knee Direction PA Grade III Body Position Hooklying Reps/Duration X10 X 3 Patellofemoral Joint sup, inf, med R, CW and Reps/Duration 5X 4 each PT-OP-T Assessment and Plan Start: 04/05/24 14:04 Freq: Status: Active Protocol: Document 06/05/24 08:08 [facility] (Rec: 06/05/24 09:07 [facility] [id number]) Physical Therapy Assessment Goals ROM Short Term Goal (STG) Pt will improve R knee ROM to 10-115. 05/21-12-110 improving STG Duration 05/17/24 Rental Manager Goal (LTG) Pt will improve R knee ROM to 5-120 to allow for improved ability to do activities. LTG Duration 06/19/24 balance Short Term Goal (STG) Pt will be able to do SLS RLE at least 7 sec to show improved balance STG Duration achieved 05/21 Mcfp Goal (LTG) Pt will be able to do SLS BLE at least 15 sec to show improved balance LTG Duration 06/19/24 Strength Short Term Goal (STG) Pt will be indep w/HEP STG Duration achieved advancing as able Rental Manager Goal (LTG) Pt will score at least 4+/5 on all BLE MMT to show improved strength and stabilty to show improved greater ease w/ activity. 05/21-improving LTG Duration 06/19/24 LEFS Impairment 39 Short Term Goal (STG) Pt will improved LEFS to at least 46 to show improved functional activity. 05/21-36 STG Duration 05/16/24 Mcfp Goal (LTG) Pt will improved LEFS to at least 56 to show improved functional activity. LTG Duration 06/13/24 Assessment Summary Assessment End of session, post manual and review of entire HEP, Nida rates pain with 4 inch step up with UE use 2/10 quad muscle 1/10 lateral knee pain( significant decrease from start of session ) Of note DF exercise limited by pain lateral right knee. Physical Therapy Plan Frequency and Duration Frequency of Treatment 2x/Week Duration of treatment (weeks) 10 Plan of Care Start Date 04/10/24 Plan of Care End Date 06/19/24 Next Visit Focus/Plan Next Note Type Treatment Note Next Visit Plan work on HEP focus to independence
--- NOTE | 2024-06-07 09:05 | PT.OTN ---
Current Diagnoses Pain in right knee (06/07/24) Physical Therapy Treatment Note PT-OP-A Visit Information Start: 04/05/24 14:04 Freq: Status: Active Protocol: Document 06/07/24 08:20 [facility] (Rec: 06/07/24 09:05 [facility] [id number]) Out-Patient Physical Therapy Visit Information Visit Information Visit Type Treatment Note Visit Note Access Code: [email or web address] Visit Start Time 08:20 Visit Stop Time 09:00 Visit Number 14 Number of COMMISSION CLERK Visits 0 PT-OP-B Current Condition Start: 04/05/24 14:04 Freq: Status: Active Protocol: Document 04/10/24 07:31 [facility] (Rec: 04/10/24 09:02 [facility] [id number]) Current Condition History of Current Condition Onset Date years Current Complaints knee pain History of Current Condition Pt reports R knee pain that has been going on for years that has gotten worse w/time. no injury. Pain is up and down . She has hx of L partial knee replacement. Went to PT once and clinic had just cleaned with smelly drain cleaner plumber then [place] . [place]. Haven't had any injections yet. Saw an SANDSTONE SPLITTER at sports med clinic and their only plan was starting PT. Right now activity level is low. Was playing golf w/ cart in summer and was walking a couple miles. L knee is fine overall (can't put weight d.t pain and has numbness on ant aspect) getting up and down from ground is hard. 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 (Rec: 06/07/24 09:05 [facility] [id number]) OP-PT Subjective Patient Comments Patient Comments Pt reports her knee feels stiff. Realized seh doesn't think about her walk. PT-OP-D Balance Start: 04/05/24 14:04 Freq: Status: Active Protocol: Document 05/21/24 07:32 [facility] (Rec: 05/21/24 08:57 [facility] [id number]) Balance Tests Single Limb Standing Single Limb- Right 7 sec R knee pain Single Limb- Left 10 sec PT-OP-F Manual Assessment Start: 04/05/24 14:04 Freq: Status: Active Protocol: Document 04/10/24 07:31 [facility] (Rec: 04/10/24 09:02 [facility] [id number]) Manual Assessments Soft Tissue Assessment Soft Tissue Mobility Assessment tension in quads, ITB, HS, calf R PT-OP-G Mobility & Gait Start: 04/05/24 14:04 Freq: Status: Active Protocol: Document 04/10/24 07:31 [facility] (Rec: 04/10/24 09:02 [facility] [id number]) OP Gait Assessment Comments Gait Comments dec stance time and push off RLE, lat lean over RLE, add RLE PT-OP-J Posture/Palpation/Skin Start: 04/05/24 14:04 Freq: Status: Active Protocol: Document 04/10/24 07:31 [facility] (Rec: 04/10/24 09:02 [facility] [id number]) Posture Evaluation Comments Posture Comments IR R>L femur, R tibia, inversion of R foot, R pelvis rot R, R knee flexed PT-OP-K Range of Motion Start: 04/05/24 14:04 Freq: Status: Active Protocol: Document 05/21/24 07:32 [facility] (Rec: 05/21/24 08:57 [facility] [id number]) Knee Goniometric Range of Motion Knee Right Flexion Active (degrees) 110 Extension Active (degrees) 12 Comments painful both directions PT-OP-M Strength Start: 04/05/24 14:04 Freq: Status: Active Protocol: Document 05/21/24 07:32 [facility] (Rec: 05/21/24 08:57 [facility] [id number]) Hip Strength Hip Manual Muscle Testing Right Flexion (L2) 4- Good- Extension (S1) 4 Good Abduction 4+ Good+ Adduction 4 Good External Rotation 3 Fair Internal Rotation 3+ Fair+ Left Flexion (L2) 4 Good Extension (S1) 4+ Good+ Abduction 4 Good Adduction 4 Good External Rotation 4+ Good+ Internal Rotation 4 Good Knee Strength Knee Manual Muscle Testing Right Flexion (S2) 4- Good- Extension (L3) 3+ Fair+ Comments pain ext Left Flexion (S2) 4+ Good+ Extension (L3) 5 Normal Ankle/Foot Strength Ankle and Foot Manual Muscle Testing Right Dorsiflexion (L4) 4+ Good+ Plantarflexion (S1) 4+ Good+ Left Dorsiflexion (L4) 5 Normal Plantarflexion (S1) 5 Normal Comments PF tested seated B PT-OP-Q Treatments Start: 04/05/24 14:04 Freq: Status: Active Protocol: Document 06/07/24 08:20 [facility] (Rec: 06/07/24 09:05 [facility] [id number]) Therapeutic Exercises Supine Exercises quad set Supine Exercise Name HEP Side right Equipment Used into towel Reps/Minutes 5 sec x10 Heel slide Side bilateral Reps/Minutes 6 hip flex Supine Exercise Name isometric w/DF reviewed -DL Side bilateral Reps/Minutes 30 sec Comments Both knees bent bridge Supine Exercise Name sl Side bilateral Reps/Minutes x10 Comments cues glutes and pelvis level Sidelying Exercises clamshell Side bilateral Equipment Used L1 Reps/Minutes 15 Comments cues to inc range Sitting Exercises seatedhip abduction with band Sitting Exercise Name HEP Side bilateral Resistance [place] level 3 band Reps/Minutes one min hold X 1 then X 10 witout hold Comments min cues Standing Exercises squat Standing Exercise Name mini Side bilateral Resistance Lvl 3 at knees-stopped d/t inc pain Reps/Minutes X10 Comments focus on returning fully to uprigh right knee as straight as left sidesteps Side bilateral Resistance L 3 above knee Reps/Minutes 2x10ft Manual Therapy Treatment Consent Patient gave verbal consent for manual Yes treatment Soft Tissue Mobilization ITB Body Location R Mobilization Type Rolling HS Body Location R Mobilization Type Cross-Friction,Rolling Intensity/Depth Moderate Body Position Supine calf Body Location R Mobilization Type Cross-Friction,Rolling, Strumming Intensity/Depth Moderate Body Position Hooklying Joint Mobilizations hip Comments ER free the ball c/r tibiofemoral Comments PA tibia, med tibia, AP tibia w/IR c/r Patellofemoral Joint sup, inf, med PT-OP-T Assessment and Plan Start: 04/05/24 14:04 Freq: Status: Active Protocol: Document 06/07/24 08:20 [facility] (Rec: 06/07/24 09:05 [facility] [id number]) Physical Therapy Assessment Goals ROM Short Term Goal (STG) Pt will improve R knee ROM to 10-115. 12/30-12-110 improving 1/16-10-115 STG Duration achieved 06/07 Loan Manager Goal (LTG) Pt will improve R knee ROM to 5-120 to allow for improved ability to do activities. LTG Duration 06/19/24 balance Short Term Goal (STG) Pt will be able to do SLS RLE at least 7 sec to show improved balance STG Duration achieved 05/21 Loan Manager Goal (LTG) Pt will be able to do SLS BLE at least 15 sec to show improved balance LTG Duration 06/19/24 Strength Short Term Goal (STG) Pt will be indep w/HEP STG Duration achieved advancing as able Loan Manager Goal (LTG) Pt will score at least 4+/5 on all BLE MMT to show improved strength and stabilty to show improved greater ease w/ activity. 05/21-improving LTG Duration 06/19/24 LEFS Impairment 39 Short Term Goal (STG) Pt will improved LEFS to at least 46 to show improved functional activity. 05/21- STG Duration 05/16/24 Care Home Goal (LTG) Pt will improved LEFS to at least 56 to show improved functional activity. LTG Duration 06/13/24 Assessment Summary Assessment Pt did well with exercises with less cues today. She had less pain w/squat w/o band and less pain with squat after manual to R hip. ROM is slowy improving Physical Therapy Plan Frequency and Duration Frequency of Treatment 2x/Week Duration of treatment (weeks) 10 Plan of Care Start Date 04/10/24 Plan of Care End Date 06/19/24 Next Visit Focus/Plan Next Note Type Treatment Note Next Visit Plan work on HEP focus to independence, manual to improve pain /ROM; work hip and innominate for knee tracking
--- NOTE | 2024-06-11 09:10 | PT.OTN ---
Current Diagnoses Pain in right knee (06/11/24) Physical Therapy Treatment Note PT-OP-A Visit Information Start: 04/05/24 14:04 Freq: Status: Active Protocol: Document 06/11/24 08:07 AB (Rec: 06/11/24 09:10 AB [id number]) Out-Patient Physical Therapy Visit Information Visit Information Visit Type Treatment Note Visit Note Access Code: [email or web address] Visit Start Time 08:16 Visit Stop Time 09:02 Visit Number 15 (7 for PN) Number of MAINTENANCE SUPERVISOR Visits 1 Evaluation Information Evaluation Date 04/10/24 Precautions Precautions COPD, on a statin and no blood thinner PT-OP-B Current Condition Start: 04/05/24 14:04 Freq: Status: Active Protocol: Document 04/10/24 07:31 [facility] (Rec: 04/10/24 09:02 [facility] [id number]) Current Condition History of Current Condition Onset Date years Current Complaints knee pain History of Current Condition Pt reports R knee pain that has been going on for years that has gotten worse w/time. no injury. Pain is up and down . She has hx of L partial knee replacement. Went to PT once and clinic had just cleaned with smelly building cleaner then moved . THat was down in [place] spring of 2022. Haven't had any injections yet. Saw an PORCELAIN MIXER at [facility] med [facility] and their only plan was starting PT. Right now activity level is low. Was playing golf w/ cart in summer and was walking a couple miles. L knee is fine overall (can't put weight d.t pain and has numbness on ant aspect) getting up and down from ground is hard. 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 Lacking 7 deg extension to 115 deg flexion AROM right knee. PT-OP-D Balance Start: 04/05/24 14:04 Freq: Status: Active Protocol: Document 05/21/24 07:32 [facility] (Rec: 05/21/24 08:57 [facility] [id number]) Balance Tests Single Limb Standing Single Limb- Right 7 sec R knee pain Single Limb- Left 10 sec PT-OP-F Manual Assessment Start: 04/05/24 14:04 Freq: Status: Active Protocol: Document 04/10/24 07:31 [facility] (Rec: 04/10/24 09:02 [facility] [id number]) Manual Assessments Soft Tissue Assessment Soft Tissue Mobility Assessment tension in quads, ITB, HS, calf R PT-OP-G Mobility & Gait Start: 04/05/24 14:04 Freq: Status: Active Protocol: Document 04/10/24 07:31 [facility] (Rec: 04/10/24 09:02 [facility] [id number]) OP Gait Assessment Comments Gait Comments dec stance time and push off RLE, lat lean over RLE, add RLE PT-OP-J Posture/Palpation/Skin Start: 04/05/24 14:04 Freq: Status: Active Protocol: Document 04/10/24 07:31 [facility] (Rec: 04/10/24 09:02 [facility] [id number]) Posture Evaluation Comments Posture Comments IR R>L femur, R tibia, inversion of R foot, R pelvis rot R, R knee flexed PT-OP-K Range of Motion Start: 04/05/24 14:04 Freq: Status: Active Protocol: Document 05/21/24 07:32 [facility] (Rec: 05/21/24 08:57 [facility] [id number]) Knee Goniometric Range of Motion Knee Right Flexion Active (degrees) 110 Extension Active (degrees) 12 Comments painful both directions PT-OP-M Strength Start: 04/05/24 14:04 Freq: Status: Active Protocol: Document 05/21/24 07:32 [facility] (Rec: 05/21/24 08:57 [facility] [id number]) Hip Strength Hip Manual Muscle Testing Right Flexion (L2) 4- Good- Extension (S1) 4 Good Abduction 4+ Good+ Adduction 4 Good External Rotation 3 Fair Internal Rotation 3+ Fair+ Left Flexion (L2) 4 Good Extension (S1) 4+ Good+ Abduction 4 Good Adduction 4 Good External Rotation 4+ Good+ Internal Rotation 4 Good Knee Strength Knee Manual Muscle Testing Right Flexion (S2) 4- Good- Extension (L3) 3+ Fair+ Comments pain ext Left Flexion (S2) 4+ Good+ Extension (L3) 5 Normal Ankle/Foot Strength Ankle and Foot Manual Muscle Testing Right Dorsiflexion (L4) 4+ Good+ Plantarflexion (S1) 4+ Good+ Left Dorsiflexion (L4) 5 Normal Plantarflexion (S1) 5 Normal Comments PF tested seated B PT-OP-Q Treatments Start: 04/05/24 14:04 Freq: Status: Active Protocol: Document 06/11/24 08:07 AB (Rec: 06/11/24 09:10 AB [id number]) Therapeutic Exercises Supine Exercises fig 4 stretch Side right Reps/Minutes 60 sec X 1 Sitting Exercises seatedhip abduction with band Sitting Exercise Name HEP Side bilateral Resistance modoc green level 3 band Reps/Minutes one minute Comments Verbal cues to equalize force IE more force right LE Standing Exercises Heel raise on step Standing Exercise Name bilateral Reps/Minutes X10 Comments verbal cues to olwer heels slowly step up Side right Equipment Used 4 in step w/rail for balance Reps/Minutes 10 Comments focus on full extension DF Standing Exercise Name DL Side bilateral Reps/Minutes X10 Comments back against the wall squat Standing Exercise Name mini Side bilateral Resistance Lvl 3 at knees-stopped d/t inc pain Reps/Minutes X10 Comments focus on returning fully to uprigh right knee as straight as left sidesteps Side bilateral Resistance L 3 above knee Reps/Minutes 2x10ft left and right stretch Standing Exercise Name 1. HS, 2 soleus, 3 gastroc Side right Resistance stair Reps/Minutes 60 sec each stretch ( carol and soleus bilaterall) Manual Therapy Treatment Consent Patient gave verbal consent for manual Yes treatment Soft Tissue Mobilization ITB Body Location R Mobilization Type Cross-Friction HS Body Location R Mobilization Type Cross-Friction,Rolling Intensity/Depth Moderate Body Position Supine calf Body Location R Mobilization Type Cross-Friction,Rolling, Strumming Intensity/Depth Moderate Body Position Hooklying quad Body Location R quad med and lat knee Mobilization Type Cross-Friction,Myofascial Release,Rolling,Strumming Joint Mobilizations tibia on femur Joint R knee Direction PA Grade III Body Position Hooklying Reps/Duration X10 X 3 Manual Techniques MET for right AI left PI Type SI AI and PI and pubic shotgun Body Position Hooklying Reps/Duration 6 X 6 sec PT-OP-T Assessment and Plan Start: 04/05/24 14:04 Freq: Status: Active Protocol: Document 06/11/24 08:07 AB (Rec: 06/11/24 09:10 AB [id number]) Physical Therapy Assessment Goals ROM Short Term Goal (STG) Pt will improve R knee ROM to 10-115. 05/21-12-110 improving 06/07-10-115 STG Duration achieved 06/07 Manager Service Desk Goal (LTG) Pt will improve R knee ROM to 5-120 to allow for improved ability to do activities. LTG Duration 06/19/24 balance Short Term Goal (STG) Pt will be able to do SLS RLE at least 7 sec to show improved balance STG Duration achieved 05/21 Detention Goal (LTG) Pt will be able to do SLS BLE at least 15 sec to show improved balance LTG Duration 06/19/24 Strength Short Term Goal (STG) Pt will be indep w/HEP STG Duration achieved advancing as able Detention Goal (LTG) Pt will score at least 4+/5 on all BLE MMT to show improved strength and stabilty to show improved greater ease w/ activity. 05/21-improving LTG Duration 06/19/24 LEFS Impairment 39 Short Term Goal (STG) Pt will improved LEFS to at least 46 to show improved functional activity. 05/21-36 STG Duration 05/16/24 Manager Service Desk Goal (LTG) Pt will improved LEFS to at least 56 to show improved functional activity. LTG Duration 06/13/24 Assessment Summary Assessment Lacking 5 deg extension to 117 deg flexion AROM left knee end of session, verbal and visual cues for hip hinge repeated X2. Nida rates pain 0/ 10 end of session. Physical Therapy Plan Frequency and Duration Frequency of Treatment 2x/Week Duration of treatment (weeks) 10 Plan of Care Start Date 04/10/24 Plan of Care End Date 06/19/24 Next Visit Focus/Plan Next Note Type Treatment Note Next Visit Plan work on HEP focus to independence, manual to improve pain /ROM; work hip and innominate for knee tracking
--- NOTE | 2024-06-13 09:49 | PT.OTN ---
Current Diagnoses Pain in right knee (06/13/24) Physical Therapy Treatment Note PT-OP-A Visit Information Start: 04/05/24 14:04 Freq: Status: Active Protocol: Document 06/13/24 08:20 [facility] (Rec: 06/13/24 08:33 [facility] [id number]) Out-Patient Physical Therapy Visit Information Visit Information Visit Type Discharge Summary Visit Start Time 08:21 Visit Stop Time 09:00 Visit Number 16 Number of ENTRY ANALYST Visits 0 PT-OP-B Current Condition Start: 04/05/24 14:04 Freq: Status: Active Protocol: Document 04/10/24 07:31 [facility] (Rec: 04/10/24 09:02 [facility] [id number]) Current Condition History of Current Condition Onset Date years Current Complaints knee pain History of Current Condition Pt reports R knee pain that has been going on for years that has gotten worse w/time. no injury. Pain is up and down . She has hx of L partial knee replacement. Went to PT once and clinic had just cleaned with smelly night cleaner then moved . THat was down in [place] 20[place]. Haven't had any injections yet. Saw an LUMBER TRIPPER at sports med clinic and their only plan was starting PT. Right now activity level is low. Was playing golf w/ cart in summer and was walking a couple miles. L knee is fine overall (can't put weight d.t pain and has numbness on ant aspect) getting up and down from ground is hard. 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 Stretching Daily and doing strength every other day. ICing after. PT-OP-D Balance Start: 04/05/24 14:04 Freq: Status: Active Protocol: Document 06/13/24 08:20 [facility] (Rec: 06/13/24 08:33 [facility] [id number]) Balance Tests Single Limb Standing Single Limb- Right 9 sec Single Limb- Left 13 sec PT-OP-F Manual Assessment Start: 04/05/24 14:04 Freq: Status: Active Protocol: Document 04/10/24 07:31 [facility] (Rec: 04/10/24 09:02 [facility] [id number]) Manual Assessments Soft Tissue Assessment Soft Tissue Mobility Assessment tension in quads, ITB, HS, calf R PT-OP-G Mobility & Gait Start: 04/05/24 14:04 Freq: Status: Active Protocol: Document 04/10/24 07:31 [facility] (Rec: 04/10/24 09:02 [facility] [id number]) OP Gait Assessment Comments Gait Comments dec stance time and push off RLE, lat lean over RLE, add RLE PT-OP-J Posture/Palpation/Skin Start: 04/05/24 14:04 Freq: Status: Active Protocol: Document 04/10/24 07:31 [facility] (Rec: 04/10/24 09:02 [facility] [id number]) Posture Evaluation Comments Posture Comments IR R>L femur, R tibia, inversion of R foot, R pelvis rot R, R knee flexed PT-OP-K Range of Motion Start: 04/05/24 14:04 Freq: Status: Active Protocol: Document 06/13/24 08:20 [facility] (Rec: 06/13/24 08:33 [facility] [id number]) Knee Goniometric Range of Motion Knee Right Flexion Active (degrees) 116 Extension Active (degrees) 10 Comments painful both directions PT-OP-M Strength Start: 04/05/24 14:04 Freq: Status: Active Protocol: Document 06/13/24 08:20 [facility] (Rec: 06/13/24 08:39 [facility] [id number]) Hip Strength Hip Manual Muscle Testing Right Flexion (L2) 4 Good Extension (S1) 5 Normal Abduction 4+ Good+ Adduction 4 Good External Rotation 3+ Fair+ Internal Rotation 5 Normal Left Flexion (L2) 4+ Good+ Extension (S1) 5 Normal Abduction 5 Normal Adduction 4+ Good+ External Rotation 5 Normal Internal Rotation 5 Normal Knee Strength Knee Manual Muscle Testing Right Flexion (S2) 4- Good- Extension (L3) 3+ Fair+ Comments pain ext Left Flexion (S2) 5 Normal Extension (L3) 5 Normal Ankle/Foot Strength Ankle and Foot Manual Muscle Testing Right Dorsiflexion (L4) 5 Normal Plantarflexion (S1) 5 Normal Left Dorsiflexion (L4) 5 Normal Plantarflexion (S1) 5 Normal Comments PF tested seated B PT-OP-Q Treatments Start: 04/05/24 14:04 Freq: Status: Active Protocol: Document 06/13/24 08:20 [facility] (Rec: 06/13/24 08:33 [facility] [id number]) Therapeutic Exercises Supine Exercises quad set Supine Exercise Name HEP Side right Equipment Used into towel Reps/Minutes 5 sec x2 Heel slide Side bilateral Reps/Minutes 6 hip flex Supine Exercise Name isometric w/DF reviewed -DL Side bilateral Reps/Minutes 30 secx2 Comments Both knees bent bridge Supine Exercise Name sl Side bilateral Reps/Minutes 5 Comments cues glutes and pelvis level Sitting Exercises HS curl Side bilateral Equipment Used L3 Reps/Minutes 10 ea self roll out Sitting Exercise Name review Side left Reps/Minutes 1 min Standing Exercises squat Standing Exercise Name mini Side bilateral Reps/Minutes X10 Comments focus on returning fully to uprigh right knee as straight as left Other Exercises isometric Other Exercise Name BLE MMT Manual Therapy Treatment Soft Tissue Mobilization HS Body Location R Mobilization Type Cross-Friction,Rolling Intensity/Depth Moderate Body Position Supine calf Body Location R Mobilization Type Cross-Friction,Rolling, Strumming Intensity/Depth Moderate Body Position Hooklying quad Body Location R quad med and lat knee Mobilization Type Cross-Friction,Myofascial Release,Rolling,Strumming PT-OP-T Assessment and Plan Start: 04/05/24 14:04 Freq: Status: Active Protocol: Document 06/13/24 08:20 [facility] (Rec: 06/13/24 08:33 [facility] [id number]) Physical Therapy Assessment Goals ROM Short Term Goal (STG) Pt will improve R knee ROM to 10-115. 05/21-12-110 improving 06/07-10-115 STG Duration achieved 06/07 Track Leader Goal (LTG) Pt will improve R knee ROM to 5-120 to allow for improved ability to do activities. 06/13-10-116 LTG Duration 06/19/24 balance Short Term Goal (STG) Pt will be able to do SLS RLE at least 7 sec to show improved balance STG Duration achieved 05/21 Detention Goal (LTG) Pt will be able to do SLS BLE at least 15 sec to show improved balance 06/13-9 sec R, 13 sec R LTG Duration 06/19/24 Strength Short Term Goal (STG) Pt will be indep w/HEP STG Duration achieved advancing as able Detention Goal (LTG) Pt will score at least 4+/5 on all BLE MMT to show improved strength and stabilty to show improved greater ease w/ activity. 05/21-improving 06/13-improvied LTG Duration 06/19/24 LEFS Impairment 39 Short Term Goal (STG) Pt will improved LEFS to at least 46 to show improved functional activity. 05/21-36 06/13-33 STG Duration 05/16/24 Track Leader Goal (LTG) Pt will improved LEFS to at least 56 to show improved functional activity. LTG Duration 06/13/24 Assessment Summary Assessment Pt has much improved strength and ROM but still having pain that limits activity so encouraged pt to cont to work on HEP to cont to advance this as able and see ortho to consider injection or evaluate for potential surgery. DC to HEP at this time. Physical Therapy Plan Discharge Physical Therapy Discharge Reasons Plateau in Progress
--- NOTE | 2024-06-13 09:49 | PT.OPDS ---
Current Diagnoses Pain in right knee (06/13/24) Visit Care Team Role Provider Type Lucina Carlson MD Attending Provider Physician Family Provider Primary Care Provider Referring Provider Specialty: Family Practice Address: [address] [place] [address], [facility], [place], [place], [facility] Email: [email or web address] Visit Number Visit Number 16 Discharge Summary PT-OP-B Current Condition Start: 04/05/24 14:04 Freq: Status: Active Protocol: Document 04/10/24 07:31 [facility] (Rec: 04/10/24 09:02 [facility] [id number]) Current Condition History of Current Condition Onset Date years Current Complaints knee pain History of Current Condition Pt reports R knee pain that has been going on for years that has gotten worse w/time. no injury. Pain is up and down . She has hx of L partial knee replacement. Went to PT once and clinic had just cleaned with smelly drain cleaner plumber then moved . THat was down in spring of 2022. Haven't had any injections yet. Saw an METAL LATHER at sports med clinic and their only plan was starting PT. Right now activity level is low. Was playing golf w/ cart in summer and was walking a couple miles. L knee is fine overall (can't put weight d.t pain and has numbness on ant aspect) getting up and down from ground is hard. 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 (Rec: 06/13/24 08:33 [facility] [id number]) OP-PT Subjective Patient Comments Patient Comments Agrees [facility] is ready for DC. Stretching Daily and doing strength every other day. ICing after. PT-OP-D Balance Start: 04/05/24 14:04 Freq: Status: Active Protocol: Document 06/13/24 08:20 [facility] (Rec: 06/13/24 08:33 [facility] [id number]) Balance Tests Single Limb Standing Single Limb- Right 9 sec Single Limb- Left 13 sec PT-OP-F Manual Assessment Start: 04/05/24 14:04 Freq: Status: Active Protocol: Document 04/10/24 07:31 [facility] (Rec: 04/10/24 09:02 [facility] [id number]) Manual Assessments Soft Tissue Assessment Soft Tissue Mobility Assessment tension in quads, ITB, HS, calf R PT-OP-G Mobility & Gait Start: 04/05/24 14:04 Freq: Status: Active Protocol: Document 04/10/24 07:31 [facility] (Rec: 04/10/24 09:02 [facility] [id number]) OP Gait Assessment Comments Gait Comments dec stance time and push off RLE, lat lean over RLE, add RLE PT-OP-J Posture/Palpation/Skin Start: 04/05/24 14:04 Freq: Status: Active Protocol: Document 04/10/24 07:31 [facility] (Rec: 04/10/24 09:02 [facility] [id number]) Posture Evaluation Comments Posture Comments IR R>L femur, R tibia, inversion of R foot, R pelvis rot R, R knee flexed PT-OP-K Range of Motion Start: 04/05/24 14:04 Freq: Status: Active Protocol: Document 06/13/24 08:20 [facility] (Rec: 06/13/24 08:33 [facility] [id number]) Knee Goniometric Range of Motion Knee Right Flexion Active (degrees) 116 Extension Active (degrees) 10 Comments painful both directions PT-OP-M Strength Start: 04/05/24 14:04 Freq: Status: Active Protocol: Document 06/13/24 08:20 [facility] (Rec: 06/13/24 08:39 [facility] [id number]) Hip Strength Hip Manual Muscle Testing Right Flexion (L2) 4 Good Extension (S1) 5 Normal Abduction 4+ Good+ Adduction 4 Good External Rotation 3+ Fair+ Internal Rotation 5 Normal Left Flexion (L2) 4+ Good+ Extension (S1) 5 Normal Abduction 5 Normal Adduction 4+ Good+ External Rotation 5 Normal Internal Rotation 5 Normal Knee Strength Knee Manual Muscle Testing Right Flexion (S2) 4- Good- Extension (L3) 3+ Fair+ Comments pain ext Left Flexion (S2) 5 Normal Extension (L3) 5 Normal Ankle/Foot Strength Ankle and Foot Manual Muscle Testing Right Dorsiflexion (L4) 5 Normal Plantarflexion (S1) 5 Normal Left Dorsiflexion (L4) 5 Normal Plantarflexion (S1) 5 Normal Comments PF tested seated B PT-OP-T Assessment and Plan Start: 04/05/24 14:04 Freq: Status: Active Protocol: Document 06/13/24 08:20 [facility] (Rec: 06/13/24 08:33 [facility] [id number]) Physical Therapy Assessment Goals ROM Short Term Goal (STG) Pt will improve R knee ROM to 10-115. 05/21- improving 06/07-10-115 STG Duration achieved 06/07 Bookmobile Driver Goal (LTG) Pt will improve R knee ROM to 5-120 to allow for improved ability to do activities. - LTG Duration 06/19/24 balance Short Term Goal (STG) Pt will be able to do SLS RLE at least 7 sec to show improved balance STG Duration achieved 05/21 Mcc Goal (LTG) Pt will be able to do SLS BLE at least 15 sec to show improved balance 06/13-9 sec R, 13 sec R LTG Duration 06/19/24 Strength Short Term Goal (STG) Pt will be indep w/HEP STG Duration achieved advancing as able Bookmobile Driver Goal (LTG) Pt will score at least 4+/5 on all BLE MMT to show improved strength and stabilty to show improved greater ease w/ activity. 05/21-improving 06/13-improvied LTG Duration 06/19/24 LEFS Impairment 39 Short Term Goal (STG) Pt will improved LEFS to at least 46 to show improved functional activity. 05/21-36 06/13- STG Duration 05/16/24 Mcc Goal (LTG) Pt will improved LEFS to at least 56 to show improved functional activity. LTG Duration 06/13/24 Assessment Summary Assessment Pt has much improved strength and ROM but still having pain that limits activity so encouraged pt to cont to work on HEP to cont to advance this as able and see ortho to consider injection or evaluate for potential surgery. DC to HEP at this time. Physical Therapy Plan Discharge Physical Therapy Discharge Reasons Plateau in Progress
== END 2024-06-20 10:46 | disposition home or self-care (01) ==
LOC: PHYS 08:15
PROVIDERS: Family Provider Family Medicine; PCP Family Medicine; Referring Provider Family Medicine; Visit Provider Family Medicine
DX: M25.561 Pain in right knee (principal)
CPT/HCPCS: 97110; 97140; 97162; 97530

== ENCOUNTER → 2024-06-20 07:06 | Outpatient (CLI) | payer MEDICARE, SELFPAY ==
[2024-06-22 13:11] LABS: Lamotrigine Lamictal 6.2 ug/mL (2.0-20.0)
== END ==
PROVIDERS: Family Provider Family Medicine; PCP Family Medicine; Referring Provider Psychiatry & Neurology Psychiatry; Visit Provider Psychiatry & Neurology Psychiatry
DX: Z79.899 Other long term (current) drug therapy (principal)
CPT/HCPCS: 36415; 80175

== ENCOUNTER 2024-06-28 13:38 | Day surgery (SDC) | payer MEDICARE, SELFPAY ==
--- NOTE | 2024-06-28 | PATH_ITS ---
[facility] Accession Number: [id number] No. of containers..01 Tissue . 01 Material submitted: . stomach - ANTRUM . 01 Diagnosis: ANTRUM: Gastric mucosa with minimal chronic inflammation, and focal intestinal metaplasia. No Helicobacter organisms identified on H/E stain. No dysplasia, or malignancy identified. STO 07/02/20241214 Local . 01 Electronically signed: . Lisandro Concepcion MD, Pathologist NPI- [id number] . 01 Gross description: . Received in formalin with two patient identifiers and antrum biopsy, are two lane soft tissue fragments, 0.4-0.5 cm in greatest dimension, submitted in A1. ([id number]) /MRV 07/02/20241214 Local . 01 Pathologist provided ICD-10: K29.30 . 01 CPT . 661618 Specimen Comment: A courtesy copy of this report has been sent to [phone] Performed at: [address] [facility] [address], [place], [place] [id number] MD Lisandro Concepcion MD Phone: [phone]
[2024-06-28] MEDS: LACTATED RINGERS 1,000 ML 42 ML IV (14:32)
--- NOTE | 2024-06-28 14:38 | P.HP_ITS ---
History of Present Illness History of Present Illness Date Patient Seen: 06/28/24 Time Patient Seen: 14:38 Chief complaint: EGD/Colonoscopy Narrative: Nida is a 79 year old woman here for EGD and colonoscopy for anemia. She had a recent hemoglobin of 9.5. She had an EGD and a colonoscopy 2 years ago with findings of gastric metaplasia and multiple colon polyps that turned out to be tubular adenomas. [facility] Medical History (Updated 06/19/24 @ 09:34 by Abdias Roberson MD) Centrilobular emphysema Tinnitus Dependence on nocturnal oxygen therapy HLD (hyperlipidemia) Anemia Nocturnal oxygen desaturation Severe chronic obstructive pulmonary disease Pulmonary nodule 1 cm or greater in diameter Tobacco dependence Neck pain Eczema Acne Osteoarthritis Shoulder pain Mumps Measles Chicken pox Seasonal affective disorder RLS (restless legs syndrome) Sleep disturbance Surgical History Anesthesia History of right hip replacement (~2005) History of total left knee replacement Family History Father Mesothelioma Cancer Mother Suicide Grandfather Stroke Grandmother Breast cancer Grandfather History of heart disease Social History household members: spouse Smoking Status: Former smoker Meds Home Medications and Allergies Home Medications Medication Instructions Recorded Confirmed Type inhalational spacing device #1 ea 12/09/20 06/15/24 Rx albuterol sulfate 90 mcg/actuation 2 puff inhalation Q4-6H PRN 08/16/23 06/28/24 Rx aerosol inhaler shortness of breath or wheezing #8.5 grams tiotropium bromide 2.5 2 inh inhalation QAM #4 grams 11/09/23 06/28/24 Rx mcg/actuation mist for inhalation (Spiriva Respimat) atorvastatin 20 mg tablet 20 mg PO DAILY #90 tabs 12/20/23 06/28/24 Rx bupropion HCl 150 mg 24 hr tablet, 450 mg (3 x 150 mg) PO QAM #270 12/20/23 06/28/24 Rx extended release tabs lamotrigine 150 mg tablet 225 mg (1.5 x 150 mg) PO DAILY 12/20/23 06/28/24 Rx (Lamictal) #135 tabs pregabalin 50 mg capsule See Rx Instructions .Route 12/20/23 06/28/24 Rx .COMPLEX #450 caps ropinirole 1 mg tablet 1 mg PO QID #360 tabs 12/20/23 06/28/24 Rx fluticasone furoate 200 1 inh inhalation Q24H #60 ea 04/10/24 06/28/24 Rx mcg-vilanterol 25 mcg/dose inhalation powder (Breo Ellipta) ferumoxytol 510 mg/17 mL (30 510 mg (17 mL) IV Q3D 2 doses 05/30/24 06/28/24 Rx mg/mL) intravenous solution (Feraheme) lamotrigine 250 mg tablet,extended 250 mg PO DAILY #90 tabs 06/19/24 06/28/24 Rx release 24 hr Allergies Allergy/AdvReac Type Severity Reaction Status Date / Time No Known Drug Allergies Allergy Verified 06/15/24 15:03 Exam Const General: No acute distress Resp Effort & Inspection: normal respiratory effort Assessment & Plan Assessment and plan (1) Anemia: Qualifiers: Anemia type: unspecified type Qualified Code(s): D64.9 - Anemia, unspecified Status: Acute Plan EGD and colonoscopy for anemia Time-Based Coding :: [TOTAL MINUTES] spent with patient and on the chart (including review of chart, obtaining history, exam, reviewing outside data, placing orders, documenting exam and treatment plan, and counseling patient) on [DATE]. 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
[2024-06-28 14:40] VITALS: BP 129/76; PULSE 81; RESP 18; TEMP 36.2; O2SAT 97
[2024-06-28 15:29] VITALS: BP 132/52; PULSE 83; RESP 14; TEMP 36.1; O2SAT 94
--- NOTE | 2024-06-28 15:32 | PM.OP.EC ---
Operative Date/Time/Diagnoses Date of procedure: 06/28/24 Time of procedure: 15:32 Pre-op diagnosis: Anemia Post-op diagnosis: same Procedure & Clinicians Study performed: EGD Colonoscopy (aborted poor prep) Same procedure as scheduled: No Surgeon: Reddy Gambnio Procedure Notes Procedure in detail: Surgeon: Reddy Gambino MD Anesthesia: Vicki Lopez CRNA Procedure in detail: A timeout was performed. A bite blocked was placed and monitors were attached to the patient. The patient was positioned in the left lateral decubitus position. Sedation was administered. Once the patient was sedated the endoscope was inserted through the bite block and passed through the esophagus and stomach and into the duodenum. No gross abnormalities were seen. We then withdrew the scope into the stomach. There was mild antritis and we took random biopsies of the antrum with cold forceps. The endoscope was retroflexed and no other abnormalities were seen. The endoscope was straightned and withdrawn into the esophagus. No abnormalities were seen in the esophagus. EGD findings: Mild antritis Next we repositioned the patient for a colonoscopy. A digital rectal exam was performed and was normal. The colonoscope was inserted and advanced to the rectum. There was inadequate prep to safely navigate the rectum and sigmoid colon and the procedure was aborted. Colonoscopy findings: Inadequate prep Total procedural EBL: 3 mL Scope withdrawal time: Not applicable Sedation minutes: 19 minutes Post-procedure Disposition: PACU
[2024-06-28 15:34] VITALS: BP 134/64; PULSE 85; RESP 18; O2SAT 93
[2024-06-28 15:39] VITALS: BP 127/76; PULSE 85; RESP 16; O2SAT 96
== END 2024-06-28 15:57 | disposition home or self-care (01) ==
PROVIDERS: Family Provider Family Medicine; PCP Family Medicine; Referring Provider Surgery; Visit Provider Surgery
PROC: 0DJ08ZZ Inspection of Upper Intestinal Tract, Via Natural or Artificial Opening Endoscopic (ICD-10-PCS; CPT 43239; principal; 2024-06-28 15:00)
DX: D64.9 Anemia, unspecified (principal); Z53.09 Procedure and treatment not carried out because of other contraindication; Z86.0100 Personal history of colon polyps, unspecified; Z87.19 Personal history of other diseases of the digestive system; Z87.891 Personal history of nicotine dependence; K29.50 Unspecified chronic gastritis without bleeding
CPT/HCPCS: 43239; 45378; J2704

== ENCOUNTER → 2024-07-11 11:11 | Outpatient (CLI) | payer MEDICARE, SELFPAY | PROVIDERS: Family Provider Family Medicine; PCP Family Medicine; Visit Provider Family Medicine | DX: J39.2 Other diseases of pharynx (principal) | CPT/HCPCS: 87070; 87077 ==

== ENCOUNTER 2024-08-23 07:37 | Day surgery (SDC) | payer MEDICARE, SELFPAY ==
--- NOTE | 2024-08-23 | PATH_ITS ---
[facility] Accession Number: [id number] No. of containers..03 Tissue . 01 Material submitted: . PART A: cecum - CECAL POLYPS PART B: colon - ASCENDING POLYPS PART C: colon - TRANSVERSE POLYPS . 01 Diagnosis: A. CECUM: Tubular adenomas. . B. ASCENDING COLON: Tubular adenomas. . C. TRANSVERSE COLON: Tubular adenomas. [facility] 08/24/2024 1523 Local . 01 Electronically signed: . Brittni Pittman DO, Pathologist NPI- [id number] . 01 Gross description: . Part A: CECAL POLYPS: Received in formalin are multiple fragment(s) of lane, soft tissue measuring 0.1 x 0.1 x 0.1 cm to 0.7 x 0.5 x 0.4 cm submitted entirely in 1 cassette(s) Part B: ASCENDING POLYPS: Received in formalin are 4 fragment(s) of lane, soft tissue measuring 0.4 x 0.3 x 0.2 cm to 1.0 x 0.4 x 0.2 cm submitted entirely in 1 cassette(s) Part C: TRANSVERSE POLYPS: Received in formalin are 2 fragment(s) of lane, soft tissue measuring 0.3 x 0.3 x 0.2 cm to 0.5 x 0.4 x 0.2 cm submitted entirely in 1 cassette(s) /PARISH 08/23/2024 2327 Local . 01 Pathologist provided ICD-10: Z12.11 . 01 CPT . 353588, 431158, 147738 Specimen Comment: A courtesy copy of this report has been sent to [phone] Performed at: [address] [address], [place], [place] [id number] MD Lisandro Concepcion MD Phone: [phone]
[2024-08-23] MEDS: LACTATED RINGERS 1,000 ML 42 ML IV (08:07)
[2024-08-23 08:11] VITALS: BP 123/66; PULSE 84; RESP 14; TEMP 36.2; O2SAT 97
--- NOTE | 2024-08-23 08:45 | PM.HP.IH.1 ---
History of Present Illness History of Present Illness Date Patient Seen: 08/23/24 Time Patient Seen: 08:45 Chief complaint: Colonoscopy Narrative: Nida is a 79-year-old woman who had a colonoscopy in 2022 with several adenomatous polyps removed including a tubulovillous adenoma without high-grade dysplasia. She was scheduled for colonoscopy a few months ago due to anemia but her prep was inadequate so she was rescheduled to today. Her prep seems to have worked well today. [facility] Medical History (Updated 08/23/24 @ 08:46 by Reddy Gambino MD) Centrilobular emphysema Tinnitus Dependence on nocturnal oxygen therapy HLD (hyperlipidemia) Anemia Nocturnal oxygen desaturation Severe chronic obstructive pulmonary disease Pulmonary nodule 1 cm or greater in diameter Tobacco dependence Neck pain Eczema Acne Osteoarthritis Shoulder pain Mumps Measles Chicken pox Seasonal affective disorder RLS (restless legs syndrome) Sleep disturbance Surgical History Anesthesia History of right hip replacement (~2005) History of total left knee replacement Family History Father Mesothelioma Cancer Mother Suicide Grandfather Stroke Grandmother Breast cancer Grandfather History of heart disease Social History household members: spouse Smoking Status: Former smoker alcohol intake: current Meds Home Medications and Allergies Home Medications Medication Instructions Recorded Confirmed Type inhalational spacing device #1 ea 12/09/20 07/11/24 Rx albuterol sulfate 90 mcg/actuation 2 puff inhalation Q4-6H PRN 08/16/23 08/23/24 Rx aerosol inhaler shortness of breath or wheezing #8.5 grams bupropion HCl 150 mg 24 hr tablet, 450 mg (3 x 150 mg) PO QAM #270 12/20/23 07/11/24 Rx extended release tabs ropinirole 1 mg tablet 1 mg PO QID #360 tabs 12/20/23 08/23/24 Rx ferumoxytol 510 mg/17 mL (30 510 mg (17 mL) IV Q3D 2 doses 05/30/24 08/23/24 Rx mg/mL) intravenous solution (Feraheme) lamotrigine 250 mg tablet,extended 250 mg PO DAILY #90 tabs 06/19/24 08/23/24 Rx release 24 hr fluticasone furoate 200 1 inh inhalation Q24H #60 ea 06/28/24 08/23/24 Rx mcg-vilanterol 25 mcg/dose inhalation powder (Breo Ellipta) meloxicam 7.5 mg tablet 7.5 mg PO DAILY 07/11/24 08/23/24 History nystatin 100,000 unit/mL oral 100,000 unit PO DAILY #60 mL 07/13/24 Rx suspension pregabalin 50 mg capsule See Rx Instructions .Route 08/09/24 08/23/24 Rx .COMPLEX #450 caps atorvastatin 20 mg tablet 20 mg PO DAILY #90 tabs 08/21/24 08/23/24 Rx tiotropium bromide 2.5 2 inh inhalation QAM #4 grams 08/21/24 08/23/24 Rx mcg/actuation mist for inhalation (Spiriva Respimat) Allergies Allergy/AdvReac Type Severity Reaction Status Date / Time No Known Drug Allergies Allergy Verified 08/23/24 07:58 Exam Vital Signs (past 8 hours): - 08/23/24 08:11 Temperature 97.1 F L Pulse Rate 84 Respiratory Rate 14 Blood Pressure 123/66 Pulse Oximetry 97 Oxygen Delivery Method Room Air Oxygen Delivery Method Room Air Const General: No acute distress Assessment & Plan Assessment and plan (1) History of adenomatous polyp of colon: Status: Acute Plan Colonoscopy Time-Based Coding :: [TOTAL MINUTES] spent with patient and on the chart (including review of chart, obtaining history, exam, reviewing outside data, placing orders, documenting exam and treatment plan, and counseling patient) on [DATE]. PROFEE Social Work Associate Document charge(s): No
--- NOTE | 2024-08-23 09:51 | PM.OP.COLON ---
Operative Date/Time/Diagnoses Date of procedure: 08/23/24 Time of procedure: 09:51 Pre-op diagnosis: History of polyps Post-op diagnosis: same Procedure & Clinicians Study performed: Colonoscopy Same procedure as scheduled: Yes Surgeon: Reddy Gambino Procedure Notes Procedure in detail: Surgeon: Reddy Gambino MD Anesthesia: Aliya Cabrera CRNA Procedure: The patient was brought to the endoscopy suite, placed in left lateral decubitus position. The patient was connected to monitoring devices. A time-out was performed. Sedation was administered. Once the patient was adequately sedated, a digital rectal exam was performed and was normal. The scope was then inserted and advanced to the cecum where the appendiceal orifice was identified and photographed. The scope was then slowly withdrawn over greater than 6 minutes. The mucosa was thoroughly inspected. There were two small polyps in the cecum, roughly 5 mm each, both removed with cold snare and sent together. There were 3 polyps in the ascending colon. One was close to 1 cm and two were closer to 5 mm. They were all removed with a cold snare and sent together. There were 2 5 mm polyps in the transverse colon removed cold snare and sent together. The prep was inadequate to fully examine the left colon. Copious suction and irrigation were utilized in attempt to clear left colon but ultimately there was too much solid debris to clear. The scope was retroflexed in the rectum. No other abnormalities were found. The scope was straightened and removed. The patient was awakened and brought to recovery. Scope withdrawal time: 21 minutes Sedation time: 47 minutes EBL: 5 mL Findings: 2 small cecal polyps, 3 polyps in the ascending colon, 1 of which was close to 1 cm, 2 small polyps in the transverse colon and incomplete prep obscuring the descending colon Post-procedure Disposition: PACU
[2024-08-23 09:55] VITALS: BP 124/63; PULSE 86; RESP 22; TEMP 36.6; O2SAT 95
[2024-08-23 10:00] VITALS: BP 130/61; PULSE 84; RESP 20; TEMP 36.3; O2SAT 95
[2024-08-23 10:05] VITALS: BP 135/64; PULSE 85; RESP 20; TEMP 36.3; O2SAT 96
== END 2024-08-23 10:24 | disposition home or self-care (01) ==
PROVIDERS: Family Provider Family Medicine; PCP Family Medicine; Referring Provider Surgery; Visit Provider Surgery
PROC: 0DJD8ZZ Inspection of Lower Intestinal Tract, Via Natural or Artificial Opening Endoscopic (ICD-10-PCS; CPT 45378; principal; 2024-08-23 08:45)
DX: Z12.11 Encounter for screening for malignant neoplasm of colon (principal); Z86.0101 Personal history of adenomatous and serrated colon polyps; D12.0 Benign neoplasm of cecum; D12.2 Benign neoplasm of ascending colon; D12.3 Benign neoplasm of transverse colon
CPT/HCPCS: 45385; J2704

== ENCOUNTER → 2024-10-16 11:16 | Outpatient (CLI) | payer MEDICARE, SELFPAY ==
[2024-10-16 13:03] LABS: Iron 76 ug/dL (37-170)
[2024-10-16 13:14] LABS: Total Iron Binding Capacity 386 ug/dL (265-497)
== END ==
PROVIDERS: Family Provider Family Medicine; PCP Family Medicine; Referring Provider Internal Medicine Sleep Medicine; Visit Provider Internal Medicine Sleep Medicine
DX: J44.9 Chronic obstructive pulmonary disease, unspecified (principal); G47.30 Sleep apnea, unspecified; G25.81 Restless legs syndrome; G47.34 Idiopathic sleep related nonobstructive alveolar hypoventilation; E83.10 Disorder of iron metabolism, unspecified
CPT/HCPCS: 36415; 83540; 83550

== ENCOUNTER 2024-11-01 07:18 | Day surgery (SDC) | payer MEDICARE, SELFPAY ==
--- NOTE | 2024-11-01 | PATH_ITS ---
[facility] Accession Number: [id number] No. of containers..01 Tissue . 01 Material submitted: . colon - ASCENDING POLYPS . 01 Diagnosis: A: ASCENDING COLON, POLYPECTOMIES: Tubular adenomas. [facility] 11/07/2024 1451 Local . 01 Electronically signed: . Victoriano Haynes MD, Pathologist NPI- [id number] . 01 Gross description: . Received in formalin with two identifiers and ascending polyp, are multiple lane soft tissue fragments admixed with debris aggregating to 1.8 x 0.8 x 0.2 cm. Filtered and submitted entirely in cassette A1. ([id number]) /MERARY 11/03/2024 2301 Local . 01 Pathologist provided ICD-10: Z12.11 . 01 CPT . 531820 Specimen Comment: A courtesy copy of this report has been sent to [phone] Performed at: [address] [address], [place], [place] [id number] MD Lisandro Concepcion MD Phone: [phone]
[2024-11-01 08:13] VITALS: BP 146/71; PULSE 88; RESP 18; TEMP 36; O2SAT 98
[2024-11-01] MEDS: LACTATED RINGERS 1,000 ML 42 ML IV (08:21)
--- NOTE | 2024-11-01 09:22 | P.HP_ITS ---
History of Present Illness History of Present Illness Date Patient Seen: 11/01/24 Time Patient Seen: 09:22 Chief complaint: Colonoscopy Narrative: Nida is a 79-year-old woman who presents for a colonoscopy. She had an incomplete prep when she had a colonoscopy back August. There were several tubular adenomas removed but descending colon could not be adequately visualized to complete procedure [facility] Medical History (Updated 08/23/24 @ 08:46 by Reddy Gambino MD) Centrilobular emphysema Tinnitus Dependence on nocturnal oxygen therapy HLD (hyperlipidemia) Anemia Nocturnal oxygen desaturation Severe chronic obstructive pulmonary disease Pulmonary nodule 1 cm or greater in diameter Tobacco dependence Neck pain Eczema Acne Osteoarthritis Shoulder pain Mumps Measles Chicken pox Seasonal affective disorder RLS (restless legs syndrome) Sleep disturbance Surgical History Anesthesia History of right hip replacement (~2005) History of total left knee replacement Family History Father Mesothelioma Cancer Mother Suicide Grandfather Stroke Grandmother Breast cancer Grandfather History of heart disease Social History household members: spouse Smoking Status: Former smoker alcohol intake: current Meds Home Medications and Allergies Home Medications ?Medication ?Instructions ?Recorded ?Confirmed ?Type inhalational spacing device #1 ea 12/09/20 10/08/24 Rx ferumoxytol 510 mg/17 mL (30 510 mg (17 mL) IV Q3D 2 d oses 05/30/24 10/08/24 Rx mg/mL) intravenous solution (Feraheme) lamotrigine 250 mg tablet,extended 250 mg PO DAILY #90 tabs 06/19/24 11/01/24 Rx release 24 hr fluticasone furoate 200 1 inh inhalation Q24H #60 ea 06/28/24 11/01/24 Rx mcg-vilanterol 25 mcg/dose inhalation powder (Breo Ellipta) meloxicam 7.5 mg tablet 7.5 mg PO DAILY 07/11/2405/16 History pregabalin 50 mg capsule See Rx Instructions .Route 0 08/09/24 11/01/24 Rx .COMPLEX #450 caps atorvastatin 20 mg tablet 20 mg PO DAILY #90 tabs 04/0 06/1611/01/24 Rx tiotropium bromide 2.5 2 inh inhalation QAM #4 gram s 08/21/24 11/01/24 Rx mcg/actuation mist for inhalation (Spiriva Respimat) peg 3350-sod sulf,[id number] 1,000 ml PO .COMPLEX # 2,000 mL 08/31/24 11/01/24 Rx 178.7-7.3-0.5-1.12-0.9 gram oral soln (Suflave) bupropion HCl 150 mg 24 hr tablet, 450 mg (3 x 150 mg) PO QAM #270 10/23/24 11/01/24 Rx extended release tabs albuterol sulfate 90 mcg/actuation 2 puff inhalation Q 4-6H PRN 10/24/24 11/01/24 Rx aerosol inhaler shortness of breath or wheez ing #8.5 grams ropinirole 1 mg tablet 1 mg PO QID #360 tabs 11/01/24 Rx Allergies Allergy/AdvReac Type Severity Reaction Status Date / Time No Known Drug Allergies Allergy Verified 11/01/24 08:08 Exam Vital Signs (past 8 hours): - 11/01/24 08:13 Temperature 96.8 F L Pulse Rate 88 Respiratory Rate 18 Blood Pressure 146/71 H Pulse Oximetry 98 Oxygen Delivery Method Room Air Oxygen Delivery Method Room Air Const General: healthy appearing Assessment & Plan Assessment and plan (1) History of adenomatous polyp of colon: Status: Acute Plan Colonoscopy Time-Based Coding :: [TOTAL MINUTES] spent with patient and on the chart (including review of chart, obtaining history, exam, reviewing outside data, placing orders, documenting exam and treatment plan, and counseling patient) on [DATE]. PROFEE Credit Administration Specialist Document charge(s): No
--- NOTE | 2024-11-01 10:28 | P.OP.COLON_ITS ---
Operative Date/Time/Diagnoses Date of procedure: 11/01/24 Time of procedure: 10:28 Pre-op diagnosis: History of polyps Post-op diagnosis: same Procedure & Clinicians Study performed: Colonoscopy Same procedure as scheduled: Yes Surgeon: Reddy Gambino Procedure Notes Procedure in detail: Surgeon: Reddy Gambino MD Anesthesia: Bobby Aguilar COMMISSARY PRODUCTION SUPERVISOR Procedure: The patient was brought to the endoscopy suite, placed in left lateral decubitus position. The patient was connected to monitoring devices. A time-out was performed. Sedation was administered. Once the patient was adequately sedated, a digital rectal exam was performed and was normal. The scope was then inserted and advanced to the cecum where the appendiceal orifice was identified and photographed. The scope was then slowly withdrawn over greater than 6 minutes. The mucosa was thoroughly inspected. The tattoo ink from one of her prior colonoscopies was seen in the ascending colon. There was no residual polyp within the area of the tattoo ink however there were 2 small sessile polyps proximal to the tattoo ink and one small sessile polyp distal to the ink. All were removed with a cold snare and sent together as ascending colon polyps. The scope was retroflexed in the rectum. No other abnormalities were found. The scope was straightened and removed. The patient was awakened and brought to recovery. Scope withdrawal time: 16 minutes Sedation time: 40 minutes EBL: 3 mL Findings: 3 small polyps in the ascending colon Post-procedure Disposition: PACU
[2024-11-01 10:30] VITALS: BP 117/57; PULSE 94; RESP 16; TEMP 36.6; O2SAT 98
[2024-11-01 10:31] VITALS: BP 128/60; PULSE 89; RESP 16; TEMP 36.2; O2SAT 98
[2024-11-01 10:40] VITALS: BP 101/70; PULSE 82; RESP 16; TEMP 36.2; O2SAT 98
[2024-11-01 10:47] VITALS: BP 116/74; PULSE 84; RESP 16; TEMP 36.2; O2SAT 99
== END 2024-11-01 11:03 | disposition home or self-care (01) ==
PROVIDERS: Family Provider Family Medicine; PCP Family Medicine; Referring Provider Surgery; Visit Provider Surgery
PROC: 0DJD8ZZ Inspection of Lower Intestinal Tract, Via Natural or Artificial Opening Endoscopic (ICD-10-PCS; CPT 45378; principal; 2024-11-01 08:45)
DX: Z12.11 Encounter for screening for malignant neoplasm of colon (principal); Z86.0100 Personal history of colon polyps, unspecified; D12.2 Benign neoplasm of ascending colon
CPT/HCPCS: 45385; J2704

== ENCOUNTER → 2024-11-16 13:38 | Outpatient (CLI) | payer MEDICARE, SELFPAY ==
[2024-11-16 15:27] LABS: Ferritin 8 ng/mL (11-264)
== END ==
PROVIDERS: Family Provider Family Medicine; PCP Family Medicine; Referring Provider Internal Medicine Sleep Medicine; Visit Provider Internal Medicine Sleep Medicine
DX: E83.10 Disorder of iron metabolism, unspecified (principal)
CPT/HCPCS: 36415; 82728

== ENCOUNTER 2024-12-05 17:39 | Emergency (ER) | payer MEDICARE, SELFPAY ==
[2024-12-05] VITALS (9 sets, daily range): BP systolic 132–154; BP diastolic 67–82; PULSE 73–105; RESP 15–35; TEMP 36.6; O2SAT 92–96; BMI 26.6
--- NOTE | 2024-12-05 17:48 | DI.RAD.S_ITS ---
PROCEDURE: XR CHEST 1V INDICATIONS: Shortness of breath TECHNIQUE: One view of the chest was acquired. COMPARISON: [facility], CR, XR CHEST 2V, 11/25/2023, 10:23. [facility], CR, XR CHEST 2V, 08/30/2023, 11:47. FINDINGS: Surgical changes and devices: None. Lungs and pleura: Opacity in the medial right lung base is stable compared to prior. Mild blunting of the right costophrenic angle.. Mediastinum: Mediastinal contours appear normal. Heart size is normal. Bones and chest wall: No suspicious bony lesions. Overlying soft tissues appear unremarkable. IMPRESSION: Stable opacity of the right medial lung base, unclear if this represents infection or chronic interstitial markings given long-term stability. Mild blunting of the right costophrenic angle may represent small effusion, atelectasis or opacity. Dictated by: Rodolfo Mascorro M.D. on 12/05/2024 at 18:46 Approved by: Rodolfo Mascorro M.D. on 12/05/2024 at 18:47
--- NOTE | 2024-12-05 17:48 | EKG_ITS ---
[address] [address] Test Date: 2024-12-05 Pat Name: Kerrie Mcgee Department: [facility] Room: Gender: Female Vegetable Specker: [place] : 1945 Requested By: Order Number: [id number] Reading MD: Theo Gusman Measurements Intervals [place] Rate: 92 P: 65 DC: 162 QRS: 48 QRSD: 78 T: 64 QT: 362 QTc: 447 Interpretive Statements Normal sinus rhythm Electronically Signed On 12-06-2024 18:04:51 PDT by Theo Gusman
[2024-12-05 18:14] LABS: Add Manual Diff / Slide Review NO; Hematocrit 39.5 % (36-46); Hemoglobin 13.1 g/dL (12.0-16.0); Lymphocytes Absolute Auto 900 /uL (1100-4500); Mean Corpuscular HGB Conc 33.1 % (30-36); Mean Corpuscular Hemoglobin 28.5 PG (26-34); Mean Corpuscular Volume 86.0 fL (80-100); Platelet Count 213 X10^3/uL (150-400)
[2024-12-05 18:18] LABS: INR 1.0 (0.9-1.3); Prothrombin Time 11.1 SECONDS (9.4-12.5)
[2024-12-05 18:23] LABS: Lactate (Lactic Acid) 1.0 mmol/L (0.7-2.1)
[2024-12-05 18:24] LABS: Alanine Aminotransferase 18 IU/L (<35); Albumin 4.2 g/dL (3.5-5.0); Albumin Globulin Ratio 1.5 (1.0-2.8); Alkaline Phosphatase 98 U/L (38-126); Blood Urea Nitrogen 23 mg/dL (7-17); Calcium 9.6 mg/dL (8.4-10.2); Carbon Dioxide 24 mmol/L (22-32); Chloride 110 mmol/L (98-107); Estimated Glomerular Filt Rate 57 mL/min (>60); Globulin 2.8 g/dL (1.7-4.1); Glucose 115 mg/dL (70-99); HEMOLYSIS < 15 (0-50); Potassium 3.8 mmol/L (3.4-5.1); Sodium 141 mmol/L (137-145); Total Protein 7.0 g/dL (6.3-8.2)
[2024-12-05 18:35] LABS: NT-proBNP (BNP-Adult 18+) 141 pg/mL (<450); Troponin I < 0.012 ng/mL (0.01-0.034)
--- NOTE | 2024-12-05 20:31 | DI.US.S_ITS ---
PROCEDURE: US PERIPH VENOUS LOW EXTREM LT INDICATIONS: swelloing TECHNIQUE: Real-time imaging, as well as color and pulse Doppler interrogation, were performed of the lower extremity deep veins from the inguinal ligament to the popliteal fossa, with documentation of the visualized calf veins. COMPARISON: None. FINDINGS: The common femoral, femoral, popliteal, and the visualized calf veins are normally compressible, and free of intraluminal thrombus. Color and pulse Doppler demonstrate normal phasic intraluminal flow. There is normal augmentation response to distal compression maneuver. IMPRESSION: No findings of lower extremity deep venous thrombosis. Dictated by: Meri Hernandez M.D. on 12/05/2024 at 21:26 Approved by: Meri Hernandez M.D. on 12/05/2024 at 21:26
--- NOTE | 2024-12-05 20:33 | PC.NURSE ---
Pt states that she is due for infusion tomorrow due to her severe anemia. She states that yesterday she noticed left leg swelling along with ankle swelling. Hx: COPD, and severe anemia. Pt states that she is more weak than usual.
[2024-12-05 21:11] LABS: PTT Partial Thromboplastin Tim 29 SECONDS (25.1-36.5)
[2024-12-05 21:48] LABS: Coronavirus NL 63 Not Detected (Not Detect); SARS- CoV-2 Not Detected (Not Detecte)
--- NOTE | 2024-12-05 21:52 | ED.GENADULT ---
HPI - General Adult General Chief complaint: Shortness of Breath/Dyspnea Stated complaint: COPD, SOB, L Leg Swelling Time Seen by Provider: 12/05/24 19:46 Source: patient Mode of arrival: Ambulatory History of Present Illness HPI narrative: Pleasant 79-year-old woman was sent in by urgent care because of unilateral left leg swelling. She denies any chest pain, palpitations, shortness of breath, history DVT or PE. She reports a history of restless leg syndrome and also reports a history of iron-deficiency. She states that she is scheduled for her 1st iron infusion tomorrow. She has a history of iron-deficiency anemia or possibly blood loss anemia but she states she has had negative EGD and colonoscopy. She is not on any blood thinners and has no other concerns or complaints at this time. Related Data Home Medications ?Medication ?Instructions ?Recorded ?Confirmed meloxicam 7.5 mg tablet 7.5 mg PO DAILY 07/11/24 11/01/24 Previous Rx's ?Medication ?Instructions ?Recorded inhalational spacing device #1 ea 12/09/20 lamotrigine 250 mg tablet,extended 250 mg PO DAILY #90 tabs 06/19/24 release 24 hr fluticasone furoate 200 1 inh inhalation Q24H #60 ea 06/28/24 mcg-vilanterol 25 mcg/dose inhalation powder (Breo Ellipta) pregabalin 50 mg capsule See Rx Instructions .Route 08/09/24 .COMPLEX #450 caps atorvastatin 20 mg tablet 20 mg PO DAILY #90 tabs 08/21/24 tiotropium bromide 2.5 2 inh inhalation QAM #4 grams 08/21/24 mcg/actuation mist for inhalation (Spiriva Respimat) bupropion HCl 150 mg 24 hr tablet, 450 mg (3 x 150 mg) PO QAM #270 10/23/24 extended release tabs albuterol sulfate 90 mcg/actuation 2 puff inhalation Q4-6H PRN 10/24/24 aerosol inhaler shortness of breath or wheezing #8.5 grams ropinirole 1 mg tablet 1 mg PO QID #360 tabs 10/24/24 ferumoxytol 510 mg/17 mL (30 510 mg (17 mL) IV Q3D 2 doses #0 mL 11/26/24 mg/mL) intravenous solution (Feraheme) Held on 11/26/24. Instructions: Home Medication placed on hold at Doctor's office Allergies Allergy/AdvReac Type Severity Reaction Status Date / Time No Known Drug Allergies Allergy Verified 12/05/24 17:46 Patient History Medical History (Updated 12/05/24 @ 21:51 by Zain Wallace MD) Centrilobular emphysema Tinnitus Dependence on nocturnal oxygen therapy HLD (hyperlipidemia) Anemia Nocturnal oxygen desaturation Severe chronic obstructive pulmonary disease Pulmonary nodule 1 cm or greater in diameter Tobacco dependence Neck pain Eczema Acne Osteoarthritis Shoulder pain Mumps Measles Chicken pox Seasonal affective disorder RLS (restless legs syndrome) Sleep disturbance Surgical History Anesthesia History of right hip replacement (~2005) History of total left knee replacement Family History Father Mesothelioma Cancer Mother Suicide Grandfather Stroke Grandmother Breast cancer Grandfather History of heart disease Social History household members: spouse Smoking Status: Former smoker alcohol intake: current Smoking Status: Former smoker alcohol intake frequency: 0-2 drinks per day Exam Initial Vital Signs Initial Vital Signs: Vital Signs Temperature 98 F 12/05/24 17:42 Pulse Rate 105 H 12/05/24 17:42 Respiratory Rate 24 12/05/24 17:42 Blood Pressure 132/75 12/05/24 17:42 Pulse Oximetry 95 12/05/24 17:42 Oxygen Delivery Method Room Air 12/05/24 17:42 Const General: healthy appearing, comfortable, No acute distress and No ill appearing Nutritional Appearance: average body habitus [facility] Head: normal to inspection, normocephalic and atraumatic Ears: hearing grossly normal bilaterally Face and sinus: normal facial exam Eyes General: Yes appearance normal, both eyes and all related structures Pupils: PERRL EOM: EOM intact bilaterally Neck Neck: normal visual inspection and No tender Carotids: no bruits Resp Effort & Inspection: normal respiratory effort Auscultation: clear to auscultation bilaterally Cardio Rate: regular rate Rhythm: regular rhythm Heart Sounds: S1 normal and S2 normal GI Palpation: soft and No tender Back/Spine/Pelvis Back: No CVA tenderness Neuro General: patient alert, patient awake and patient oriented x3 Extrem General: no calf tenderness Other: Negative Homans sign bilaterally. There is unilateral leg swelling on the left up to the knee which is 1+ nonpitting. Bilateral dorsalis pedis pulses are symmetrical and intact. There is no warmth redness drainage or wounds on the affected left leg. Psych Mental Status: mental status grossly normal Course Course Course Narrative: Patient seen and examined by myself when she was roomed. She was essentially sent over from walk-in clinic for DVT rule out because of unilateral leg swelling. She had no chest pain, palpitations, shortness of breath or any signs or symptoms of a PE or a COPD exacerbation, or other cardiopulmonary condition. Labs were all essentially unremarkable and ultrasound was negative for DVT and the patient was discharged to follow up with her PCP. Return instructions given to the patient which can be viewed on the discharge instructions. Orders Ordered: ED Orders 12/05/24 17:48 XR chest 1V Stat EKG-12 Lead Stat Measure peak expiratory flow STAT RT Consult Eval and Treat STAT 12/05/24 17:56 Complete Blood Count AUTO DIFF Stat Comprehensive Metabolic Panel Stat Lactate (Lactic Acid) Stat NT-proBNP (BNP-Adult 18+) Stat Prothrombin Time INR Stat Troponin I Stat 12/05/24 20:31 US periph venous low extrem lt Stat 12/05/24 20:40 Respiratory Panel (Film Array) Stat 12/05/24 20:45 D Dimer Stat PTT [PTT Partial Thromboplastin Semaj] Stat Vital Signs Vital signs: Vital Signs - 8 hr 12/05/24 17:42 12/05/24 19:59 12/05/24 20:00 Temperature 98 F Pulse Rate 105 H 79 78 Respiratory Rate 24 Blood Pressure 132/75 Pulse Oximetry 95 96 95 Oxygen Delivery Method Room Air 12/05/24 20:15 12/05/24 20:15 12/05/24 20:30 Temperature Pulse Rate 76 78 Respiratory Rate 15 Blood Pressure 142/67 H Pulse Oximetry 94 92 Oxygen Delivery Method Room Air Medical Decision Making Lab Data 12/05/24 17:56 12/05/24 17:56 Labs: Lab Results 12/05/24 12/05/24 Range/Units 17:56 20:45 WBC 7.9 (4.5-11.0) X10^3/uL RBC 4.60 (4.0-5.2) X10^6/uL Hgb 13.1 (12.0-16.0) g/dL Hct 39.5 (36-46) % MCV 86.0 (80-100) fL MCH 28.5 (26-34) PG MCHC 33.1 (30-36) % RDW 15.4 H (11.6-14.8) % Plt Count 213 (150-400) X10^3/uL Neut % (Auto) 79.6 H (50-75) % Lymph % (Auto) 10.9 L (25-40) % [place] % (Auto) 6.0 (3-14) % Eos % (Auto) 2.2 (2-4) % Baso % (Auto) 1.3 (0-2) % Neut # (Auto) 6300 (1449-3883) /uL Lymph # (Auto) 900 L (7172-1106) /uL [place] # (Auto) 500 (0-900) /uL Eos # (Auto) 200 (0-450) /uL Baso # (Auto) 100 (0-100) /uL PT 11.1 (9.4-12.5) SECONDS INR 1.0 (0.9-1.3) APTT 29 (25.1-36.5) SECONDS D-Dimer 302 (<500) ng/ml Sodium 141 (137-145) mmol/L Potassium 3.8 (3.4-5.1) mmol/L Chloride 110 H (98-107) mmol/L Carbon Dioxide 24 (22-32) mmol/L BUN 23 H (7-17) mg/dL Creatinine 1.02 (0.52-1.04) mg/dL Estimated GFR 57 L (>60) mL/min BUN/Creatinine Ratio 22.5 H (6-22) Glucose 115 H (70-99) mg/dL Lactate 1.0 (0.7-2.1) mmol/L Calcium 9.6 (8.4-10.2) mg/dL Total Bilirubin 0.5 (0.2-1.3) mg/dL AST 23 (14-36) IU/L ALT 18 (<35) IU/L Alkaline Phosphatase 98 (38-126) U/L Troponin I < 0.012 (0.01-0.034) ng/mL NT-Pro-B Natriuret Pep 141 (<450) pg/mL Total Protein 7.0 (6.3-8.2) g/dL Albumin 4.2 (3.5-5.0) g/dL Globulin 2.8 (1.7-4.1) g/dL Albumin/Globulin Ratio 1.5 (1.0-2.8) ECG Data Interpretation: Normal sinus rhythm. 92 beats per minute. No ST or T-wave changes or tachycardia. Discharge Plan Departure Patient Disposition: Home Clinical Impression: Left leg swelling Instructions: DI for Leg Pain Activity Restrictions/Additional Instructions: If there is any change or worsening in her condition especially worsening swelling of her leg, shortness of breath, chest pain, palpitations, lightheadedness, dizziness, fevers chills sweats nausea or vomiting then please return to the ER or call 911 right away for further evaluation. Otherwise please contact your PCP as soon as possible to be re-evaluated and continue evaluation of this leg swelling. Prescriptions: No Action meloxicam 7.5 mg tablet 7.5 mg PO DAILY lamotrigine 250 mg tablet extended release 24hr 250 mg PO DAILY Qty: 90 3RF bupropion HCl 150 mg tablet extended release 24 hr 450 mg PO QAM MDD 450 mg Qty: 270 3RF (DME) inhalational spacing device Spacer See Rx Instructions .Route Qty: 1 0RF Rx Instructions: As directed, BRAND PER INSURANCE fluticasone furoate-vilanterol [Breo Ellipta] 200-25 mcg/dose blister with device 1 inh inhalation Q24H Qty: 60 2RF pregabalin 50 mg capsule See Rx Instructions .ROUTE .COMPLEX Qty: 450 3RF Rx Instructions: Take 1-2 tabs up to 3x/day for RLS symptoms; atorvastatin 20 mg tablet 20 mg PO DAILY Qty: 90 3RF Spiriva Respimat 2.5 mcg/actuation mist 2 inh inhalation QAM Qty: 4 11RF albuterol sulfate 90 mcg/actuation HFA aerosol inhaler 2 puff inhalation Q4-6H PRN (Reason: shortness of breath or wheezing) Qty: 8.5 3RF ropinirole 1 mg tablet 1 mg PO QID Qty: 360 3RF ferumoxytol [Feraheme] 510 mg/17 mL (30 mg/mL) solution 510 mg IV Q3D Rx Instructions: administer over at least 15 minutes Referrals: Lucina Carlson MD [Primary Care Provider, Family Practice] - As soon as possible Stand Alone Forms: Patient Portal/API
== END 2024-12-05 22:08 | disposition home or self-care (01) ==
PROVIDERS: Emergency Medicine; Emergency Provider Emergency Medicine; Family Provider Family Medicine; PCP Family Medicine
DX: M79.89 Other specified soft tissue disorders (principal); D50.9 Iron deficiency anemia, unspecified
CPT/HCPCS: 71045; 80053; 83605; 83880; 84484; 85025; 85379; 85610; 85730; 87633; 93005; 93971; 99283; 99284

== ENCOUNTER → 2024-12-17 10:19 | Outpatient (CLI) | payer MEDICARE, SELFPAY ==
[2024-12-17 10:39] LABS: Appearance Urine UA CLOUDY; Bilirubin Urine UA NEGATIVE (NEGATIVE); Color Urine UA YELLOW; Glucose Urine UA NEGATIVE (Negative); Ketones Urine UA NEGATIVE (NEGATIVE); Leukocyte Esterase Urine UA 2+ (NEGATIVE); Nitrite Urine UA POSITIVE (Negative); Occult Blood Urine UA TRACE-INTACT (Negative); Protein Urine UA TRACE (Negative); Specific Gravity Urine UA 1.020 (1.000-1.035); Urobilinogen Urine UA 0.2 E.U./dL (0.2)
[2024-12-17 10:42] LABS: pH Urine UA 6.0 (4.5-8.0)
[2024-12-17 10:46] LABS: Culture Indicated Urine Specimen Cultured
== END ==
PROVIDERS: Family Provider Family Medicine; PCP Family Medicine; Referring Provider Family Medicine; Visit Provider Family Medicine
DX: R30.0 Dysuria (principal)
CPT/HCPCS: 81001; 87077; 87086; 87186

== ENCOUNTER → 2025-01-02 07:36 | Outpatient (CLI) | payer MEDICARE, SELFPAY ==
[2025-01-02 08:06] LABS: Add Manual Diff / Slide Review NO; Hematocrit 42.0 % (36-46); Hemoglobin 13.8 g/dL (12.0-16.0); Lymphocytes Absolute Auto 800 /uL (1100-4500); Mean Corpuscular HGB Conc 32.7 % (30-36); Mean Corpuscular Hemoglobin 28.5 PG (26-34); Mean Corpuscular Volume 87.0 fL (80-100); Platelet Count 228 X10^3/uL (150-400)
[2025-01-02 08:33] LABS: Iron 70 ug/dL (37-170)
[2025-01-02 08:59] LABS: Ferritin 44 ng/mL (11-264)
== END ==
PROVIDERS: Family Provider Family Medicine; PCP Family Medicine; Referring Provider Family Medicine; Visit Provider Family Medicine
DX: D64.9 Anemia, unspecified (principal)
CPT/HCPCS: 36415; 82728; 83540; 85025

== ENCOUNTER → 2025-03-29 08:34 | Outpatient (CLI) | payer MEDICARE, SELFPAY ==
[2025-03-29 10:17] LABS: Add Manual Diff / Slide Review NO; Hematocrit 39.8 % (36-46); Hemoglobin 13.1 g/dL (12.0-16.0); Lymphocytes Absolute Auto 800 /uL (1100-4500); Mean Corpuscular HGB Conc 33.0 % (30-36); Mean Corpuscular Hemoglobin 28.0 PG (26-34); Mean Corpuscular Volume 85.1 fL (80-100); Platelet Count 250 X10^3/uL (150-400)
[2025-03-29 10:41] LABS: HEMOLYSIS < 15 (0-50); Iron 70 ug/dL (37-170)
[2025-03-29 10:51] LABS: Percent Iron Saturation 21 % (15-50); Total Iron Binding Capacity 340 ug/dL (265-497); Transferrin 294 mg/dL (206-381)
[2025-03-29 11:11] LABS: Ferritin 14 ng/mL (11-264)
== END ==
PROVIDERS: Family Provider Family Medicine; PCP Family Medicine; Referring Provider Family Medicine; Visit Provider Family Medicine
DX: D64.9 Anemia, unspecified (principal); E61.1 Iron deficiency; D50.9 Iron deficiency anemia, unspecified
CPT/HCPCS: 36415; 82728; 83540; 83550; 85025

== ENCOUNTER 2025-04-30 06:33 | Emergency (ER) | payer MEDICARE, SELFPAY ==
[2025-04-30 06:46] VITALS: BP 144/67; PULSE 57; RESP 16; TEMP 36.2; O2SAT 94; BMI 27.6
--- NOTE | 2025-04-30 07:15 | ED.SKABFB ---
HPI - Skin/Abscess/Foreign Bdy General Chief complaint: Skin/Abscess/Foreign Body Stated complaint: Cyst on both ears, worse on left ear Time Seen by Provider: 04/30/25 07:09 Source: patient Mode of arrival: Ambulatory Limitations: no limitations History of Present Illness HPI narrative: 80-year-old female who about a week ago had some new earrings placed and since then have been dealing with some redness warmth and pain around the area. Approximately week ago, she was seen at the walk-in clinic and started on Keflex. She is completed the 5 day course of antibiotics but still feels as if the area is swollen and now there is some clear drainage from the area. No fever no chills or other symptoms. Related Data Home Medications ?Medication ?Instructions ?Recorded ?Confirmed meloxicam 7.5 mg tablet 7.5 mg PO DAILY 07/11/24 04/20/25 Previous Rx's ?Medication ?Instructions ?Recorded inhalational spacing device #1 ea 12/09/20 lamotrigine 250 mg tablet,extended 250 mg PO DAILY #90 tabs 06/19/24 release 24 hr atorvastatin 20 mg tablet 20 mg PO DAILY #90 tabs 08/21/24 tiotropium bromide 2.5 2 inh inhalation QAM #4 grams 08/21/24 mcg/actuation mist for inhalation (Spiriva Respimat) bupropion HCl 150 mg 24 hr tablet, 450 mg (3 x 150 mg) PO QAM #270 10/23/24 extended release tabs albuterol sulfate 90 mcg/actuation 2 puff inhalation Q4-6H PRN 10/24/24 aerosol inhaler shortness of breath or wheezing #8.5 grams fluticasone furoate 200 1 ea inhalation DAILY #60 ea 12/12/24 mcg-vilanterol 25 mcg/dose inhalation powder (Breo Ellipta) nitrofurantoin macrocrystal 100 mg 100 mg PO BID #10 caps 12/17/24 capsule clobetasol 0.05 % topical ointment 1 applic topical BID 2 weeks #30 12/18/24 grams ropinirole 1 mg tablet 1 mg PO 5XD RLS #450 tabs 01/28/25 pregabalin 50 mg capsule See Rx Instructions .Route 03/08/25 .COMPLEX #450 caps azithromycin 250 mg tablet See Rx Instructions PO .COMPLEX #6 03/09/25 tabs methylprednisolone 4 mg tablets in See Rx Instructions PO PER PKG DIR 03/09/25 a dose pack (Medrol (Sina)) #1 ea cephalexin 500 mg capsule 500 mg PO BID #14 caps 04/30/25 Allergies Allergy/AdvReac Type Severity Reaction Status Date / Time No Known Drug Allergies Allergy Verified 04/20/25 13:59 Review of Systems Review of Systems ROS Unobtainable: All systems reviewed & are unremarkable except as noted in HPI and below Patient History Medical History (Updated 04/30/25 @ 07:24 by Etienne Rangel MD) Centrilobular emphysema Tinnitus Dependence on nocturnal oxygen therapy HLD (hyperlipidemia) Anemia Nocturnal oxygen desaturation Severe chronic obstructive pulmonary disease Pulmonary nodule 1 cm or greater in diameter Tobacco dependence Neck pain Eczema Acne Osteoarthritis Shoulder pain Mumps Measles Chicken pox Seasonal affective disorder RLS (restless legs syndrome) Sleep disturbance Surgical History Anesthesia History of right hip replacement (~2005) History of total left knee replacement Family History Father Mesothelioma Cancer Mother Suicide Grandfather Stroke Grandmother Breast cancer Grandfather History of heart disease Social History household members: spouse alcohol intake: current alcohol intake frequency: 0-2 drinks per day Exam Narrative Exam Narrative: General: Patient appears to be in no acute distress, acting appropriately Head: normocephalic, atraumatic, HEENT: Pupils equal round reactive, eyes tracking well, neck supple, no JVD Heart: regular rate and rhythm, no murmurs, rubs, or gallops heard Lungs: clear to auscultation, no adventitious sounds Abdomen: soft , nontender, nondistended, positive bowel sounds Neurological: no focal neurological signs, moving all extremities well, alert and oriented x3, Psych: good judgment ,good insight, mood is normal. bilateral ear lobes has some swelling/edema/clear drainage Initial Vital Signs Initial Vital Signs: Vital Signs Temperature 97.2 F L 04/30/25 06:46 Pulse Rate 57 L 04/30/25 06:46 Respiratory Rate 16 04/30/25 06:46 Blood Pressure 144/67 H 04/30/25 06:46 Pulse Oximetry 94 04/30/25 06:46 Oxygen Delivery Method Room Air 04/30/25 06:46 Procedures Abscess I/D I&D #1: Site: face (bilateral ear lobes ) Local Anesthetic: lidocaine 2% Amount of anesthesia used (mL): 3 Technique: incised with #11 blade Amount of fluid expressed (mL): 2 Complications: other (none) Course Orders Ordered: ED Orders 04/30/25 07:11 Wound Culture and Gram Stain Stat Vital Signs Vital signs: Vital Signs - 8 hr 04/30/25 06:46 Temperature 97.2 F L Pulse Rate 57 L Respiratory Rate 16 Blood Pressure 144/67 H Pulse Oximetry 94 Oxygen Delivery Method Room Air MDM - Skin/Abscess/Foreign Bdy MDM Narrative Medical decision making narrative: 80-year-old female who has an abscess from her earrings approximately week ago. I&D performed for her successfully with no issues. We will send for culture. Do Keflex again for another week. Follow up if symptoms worsen. Discharge Plan Departure Patient Disposition: Home Clinical Impression: Abscess of skin or subcutaneous tissue Qualifiers: Site of cutaneous abscess: other site Qualified Code(s): L02.818 - Cutaneous abscess of other sites Instructions: DI for Skin Abscess Activity Restrictions/Additional Instructions: Use antibiotics as prescribed, follow up sooner if symptoms worsen. Prescriptions: New cephalexin 500 mg capsule 500 mg PO BID Qty: 14 0RF No Action meloxicam 7.5 mg tablet 7.5 mg PO DAILY clobetasol 0.05 % ointment 1 applic topical BID 14 Days Qty: 30 2RF azithromycin 250 mg tablet See Rx Instructions PO .COMPLEX Qty: 6 0RF Rx Instructions: For 250 mg dose pack: take 500 mg today (day 1), then 250 mg for 4 days (days 2-5) PO methylprednisolone [Medrol (Sina)] 4 mg tablets,dose pack See Rx Instructions PO PER PKG DIR Qty: 1 0RF Rx Instructions: PO PER PKG DIR for 6 days lamotrigine 250 mg tablet extended release 24hr 250 mg PO DAILY Qty: 90 3RF bupropion HCl 150 mg tablet extended release 24 hr 450 mg PO QAM MDD 450 mg Qty: 270 3RF (DME) inhalational spacing device Spacer See Rx Instructions .Route Qty: 1 0RF Rx Instructions: As directed, BRAND PER INSURANCE atorvastatin 20 mg tablet 20 mg PO DAILY Qty: 90 3RF Spiriva Respimat 2.5 mcg/actuation mist 2 inh inhalation QAM Qty: 4 11RF albuterol sulfate 90 mcg/actuation HFA aerosol inhaler 2 puff inhalation Q4-6H PRN (Reason: shortness of breath or wheezing) Qty: 8.5 3RF fluticasone furoate-vilanterol [Breo Ellipta] 200-25 mcg/dose blister with device 1 ea inhalation DAILY Qty: 60 3RF nitrofurantoin macrocrystal 100 mg capsule 100 mg PO BID Qty: 10 0RF Rx Instructions: must administer with a meal/food ropinirole 1 mg tablet 1 mg PO 5XD Qty: 450 3RF pregabalin 50 mg capsule See Rx Instructions .ROUTE .COMPLEX Qty: 450 3RF Rx Instructions: Take 1-2 tabs up to 3x/day for RLS symptoms; Referrals: Lucina Carlson MD [Primary Care Provider, Family Practice] Stand Alone Forms: Patient Portal/API
--- NOTE | 2025-04-30 07:23 | PC.NURSE ---
report given to SRIDHAR Adams
== END 2025-04-30 08:01 | disposition home or self-care (01) ==
PROVIDERS: Emergency Provider Family Medicine; Family Provider Family Medicine; PCP Family Medicine
DX: L02.818 Cutaneous abscess of other sites (principal)
CPT/HCPCS: 10060; 87070; 87077; 87147; 87186; 87205; 99281; 99283